=== PATIENT | female | born 1935 | race Caucasian/White ===

== ENCOUNTER 2018-11-30 11:09 | Observation (INO) | payer OTHER ==
[2018-11-30 12:05] LABS: Absolute Lymphocytes (CBC) 0.6 K/uL (0.7-4.9); Basophils % 0.6 % (0-1.3); Lymphocytes % 8.1 % (15.3-44.8); MPV 9.1 fL (7.6-11.3); RBC Red Blood Cell Count 3.41 M/uL (3.86-4.86)
[2018-11-30 12:20] LABS: Potassium 5.1 mmol/L (3.5-5.1)
[2018-11-30 12:35] LABS: Blood Morphology Comment NOT SEEN (NOT SEEN); Hypersegmented Neutrophils PRESENT; Platelet Estimate ADEQ
[2018-11-30] MEDS ORDERED: NA CHLORIDE 0.9% 1,000 ML ONE (12:52)
[2018-11-30 13:08] LABS: Urine Blood TRACE (NEG); Urine Glucose NEGATIVE (NEG); Urine Protein 3+ (NEG); Urine Specific Gravity 1.025 (1.005-1.030)
[2018-11-30] MEDS ORDERED: ACETAMINOPHEN 500 MG TAB PO PRN (14:19)
[2018-11-30] MEDS ORDERED: ONDANSETRON 4 MG/2 ML VIAL IV PRN (14:19)
[2018-11-30 15:09] VITALS: BMI 23.3
[2018-11-30] MEDS: NA CHLORIDE 0.9% 1,000 ML IV SCH (16:59)
[2018-11-30] MEDS ORDERED: INFLUENZA VACCINE (for 3y+) 0.5 ML DOSE IMVAC ONE (19:00)
[2018-11-30] MEDS ORDERED: LIPASE/PROTEASE/AMYLASE CAP PO SCH (21:00)
[2018-12-01] MEDS: NA CHLORIDE 0.9% 1,000 ML IV SCH ×3 (00:19→23:00)
--- NOTE | 2018-12-01 02:23 | HP ---
Date of Admission: 11/30/2018 Code Status: Full. Chief Complaint: Near-syncope. Primary Care Physician: Miriam Paige DO History Of Present Illness: Patient is an 83-year-old female with past medical history of chronic pancreatitis, on Creon; hypothyroidism; liver cirrhosis, unclear etiology; and solitary kidney, who was in her usual state of health until the day of admission when the patient had sudden onset of near-syncopal episode. Patient had gotten up, gone to the refrigerator, and had sudden feeling of dizziness, lightheadedness with near blackout, and patient, however, luckily had her walker with her and sat down on her walker. Patient was able to make it back to her bedroom and alerted her friends and EMS. Patient's symptoms are constant, moderate, progressively worsening. She does report decreased p.o. intake recently. Denies any nausea, vomiting, fever, or chills. Patient does have diarrhea secondary to her pancreatitis; however, has reported some acuteness to her symptoms. No ill contacts or unusual foods or travel outside the country. Due to patient's worsening symptoms, she was brought into the ER for further evaluation. No alleviating factors of her symptoms. In the ER, the patient was somewhat hypotensive. Her workup revealed potassium of 5.1. Her creatinine was 2.3. White blood cell count was normal. UA was negative. Patient was given 1 L normal saline bolus and then referred for admission. When seen in the ER, she was awake, alert, oriented x3 , elderly female, in some mild distress. Past Medical History: Solitary kidney after complications from kidney stones; diet-controlled diabetes; chronic pancreatitis, on Creon; hypothyroidism; liver cirrhosis, unclear etiology. Past Surgical History: 1971, had exploratory stomach surgery; cholecystectomy. Patient has a minna in her leg from fracture. 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 Allergies: DEMEROL, PENICILLIN, AND DARVON WELL SULFA ANTIBIOTICS. Medications: List reviewed. Family History: Father had too many white blood cells, likely some sort of leukemic reaction. Mother had heart disease. Brother had leukemia. Another brother had diabetes and melanoma. Social History: Patient denies any tobacco use, alcohol use, or illicit drug use. Review of Systems: 10-point system reviewed, negative except as per HPI. PLEASE SEE ADDENDUM FOR Physical Examination AND ASSESSMENT /MACK Voice ID: [id number] MTDVitor
--- NOTE | 2018-12-01 02:38 | HP ---
Date of Admission: 11/30/2018 Addendum: Physical Examination: Vital Signs: O2 100% on room air. General: Awake, alert, oriented x3. Elderly female, in some mild distress, ill-appearing. HEENT: Normocephalic, atraumatic. PERRLA. EOMI. Dry mucous membranes. Oropharynx is clear. Poor dentition. Conjunctivae are anicteric. Neck: Supple. No JVD. Trachea midline. CV: S1 and S2. Regular rate and rhythm. Peripheral pulses present. Respiratory: Moving air well bilaterally. No wheezing or stridor. No use of accessory muscles. Gastrointestinal: Abdomen is soft, nontender. Mildly distended. Positive bowel sounds. Minimal as cites. Extremities: No clubbing, cyanosis, pedal edema. No calf tenderness. Neuro: Cranial nerves 2 through 12 intact grossly. No focal neurological deficit. Speech is normal . Skin: No rashes. Normal skin turgor. Laboratory Data: UA, negative nitrite, negative leukocyte esterase. WBC 8, H and H 11.9 and 35, devyn telets 186, neutrophils 86%. Sodium 143, potassium 5.1, chloride 115, CO2 20, BUN 57, creatinine 2.3 1, glucose 171, calcium 8.2, lipase 330. Stool cultures pending. Assessment And Plan: An 83-year-old female with: 1.Near syncopal episode likely related to acute dehydration and possible orthostatic hypotension. W e will place on fall precautions. Obtain PT eval. 2.Acute dehydration secondary to diarrhea. We will continue with IV fluids. Patient has been bolus ed in the ER. Encourage p.o. intake. Patient does have some kidney dysfunction. 3.Acute on chronic kidney injury. Baselines are 1.9, currently 2.31, likely secondary to acute dehy dration. We will continue to monitor closely. Continue with IV fluids. Nephrology consultation if not improving. 4.Acute gastroenteritis, likely viral versus bacterial. Patient has had diarrhea, some nausea. No vomiting at this point. We will obtain stool studies. 5.Hypothyroidism. We will continue Synthroid. 6.Borderline diabetes, diet controlled. We will monitor blood glucose levels. Start on sliding sca le insulin if continues to be hyperglycemic. 7.Status post left nephrectomy. 8.History of liver cirrhosis with minimal ascites, no coma, unclear etiology. Plan: Admit the patient to Med-Surg, place as observation. Code status is full. Patient does not h ave medical power of research attorney or living will. /MACK Voice ID: [id number]
[2018-12-01] MEDS: LEVOTHYROXINE SOD 0.05 MG TABLET PO SCH (05:30)
[2018-12-01] MEDS: PANTOPRAZOLE 40MG TABLET PO SCH (05:30)
[2018-12-01 05:46] LABS: Absolute Lymphocytes (CBC) 0.9 K/uL (0.7-4.9); Basophils % 0.9 % (0-1.3); Hematocrit 31.2 % (36.0-45.0); Lymphocytes % 18.1 % (15.3-44.8); RBC Red Blood Cell Count 3.03 M/uL (3.86-4.86)
[2018-12-01 06:33] LABS: Albumin 2.3 g/dL (3.4-5.0); Bilirubin Total 0.4 mg/dL (0.2-1.0); Magnesium 1.7 mg/dL (1.8-2.4); Phosphorus 3.7 mg/dL (2.5-4.9); Potassium 4.7 mmol/L (3.5-5.1); Protein, Total 5.6 g/dL (6.4-8.2)
[2018-12-01] MEDS: ENOXAPARIN 30 MG/0.3 ML SQ SCH ×2 (08:37→08:56)
[2018-12-01] MEDS: HYDRALAZINE HCL 20 MG/ML VIAL IV PRN ×2 (08:37→12:36)
[2018-12-01] MEDS: LIPASE/PROTEASE/AMYLASE CAP PO SCH ×3 (08:37→21:07)
[2018-12-01] MEDS: FUROSEMIDE 40 MG TABLET PO SCH (16:43)
[2018-12-01] MEDS: METOPROLOL TAR 50 MG TAB PO SCH ×2 (16:44→21:02)
[2018-12-02 04:49] LABS: Absolute Lymphocytes (CBC) 0.7 K/uL (0.7-4.9); Basophils % 0.5 % (0-1.3); Hematocrit 30.4 % (36.0-45.0); Lymphocytes % 12.6 % (15.3-44.8); MPV 9.1 fL (7.6-11.3); RBC Red Blood Cell Count 2.98 M/uL (3.86-4.86)
[2018-12-02 05:16] LABS: Albumin 2.3 g/dL (3.4-5.0); Bilirubin Total 0.3 mg/dL (0.2-1.0); Potassium 4.9 mmol/L (3.5-5.1); Protein, Total 5.7 g/dL (6.4-8.2)
[2018-12-02 05:58] VITALS: O2SAT 98
[2018-12-02] MEDS: PANTOPRAZOLE 40MG TABLET PO SCH (06:01)
[2018-12-02] MEDS: LEVOTHYROXINE SOD 0.05 MG TABLET PO SCH (06:01)
--- NOTE | 2018-12-02 06:51 | DS ---
Discharge Diagnoses: 1.Near syncopal episode. 2.Acute dehydration secondary to diarrhea. 3.Acute on chronic kidney injury. 4.Acute gastroenteritis, resolved. 5.Hypothyroidism, on Synthroid. 6.Borderline diabetes, diet controlled. 7.Status post left nephrectomy. 8.History of liver cirrhosis and no ascites, no coma. Hospital Course: Patient is an 83-year-old female who came into the hospital for near syncopal episo de. Patient was found to have elevated creatinine above her baseline. UA was negative. Patient was bolused with IV fluids and referred for admission and evaluated for further workup. Patient's kidne y function improved with IV fluids. Her orthostatic vital signs were negative. Patient felt signifi cantly better. Did not have any further diarrhea. Her blood pressure medications including hydrochl orothiazide and Lasix were held. Patient's metoprolol was re-continued. Patient's blood pressure neumann d been elevated in the 190s. Patient did well with physical therapy. She walked over 300 feet. Emily noel was then feeling well and was cleared for discharge. She was sent home in a stable condition [facility] and PT. Medications: As per medication reconciliation list. Followup: Follow up with primary care physician in 2 to 3 days. Return to ER for worsening conditio n. Diet: Low-sodium, fluid-restricted diet. Activity: Fall precautions. Ambulate with assist. Patient to weigh herself daily and if more than 3 pounds weight gain, take extra dose of Lasix and contact primary care physician. Physical Examination: General: Awake, alert and oriented x3. Elderly female, no acute distress. CV: S1, S2. Respiratory: Moving air well bilaterally. Abdomen: Abdomen is soft, nontender, nondistended. Positive bowel sounds. Extremities: No clubbing, cyanosis. Pedal edema present. Neurologic: Nonfocal. SA/MODL Voice ID: [id number] Report ID: [id number]
[2018-12-02 08:27] VITALS: TEMP 97.2
[2018-12-02] MEDS: LIPASE/PROTEASE/AMYLASE CAP PO SCH (08:30)
[2018-12-02] MEDS: ENOXAPARIN 30 MG/0.3 ML SQ SCH (08:30)
[2018-12-02] MEDS: METOPROLOL TAR 50 MG TAB PO SCH (08:31)
[2018-12-02] MEDS: FUROSEMIDE 40 MG TABLET PO SCH (08:31)
[2018-12-02 08:34] VITALS: BP 182/74
[2018-12-02] MEDS ORDERED: INFLUENZA VACCINE (for 3y+) 0.5 ML DOSE IMVAC ONE (12:00)
--- NOTE | 2018-12-02 17:33 | PN ---
Date of Progress Note: 12/02/2018 Subjective: Patient is seen and examined. Chart reviewed and case discussed with RN. The patient was to be discharged yesterday; however, she was unable to go home yesterday as she lives alone and felt unsafe. The patient was able to make arrangements and now will be going home this morning. Medications: List reviewed. Physical Examination: Vital Signs: Temperature 97.2, heart rate 82, blood pressure 144/62, respirations 18, O2 of 97% on room air. General: Awake, alert, and oriented x3. Elderly female, not in any acute distress. CV: S1, S2. Respiratory: Moving air well bilaterally. No wheezing. Gastrointestinal: Abdomen is soft, nontender, nondistended. Positive bowel sounds. Extremities: No clubbing, cyanosis. Pedal edema is present. Neurologic: Nonfocal. Laboratory Data: Sodium 139, potassium 4.9, chloride 114, CO2 of 17, BUN 44, creatinine 2.31, glucose 119, calcium 7.3. WBC 6, H and H are 10.4 and 30.4, platelets 155, neutrophils 76%. Assessment And Plan: 1. Near syncopal episode, resolved. Secondary to dehydration 2. Acute dehydration secondary to diarrhea, resolved. 3. Acute on chronic kidney injury. Creatinine around baseline. 4. Acute gastroenteritis, resolved. Tolerating regular diet. 5. Hypothyroidism. Continue Synthroid. 6. Borderline diabetes. Diet controlled. 7. Status post left nephrectomy. 8. History of liver cirrhosis. No coma or ascites. Plan to discharge home with home health. ELAYNE Voice ID: [id number] Report ID: [id number] KARIN
== END 2018-12-02 12:00 | disposition home health service (06) ==
LOC: ER 11:09 → ERHOLD 13:10 → 2ND 14:02
PROVIDERS: ADMIT Family Medicine; ATTEND Family Medicine
DX: R55 Syncope and collapse (principal); E86.0 Dehydration; K52.9 Noninfective gastroenteritis and colitis, unspecified; E03.9 Hypothyroidism, unspecified; N18.9 Chronic kidney disease, unspecified; N17.9 Acute kidney failure, unspecified; R73.03 Prediabetes; Z88.0 Allergy status to penicillin; Z88.2 Allergy status to sulfonamides; Z23 Encounter for immunization
CPT/HCPCS: 85025 ×3; 80048; 36415 ×2; 83735; 89055; 84100; 81003; 83690; 80053 ×2; 90471; 97112; 97116 ×2; 97161; 94760 ×4; J0360; Q2035; J1650; J7030 ×4; G0378 ×4

== ENCOUNTER 2018-12-15 07:21 | Day surgery (SDC) | payer OTHER ==
[2018-12-15] MEDS ORDERED: Ringers Lactate 1,000 ML IV ONE (08:08)
[2018-12-15] MEDS ORDERED: PROPOFOL 200 MG/20 ML VIAL IV ONE (10:09)
[2018-12-15] MEDS ORDERED: LIDOCAINE 1% MPF 30 ML VIAL ONE (10:09)
[2018-12-15] MEDS ORDERED: GLYCOPYRROLATE 0.2 MG/ML SYR ONE (10:09)
--- NOTE | 2018-12-15 10:47 | ENDO RPT ---
[address], [address] EGD PROCEDURE REPORT EXAM DATE: 12/15/2018 PATIENT NAME: Sherry Payan MR#: [id number] BIRTHDATE: 1935 ATTENDING: [address] STATUS: outpatient [place]FETERIA TABLE ATTENDANT: Zuleyma Musa RN, Freda Oropeza, and Angelika Hughes RN INDICATIONS: The patient is a 83 yr old Female here for an EGD due to esophageal varices screening, ESLD/cirrhosis PROCEDURE PERFORMED: EGD with biopsy MEDICATIONS: Per Anesthesia. TOPICAL ANESTHETIC: none CONSENT: The patient understands the risks and benefits of the procedure and understands that these risks include, but are not limited to: sedation, allergic reaction, infection, perforation and/or bleeding. Alternative means of evaluation and treatment include, among others: physical exam, x-rays, and/or surgical intervention. The patient elects to proceed with this endoscopic procedure. DESCRIPTION OF PROCEDURE: During intra-op preparation period all mechanical medical equipment was checked for proper function. Hand hygiene and appropriate measures for infection prevention was taken. Procedure, possible complications, and alternatives including but not limited to the possibility of bleeding, perforation, tear, infection, sepsis, need for surgery, need for blood transfusion, and anesthesia related complications were explained to the patient. After the risks, benefits and alternatives of the procedure were thoroughly explained, Informed consent was verified, confirmed and timeout was successfully executed by the treatment team. The patient was placed in the left lateral position. The patient was anesthetized with topical anesthesia. Through the anesthetized oropharyngeal area, the scope was passed without any difficulty. The Pentax EG-[id number] ([id number]) endoscope was introduced through the mouth and advanced to the third portion of the duodenum. Retroflexed views revealed a small hiatal hernia. The gastroscope was then slowly withdrawn and removed. A small hiatal hernia was found. Mild atrophic gastritis was found in the body and the antrum of the stomach. Multiple biopsies were obtained and sent to pathology. Two 6 mm sessile polyps were found in the bulb of the duodenum. ADVERSE EVENTS: There were no complications. IMPRESSIONS: 1. Small hiatal hernia 2. Mild atrophic gastritis in the body and the antrum of the stomach, s/p biopsies 3. Two 6 mm sessile polyps in the bulb of the duodenum (prior biopsies benign) RECOMMENDATIONS: 1. await biopsy results 2. acid suppression therapy REPEAT EXAM: Chapo [address] Dr eSigned: Chapo Dodd Dr 12/15/2018 10:46 AM cc: CPT CODES: ICD9 CODES: PATIENT NAME: Sherry PayanKenyetta MR#: [id number]
[2018-12-15 14:37] VITALS: TEMP 97.3
[2018-12-15 14:38] VITALS: BP 166/61; O2SAT 98
== END 2018-12-15 11:30 | disposition home or self-care (01) ==
LOC: OR 07:21
PROVIDERS: ATTEND Internal Medicine Gastroenterology
PROC: 0DB68ZX Excision of Stomach, Via Natural or Artificial Opening Endoscopic, Diagnostic (ICD-10-PCS; principal; 2018-12-15 10:00)
DX: K74.60 Unspecified cirrhosis of liver (principal); K29.40 Chronic atrophic gastritis without bleeding; K21.9 Gastro-esophageal reflux disease without esophagitis; K31.7 Polyp of stomach and duodenum; K72.90 Hepatic failure, unspecified without coma; K44.9 Diaphragmatic hernia without obstruction or gangrene; E11.9 Type 2 diabetes mellitus without complications; I10 Essential (primary) hypertension; J45.909 Unspecified asthma, uncomplicated; M19.90 Unspecified osteoarthritis, unspecified site; Z87.11 Personal history of peptic ulcer disease; Z88.6 Allergy status to analgesic agent
CPT/HCPCS: 88312; 88305; 43239; J2704; J7120

== ENCOUNTER 2019-01-20 08:34 | Inpatient (IN) | payer OTHER ==
--- OUTSIDE RECORDS SUMMARY | 2019-01-20 08:36 | XMS REPORT ---
:1935 Author Organization e[employer] Care Team Providers Name Role Phone Paige, Na Provider Role Unavailable Allergies, Adverse Reactions, Alerts Substance Reaction Event Type PCN Info Not Available Drug Allergy Demerol Info Not Available Drug Allergy Darvon Info Not Available Drug Allergy Problems Problem Type Condition Code Onset Dates Condition Status Assessment CKD (chronic kidney disease) stage N18.4 Active 4, GFR 15-29 ml/min Assessment Anemia, unspecified type D64.9 Active Assessment Pancreatic insufficiency K86.89 Active Assessment Edema, lower extremity R60.0 Active Assessment Hepatic cirrhosis, unspecified K74.60 Active hepatic cirrhosis type, unspecified whether ascites present Assessment Pure hypercholesterolemia E78.00 Active Assessment Acquired hypothyroidism E03.9 Active Assessment Elevated blood pressure reading I10 Active with diagnosis of hypertension Problem History of nephrectomy, 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 Active Problem Gallstones K80.20 Active Problem Acquired hypothyroidism E03.9 Active Problem Age-related osteoporosis without M81.0 Active current pathological fracture Problem Macrocytosis D75.89 Active Problem Prediabetes R73.03 Active Problem Pancreatic insufficiency K86.89 Active Problem Hepatic cirrhosis, unspecified K74.60 Active hepatic cirrhosis type, unspecified whether ascites present Problem Need for assistance due to unsteady R26.89 Active gait Problem GERD (gastroesophageal reflux K21.9 Active disease) Problem Chronic GERD K21.9 Active Problem Elevated blood pressure reading I10 Active with diagnosis of hypertension Problem Kidney disease N28.9 Active Problem CKD (chronic kidney disease) stage N18.4 Active 4, GFR 15-29 ml/min Problem Anemia, unspecified type D64.9 Active Problem Allergic rhinitis, unspecified J30.9 Active seasonality, unspecified trigger Problem Hyperkalemia, diminished renal E87.5 Active excretion Assessment History of nephrectomy, 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 Active Problem Diabetes E11.9 Active Assessment Allergic rhinitis, unspecified J30.9 Active seasonality, unspecified trigger Problem Allergic rhinitis J30.9 Active Problem Asthma J45.909 Active Assessment Need for assistance due to unsteady R26.89 Active gait Problem Anxiety F41.9 Active Problem Kidney stones N20.0 Active Problem Pure hypercholesterolemia E78.00 Active Problem Hyperlipidemia E78.5 Active Problem Sinus problem J34.9 Active Medications Medication Code Code Instructions Start End Status Dosage System Date Date Alendronate [facility] 06610530170 70 MG Orally Active 1 tablet Sodium Omeprazole [facility] 31300050747 20 MG Orally Active 1 capsule Once a day Metoprolol [facility] 45009779589 50 MG Orally Active 1 tablet Tartrate Twice a day with food Vitamin E [facility] 88218835455 400 UNIT Orally Active 1 capsule Once a day Levothyroxine [facility] 57913103920 75 MCG Orally Active 1 tablet Sodium Once a day on an empty stomach in the morning Furosemide [facility] 22315761689 40 MG Orally Active 1 tablet Once a day Vitamin B12 [facility] 91567248928 1000 MCG Orally Active 1 tablet Once a day Centrum Silver [facility] 86816287018 - Orally Active not defined Creon [facility] 53019973238 06179-43312 Active once cap UNIT Orally three times a day Prevalite [facility] 08511072843 4 GM Orally Active 1 packet once a day Fish Oil [facility] 65809002493 1000 MG Orally Active 1 capsule Once a day Prevalite [facility] 37373914471 4 GM Orally Active 1 packet once a day Metoprolol [facility] 29534390460 50 MG Orally July 29, Active 1 capsule Succinate Once a day 2018 Levothyroxine [facility] 56342407896 100 MCG Orally Active 1 tablet Sodium Once a day on an empty stomach in the morning Metoprolol [facility] 03576191061 50 MG Orally Active 1 tablet Tartrate Twice a day with food Results No Known Results Summary Purpose eClinicalWorks Submission
--- OUTSIDE RECORDS SUMMARY | 2019-01-20 08:36 | XMS REPORT ---
:1935 Author [facility] Address [address] [place] [address] [address] [place] [address] Care Team Providers Name Role Phone POONAM CASTRO MARYAM Unavailable Unavailable Problems This patient has no known problems. Allergies, Adverse Reactions, Alerts This patient has no known allergies or adverse reactions. Medications This patient has no known medications. Results Test Description Test Time Test Comments Text Results Atomic Results Result Comments U/S, ABDOMINAL, 2018-12-30 REFERRING: DR ZUÑIGA FINAL REPORT PATIENT ID: COMPLETE 17:50:00 SWEATTReason for [id number] TECHNIQUE: Exam:->cirrhosis, rule Grayscale ultrasound of the out HCC abdomen. INDICATION: cirrhosis, rule out HCC. COMPARISON: CT from 12/30/2007 FINDINGS: MIDLINE VASCULATURE: The visualized inferior vena cava is unremarkable. Portal vein is patent. The maximum visualized aortic diameter is 1.3 cm. LIVER: Coarsened hepatic echotexture. Nodular liver contour. No focal lesions. The main portal vein measures 1 cm. BILIARY:Gallbladder: Prior cholecystectomyCommon bile duct measures 0.6 cm, within normal limits. No intrahepatic biliary ductal dilatation. PANCREAS: Incompletely visualized due to overlying bowel gas. SPLEEN: No splenomegaly. The spleen measures 10 cm. PERITONEUM: Small volume perihepatic ascites. KIDNEYS: The right kidney is normal in size. The left kidney was not well visualized due to bowel gas. No hydronephrosis. No sonographically evident solid mass lesion. IMPRESSION: Cirrhosis with ascites. No focal hepatic lesions. Signed: Aniket Hhan MDRtierra Verified Date/Time: 12/30/2018 17:50:49 Reading Location: [address] Radiology Reading Room TITIS B SURFACE ANTIBODY 2018-12-30 17:45:00 Test Item Value Reference Range Comments HEPATITIS B SURFACE ANTIBODY (BEAKER) (test jdmf=880) < mIU/mL <8.0 HEPATITIS A ANTIBODY, [id number] 17:45:00 Test Item Value Reference Range Comments HEPATITIS A IGG ANTIBODY (BEAKER) (test gqiy=4619) Reactive Nonreactive ALPHA FETOPROTEIN (AFP), TUMOR [id number] 17:45:00 Test Item Value Reference Range Comments ALPHA-FETOPROTEIN (BEAKER) (test wvbs=5122) < ng/mL <10.0 HEPATITIS C [id number] 17:33:00 Test Item Value Reference Range Comments HEPATITIS C ANTIBODY (BEAKER) (test vyqb=246) Nonreactive Nonreactive HEPATITIS B SURFACE [id number] 17:30:00 Test Item Value Reference Range Comments HEPATITIS B SURFACE ANTIGEN (2) (BEAKER) (test Nonreactive Nonreactive ocuw=3474) HEPATITIS B CORE ANTIBODY, [id number] 17:30:00 Test Item Value Reference Range Comments HEPATITIS B CORE TOTAL ANTIBODY (BEAKER) (test Nonreactive Nonreactive edhh=722) HEPATIC FUNCTION [id number] 16:06:00 Test Item Value Reference Range Comments TOTAL PROTEIN (BEAKER) (test iksp=524) 6.5 gm/dL 6.0-8.3 ALBUMIN (BEAKER) (test nocu=5227) 3.0 g/dL 3.5-5.0 BILIRUBIN TOTAL (BEAKER) (test wpbd=962) 0.4 mg/dL 0.2-1.2 BILIRUBIN DIRECT (BEAKER) (test zfep=657) 0.2 mg/dL 0.1-0.5 ALKALINE PHOSPHATASE (BEAKER) (test doah=312) 53 U/L 40-150 AST (SGOT) (BEAKER) (test jbat=220) 19 U/L 5-34 ALT (SGPT) (BEAKER) (test bssk=300) 21 U/L 6-55 BASIC METABOLIC [id number] 16:06:00 Test Item Value Reference Range Comments SODIUM (BEAKER) (test 138 meq/L 136-145 iokn=263) POTASSIUM (BEAKER) (test 5.4 meq/L 3.5-5.1 zyqt=690) CHLORIDE (BEAKER) (test 114 meq/L 98-107 mydv=178) CO2 (BEAKER) (test 20 meq/L 22-29 athp=479) BLOOD UREA NITROGEN 44 mg/dL 7-21 (BEAKER) (test qnaw=440) CREATININE (BEAKER) (test 2.60 mg/dL 0.57-1.25 tgok=221) GLUCOSE RANDOM (BEAKER) 93 mg/dL 70-105 (test hkxz=313) CALCIUM (BEAKER) (test 8.2 mg/dL 8.4-10.2 hoaw=819) EGFR (BEAKER) (test 18 mL/min/1.73 sq m ESTIMATED GFR IS NOT lwfj=0470) ACCURATE CREATININE CLEARANCE IN PREDICTING GLOMERULAR FILTRATION RATE. ESTIMATED GFR IS NOT APPLICABLE FOR DIALYSIS PATIENTS. PROTHROMBIN [id number] 15:51:00 Test Item Value Reference Range Comments PROTIME (BEAKER) (test cfdd=965) 14.2 seconds 11.9-14.2 INR (BEAKER) (test lpka=238) 1.2 <=5.9 Effective 07/29/2018: PT Reference Range ChangeNew: 11.9-14.2 Previous: 11.7- 14.7RECOMMENDED COUMADIN/WARFARIN INR THERAPY RANGESSTANDARD DOSE: 2.0-3.0 Includes: PROPHYLAXIS for venous thrombosis, systemic embolization; TREATMENT for venous thrombosis and/or pulmonary embolus.HIGH RISK: Target INR is2.5-3.5 for patients wiht mechanical heart valves.CBC W/PLT COUNT & AUTO [id number] 15:45:00 Test Item Value Reference Range Comments WHITE BLOOD CELL COUNT (BEAKER) (test luef=137) 7.7 K/ L 3.5-10.5 RED BLOOD CELL COUNT (BEAKER) (test shzs=574) 3.25 M/ L 3.93-5.22 HEMOGLOBIN (BEAKER) (test cclp=263) 10.9 GM/DL 11.2-15.7 HEMATOCRIT (BEAKER) (test tkqh=418) 34.1 % 34.1-44.9 MEAN CORPUSCULAR VOLUME (BEAKER) (test wryo=007) 104.9 fL 79.4-94.8 MEAN CORPUSCULAR HEMOGLOBIN (BEAKER) (test 33.5 pg 25.6-32.2 oqxk=558) MEAN CORPUSCULAR HEMOGLOBIN CONC (BEAKER) (test 32.0 GM/DL 32.2-35.5 kgjo=026) RED CELL DISTRIBUTION WIDTH (BEAKER) (test 13.5 % 11.7-14.4 fuxc=678) PLATELET COUNT (BEAKER) (test oqtk=695) 215 K/CU MM 150-450 MEAN PLATELET VOLUME (BEAKER) (test iafw=878) 10.4 fL 9.4-12.3 NUCLEATED RED BLOOD CELLS (BEAKER) (test 0 /100 WBC 0-0 ifuc=201) NEUTROPHILS RELATIVE PERCENT (BEAKER) (test 74 % vqav=268) LYMPHOCYTES RELATIVE PERCENT (BEAKER) (test 16 % wcrs=839) MONOCYTES RELATIVE PERCENT (BEAKER) (test 8 % lhsy=394) EOSINOPHILS RELATIVE PERCENT (BEAKER) (test 2 % fxky=588) BASOPHILS RELATIVE PERCENT (BEAKER) (test 1 % pzjs=616) NEUTROPHILS ABSOLUTE COUNT (BEAKER) (test 5.69 K/ L 1.56-6.13 fcqm=945) LYMPHOCYTES ABSOLUTE COUNT (BEAKER) (test 1.22 K/ L 1.18-3.74 boer=223) MONOCYTES ABSOLUTE COUNT (BEAKER) (test 0.59 K/ L 0.24-0.36 toda=042) EOSINOPHILS ABSOLUTE COUNT (BEAKER) (test 0.13 K/ L 0.04-0.36 pyrh=315) BASOPHILS ABSOLUTE COUNT (BEAKER) (test 0.05 K/ L 0.01-0.08 denn=012) IMMATURE GRANULOCYTES-RELATIVE PERCENT (BEAKER) 0 % 0-1 (test osxm=1206)
--- NOTE | 2019-01-20 09:05 | RAD REPORT ---
EXAM DESCRIPTION: RAD - Chest Single View - 01/20/2019 8:59 am CLINICAL HISTORY: near syncope Chest pain. COMPARISON: Abdomen 1 View (KUB) dated 01/09/2017; Chest Pa And Lat (2 Views) dated 01/09/2017; Chest Single View dated 10/15/2016; Chest Single View dated 04/15/2016 FINDINGS: Portable technique limits examination quality. The lungs are underinflated but grossly clear. The heart is upper limit normal in size. No displaced fractures. IMPRESSION: No acute intrathoracic process suspected.
[2019-01-20] MEDS ORDERED: NA CHLORIDE 0.9% 500 ML ONE ×2 (09:07→12:40)
[2019-01-20 09:18] LABS: Basophils % 0.6 % (0-1.3); Hematocrit 33.8 % (36.0-45.0); Lymphocytes % 16.2 % (15.3-44.8); MPV 9.1 fL (7.6-11.3); RBC Red Blood Cell Count 3.32 M/uL (3.86-4.86)
[2019-01-20 09:29] LABS: ALT/SGPT 26 U/L (12-78); AST/SGOT 22 U/L (15-37); Albumin 2.5 g/dL (3.4-5.0); Alkaline Phosphatase 41 U/L (45-117); BUN Blood Urea Nitrogen 51 mg/dL (7-18); Bicarbonate 19 mmol/L (21-32); Bilirubin Direct 0.2 mg/dL (0-0.2); Bilirubin Total 0.4 mg/dL (0.2-1.0); Glucose Level 99 mg/dL (74-106); Magnesium 1.8 mg/dL (1.8-2.4); NT PRO-BNP 27127 pg/mL (<450); Potassium 4.5 mmol/L (3.5-5.1); Protein, Total 6.4 g/dL (6.4-8.2); Sodium Level 140 mmol/L (136-145); Troponin (Emerg Dept Use Only) < 0.02 ng/mL (0.0-0.045)
--- NOTE | 2019-01-20 11:50 | EDPHYS ---
Physician Documentation [facility] Name: Sherry Payan Age: 83 yrs Sex: Female : 1935 Arrival Date: 01/20/2019 Time: 08:35 Bed 16 Private MD: ED Physician Ama Thoams HPI: 01/20 10:48 This 83 yrs old Female presents to ER via Ambulatory with complaints of Near jr8 Syncope. 10:48 Onset: The symptoms/episode began/occurred gradually, 2 day(s) ago. Duration: The jr8 patient has had multiple episodes. Context: occurred at home, occurred while the patient was standing. Associated signs and symptoms: The patient has no apparent associated signs or symptoms. Current symptoms: Currently, the patient is not experiencing any symptoms. The patient has experienced a previous episode. The patient has been recently seen by a physician:. Patient stated that when she has been getting up and moving around. Starts to feel weak and if she is going to pass out. Stated that she has had this once before and was secondary to dehydration. Historical: - Allergies: 08:41 darva; ss 08:41 meperidine HCl; ss 08:41 PENICILLINS; ss 08:41 Propoxyphene HCl; ss - PMHx: 08:41 Hyperlipidemia; Hypertension; Kidney stones; ss - PSHx: 08:41 Left kidney removed; Exploratory surgery of intestines; "bypass of intestines to lose ss weight"; - Immunization history:: Adult Immunizations up to date. - Social history:: Smoking status: Patient/guardian denies using tobacco. - Ebola Screening: : Patient denies exposure to infectious person Patient denies travel to an Ebola-affected area in the 21 days before illness onset. ROS: 10:48 Eyes: Negative for injury, pain, redness, and discharge, ENT: Negative for injury, jr8 pain, and discharge, Neck: Negative for injury, pain, and swelling, Cardiovascular: Negative for chest pain, palpitations, and edema, Respiratory: Negative for shortness of breath, cough, wheezing, and pleuritic chest pain, Abdomen/GI: Negative for abdominal pain, nausea, vomiting, diarrhea, and constipation, Back: Negative for injury and pain, MS/Extremity: Negative for injury and deformity, Skin: Negative for injury, rash, and discoloration. 10:48 Constitutional: Negative for fever, chills, and weight loss. 10:48 Neuro: Positive for near syncope, weakness. Exam: 10:48 Eyes: Pupils equal round and reactive to light, extra-ocular motions intact. Lids and jr8 lashes normal. Conjunctiva and sclera are non-icteric and not injected. Cornea within normal limits. Periorbital areas with no swelling, redness, or edema. ENT: Nares patent. No nasal discharge, no septal abnormalities noted. Tympanic membranes are normal and external auditory canals are clear. Oropharynx with no redness, swelling, or masses, exudates, or evidence of obstruction, uvula midline. Mucous membranes moist. Neck: Trachea midline, no thyromegaly or masses palpated, and no cervical lymphadenopathy. Supple, full range of motion without nuchal rigidity, or vertebral point tenderness. No Meningismus. Cardiovascular: Regular rate and rhythm with a normal S1 and S2. No gallops, murmurs, or rubs. Normal PMI, no JVD. No pulse deficits. 1+ pitting edema bilaterally Respiratory: Lungs have equal breath sounds bilaterally, clear to auscultation and percussion. No rales, rhonchi or wheezes noted. No increased work of breathing, no retractions or nasal flaring. Abdomen/GI: Soft, non-tender, with normal bowel sounds. No distension or tympany. No guarding or rebound. No evidence of tenderness throughout. Back: No spinal tenderness. No costovertebral tenderness. Full range of motion. Skin: Warm, dry with normal turgor. Normal color with no rashes, no lesions, and no evidence of cellulitis. MS/ Extremity: Pulses equal, no cyanosis. Neurovascular intact. Full, normal range of motion. Neuro: Awake and alert, GCS 15, oriented to person, place, time, and situation. Cranial nerves II-XII grossly intact. Motor strength 5/5 in all extremities. Sensory grossly intact. Vital Signs: 08:41 BP 160 / 92; Resp 17; Temp 98.1(O); Weight 64.86 kg; Pain 0/10; ss 10:00 BP 145 / 77; Pulse 54; Resp 15; Pulse Ox 97% ; hb 11:00 BP 160 / 81; Pulse 52; Resp 16; Pulse Ox 100% on R/A; hb 12:00 BP 185 / 61; Pulse 55; Resp 15; Pulse Ox 98% on R/A; hb 13:30 BP 162 / 70; Pulse 52; Resp 16; Pulse Ox 99% on R/A; Pain 0/10; hb MDM: 08:37 Patient medically screened. jr8 11:47 Data reviewed: vital signs, nurses notes, lab test result(s), EKG, radiologic studies, jr plain films. Data interpreted: Pulse oximetry: on room air is 100 %. Interpretation: normal. Counseling: I had a detailed discussion with the patient and/or guardian regarding: the historical points, exam findings, and any diagnostic results supporting the discharge/admit diagnosis, lab results, radiology results, the need for further work-up and treatment in the hospital. ED course: Discussed renal function with Dr. Cai. Agrees patient needs to come into hospital for observation for continual hydration. Patient also good with this . 01/20 08:37 Order name: Basic Metabolic Panel; Complete Time: 10:00 [facility] 01/20 08:37 Order name: CBC with Diff; Complete Time: 10:00 [facility] 01/20 08:37 Order name: LFT's; Complete Time: 10:00 [facility] 01/20 08:37 Order name: Magnesium; Complete Time: 10:00 [facility] 01/20 08:37 Order name: NT PRO-BNP; Complete Time: 10:00 [facility] 01/20 08:37 Order name: PT-INR; Complete Time: 10:00 [facility] 01/20 08:37 Order name: Troponin (emerg Dept Use Only); Complete Time: 10:00 [facility] 01/20 12:08 Order name: Urine Dipstick--Ancillary (enter results); Complete Time: 13:14 [facility]d 01/20 12:32 Order name: Urinalysis [facility] 01/20 12:32 Order name: CBC with Automated Diff [facility] 01/20 12:32 Order name: CBC with Automated Diff [facility] 01/20 12:32 Order name: Comprehensive Metabolic Panel [facility] 01/20 12:32 Order name: Comprehensive Metabolic Panel [facility] 01/20 12:32 Order name: Lipid Profile [facility] 01/20 08:37 Order name: XRAY Chest (1 view); Complete Time: 09:12 [facility] 01/20 08:37 Order name: EKG; Complete Time: 08:38 [facility] 01/20 08:37 Order name: Cardiac monitoring; Complete Time: 08:44 [facility] 01/20 08:37 Order name: EKG - Nurse/Tech; Complete Time: 08:44 [facility] 01/20 08:37 Order name: IV Saline Lock; Complete Time: 09:03 [facility] 01/20 08:37 Order name: Labs collected and sent; Complete Time: 09:03 [facility] 01/20 08:37 Order name: O2 Per Protocol; Complete Time: 08:44 [facility] 01/20 12:32 Order name: CONS Physician Consult [facility] 01/20 12:32 Order name: Heart Healthy [facility] 01/20 12:32 Order name: Lipid Profile [facility] 01/20 12:32 Order name: Magnesium [facility] 01/20 12:32 Order name: Magnesium [facility] 01/20 12:32 Order name: Phosphorus [facility] 01/20 12:32 Order name: Phosphorus [facility] 01/20 08:37 Order name: O2 Sat Monitoring; Complete Time: 08:44 [facility] 01/20 11:49 Order name: Urine Dipstick-Ancillary (obtain specimen); Complete Time: 12:12 Administered Medications: 09:14 Drug: NS 0.9% 500 ml Route: IV; Rate: bolus; Site: left forearm; hb 12:46 Drug: NS 0.9% 1000 ml Route: IV; Rate: 100 ml/hr; Site: left forearm; hb Disposition: 17:51 Co-signature as Attending Physician, Ama Thomas MD. ma2 Disposition: 01/20/19 11:49 Hospitalization ordered by [facility] for Observation. Preliminary diagnosis are Dehydration, Acute kidney failure. - Bed requested for Telemetry/MedSurg (observation). - Status is Observation. hb - Condition is Stable. - Problem is new. - Symptoms have improved. UTI on Admission? No Signatures: Dispatcher [facility] Sarah Bishop RN RN dw Smirch, Shelby, RN RN ss Roszak, Josh, PA PA jr8 Mely Sandhu RN RN hb Alzahri, Mohammad, MD MD ma2 Corrections: (The following items were deleted from the chart) 13:01 11:49 Hospitalization Ordered by [facility] MD for Observation. Preliminary dw diagnosis is Dehydration; Acute kidney failure. Bed requested for Telemetry/MedSurg (observation). Status is Observation. Condition is Stable. Problem is new. Symptoms have improved. UTI on Admission? No. jr8 14:03 13:01 01/20/2019 11:49 Hospitalization Ordered by [facility] MD for Observation. hb Preliminary diagnosis is Dehydration; Acute kidney failure. Bed requested for Telemetry/MedSurg (observation). Status is Observation. Condition is Stable. Problem is new. Symptoms have improved. UTI on Admission? No. dw
--- NOTE | 2019-01-20 11:50 | ER ---
Nurse's Notes [facility] Name: Sherry Payan Age: 83 yrs Sex: Female : 1935 Arrival Date: 01/20/2019 Time: 08:35 Bed 16 Private MD: Diagnosis: Dehydration;Acute kidney failure Presentation: 01/20 08:35 Presenting complaint: Patient states: Near syncope when standing x "a few days". Pt ss reports that this has happened before, and it was because she was dehydrated. "Dr. Cruz wanted to admit be Friday for dehydration to have an overnight drip, but I told her that my family was coming down to have Thanksgiving.". Transition of care: patient was not received from another setting of care. Onset of symptoms is unknown. Risk Assessment: Do you want to hurt yourself or someone else? Patient reports no desire to harm self or others. Initial Sepsis Screen: Does the patient meet any 2 criteria? No. Patient's initial sepsis screen is negative. Does the patient have a suspected source of infection? No. Patient's initial sepsis screen is negative. Care prior to arrival: None. 08:35 Method Of Arrival: Ambulatory ss 08:35 Acuity: JULIA 3 ss Historical: - Allergies: 08:41 darva; ss 08:41 meperidine HCl; ss 08:41 PENICILLINS; ss 08:41 Propoxyphene HCl; ss - PMHx: 08:41 Hyperlipidemia; Hypertension; Kidney stones; ss - PSHx: 08:41 Left kidney removed; Exploratory surgery of intestines; "bypass of intestines to lose ss weight"; - Immunization history:: Adult Immunizations up to date. - Social history:: Smoking status: Patient/guardian denies using tobacco. - Ebola Screening: : Patient denies exposure to infectious person Patient denies travel to an Ebola-affected area in the 21 days before illness onset. Screenin:03 Abuse screen: Denies threats or abuse. Denies injuries from another. Nutritional hb screening: No deficits noted. Tuberculosis screening: No symptoms or risk factors identified. Fall Risk Total Rodriguez Fall Scale indicates Low Risk Score (25-44 pts). Fall prevention measures have been instituted. Side Rails Up X 2 Frequent Obs/Assesments occuring As available Patient and Family Educated on Fall Prevention Program and strategies. Assessment: 09:00 General: Appears in no apparent distress. Behavior is calm, cooperative. Pain: Denies hb pain. Neuro: Level of Consciousness is awake, alert, obeys commands, Oriented to person, place, time, situation. Cardiovascular: Heart tones S1 S2 present Capillary refill < 3 seconds Patient's skin is warm and dry. Respiratory: Airway is patent Respiratory effort is even, unlabored, Respiratory pattern is regular, symmetrical, Breath sounds are clear bilaterally. GI: No signs and/or symptoms were reported involving the gastrointestinal system. : No signs and/or symptoms were reported regarding the genitourinary system. EENT: No signs and/or symptoms were reported regarding the EENT system. Derm: Skin is pink, warm \\T\\ dry. Musculoskeletal: No signs and/or symptoms reported regarding the musculoskeletal system. 10:00 Reassessment: Patient appears in no apparent distress at this time. Patient and/or hb family updated on plan of care and expected duration. Pain level reassessed. Patient is alert, oriented x 3, equal unlabored respirations, skin warm/dry/pink. 11:00 Reassessment: Patient appears in no apparent distress at this time. No changes from hb previously documented assessment. Patient and/or family updated on plan of care and expected duration. Pain level reassessed. Patient is alert, oriented x 3, equal unlabored respirations, skin warm/dry/pink. 12:00 Reassessment: Patient appears in no apparent distress at this time. Patient and/or hb family updated on plan of care and expected duration. Pain level reassessed. Patient is alert, oriented x 3, equal unlabored respirations, skin warm/dry/pink. 13:30 Reassessment: Patient appears in no apparent distress at this time. No changes from hb previously documented assessment. Patient and/or family updated on plan of care and expected duration. Pain level reassessed. Patient is alert, oriented x 3, equal unlabored respirations, skin warm/dry/pink. Vital Signs: 08:41 BP 160 / 92; Resp 17; Temp 98.1(O); Weight 64.86 kg; Pain 0/10; ss 10:00 BP 145 / 77; Pulse 54; Resp 15; Pulse Ox 97% ; hb 11:00 BP 160 / 81; Pulse 52; Resp 16; Pulse Ox 100% on R/A; hb 12:00 BP 185 / 61; Pulse 55; Resp 15; Pulse Ox 98% on R/A; hb 13:30 BP 162 / 70; Pulse 52; Resp 16; Pulse Ox 99% on R/A; Pain 0/10; hb ED Course: 08:35 Patient arrived in ED. ss 08:37 Suraj Hernandez PA is PHCP. jr8 08:37 Stefan Santiago MD is Attending Physician. jr8 08:38 Triage completed. ss 08:40 Mely Sandhu, RN is Primary Nurse. hb 08:41 Arm band placed on right wrist. ss 08:45 EKG done, by instrument and control technician. reviewed by Suraj OVALLES. at1 08:53 Ama Thomas MD is Attending Physician. jr8 08:53 Inserted saline lock: 22 gauge in right forearm, using aseptic technique. Blood hb collected. 09:01 XRAY Chest (1 view) In Process Unspecified. EDMS 09:03 Mely Sandhu RN is Primary Nurse. hb 09:03 Patient has correct armband on for positive identification. Bed in low position. Call hb light in reach. Side rails up X2. 11:49 [facility] MD is Hospitalizing Provider. jr8 14:01 No provider procedures requiring assistance completed. Patient admitted, IV remains in hb place. Administered Medications: 09:14 Drug: NS 0.9% 500 ml Route: IV; Rate: bolus; Site: left forearm; hb 12:46 Drug: NS 0.9% 1000 ml Route: IV; Rate: 100 ml/hr; Site: left forearm; hb Outcome: 11:49 Decision to Hospitalize by Provider. jr8 14:01 Admitted to Tele accompanied by tech, via wheelchair, with chart, Report called to flory Cortez RN 14:01 Condition: stable 14:01 Instructed on the need for admit, Demonstrated understanding of instructions. 14:03 Patient left the ED. hb Signatures: Dispatcher [employer] EDMS Mariana Tejeda RN RN Suraj Hernandez PA PA jr8 Kenzie Nunes, collector EKG Tat1 Mely Sandhu RN RN hb
[2019-01-20] MEDS ORDERED: ONDANSETRON 4 MG/2 ML VIAL IV PRN (12:27)
[2019-01-20] MEDS ORDERED: ACETAMINOPHEN 500 MG TAB PO PRN (12:27)
--- NOTE | 2019-01-20 12:32 | P.HP ---
Certification for Inpatient Patient admitted to: Observation With expected LOS: <2 Midnights Patient will require the following post-hospital care: None Practitioner: I am a practitioner with admitting privileges, knowledge of patient current condition, hospital course, and medical plan of care. Services: Services provided to patient in accordance with Admission requirements found in Title 42 Section 412.3 of the Code of Federal Regulations Patient History Date of Service: 01/20/19 Reason for admission: presyncope / Generalised weakness History of Present Illness: 83-year-old female with past medical history of hypothyroidism; liver cirrhosis , unclear etiology; and solitary kidney, who had sudden onset of near-syncopal episode. Patient had gotten up, and had sudden feeling of dizziness, lightheadedness with near blackout, and patient, however, sat down on her walker. Patient's symptoms are constant, moderate, progressively worsening. Denies any nausea, vomiting, fever, or chills. Patient does have diarrhea secondary to her pancreatitis; however, has reported some acuteness to her symptoms. No sick contacts or unusual foods or travel . Due to patient's worsening symptoms, she was brought into the ER for further evaluation. No alleviating factors of her symptoms. In the ER, the er workup revealed NOEMI. And was admitted for further monitoring Allergies meperidine HCl [From Demerol] Allergy (Severe, Verified 12/15/18 08:38) Itching/Hives/Rash Penicillins Allergy (Severe, Verified 12/15/18 08:38) Itching/Hives/Rash propoxyphene HCl [From Darvon] Allergy (Intermediate, Verified 12/15/18 08:38) Itching propoxyphene [From Darvon] Allergy (Verified 12/15/18 08:38) Itching/Hives/Rash Home medications list reviewed: Yes Home Medications: Calcium Carb/Vitamin D3/Vit K1 [Calcium + D Soft Chewable Tab] 1 tab PO DAILY Cyanocobalamin (Vitamin B-12) [Vitamin B-12] 1,000 mcg PO DAILY 11/30/18 Iron,Carb/Vit C/Vit B12/Folic [Iron 100 Plus Tablet] 1 tab PO DAILY 11/30/18 Levothyroxine Sodium 50 mcg PO DAILY 11/30/18 Metoprolol Tartrate [Lopressor*] 50 mg PO BID 11/30/18 Multivit-Min/Iron/Folic/Lutein [Centrum Silver Women Tablet] 1 tab PO DAILY Embudo-3/Dha/Epa/Fish Oil [Fish Oil 1,000 mg Softgel] 1,000 mg PO DAILY 11/30/18 Omeprazole 20 mg PO DAILY 11/30/18 Vitamin E 400 units PO DAILY 11/30/18 Furosemide [Lasix] 20 mg PO DAILY #30 tablet 12/01/18 - Past Medical/Surgical History Diabetic: Yes Past Medical History: Reviewed- Non-Contributory -: diet controlled DM -: FX rt femur -: stomach bipass surg. 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 other brother DM and mylenoma - Social History Smoking Status: Never smoker Alcohol use: No CD- Drugs: No Caffeine use: Yes Review of Systems 10-point ROS is otherwise unremarkable ENT: Unremarkable Respiratory: Unremarkable Physical Examination - Vital Signs Temperature: 98.1 F Blood Pressure: 160/92 Pulse: 88 Respirations: 17 - Physical Exam General: Alert, In no apparent distress HEENT: Atraumatic, Normocephalic Neck: Supple Respiratory: Clear to auscultation bilaterally, Normal air movement Cardiovascular: Regular rate/rhythm, Normal S1 S2 Capillary refill: <2 Seconds Gastrointestinal: Soft and benign, Distended Musculoskeletal: No clubbing, Swelling Integumentary: No rashes Neurological: Normal speech, Normal strength at 5/5 x4 extr Lymphatics: No axilla or inguinal lymphadenopathy External genitalia: Deferred Rectal: Deferred - Studies Laboratory Data (last 24 hrs) 01/20/19 09:00: PT 11.8, INR 1.00 01/20/19 09:00: WBC 5.9, Hgb 11.7 L, Hct 33.8 L, Plt Count 190 01/20/19 09:00: Sodium 140, Potassium 4.5, BUN 51 H, Creatinine 2.66 H, Glucose 99, Magnesium 1.8, Total Bilirubin 0.4, AST 22, ALT 26, Alkaline Phosphatase 41 L Assessment and Plan - Problems (Diagnosis) (1) Near syncope Current Visit: Yes Status: Acute Plan: Monitor closely under telemetry Probably induced by vasovagal versus dehydration Start on IV fluids Get a syncopal workup (2) Dehydration Current Visit: Yes Status: Acute Plan: Start on IV hydration Monitor closely (3) Acute kidney injury Current Visit: Yes Status: Acute Plan: Monitor renal parameters Probably prerenal with dehydration Will consult nephrology Monitor under telemetry Hypothyroidism. We will continue Synthroid. Borderline diabetes, diet controlled. We will monitor blood glucose levels. Status post left nephrectomy. History of liver cirrhosis with minimal ascites, no coma, unclear etiology. Plan: Admit the patient to [facility], place as observation. Code status is full. Patient does not have medical power of patent prosecution attorney or living will. Discharge Plan: Home Plan to discharge in: 24 Hours - Advance Directives Does patient have a Living Will: No Does patient have a Durable POA for Healthcare: No Time Spent Managing Pts Care (In Minutes): 42
[2019-01-20 13:05] LABS: Urine Blood TRACE (NEG); Urine Glucose NEGATIVE (NEG); Urine Protein 3+ (NEG); Urine Specific Gravity 1.015 (1.005-1.030); Urine pH 5.5 (5.0-7.0)
[2019-01-20] MEDS: NA CHLORIDE 0.9% 1,000 ML IV SCH (14:42)
--- NOTE | 2019-01-20 18:37 | EKG ---
Test Date: 2019-01-20 Test Time: 08:41:09 Shirt Turner: EDD MEASUREMENT RESULTS: Intervals: Rate: 57 NV: 160 QRSD: 92 QT: 448 QTc: 436 [place]: P: -8 NV: 160 QRS: -46 T: -50 INTERPRETIVE STATEMENTS: Sinus bradycardia with premature supraventricular complexes Left axis deviation Moderate voltage criteria for LVH, may be normal variant Nonspecific T wave abnormality Abnormal ECG Compared to ECG 07/31/2018 11:37:49 Atrial premature complex(es) now present Left ventricular hypertrophy now present T-wave abnormality now present Sinus rhythm no longer present Sinus arrhythmia no longer present Electronically Signed On 01-20-19 18:35:04 CLINICAL TRIALS SYSTEMS ADMINISTRATOR by Greg Reyes
--- NOTE | 2019-01-20 20:25 | RAD REPORT ---
EXAM DESCRIPTION: US - Renal Ultrasound-Complete - 01/20/2019 8:15 pm CLINICAL HISTORY: . Acute renal insufficiency COMPARISON: None. FINDINGS: The right kidney measures 11 cm with a normal echotexture. Left nephrectomy. Hydronephrosis is not seen. Bladder is decompressed and poorly evaluated IMPRESSION: Unremarkable right renal ultrasound
[2019-01-20] MEDS ORDERED: METOPROLOL TAR 50 MG TAB PO SCH (21:00)
[2019-01-20] MEDS ORDERED: [UNRECOGNIZED DRUG - OTHER] PO SCH (21:00)
[2019-01-20] MEDS ORDERED: CALCIUM CARBONATE PO SCH (21:00)
[2019-01-20] MEDS ORDERED: VITAMIN D3 PO SCH (21:00)
[2019-01-20] MEDS: METOPROLOL TAR 50 MG TAB PO SCH (21:27)
[2019-01-20] MEDS: LIPASE/PROTEASE/AMYLASE CAP PO SCH (21:28)
[2019-01-21] MEDS: NA CHLORIDE 0.9% 1,000 ML IV SCH ×2 (01:00→09:29)
[2019-01-21 06:17] LABS: Basophils % 0.8 % (0-1.3); Hematocrit 29.3 % (36.0-45.0); Lymphocytes % 19.5 % (15.3-44.8); MPV 9.2 fL (7.6-11.3); RBC Red Blood Cell Count 2.87 M/uL (3.86-4.86)
[2019-01-21 06:20] LABS: Albumin 2.1 g/dL (3.4-5.0); Bilirubin Total 0.3 mg/dL (0.2-1.0); Magnesium 1.6 mg/dL (1.8-2.4); Phosphorus 4.1 mg/dL (2.5-4.9); Potassium 5.2 mmol/L (3.5-5.1); Protein, Total 5.2 g/dL (6.4-8.2); Uric Acid 6.4 mg/dL (2.6-6.0)
[2019-01-21] MEDS ORDERED: HYDRALAZINE HCL 20 MG/ML VIAL IV PRN (06:28)
[2019-01-21] MEDS ORDERED: LEVOTHYROXINE SOD 0.05 MG TABLET PO SCH (06:30)
[2019-01-21] MEDS: LEVOTHYROXINE SOD 0.1 MG TAB PO SCH (06:45)
[2019-01-21] MEDS ORDERED: FISH OIL PO SCH (09:00)
[2019-01-21] MEDS ORDERED: DHA PO SCH (09:00)
[2019-01-21] MEDS ORDERED: VIT B12 PO SCH (09:00)
[2019-01-21] MEDS ORDERED: FOLIC PO SCH ×2 (09:00)
[2019-01-21] MEDS ORDERED: VITAMIN E 400 UNIT PO SCH ×2 (09:00)
[2019-01-21] MEDS ORDERED: VIT C PO SCH (09:00)
[2019-01-21] MEDS ORDERED: CALCIUM CARB PO SCH (09:00)
[2019-01-21] MEDS ORDERED: IRON CARB PO SCH (09:00)
[2019-01-21] MEDS ORDERED: VITAMIN D3 PO SCH (09:00)
[2019-01-21] MEDS ORDERED: [UNRECOGNIZED DRUG - OTHER] PO SCH (09:00)
[2019-01-21] MEDS ORDERED: MAGNESIUM SULFATE 1 gm IVPB 1 GM/100 ML BAG IV ONE (09:00)
[2019-01-21] MEDS ORDERED: HOME MED 1 EA UNK (Cyanocobalamin (Vitamin B-12) [Vitamin B-12] 1,000 MCG) PO SCH (09:00)
[2019-01-21] MEDS ORDERED: OMEGA PO SCH (09:00)
[2019-01-21] MEDS ORDERED: MULTIVIT MIN PO SCH (09:00)
[2019-01-21] MEDS: CYANOCOBALAMIN 1,000 MCG TAB PO SCH ×2 (09:00→09:21)
[2019-01-21] MEDS ORDERED: VIT K1 PO SCH (09:00)
[2019-01-21] MEDS ORDERED: IRON PO SCH (09:00)
[2019-01-21] MEDS ORDERED: LUTEIN PO SCH (09:00)
[2019-01-21] MEDS ORDERED: HOME MED 1 EA UNK (Omeprazole [Omeprazole] 20 MG) PO SCH ×2 (09:00)
[2019-01-21] MEDS ORDERED: EPA PO SCH (09:00)
[2019-01-21] MEDS: CALCIUM CARB 500MG/VIT D 200 IU TAB PO SCH (09:20)
[2019-01-21] MEDS: MULTIVIT W/ MINERAL TAB PO SCH (09:20)
[2019-01-21] MEDS: PANTOPRAZOLE 40MG TABLET PO SCH (09:20)
[2019-01-21] MEDS: DOCOSAHEXANOIC AC/EPA 1000 MG PO SCH (09:20)
[2019-01-21] MEDS: VITAMIN E 400 IU CAP PO SCH (09:21)
[2019-01-21] MEDS: LIPASE/PROTEASE/AMYLASE CAP PO SCH ×3 (09:22→20:48)
[2019-01-21] MEDS: METOPROLOL TAR 50 MG TAB PO SCH ×2 (09:22→20:47)
--- NOTE | 2019-01-21 10:25 | P.PN ---
Subjective Date of Service: 01/21/19 Chief Complaint: presyncope / Generalised weakness Subjective: No new changes, Improving Denies any further syncopal episodes No abdominal pain Denies any chest pain or shortness of breath Review of Systems 10-point ROS is otherwise unremarkable ENT: Unremarkable Respiratory: Unremarkable Physical Examination - Vital Signs Temperature: 97.3 F Blood Pressure: 180/70 Pulse: 65 Respirations: 18 Pulse Ox (%): 98 - Physical Exam General: Alert, In no apparent distress HEENT: Atraumatic, Normocephalic Neck: Supple, 2+ carotid pulse no bruit Respiratory: Clear to auscultation bilaterally, Normal air movement Cardiovascular: Normal pulses, Regular rate/rhythm Capillary refill: <2 Seconds Gastrointestinal: Soft and benign, Distended, Ascites Musculoskeletal: No clubbing, No swelling Integumentary: No rashes Neurological: Normal speech, Normal strength at 5/5 x4 extr Lymphatics: No axilla or inguinal lymphadenopathy External genitalia: Deferred Rectal: Deferred Assessment & Plan - Problems (Diagnosis) (1) Near syncope Current Visit: Yes Status: Acute Plan: Monitor closely under telemetry Probably induced by vasovagal versus dehydration was on IV fluids (2) Dehydration Current Visit: Yes Status: Acute Plan: on IV hydration Monitor closely Denies any symptoms at this time (3) Acute kidney injury Current Visit: Yes Status: Acute Plan: Renal parameters back to baseline Monitor renal parameters Probably prerenal with dehydration Appreciate help from nephrology Monitor under telemetry Hypothyroidism. continue Synthroid. Borderline diabetes, diet controlled. We will monitor blood glucose levels. Status post left nephrectomy. History of liver cirrhosis with ascites, no coma, unclear etiology. Will get an ultrasound of the abdomen Possible CHF She has anasarca with elevated BNP Will get an echocardiogram and a cardiology consult Will monitor closely in telemetry (4) CHF (congestive heart failure) Current Visit: Yes Status: Chronic Plan: Will get an echocardiogram Cardiology consult Qualifiers: Heart failure type: combined systolic and diastolic Heart failure chronicity: acute on chronic Qualified Code(s): I50.43 - Acute on chronic combined systolic (congestive) and diastolic (congestive) heart failure (5) Ascites Current Visit: No Status: Acute Plan: Will get US abd Paracentesis if needed Discharge Plan: Home Plan to discharge in: 24 Hours Time Spent Managing Pts Care (In Minutes): 43
[2019-01-21] MEDS ORDERED: HYDRALAZINE HCL 25 MG TABLET PO SCH (14:00)
[2019-01-21] MEDS: HYDRALAZINE HCL 25 MG TABLET PO SCH ×2 (14:19→20:47)
--- NOTE | 2019-01-21 16:05 | CON ---
Date of Consultation: 01/21/2019 Reason For Consultation: Elevated BUN and creatinine. History Of Present Illness: This is a pleasant 83-year-old female with significant past medical history of hypertension, chronic kidney disease stage 3 , baseline creatinine 1.7 to 2, GFR 24 to 28. The patient was in her regular state of health for the last couple of time. Patient had recurrent full fainting. For that reason, patient reported to the hospital. Patient visited with Dr. Cruz on Friday. Her kidney function was declining. For that reason, patient was advised to go to the ER. Patient denied any chest pain. No palpitations. No nausea. No vomiting. No diarrhea. No recent change in her medication. No complete loss of conscious. Past Medical History: 1. Hypertension. 2. Chronic kidney disease stage 3B secondary to hypertension, nephrosclerosis. Baseline creatinine 1.7 to 2, GFR around 24 to 28. 3. Nephrolithiasis. 4. Coronary artery disease. 5. COPD. 6. Diabetes. 7. CHF. Social History: Denies smoking. Denies drinking. Denies drug abuse. Past Surgical History: 1. Nephrectomy. 2. Stomach surgery. 3. Knee surgery. Review of Systems: Head And Neck: No red eye. No ear pain. GI: No nausea, no vomiting. : No polyuria, no dysuria, no hematuria. 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 Respiratory: No shortness of breath. Cardiovascular: Recurrent fainting. Endocrine: No polydipsia. Skin: No rash. Neuro: Fainting. Musculoskeletal: No joint pain. Home Medications: Omeprazole, vitamin E, multivitamin, metoprolol 50 b.i.d., levothyroxine, Lasix 20 daily, calcium carbonate. Current Medication In The Hospital: Calcium carbonate, fish oil, hydralazine, levothyroxine, multivitamin, IV fluid, pantoprazole. Physical Examination: General: When I saw the patient, patient lying in bed. Vital Signs: Blood pressure of 180/70, pulse of 65, afebrile. Chest: Clear to auscultation. Heart: S1, S2. Regular. Abdomen: Soft, nontender. Extremities: No edema. Neurological: Alert and oriented x3. No focal. Laboratory Data: Sodium 144, potassium 5.2, bicarb 19, chloride 119, BUN 49, creatinine 2.3, calcium 7.7. Magnesium 1.6. B12 of 17.5. PTH 196. Urinalysis negative for infection. PC ratio 1 with disproportion. Had before previous serum protein electrophoresis without any monoclonal. Assessment And Plan: Acute kidney injury on chronic kidney disease secondary to solitary kidney, secondary to left nephrectomy, normal size right kidney. Proteinuric, nephrotic. Acute kidney injury secondary to prerenal/cardiorenal doubt to be secondary to urgent hypertension as blood pressure not massively high and no hematuria. 1. Giving these findings, I am going to go ahead and hold on the IV fluid for the time being and we will monitor. 2. Hypertension, not controlled. I am going to go ahead and increase her hydralazine to 100 mg and continue metoprolol. We will hold on the Lasix. We will avoid any LORA inhibitor or ARB for the time being. 3. Elevated BNP with recurrent fainting. We will follow up with primary and Cardiology. 4. Hypomagnesemia. We will supplement. KELL Voice ID: [id number] Report ID: [id number] KARIN
--- NOTE | 2019-01-21 19:09 | RAD REPORT ---
EXAM DESCRIPTION: US - Abdomen Exam Complete - 01/21/2019 6:57 pm CLINICAL HISTORY: Abdominal pain COMPARISON: May 2018 FINDINGS: The liver has a coarsened echotexture with a nodular contour compatible with cirrhosis. Ma in portal vein is patent. . A cholecystectomy has been performed. Common bile duct normal caliber 17 millimeter pancreatic cyst is unchanged. Remainder the pancreas is not well seen secondary to over lying bowel gas The right kidney measures 10 centimeters with a normal echotexture. Left nephrectomy. There is poor evaluation of the spleen, aorta and IVC secondary to overlying bowel gas Small amount ascites is present IMPRESSION: Cirrhosis Stable 17 millimeter pancreatic cystic mass
--- NOTE | 2019-01-21 21:23 | CON ---
Date of Consultation: 01/21/2019 Reason For Consultation: Syncope. History Of Present Illness: Ms. Payan is an 83-year-old who has a history of congestive heart failu re, acute kidney injury, has had a left nephrectomy before, has a history of hypertension, dyslipidem ia, and gastric bypass surgery. Had an episode of presyncope. Never really passed out. Prior to th at episode, she denied any chest pain, nausea, vomiting, diaphoresis, PND, orthopnea, pedal edema, or palpitation. She denied any fever or chills or cough. When she came into the emergency room, she w as found to have a blood pressure of 194/72. Hemoglobin of 10.0. Creatinine of 2.66. She was in si nus rhythm. Her BNP was 27,127. Chest x-ray was negative. Renal ultrasound was negative for the ri ght renal side. She is status post left nephrectomy. Allergies: TO DEMEROL, PENICILLIN, AND NAPROSYN. Medications: At home include Lasix, Thyroid, pancreatic enzymes, metoprolol, and Prilosec. Review of Systems: Negative. Social History: Negative. Family History: Negative. Physical Examination: Vital Signs: Stable. She was in sinus bradycardia with PVCs. HEENT: Negative. Neck: Supple without any bruit, lymphadenopathy, JVD, or thyromegaly. Chest: Clear to auscultation and percussion. Cardiac: Revealed a regular rhythm and rate with an S4 gallop. No murmurs or rubs. Abdomen: Benign. Extremities: With no clubbing, cyanosis, or edema. Neurological: She was nonfocal. Skin: Dry and intact. Diagnostic Data: As stated earlier. Impression And Plan: Presyncope, most likely secondary to hypertension and kidney failure. It is po ssible that is related to sinus bradycardia and PVCs and we may want to decrease the dose of beta-blo cker. Her renal insufficiency is very significant. We should avoid LORA inhibitors, ARB, and diureti cs. May be add Norvasc and hydralazine to her regimen for blood pressure control. Nephrology is pen ding as far as consultation is concerned regarding her kidney function. Her BNP is elevated secondar y to her renal failure. Echocardiogram, which was done today, was perfectly normal with a normal eje ction fraction. Her dyslipidemia is well controlled. However, she may have chronic diastolic conges tive heart failure, but that is not the case at this point. I will continue to follow her. PHUC Voice ID: [id number] Report ID: [id number]
[2019-01-22] MEDS: LEVOTHYROXINE SOD 0.1 MG TAB PO SCH (06:00)
[2019-01-22 06:49] LABS: Albumin 2.1 g/dL (3.4-5.0); Phosphorus 4.3 mg/dL (2.5-4.9); Potassium 5.3 mmol/L (3.5-5.1)
[2019-01-22] MEDS: FE SULF/FA/VIT B COMP & C TAB PO SCH (08:00)
--- NOTE | 2019-01-22 08:00 | ECHO ---
HEIGHT: 5 ft 3 in WEIGHT: 138 lb 9.6 oz DATE OF STUDY: 01/21/[address]: Roly Christian DO 2-DIMENSIONAL: YES M.MODE: YES DOPPLER: YES COLOR FLOW: YES TDS: NO PORTABLE: NO DEFINITY: NO BUBBLE STUDY: NO DIAGNOSIS: CONGESTIVE HEART FAILURE CARDIAC HISTORY: CATHERIZATION: NO SURGERY: NO PROSTHETIC VALVE: NO PACEMAKER: NO MEASUREMENTS (cm) DIASTOLIC (NORMALS) SYSTOLIC (NORMALS) IVSd 0.8 (0.6-1.2) LA Diam 3.8 (1.9-4.0) LVEF 72% LVIDd 4.7 (3.5-5.7) LVIDs 2.8 (2.0-3.5) %FS 41% LVPWd 1.0 (0.6-1.2) Ao Diam 2.7 (2.0-3.7) 2 DIMENSIONAL ASSESSMENT: RIGHT ATRIUM: NORMAL LEFT ATRIUM: NORMAL RIGHT VENTRICLE: NORMAL LEFT VENTRICLE: NORMAL TRICUSPID VALVE: NORMAL MITRAL VALVE: MITRAL ATRIAL CALCIFICATION PULMONIC VALVE: NORMAL AORTIC VALVE: NORMAL PERICARDIAL EFFUSION: NONE AORTIC ROOT: NORMAL LEFT VENTRICULAR WALL MOTION: NORMAL DOPPLER/COLOR FLOW: MILD MITRAL, AORTIC AND TRICUSPID REGURGITATION. COMMENTS: NORMAL LEFT VENTRICULAR SIZE AND FUNCTION. MILD MITRAL, AORTIC AND TRICUSPID REGURGITATION. NORMAL RIGHT VENTRICULAR SYSTOLIC PRESSURE. NO WALL MOTION ABNORMALITY. NO EFFUSION. TECHNOLOGIST: Phong MANZANARES
[2019-01-22] MEDS ORDERED: SOD POLYSTYREN SUL 15 GM/60 ML UCUP PO ONE (08:46)
[2019-01-22] MEDS ORDERED: ALBUTEROL 2.5 MG/3 ML NEB SOL NEB ONE (08:46)
[2019-01-22] MEDS: CYANOCOBALAMIN 1,000 MCG TAB PO SCH ×2 (09:00→09:58)
--- NOTE | 2019-01-22 09:56 | P.PN ---
Addendum entered and electronically signed by Tino Heranndez PA 01/22/19 12:48 : Spoke with Dr. Recinos with nephrology. Wants to start albumin for next 24 hours and see how she does. Original Note: Subjective Date of Service: 01/22/19 Chief Complaint: presyncope / Generalised weakness Subjective: Tolerating diet, Improving Patient had a short bout of shortness of breath this morning. Is doing much better now. Feeling better overall. <Tino Hernandez - Last Filed: 01/22/19 09:51> Date of Service: 01/22/19 <Adi Archer - Last Filed: 01/22/19 17:30> Review of Systems General: Unremarkable Eyes: Unremarkable ENT: Unremarkable Respiratory: Shortness of Breath Cardiovascular: Unremarkable Gastrointestinal: Unremarkable Musculoskeletal: Unremarkable Integumentary: Unremarkable Neurological: Unremarkable Lymphatics: Unremarkable <Tino Hernandez - Last Filed: 01/22/19 09:51> Physical Examination - Vital Signs Temperature: 98 F Blood Pressure: 125/61 Pulse: 64 Respirations: 18 Pulse Ox (%): 96 - Physical Exam General: Alert, In no apparent distress, Oriented x3, Cooperative HEENT: PERRLA, Mucous membr. moist/pink, EOMI Neck: Supple, 2+ carotid pulse no bruit, JVD not distended, No Thyromegaly Respiratory: Clear to auscultation bilaterally, Normal air movement Cardiovascular: No edema, Normal pulses, Regular rate/rhythm, Normal S1 S2, No gallops, No rubs, No murmurs Capillary refill: <2 Seconds Gastrointestinal: Normal bowel sounds, Soft and benign, Non-distended, No ascites, No tenderness, No masses Musculoskeletal: No clubbing, No swelling, No contractures, No erythema, No tenderness, No warmth Integumentary: No rashes, No breakdown, No significant lesion, No tenderness/ swelling Neurological: Normal speech, Normal strength at 5/5 x4 extr, Normal tone, Sensation intact, Cranial nerves 3-12 intact, Normal reflexes 2+, Normal affect Lymphatics: No axilla or inguinal lymphadenopathy - Studies Medications List Reviewed: Yes <Tino Hernandez - Last Filed: 01/22/19 09:51> - Studies Laboratory Data (last 24 hrs) 01/22/19 14:28: Potassium 4.3 01/22/19 05:31: Sodium 144, Potassium 5.3 H, BUN 46 H, Creatinine 2.64 H, Glucose 141 H, Phosphorus 4.3 <Adi Archer - Last Filed: 01/22/19 17:30> Assessment And Plan - Current Problems (Diagnosis) (1) Acute kidney injury Current Visit: Yes Status: Acute (2) Dehydration Current Visit: Yes Status: Acute (3) Near syncope Current Visit: Yes Status: Acute (4) CHF (congestive heart failure) Current Visit: Yes Status: Chronic Qualifiers: Heart failure type: combined systolic and diastolic Heart failure chronicity: acute on chronic Qualified Code(s): I50.43 - Acute on chronic combined systolic (congestive) and diastolic (congestive) heart failure (5) Ascites Current Visit: No Status: Acute - Plan Patient overall is doing much better today. Because of the shortness of breath this morning chest x-ray was ordered to ensure there is no worsening of heart failure, pneumonia, pleural effusions. Potassium was mildly elevated this morning. Albuterol and Kayexalate was ordered. Four hour check post treatment has been ordered. Patient would do best if continued to be monitored for the next 24-[address] Cai has seen the patient as well. Will round back with him to see if we need to adjust anything. Discharge Plan: Home Plan to discharge in: 48 Hours - Code Status/Comfort Care Code Status Assessed: No Critical Care: No Time Spent Managing PTS Care (In Minutes): 25 <Tino Hernandez - Last Filed: 01/22/19 09:51> - Plan Case reviewed and discussed with Suraj Hernnadez NP. Potassium being corrected. Continue with diuresis. Hopefully improvement in renal function will be noted. Anticipate possible discharge as early as tomorrow if okay with nephrology. <Adi Archer - Last Filed: 01/22/19 17:30>
[2019-01-22] MEDS: METOPROLOL TAR 50 MG TAB PO SCH ×2 (09:57→21:09)
[2019-01-22] MEDS: DOCOSAHEXANOIC AC/EPA 1000 MG PO SCH (09:57)
[2019-01-22] MEDS: VITAMIN E 400 IU CAP PO SCH (09:57)
[2019-01-22] MEDS: LIPASE/PROTEASE/AMYLASE CAP PO SCH ×3 (09:57→21:06)
[2019-01-22] MEDS: MULTIVIT W/ MINERAL TAB PO SCH (09:58)
[2019-01-22] MEDS: PANTOPRAZOLE 40MG TABLET PO SCH (09:58)
[2019-01-22] MEDS: CALCIUM CARB 500MG/VIT D 200 IU TAB PO SCH (09:58)
[2019-01-22] MEDS: HYDRALAZINE HCL 25 MG TABLET PO SCH ×3 (10:04→21:06)
--- NOTE | 2019-01-22 11:04 | RAD REPORT ---
EXAM DESCRIPTION: RAD - Chest Single View - 01/22/2019 10:43 am CLINICAL HISTORY: Shortness of breath COMPARISON: January 20, January 09 TECHNIQUE: AP portable chest image was obtained 1041 hour . FINDINGS: Lung volumes remain low. No interstitial edema, focal infiltrate or mass. Failure and volu me overload are not suspected. Vague nodular density in the lateral right midlung field is believed t o be an artifact related to the cardiac lead. There was no mass or nodule missed very on the 2 recent examinations. Heart and vasculature are normal. Minimal left costophrenic angle blunting is present. A small left effusion not excluded. No acute bony abnormality seen. No acute aortic findings suspected. IMPRESSION: Shallow inspiration showing no acute cardiopulmonary finding. Small left pleural effusion is not excluded. Overall chest is not significantly different from January 20.
--- NOTE | 2019-01-22 12:35 | P.PN ---
Subjective Date of Service: 01/22/19 Chief Complaint: presyncope / Generalised weakness Pt withHX of CKD baseline Cr ~2.0, HTN pt presented for near syncope and fall was on lasix today cr up to 2.6 US; mild ascitis, CXR: possible lt sided effusion, agree to hold IVF no abdominal distension and good UO , will cont to monitor RFT serology w/u -ve in 04/2018 UA: +3 prot and bld , will send for serology w/u again BP controlled Physical Examination - Vital Signs Temperature: 98 F Blood Pressure: 125/61 Pulse: 64 Respirations: 18 Pulse Ox (%): 96 - Physical Exam General: In no apparent distress, Oriented x3 HEENT: Atraumatic Neck: Supple, Without JVD or thyroid abnormality Respiratory: Clear to auscultation bilaterally, Normal air movement Cardiovascular: No edema, Regular rate/rhythm, Normal S1 S2, No gallops, No rubs , No murmurs Gastrointestinal: Soft and benign, Non-distended Musculoskeletal: No swelling, Other (leg with bluish dicoloration ) - Studies Medications List Reviewed: Yes Assessment And Plan - Current Problems (Diagnosis) (1) Acute kidney injury Current Visit: Yes Status: Acute (2) Near syncope Current Visit: Yes Status: Acute - Plan NOEMI on CKD initially pt recived iVF cr increased , will hold IVF for now non oliguric NOEMI : RPGN vs HRS vs unclear etiology no NSAID or contrast exposure will send for serology w/u again will start on albumin US : no hydro , Solitary rt kidney HAGMA bicarb 19 will hold on sodium bicarb for now HTN controlled Cirrhosis hold on diuretics for now Near syncope will check for orthostatic changes
[2019-01-22 15:12] LABS: Urine Appearance CLEAR; Urine Bilirubin NEGATIVE (NEG); Urine Blood NEGATIVE (NEG); Urine Color YELLOW; Urine Glucose 1+ (NEG); Urine Protein 3+ (NEG); Urine Urobilinogen 0.2 mg/dL (0.2-1.0); Urine pH 5.5 (5.0-7.0)
[2019-01-22 15:21] LABS: Urine Microscopic Reflex ORDER UMIC
[2019-01-22 15:22] LABS: Urine Amorphous Sediment 1+ /HPF (NONE SEEN); Urine Bacteria <20 /HPF (<20); Urine Culture Reflex Order REFLEXED; Urine Mucus 2+ /HPF (NONE SEEN)
[2019-01-22 15:24] LABS: Urine Protein/Creatinine Ratio 7.44 ratio (<0.15)
[2019-01-22] MEDS: ALBUMIN HUMAN 25% 200 ML IV SCH (16:50)
[2019-01-23] MEDS: ALBUMIN HUMAN 25% 200 ML IV SCH ×2 (02:35→08:53)
[2019-01-23] MEDS: LEVOTHYROXINE SOD 0.1 MG TAB PO SCH (06:02)
[2019-01-23 07:56] LABS: Thyroid Stimulating Hormone 2.23 uIU/mL (0.360-3.740)
[2019-01-23] MEDS: FE SULF/FA/VIT B COMP & C TAB PO SCH (08:00)
[2019-01-23 08:27] LABS: Albumin 3.1 g/dL (3.4-5.0); Phosphorus 4.3 mg/dL (2.5-4.9); Potassium 4.3 mmol/L (3.5-5.1)
[2019-01-23] MEDS: VITAMIN E 400 IU CAP PO SCH (08:51)
[2019-01-23] MEDS: CALCIUM CARB 500MG/VIT D 200 IU TAB PO SCH (08:52)
[2019-01-23] MEDS: HYDRALAZINE HCL 25 MG TABLET PO SCH ×3 (08:52→22:07)
[2019-01-23] MEDS: PANTOPRAZOLE 40MG TABLET PO SCH (08:52)
[2019-01-23] MEDS: MULTIVIT W/ MINERAL TAB PO SCH (08:52)
[2019-01-23] MEDS: METOPROLOL TAR 50 MG TAB PO SCH ×2 (08:52→22:07)
[2019-01-23] MEDS: CYANOCOBALAMIN 1,000 MCG TAB PO SCH ×2 (08:52→08:53)
[2019-01-23] MEDS: DOCOSAHEXANOIC AC/EPA 1000 MG PO SCH (08:52)
[2019-01-23] MEDS: LIPASE/PROTEASE/AMYLASE CAP PO SCH ×3 (08:53→22:06)
[2019-01-23] MEDS ORDERED: MAGNESIUM SULFATE 1 gm IVPB 1 GM/100 ML BAG IV ONE (12:00)
[2019-01-23] MEDS: NA CHLORIDE 0.9% 1,000 ML IV SCH (13:22)
[2019-01-23] MEDS: HEPARIN 5000 UNIT/ML 1 ML VIAL SQ SCH ×2 (14:00→22:07)
[2019-01-23 14:59] LABS: Folic Acid, (Folate) > 20.0 ng/mL (3.1-17.5)
--- NOTE | 2019-01-23 17:46 | PN ---
Date of Progress Note: 01/23/2019 Subjective: Patient was admitted with acute kidney injury on chronic kidney disease secondary to pre renal. Patient was started on albumin resuscitation over the night. Kidney function has been stabil ized. Physical Examination: Vital Signs: Blood pressure 132/56, pulse of 72, afebrile. Patient had good urine output of 1500. Chest: Clear to auscultation. Heart: S1, S2. Systolic murmur. Regular. Abdomen: Soft, nontender. Extremities: No edema. Laboratory Data: H and H 12/29.3. No eosinophilia. Sodium 147, potassium 4.3, bicarb 20, BUN 50, c reatinine 2.7, GFR of 16, calcium 7.6, phos 4.3, albumin 3.1. Serum protein electrophoresis still pe nding. TSH 2.2. PTH 196. Urinalysis specific gravity of 1.020, wbc of 50. Current Medications: 1.Albuterol. 2.IV iron. 3.Hydralazine 100 t.i.d. 4.Metoprolol. 5.Levothyroxine. 6.Magnesium oxide. Assessment And Plan: 1.Acute kidney injury on advanced chronic kidney disease, solitary kidney, plateau currently. I am going to go ahead and resume IV fluid, discontinue albumin, and we will follow up the patient closely . 2.Hypertension, controlled optimal. Continue current medication. Keep holding diuresis for the cabrera e being. 3.Urinary tract infection. 4.Mixed velia. No leukocytosis. We will monitor the patient as the culture has been negative. 5.Nephrotic-range proteinuria, on solitary kidney. Previous workup was negative. We will follow up current serology. KELL Voice ID: [id number] Report ID: [id number]
[2019-01-24 04:34] LABS: Absolute Lymphocytes (CBC) 0.8 K/uL (0.7-4.9); Basophils % 0.6 % (0-1.3); Hematocrit 27.3 % (36.0-45.0); Lymphocytes % 14.9 % (15.3-44.8); MPV 9.5 fL (7.6-11.3); RBC Red Blood Cell Count 2.65 M/uL (3.86-4.86)
[2019-01-24 04:41] LABS: Albumin 2.9 g/dL (3.4-5.0); Bilirubin Total 0.6 mg/dL (0.2-1.0); Phosphorus 3.5 mg/dL (2.5-4.9); Potassium 3.9 mmol/L (3.5-5.1); Protein, Total 5.4 g/dL (6.4-8.2)
[2019-01-24 04:44] LABS: Rheumatoid Factor NEG (NEG)
[2019-01-24] MEDS: LEVOTHYROXINE SOD 0.1 MG TAB PO SCH (06:38)
[2019-01-24] MEDS: NA CHLORIDE 0.9% 1,000 ML IV SCH ×2 (09:00→13:22)
[2019-01-24] MEDS: CALCIUM CARB 500MG/VIT D 200 IU TAB PO SCH (09:00)
[2019-01-24] MEDS: CYANOCOBALAMIN 1,000 MCG TAB PO SCH ×2 (09:00→09:28)
[2019-01-24] MEDS: HYDRALAZINE HCL 25 MG TABLET PO SCH ×3 (09:27→21:45)
[2019-01-24] MEDS: LIPASE/PROTEASE/AMYLASE CAP PO SCH ×3 (09:27→21:45)
[2019-01-24] MEDS: MULTIVIT W/ MINERAL TAB PO SCH (09:28)
[2019-01-24] MEDS: METOPROLOL TAR 50 MG TAB PO SCH (09:28)
[2019-01-24] MEDS: DOCOSAHEXANOIC AC/EPA 1000 MG PO SCH (09:28)
[2019-01-24] MEDS: HEPARIN 5000 UNIT/ML 1 ML VIAL SQ SCH ×2 (09:28→21:46)
[2019-01-24] MEDS: VITAMIN E 400 IU CAP PO SCH (09:29)
[2019-01-24] MEDS: FE SULF/FA/VIT B COMP & C TAB PO SCH (09:30)
[2019-01-24] MEDS: PANTOPRAZOLE 40MG TABLET PO SCH (09:30)
[2019-01-24] MEDS ORDERED: AMLODIPINE 5 MG TAB PO SCH (12:00)
[2019-01-24 13:14] LABS: Urine Appearance CLEAR; Urine Bilirubin NEGATIVE (NEG); Urine Blood NEGATIVE (NEG); Urine Color YELLOW; Urine Glucose TRACE (NEG); Urine Protein 3+ (NEG); Urine Specific Gravity 1.015 (1.005-1.030); Urine Urobilinogen 0.2 mg/dL (0.2-1.0); Urine pH 5.5 (5.0-7.0)
[2019-01-24 13:16] LABS: Urine Microscopic Reflex ORDER UMIC
[2019-01-24 13:22] LABS: Urine Protein/Creatinine Ratio 10.77 ratio (<0.15)
[2019-01-24] MEDS: SODIUM BICARB 325 MG TAB PO SCH ×2 (13:22→21:45)
[2019-01-24] MEDS: AMLODIPINE 10 MG TAB PO SCH (13:22)
[2019-01-24 13:44] LABS: Urine Bacteria <20 /HPF (<20); Urine Mucus 1+ /HPF (NONE SEEN)
[2019-01-24 13:45] LABS: Urine Culture Reflex Order NOT NEEDED
[2019-01-24] MEDS: carvediloL 12.5 MG TAB PO SCH (16:55)
--- NOTE | 2019-01-24 17:17 | PN ---
Subjective: Currently, patient is lying in bed. She looks comfortable. She has no shortness of breath. No chest pain. No abdominal pain. Appetite is good. Bowel movement normal. Objective: Vital Signs. Today's blood pressure is , respiratory rate 18, pulse 63, temperature is 97.4. General: Patient is alert, oriented x3. Does not look in any distress. HEENT: Atraumatic, normocephalic. PERRLA. Oral mucosa is moist. Neck: Supple. No JVD. No bruits. Chest: Clear to auscultation. Good air entry. Heart: Regular rate and rhythm. S1, S2 normal. No gallop or murmur. Abdomen: Distended. wih mild shifting dullness with no rebound, no guarding. Positive bowel sounds. Extremities: No clubbing or cyanosis. Neurologic: Grossly intact. Laboratory Data: Today, labs showed CBC with white blood cell of 5.5, hemoglobin 9.1, platelets of 149. Chemistry showed a sodium 147, potassium 3.9 , chloride 120, BUN of 45, creatinine of 2.79. Assessment And Plan: 1. Acute on chronic renal insufficiency, is not much better. Nephrology is following. Patient was restarted with IV fluids yesterday and creatinine has been relatively stable, slightly worse today at 2.79. Nephrology is increasing IV fluids today and patient tolerated that yesterday without any shortness of breath. 2. Dehydration, better. BUN going down. Continue IV fluids. 3. Syncope, most likely secondary to dehydration, observed for now. 4. Liver cirrhosis with history of hepatitis. Ultrasound done, confirmed cirrhosis as well as ascites. There was small amount. There is no need for paracentesis. 5. History of congestive heart failure. Patient is tolerating fluids fine without any shortness of breath so far. 6. Hypertension, not well controlled. Continue p.r.n. hydralazine. I will start Norvasc 5 mg daily. 7. Hypothyroidism. Continue Synthroid. 8. GI prophylaxis with Protonix. 9. Deep venous thrombosis with heparin. 10. Discharge plan given on Nephrology and when they think kidney function stable to be discharged. Workup for renal insufficiency ordered on Friday and is still pending including ANCA, C3, C4, hepatitis profile. 11. Continue physical therapy. STEVEN/MACK Voice ID: [id number] Report ID: [id number] MTDD
--- NOTE | 2019-01-24 17:53 | PN ---
Date of Progress Note: 01/24/2019 Subjective: Patient was admitted with acute kidney injury on advanced chronic kidney disease. Patie nt has been on hydration. Kidney function today plateau. Physical Examination: Vital Signs: Blood pressure 179/87, pulse of 63. Patient had good urine output of 1600. Chest: Clear to auscultation. Heart: S1, S2. Systolic murmur. Abdomen: Soft, nontender. Extremities: No edema. Laboratory Data: WBC 5.5, H and H 9.1/27.3, platelets 149. Sodium 147, potassium 3.9, bicarb 19, BU N 45, creatinine 2.7, GFR of 16, calcium 7.3, phosphorus 3.5. Vitamin D still pending. PTH 196. Current Medications: The patient on its include: 1.Heparin. 2.Iron oral. 3.Calcium carbonate. 4.Amlodipine 5 mg was started today. 5.Hydralazine 100 t.i.d. 6.Metoprolol 50 b.i.d. 7.IV fluid at 50 per hour of normal saline. 8.Levothyroxine. 9.Magnesium sulfate. Assessment And Plan: 1.Acute kidney injury on advanced chronic kidney disease, mostly prerenal, nephrotic range proteinur ia, obstruction has been ruled out. I am going to go ahead and increase IV fluid to 75 per hour and we will monitor the patient. 2.Hypertension, uncontrolled. I can switch beta-dick to carvedilol for better response and we wi ll follow up the patient. 3.Solitary kidney with proteinuric workup before negative, mostly the proteinuria secondary to focal segmental glomerulosclerosis, secondary to solitary kidney, renal mass loss. Unfortunately, we coul d not add any LORA inhibitor for the time being given the renal failure. 4.Acidosis non-anion gap mostly secondary to renal failure. I am going to start the patient on sodi um bicarb. MA/MODL Voice ID: [id number] Report ID: [id number]
[2019-01-25] MEDS: NA CHLORIDE 0.9% 1,000 ML IV SCH ×2 (02:02→16:59)
[2019-01-25 05:34] LABS: Albumin 2.8 g/dL (3.4-5.0); Phosphorus 3.4 mg/dL (2.5-4.9); Potassium 4.2 mmol/L (3.5-5.1); Uric Acid 6.4 mg/dL (2.6-6.0)
[2019-01-25] MEDS: carvediloL 12.5 MG TAB PO SCH ×2 (05:48→16:58)
[2019-01-25] MEDS: LEVOTHYROXINE SOD 0.1 MG TAB PO SCH (05:48)
--- NOTE | 2019-01-25 08:50 | PN ---
Subjective: Currently, patient lying in bed. She is sitting on the chair. She looks comfortable. She had no chest pain. No abdominal pain. Her abdomen is still distended. She has no fever, no chi lls. . She is almost ready to go home. . Objective: Vital Signs: Blood pressure , respiratory rate 18, pulse 75, temperature 98.7. General: Patient is alert and oriented x3. Does not look in any distress. HEENT: Atraumatic, normocephalic. PERRLA. Oral mucosa is dry. Neck: Supple. No JVD. No carotid bruits. Chest: Clear to auscultation. Good air entry. Heart: Regular rate and rhythm. S1, S2 normal. No gallop or murmur. Abdomen: Distended and nontender. There is . Active bowel sounds. Extremities: No clubbing or cyanosis. Trace edema. Poor pulses. Neurologic: Grossly intact. Cranial nerve exam 2 through 12 intact. Normal sensation. Normal refl exes. Normal muscle strength. Assessment And Plan: 1.Acute on chronic renal insufficiency. Appreciate Nephrology help. Patient is receiving albumin. Her creatinine is slightly worse. 2.Dehydration, improved. 3.Syncope most likely secondary to dehydration. 4.Congestive heart failure, resolved. Chest x-ray done yesterday showed small left pleural effusion , otherwise no change. 5.Liver cirrhosis with ascites. Ultrasound showed ascites which will need to proceed with paracentesis. 6.Anemia on the labs from the , we will repeat labs in a.m. 7.Hypernatremia. Followed by Nephrology. Encourage free water intake. 8.Hypertension, well controlled. 9.Hypothyroidism, on Synthroid. 10.Continue PPI for history of acid reflux. 11.We will start heparin for deep vein thrombosis prophylaxis. STEVEN/MACK Voice ID: [id number] Report ID: [id number]
[2019-01-25] MEDS: CALCIUM CARB 500MG/VIT D 200 IU TAB PO SCH (09:00)
[2019-01-25] MEDS: HYDRALAZINE HCL 25 MG TABLET PO SCH ×3 (09:42→21:51)
[2019-01-25] MEDS: HEPARIN 5000 UNIT/ML 1 ML VIAL SQ SCH ×2 (09:42→21:51)
[2019-01-25] MEDS: SODIUM BICARB 325 MG TAB PO SCH ×2 (09:42→21:51)
[2019-01-25] MEDS: AMLODIPINE 10 MG TAB PO SCH (09:43)
[2019-01-25] MEDS: MULTIVIT W/ MINERAL TAB PO SCH (09:43)
[2019-01-25] MEDS: PANTOPRAZOLE 40MG TABLET PO SCH (09:43)
[2019-01-25] MEDS: LIPASE/PROTEASE/AMYLASE CAP PO SCH ×3 (09:43→21:51)
[2019-01-25] MEDS: DOCOSAHEXANOIC AC/EPA 1000 MG PO SCH (09:43)
[2019-01-25] MEDS: VITAMIN E 400 IU CAP PO SCH (09:44)
[2019-01-25] MEDS: CYANOCOBALAMIN 1,000 MCG TAB PO SCH (09:44)
[2019-01-25] MEDS: FE SULF/FA/VIT B COMP & C TAB PO SCH (09:45)
--- NOTE | 2019-01-25 20:01 | PN ---
Date of Progress Note: 01/25/2019 Subjective: Patient is seen and examined. Chart reviewed and case discussed with RN and Dr. Cruz. Patient overall is doing better. No significant complaints. Patient states she was unable to sleep last night. Medications: List reviewed. Code Status: Full. Physical Examination: Vital Signs: Temperature 98, heart rate 66, blood pressure 148/65, respirations 20, O2 97% on room a ir. General: Awake, alert, and oriented x3. Elderly female, in some mild distress. CV: S1, S2. Peripheral pulses weak. Regular rate and rhythm. Respiratory: Moving air well bilaterally. No wheezing or stridor. No use of accessory muscles. Gastrointestinal: Abdomen is soft, nontender, nondistended. Positive bowel sounds. No guarding or rigidity. Extremities: No clubbing or cyanosis. Patient has bilateral lower extremity edema, 2+. Neuro: Cranial nerves 2 through 12 intact grossly. No focal neurological deficits. Speech is moises l. Laboratory Data: Sodium 145, potassium 4.2, chloride 119, CO2 of 18, BUN 46, creatinine 2.74, glucos e 133, uric acid is 6.4, calcium is 7.5, phosphorus 3.4, albumin 2.8. WBC pending. Urine culture sh owing mixed velia. Assessment And Plan: An 83-year-old female with. 1.Mpzqa-bk-ttrlepf kidney injury. Creatinine slightly worsened today. Spoke with Nephrology. IV f luids have been continued. We will follow up on creatinine. May need to be started on dialysis, how ever, the patient is somewhat reluctant. Continue to monitor electrolytes. 2.Acute dehydration, improved on IV fluids. 3.Syncopal episode, likely due to dehydration. Continue with PT. 4.Liver cirrhosis with history of hepatitis. Ultrasound does show cirrhosis and ascites. No indica tion for paracentesis at this time. 5.History of congestive heart failure, likely diastolic dysfunction, compensated. Echocardiogram sh ows EF of 72%. 6.Essential hypertension, not well controlled. Medications have been adjusted. We will continue to monitor. 7.Hypothyroidism. Continue Synthroid. 8.Elevated uric acid level. 9.Deep venous thrombosis prophylaxis addressed. Patient is on heparin. Plan to likely discontinue the next 24-48 hours depending on clinical response once cleared by Nephrology. Workup still pending including immunology and serology studies. Patient will likely go home with PT at home. She does n ot wish to go to senior care facility for rehab. /MACK Voice ID: [id number] Report ID: [id number]
--- NOTE | 2019-01-26 02:29 | PN ---
Date of Progress Note: 01/25/2019 Chief Complaint: Lcbml-hs-knfogrk kidney injury, nonoliguric in setting of prerenal azotemia, acute tubular necrosis. The patient has a solitary kidney, advanced chronic kidney disease. Recently renal function has declined. Patient was admitted after syncope and presyncope. 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 She was not a candidate for a renal biopsy and she cannot tolerate LORA inhibitor due to acute kidney injury. Patient was started on IV fluids. Patient had workup done and obstructive uropathy was ruled out. Hypertension. Patient was switched to carvedilol to control adequately blood pressure. Blood pressure was elevated and difficult to control. Review of Systems: Denies fever, chills. Physical Examination: Lungs: Clear to auscultation bilaterally. Heart: S1, S2. Abdomen: Soft. Benign. Extremities: No edema. Laboratory Data: Sodium 147, potassium 3.9, bicarbonate 19, BUN 45, creatinine 2.7, phosphorus 3.5. Impression And Plan: 1. Xoioe-hp-qxncyoc kidney injury. Patient has advanced chronic kidney disease. At this point, patient has nonoliguric urine output. There is mild metabolic acidosis. Continue bicarbonate tablet. 2. Hypertension, uncontrolled. Continue multiple blood pressure medications including amlodipine, hydralazine, and carvedilol. 3. Hypomagnesemia. Replacement as needed with magnesium sulfate. 4. Acidosis, non-anion gap secondary to renal failure. Patient will continue sodium bicarbonate. Monitor renal panel and electrolytes. I spent 36 min including 25 min to coordinate care plan. FRANCESCA/MACK Voice ID: [id number] Report ID: [id number] KARIN
[2019-01-26] MEDS: NA CHLORIDE 0.9% 1,000 ML IV SCH ×2 (05:00→14:55)
[2019-01-26 06:04] LABS: Absolute Lymphocytes (CBC) 0.8 K/uL (0.7-4.9); Basophils % 0.5 % (0-1.3); Hematocrit 27.6 % (36.0-45.0); Lymphocytes % 14.7 % (15.3-44.8); MPV 9.1 fL (7.6-11.3); RBC Red Blood Cell Count 2.66 M/uL (3.86-4.86)
[2019-01-26 06:13] LABS: Albumin 2.6 g/dL (3.4-5.0); Bilirubin Total 0.4 mg/dL (0.2-1.0); Potassium 4.2 mmol/L (3.5-5.1); Protein, Total 5.3 g/dL (6.4-8.2)
[2019-01-26] MEDS: LEVOTHYROXINE SOD 0.1 MG TAB PO SCH (06:17)
[2019-01-26] MEDS: carvediloL 12.5 MG TAB PO SCH ×2 (06:17→17:00)
[2019-01-26] MEDS: FE SULF/FA/VIT B COMP & C TAB PO SCH (08:35)
[2019-01-26] MEDS: LIPASE/PROTEASE/AMYLASE CAP PO SCH ×3 (08:35→22:03)
[2019-01-26] MEDS: AMLODIPINE 10 MG TAB PO SCH (08:35)
[2019-01-26] MEDS: HYDRALAZINE HCL 25 MG TABLET PO SCH ×3 (08:35→21:00)
[2019-01-26] MEDS: CYANOCOBALAMIN 1,000 MCG TAB PO SCH (08:36)
[2019-01-26] MEDS: PANTOPRAZOLE 40MG TABLET PO SCH (08:36)
[2019-01-26] MEDS: DOCOSAHEXANOIC AC/EPA 1000 MG PO SCH (08:36)
[2019-01-26] MEDS: SODIUM BICARB 325 MG TAB PO SCH ×2 (08:36→22:03)
[2019-01-26] MEDS: CALCIUM CARB 500MG/VIT D 200 IU TAB PO SCH (08:37)
[2019-01-26] MEDS: HEPARIN 5000 UNIT/ML 1 ML VIAL SQ SCH ×2 (08:37→22:03)
[2019-01-26] MEDS: MULTIVIT W/ MINERAL TAB PO SCH (08:37)
[2019-01-26] MEDS: VITAMIN E 400 IU CAP PO SCH (08:37)
--- NOTE | 2019-01-26 13:18 | RAD REPORT ---
EXAM DESCRIPTION: RAD - Chest Single View - 01/26/2019 1:10 pm CLINICAL HISTORY: COPD Chest pain. COMPARISON: Chest Single View dated 01/22/2019; Chest Single View dated 01/20/2019; Abdomen 1 View ( KUB) dated 01/09/2017; Chest Pa And Lat (2 Views) dated 01/09/2017 FINDINGS: Portable technique limits examination quality. The lungs are underinflated but grossly clear. Trace left pleural effusion. The heart is mildly promi nent in size. Proximal left humerus deformity is present compatible with old trauma.
[2019-01-26 13:48] LABS: Vitamin D 1,25-Dihydroxy Total 14 pg/mL (18-72); Vitamin D,1,25-OH2, D2 <8 pg/mL
--- NOTE | 2019-01-26 17:47 | PN ---
Date of Progress Note: 01/26/2019 Subjective: Patient was seen and examined. Chart reviewed and case discussed with RN and Dr. Baudilio reyes. Patient starting to have abdominal distention, somewhat short of breath. Medications: List reviewed. Physical Examination: Vital Signs: Temperature 98.9, heart rate 105, blood pressure 143/67, respirations 17, O2 95% on karla m air. General: Awake, alert, oriented x3. Elderly female, in some mild distress. CV: S1, S2. Regular rate and rhythm. Peripheral pulses weak. Respiratory: Diminished breath sounds especially at the bases. Crackles heard. Gastrointestinal: Abdomen is soft. Patient's abdomen is distended. Positive bowel sounds. No tend erness to palpation. Extremities: No clubbing or cyanosis. Patient has 2+ edema bilateral lower extremities. Neurologic: Nonfocal. Laboratory Data: Sodium 143, potassium 4.2, chloride 119, CO2 of 17, BUN 49, creatinine 3.06, glucos e 117, calcium 7.3. CK level is 66. Albumin 2.6. WBC 5.2, H and H 9.3, 27.6; platelets 201. Immun ology panel is pending. Urine culture is mixed velia. Chest x-ray, lungs are underinflated, but norma ssly clear. Trace left pleural effusion. Heart is mildly prominent in size. Proximal left humerus deformity is present compatible with old trauma. Assessment: An 83-year-old female with: 1.Acute on chronic kidney injury, stage 3. The patient has solitary kidney. Patient will likely ne ed to be started on dialysis. Creatinine is worsening. We will continue to monitor electrolytes. U rine output will need to be measured more accurately. 2.Acute dehydration, improved with IV fluids. Chest x-ray does show some left-sided pleural effusio n, however, patient is on room air. If no improvement in creatinine by tomorrow, we will discontinue IV fluids. 3.Syncopal episode likely secondary to acute dehydration, resolved. Continue working with PT. 4.Liver cirrhosis with history of hepatitis. Medications for paracentesis. 5.History of congestive heart failure, diastolic dysfunction. Ejection fraction is 72%. Patient is starting to build up fluid. We will continue to monitor I's and O's. 6.Essential hypertension, not well controlled. Continue home medications. 7.Hypothyroidism. Synthroid. 8.Hyperuricemia. 9.Moderate protein-calorie malnutrition. Albumin is 2.6. We will continue with protein supplementa tion. Deep vein thrombosis prophylaxis addressed. Plan: Patient will likely need to be started on dialysis per Nephrology. Patient is agreeable. If no improvement in creatinine tomorrow, she will need a dialysis catheter placement. Workup including hep panel and other immunology panel is ongoing. /MACK Voice ID: [id number] Report ID: [id number]
--- NOTE | 2019-01-26 18:32 | PN ---
Date of Progress Note: 01/26/2019 Subjective: Patient was admitted with acute kidney injury. Patient's kidney function continue to de yancey. Today, she was complaining some mild shortness of breath and she has some acidosis. Physical Examination: Vital Signs: Blood pressure 124/55, pulse of 78. Patient had still good urine output of 1100. Chest: Faint rales on the left base. Heart: S1, S2 regular. Abdomen: Soft, nontender. Extremities: No edema. Laboratory Data: WBC 5.2, H and H 9.3/27.6, platelet 201. Sodium 143, potassium 4.2, bicarb 17, BUN 49, creatinine 3, GFR of 15, calcium 7.3. PTH of 196. Vitamin D is 14. Hepatitis is still pending . Current Medications: 1.IV fluid. 2.Calcium carbonate. 3.Amlodipine 10. 4.Carvedilol 12.5. 5.Hydralazine 100 t.i.d. 6.Tylenol-sodium bicarb 650 b.i.d. 7.Levothyroxine. Assessment And Plan: 1.Acute kidney injury, progression of her disease, nonoliguric, normal volume. I am going to decrea se IV fluid to 50 per hour. 2.I had long discussion with the patient. If kidney function continue to decline, patient will need hemodialysis. The patient agreed. We will follow up the lab tomorrow. If kidney function decline, we will place a catheter and initiate dialysis. 3.Acidosis. I am going to increase sodium bicarb to 650 t.i.d. 4.Vitamin D deficiency, secondary hyperparathyroidism. I am going to start the patient on ergocalci ferol. 5.Anemia with proteinuria, nonnephrotic. Serology still pending. We will follow up. LUANN/MACK Voice ID: [id number] Report ID: [id number]
[2019-01-27] MEDS: LEVOTHYROXINE SOD 0.1 MG TAB PO SCH (05:28)
[2019-01-27] MEDS: carvediloL 12.5 MG TAB PO SCH ×2 (05:28→17:17)
[2019-01-27] MEDS: HYDRALAZINE HCL 25 MG TABLET PO SCH ×3 (08:44→20:41)
[2019-01-27] MEDS: CYANOCOBALAMIN 1,000 MCG TAB PO SCH (08:45)
[2019-01-27] MEDS: LIPASE/PROTEASE/AMYLASE CAP PO SCH ×3 (08:45→20:42)
[2019-01-27] MEDS: CALCIUM CARB 500MG/VIT D 200 IU TAB PO SCH (08:46)
[2019-01-27] MEDS: SODIUM BICARB 325 MG TAB PO SCH ×3 (08:47→20:41)
[2019-01-27] MEDS: AMLODIPINE 10 MG TAB PO SCH (08:48)
[2019-01-27] MEDS: FE SULF/FA/VIT B COMP & C TAB PO SCH (08:48)
[2019-01-27] MEDS: DOCOSAHEXANOIC AC/EPA 1000 MG PO SCH (08:49)
[2019-01-27] MEDS: VITAMIN E 400 IU CAP PO SCH (08:50)
[2019-01-27] MEDS: PANTOPRAZOLE 40MG TABLET PO SCH (08:52)
[2019-01-27] MEDS: MULTIVIT W/ MINERAL TAB PO SCH (08:53)
[2019-01-27] MEDS: HEPARIN 5000 UNIT/ML 1 ML VIAL SQ SCH ×2 (08:53→20:41)
[2019-01-27] MEDS: NA CHLORIDE 0.9% 1,000 ML IV SCH (08:55)
[2019-01-27 11:23] LABS: Potassium 4.3 mmol/L (3.5-5.1)
[2019-01-27 13:51] LABS: HIV AG/AB 4TH GEN Non-reactive (Non-reactive)
--- NOTE | 2019-01-27 14:37 | PN ---
Date of Progress Note: 01/27/2019 Subjective: The patient was admitted with acute kidney injury, found to have worsening in her kidney function, acidosis got worse even with the oral sodium bicarb. Patient did not response on any hydr ation. Serology workup pending. The primary of MICHELLE was negative. Complement within normal limits. Physical Examination: Vital Signs: Blood pressure 125/58, pulse of 87. Patient had good urine output of 1100. Chest: Faint rales on the left base. Heart: S1, S2. Systolic murmur. Abdomen: Soft, nontender. Extremities: No edema. Laboratory Data: H and H of 9.3/27.6. Sodium 144, potassium 4.3, bicarb 17, BUN 46, creatinine 3.2, GFR of 14, calcium 7.6. The patient's serum protein electrophoresis is still pending. PTH of 196. Current Medications: The patient on include IV fluid, heparin, IV iron, calcium carbonate, amlodipin e 10 mg daily, carvedilol 12.5 b.i.d., hydralazine 100 t.i.d., sodium bicarb 650 t.i.d., pantoprazole , Zofran, normal saline 50 per hour. Assessment And Plan: 1.Acute kidney injury on solitary kidney with nephrotic-range proteinuria, worsening kidney function . Given her age, I am not going to proceed with any kidney biopsy. Patient had full workup before. No activity on the urine, possible focal segmental glomerulosclerosis secondary to renal mass loss. I had a long discussion with the patient regarding the need to initiate renal replacement therapy. The patient in agreement. We will go ahead and place [facility] and start the patient on dialysis. Th e patient expressed interest in home hemodialysis. We will go ahead and send her application for ins [facility] approval and we will follow up. 2.Hypertension, controlled, optimal. Continue current medication. 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 Continue current monitoring. Unfortunately, could not start on any LORA inhibitor or ARB given the worsening kidney function. 4.Acidosis. Continue sodium bicarb. 5.Anemia of chronic kidney disease. I am going to start the patient on Retacrit and will follow up. LUANN/MACK Voice ID: [id number] Report ID: [id number]
[2019-01-27 14:49] LABS: HBsAG Nonreactive (Nonreactive)
--- NOTE | 2019-01-27 16:36 | PN ---
Date of Progress Note: 01/27/2019 Subjective: Patient seen and examined. Chart reviewed and case discussed with RN and Dr. Ware. Patient's kidney function is worsening. She is acceptable to dialysis. Daughter at the bedside. Medications: List reviewed. Physical Examination: Vital Signs: Temperature 98.2, heart rate 74, blood pressure 132/60, respirations 16, O2 96% on room air. General: Awake, alert, oriented x3 ill-appearing female. CV: S1, S2. Regular rate and rhythm. Peripheral pulses weak. Respiratory: Diminished breath sounds. Some crackles present. Gastrointestinal: Abdomen is distended. Positive bowel sounds. No guarding or rigidity. No tender ness to palpation. Extremities: No clubbing or cyanosis. Patient has 2+ pedal edema. Neurologic: Nonfocal. Laboratory Data: Sodium 144, potassium 4.3, chloride 119, CO2 of 17, BUN 46, creatinine 3.26, glucos e 128, calcium 7.6. Rheumatoid factor is negative. MICHELLE screen is also negative. Complement C3-C4 w ithin normal limits. Hep panel, HIV panel pending. Assessment And Plan: An 83-year-old female with: 1.Acute on chronic kidney injury stage 3. Patient's creatinine not improving. We will need to star t on dialysis. Nephrology has consulted Surgery for catheter placement. Continue to monitor electro lytes and urinary output. Patient does have a solitary kidney. 2.Acute dehydration, improved with IV fluids. Chest x-ray, not showing effusion. IV fluids discont inued. 3.Syncopal episode secondary to dehydration, resolved. 4.Liver cirrhosis with history of hepatitis. We will continue medications. No need for paracentesi s at this time. 5.History of congestive heart failure, diastolic dysfunction. Ejection fraction is 72%. Monitor I' s and O's. 6.Anasarca secondary to worsening kidney function. 7.Essential hypertension, not well controlled. We will need to adjust medications, likely due to fl uid overload causing worsening. 8.Hypothyroidism. We will continue Synthroid. 9.Hyperuricemia. 10.Moderate protein-calorie malnutrition. We will continue with protein supplements. Plan: Initiate dialysis. SA/MODL Voice ID: [id number] Report ID: [id number]
--- NOTE | 2019-01-27 17:46 | CON ---
Date of Consultation: 01/27/2019 Brief History Of Present Illness: Patient is an 83-year-old female with past medical histo ry of hypothyroidism, cirrhosis, solitary kidney, who had near syncope, brought in hospital on 2018. She had consistent worsening of symptoms and as such, she was admitted with the above-stated c omplaints. Workup over the course of her hospitalization revealed that she had worsening kidney func tion to such a degree that she requires hemodialysis now and as such, she is requiring a PermCath devyn cement for permanent ongoing hemodialysis. 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 She has hypothyroidism, hypertension, and CKD. Allergies: MEPERIDINE, PENICILLIN, DARVON. Home Medications: Calcium, vitamin D, B12, iron, levothyroxine, Lopressor, Centrum, omega-3, vitamin E, Lasix. Social History: She denies smoking, alcohol, or recreational drug. Review of Systems: A 10-point review of systems other than HPI, denies. Physical Examination: Vital Signs: At the time of examination, her BMI is 26.9. Her vital signs were temperature 98.2, bl ood pressure 125/58, pulse of 87, respiratory rate 16. General: She is awake, alert, and oriented. Psychiatric: She is appropriate, conversive. HEENT: She is normocephalic. She has alopecia. Her sclerae are anicteric. Her mucous membranes ar e moist. Her oropharynx clear. Neck: Supple. No JVD. Chest: Normal expansion and excursion. Cardiovascular: Regular rate and rhythm. Pulmonary: Clear to auscultation bilaterally. Abdomen: Soft. Extremities: No clubbing or cyanosis. She has mild edema in bilateral lower extremities. Skin: She has dry scaly skin globally. Laboratory Data: She had laboratory exam which revealed a white blood cell count of 5.2, hemoglobin is 9.3, hematocrit 27.6, platelet count is 201. Her sodium is 144, potassium 4.3, chloride 119, carb on dioxide 17, BUN 46, creatinine 3.2, glucose is 128, and calcium is 7.6. She had a chest x-ray per formed on the , which is officially read as the lungs are underinflated but grossly clear, trace left pleural effusion, heart is mildly prominent in size, proximal left humerus deformities present c ompatible with old trauma. Assessment And Plan: An 83-year-old female who comes in with acute on chronic kidney injury, now req uiring permanent hemodialysis. 1.Continue medical management. 2.I have explained risks, benefits, and alternatives of placement of a tunneled hemodialysis cathete r including but not limited to bleeding, infection, damage to surrounding tissues, pneumothorax, and need for further operation and procedures. Patient agrees to proceed as indicated. SANDY/MACK Voice ID: [id number] Report ID: [id number]
[2019-01-28 04:19] LABS: Absolute Lymphocytes (CBC) 0.7 K/uL (0.7-4.9); Basophils % 0.7 % (0-1.3); Hematocrit 26.2 % (36.0-45.0); Lymphocytes % 17.4 % (15.3-44.8); RBC Red Blood Cell Count 2.52 M/uL (3.86-4.86)
[2019-01-28 04:28] LABS: Albumin 2.4 g/dL (3.4-5.0); Bilirubin Total 0.4 mg/dL (0.2-1.0); Magnesium 1.8 mg/dL (1.8-2.4); Phosphorus 3.6 mg/dL (2.5-4.9); Potassium 4.3 mmol/L (3.5-5.1); Protein, Total 5.1 g/dL (6.4-8.2)
[2019-01-28] MEDS: LEVOTHYROXINE SOD 0.1 MG TAB PO SCH (05:05)
[2019-01-28] MEDS: carvediloL 12.5 MG TAB PO SCH ×2 (05:08→17:41)
[2019-01-28 06:19] LABS: Albumin, (SPE) 3.2 g/dL (3.8-4.8); Alpha-1-Globulins 0.2 g/dL (0.2-0.3); Alpha-2-Globulins 0.6 g/dL (0.5-0.9); Gamma Globulins 0.8 g/dL (0.8-1.7); INTERPRETATION REPORT
[2019-01-28] MEDS: PANTOPRAZOLE 40MG TABLET PO SCH (06:23)
[2019-01-28] MEDS: FE SULF/FA/VIT B COMP & C TAB PO SCH (08:00)
[2019-01-28] MEDS: VITAMIN E 400 IU CAP PO SCH (08:05)
[2019-01-28] MEDS: HYDRALAZINE HCL 25 MG TABLET PO SCH ×3 (08:05→20:35)
[2019-01-28] MEDS: LIPASE/PROTEASE/AMYLASE CAP PO SCH ×3 (08:05→20:34)
[2019-01-28] MEDS: MULTIVIT W/ MINERAL TAB PO SCH (08:05)
[2019-01-28] MEDS: AMLODIPINE 10 MG TAB PO SCH (08:06)
[2019-01-28] MEDS: HEPARIN 5000 UNIT/ML 1 ML VIAL SQ SCH ×2 (08:06→20:35)
[2019-01-28] MEDS: DOCOSAHEXANOIC AC/EPA 1000 MG PO SCH (08:06)
[2019-01-28] MEDS: CALCIUM CARB 500MG/VIT D 200 IU TAB PO SCH (08:09)
[2019-01-28] MEDS: SODIUM BICARB 325 MG TAB PO SCH ×3 (08:10→20:34)
[2019-01-28] MEDS: CYANOCOBALAMIN 1,000 MCG TAB PO SCH (08:10)
[2019-01-28] MEDS ORDERED: NS 0.9% VIAL 30 ML ONE (08:57)
[2019-01-28] MEDS ORDERED: BUPIVACA 0.5%/EPI 0.0005%/PF 10 ML VIAL ONE (08:57)
[2019-01-28] MEDS ORDERED: HEPARIN 5000 UNIT/ML 1 ML VIAL ONE (08:57)
[2019-01-28] MEDS ORDERED: MAGNESIUM SULFATE 1 gm IVPB 1 GM/100 ML BAG IV ONE (09:00)
[2019-01-28] MEDS ORDERED: NA CHLORIDE 0.9% 500 ML ONE (10:35)
[2019-01-28] MEDS ORDERED: FENTANYL CITR 100 MCG/2 ML ONE (10:54)
[2019-01-28] MEDS ORDERED: PROPOFOL 200 MG/20 ML VIAL IV ONE (10:54)
[2019-01-28] MEDS ORDERED: Phenylephrine HCl 10 MG/ML 1 ML VIAL ONE (11:44)
--- NOTE | 2019-01-28 12:00 | P.OP ---
Preoperative diagnosis: End Stage Renal Disease Postoperative diagnosis: End Stage Renal Disease Primary procedure: Placement of tunnelled Hemodialysis catheter Secondary procedure: ultrasound guidance and flouroscopy used Anesthesia: MAC + Local Estimated blood loss: <5cc Specimen: None Findings: Dark, non-pulsatile blood returned Complications: None Implants: 24 cm tunnelled hemosplit catheter Transferred to: Recovery Room Condition: Good
--- NOTE | 2019-01-28 12:53 | RAD REPORT ---
EXAM DESCRIPTION: RAD - Fluoroscopy <1 Hour - 01/28/2019 12:09 pm CLINICAL HISTORY: Device placement central venous catheter placement FINDINGS: A central venous catheter was placed into the right atrium. 4 fluoroscopic spot images are submitted. The examination was performed by Dr. Villanueva. Fluoroscopy time 0.5 minutes
--- NOTE | 2019-01-28 12:54 | RAD REPORT ---
EXAM DESCRIPTION: Sayrat Single View01/28/2019 12:29 pm CLINICAL HISTORY: Device placement/central venous catheter placement FINDINGS: Tip of a central venous catheter lies within the right atrium. A pneumothorax is not prese nt. The heart is normal size Lungs appear clear of acute infiltrate
--- NOTE | 2019-01-28 13:43 | PN ---
Date of Progress Note: 01/28/2019 Subjective: The patient had right IJ PermCath, tolerated well. Objective: Vital Signs: Blood pressure 112/55, pulse of 70. Chest: Clear to auscultation. Heart: S1, S2. Systolic murmur. Abdomen: Soft, nontender. Extremities: No edema. Laboratory Data: H and H 8.6/26.2. Sodium 143, potassium 4.3, bicarb 18, BUN 49, creatinine 3.4, calcium 7.9, magnesium 1.8, phosphorus 3.6. Current Medications: Current medications the patient on include calcium carbonate, amlodipine 10, carvedilol 12.5 b.i.d., hydralazine 100 t.i.d., sodium bicarb. Assessment And Plan: 1. Acute kidney injury on advanced chronic kidney disease, nonoliguric, status post PermCath. We will arrange for dialysis. 2. Unfortunately, patient was approved for home HHD . We will arrange for a dialysis _in center at [facility]. 3. Hypertension, controlled, optimal. Continue current medication. 4. Acidosis. Continue bicarb oral. We will discontinue after start dialysis. 5. Nephrotic range of proteinuria, possible secondary to FSGS. Unfortunately could not add any LORA inhibitor currently giving the acute kidney injury. We will continue to monitor. We will follow up serology full serology workup was negative. KELL Voice ID: [id number] Report ID: [id number] KARIN
[2019-01-28] MEDS ORDERED: NA CHLORIDE 0.9% 1,000 ML IV PRN (14:36)
--- NOTE | 2019-01-28 14:48 | PN ---
Date of Progress Note: 01/28/2019 Subjective: Patient seen and examined, chart reviewed, and case discussed with RN and Dr. Villanueva. Patient going for dialysis catheter placement today. Daughter at the bedside. Treatment plan explai dawoa. All questions answered. Patient was somewhat hypotensive at 112/55. Blood pressure medication s held. Medications: List reviewed. Physical Examination: Vital Signs: Temperature 97.9, heart rate 70, blood pressure 112/55, respirations 16, O2 of 99% on r oom air. General: Awake, alert, oriented x3. Elderly female, in some mild distress. CV: S1, S2. Peripheral pulses weak. Respiratory: Diminished breath sounds. Crackles present. No wheezing or stridor. No use of access ory muscles. Gastrointestinal: Abdomen is distended. Positive bowel sounds. No tenderness to palpation. Extremities: No clubbing or cyanosis. Patient has peripheral edema 2+ bilaterally. Neurologic: Nonfocal. Laboratory Data: Sodium 143, potassium 4.3, chloride 117, CO2 of 18, BUN 49, creatinine 3.41, glucos e 114, calcium 7.9. Phosphorus 3.6, magnesium 1.8, albumin 2.4. WBC 3.9, H and H 8.6 and 26.2, plat elets 179. Assessment: An 83-year-old female with: 1.Acute on chronic kidney injury, stage 3. Patient needs to start on dialysis, going for a catheter placement today. 2.Acute dehydration, resolved. 3.Syncopal episode, resolved. 4.Liver cirrhosis with history of hepatitis. Patient does have diffuse anasarca, likely related to the worsening kidney function. 5.History of congestive heart failure, diastolic dysfunction, normal EF. Continue to monitor I's an d O's and fluid restriction. 6.Anasarca secondary to above. 7.Essential hypertension, not well controlled likely due to fluid overload. Blood pressure this luis lay was 112/55. We will hold blood pressure medications today. 8.Hypothyroidism. Continue Synthroid. 9.Hyperuricemia. 10.Moderate protein-calorie malnutrition. We will continue with protein supplements. Plan: Initiate dialysis. SA/MODL Voice ID: [id number] Report ID: [id number]
[2019-01-28] MEDS ORDERED: ALBUMIN HUMAN 25% 50 ML IV SCH (15:00)
--- NOTE | 2019-01-28 21:24 | OP ---
Date of Procedure: 01/28/2019 Surgeon: Mani Villanueva MD, Preoperative Diagnosis: End-stage renal disease. Postoperative Diagnosis: End-stage renal disease. Procedure Performed: 1.Placement of tunneled hemodialysis catheter and right internal jugular vein. 2.Ultrasound guidance and intraoperative fluoroscopy use. Anesthesia: MAC plus local with 0.25% Marcaine. Estimated Blood Loss: Less than 5 mL. Specimen: None. Findings: Dark nonpulsatile blood return. Complications: None. Implants: 24 cm tunnel HemoSplit catheter. Disposition: Transferred to recovery room in good condition. Procedure In Detail: After informed consent was obtained, patient was brought to the operating room, prepped and draped in the usual sterile fashion. After adequate anesthesia was achieved. Patient w as placed in steep Trendelenburg position. I preoperatively mapped the patient's right jugular vein and found to be patent. I therefore used the ultrasound guidance at this time once again to cannulat e the internal jugular vein on the first attempt using ultrasound guidance with microintroducer set. Cannulation was made. Dark red nonpulsatile blood was returned. The microwire was then advanced in and verified with fluoroscopy and to be in the appropriate position. The needle was removed at this time and the small lee ann incision was made over the introduction site. I added additional anesthesia 1% lidocaine to this area. I then placed the introducer sheath without evidence of complication and the microwire was removed. The standard wire was then placed in through the microintroducer sheath and verified with fluoroscopy once again. After this was confirmed, the introducer sheath was remove d and a tunneling tract was made on the anterior chest wall approximately 45 cm from the clavicle. T he tract was anesthetized appropriately. A lee ann incision was made over the chest wall and the tunnel ing device was used to pull the 24 cm HemoSplit catheter through this tunneling device without compli cation and passed out in the appropriate position after this was performed. I performed sequential d ilatation using Seldinger technique and ultimately placed the introducer sheath and passed the cathet er through this and verified position once again with fluoroscopy. After this was confirmed, the por ts and catheters were all flushed quite easily and dark red nonpulsatile blood was returned very easi ly and they flushed very easily. Both ports were then packed with heparin super flush at this time a nd the catheter was secured to the skin with the 3-0 nylon suture. The area was copiously irrigated, cleansed once again and the skin incisions all closed with an interrupted 3-0 nylon suture and a cherry rile dressing was placed over top. The patient tolerated the procedure well without complication, ta north out of Trendelenburg at this point. A stat chest x-ray will be performed to confirm position onc e again and the patient tolerated the procedure well without evidence of complication and transferred to PACU in good condition. All counts were correct at the end the case. SANDY/MACK Voice ID: [id number] Report ID: [id number]
[2019-01-29] MEDS: carvediloL 12.5 MG TAB PO SCH ×2 (06:10→17:38)
[2019-01-29] MEDS: PANTOPRAZOLE 40MG TABLET PO SCH (06:11)
[2019-01-29] MEDS: LEVOTHYROXINE SOD 0.1 MG TAB PO SCH (06:11)
[2019-01-29 06:29] LABS: Absolute Lymphocytes (CBC) 0.6 K/uL (0.7-4.9); Basophils % 0.6 % (0-1.3); Hematocrit 27.4 % (36.0-45.0); Lymphocytes % 11.2 % (15.3-44.8); MPV 9.1 fL (7.6-11.3); RBC Red Blood Cell Count 2.62 M/uL (3.86-4.86)
[2019-01-29 06:47] LABS: Albumin 2.4 g/dL (3.4-5.0); Bilirubin Total 0.5 mg/dL (0.2-1.0); Potassium 3.8 mmol/L (3.5-5.1); Protein, Total 5.1 g/dL (6.4-8.2); Thyroid Stimulating Hormone 2.78 uIU/mL (0.360-3.740)
[2019-01-29] MEDS: FE SULF/FA/VIT B COMP & C TAB PO SCH (08:42)
[2019-01-29] MEDS: DOCOSAHEXANOIC AC/EPA 1000 MG PO SCH (08:42)
[2019-01-29] MEDS: LIPASE/PROTEASE/AMYLASE CAP PO SCH ×3 (08:43→20:25)
[2019-01-29] MEDS: HYDRALAZINE HCL 25 MG TABLET PO SCH ×3 (08:43→20:26)
[2019-01-29] MEDS: SODIUM BICARB 325 MG TAB PO SCH ×3 (08:43→20:26)
[2019-01-29] MEDS: MULTIVIT W/ MINERAL TAB PO SCH (08:44)
[2019-01-29] MEDS: VITAMIN E 400 IU CAP PO SCH (08:44)
[2019-01-29] MEDS: AMLODIPINE 10 MG TAB PO SCH (08:44)
[2019-01-29] MEDS: HEPARIN 5000 UNIT/ML 1 ML VIAL SQ SCH ×2 (08:44→20:26)
[2019-01-29] MEDS: CALCIUM CARB 500MG/VIT D 200 IU TAB PO SCH (08:46)
[2019-01-29] MEDS: CYANOCOBALAMIN 1,000 MCG TAB PO SCH (08:51)
[2019-01-29] MEDS ORDERED: POTASSIUM CL SA 10 MEQ TAB PO ONE (09:00)
--- NOTE | 2019-01-29 09:42 | EKG ---
Test Date: 2019-01-28 Test Time: 12:38:45 Structural Engineering Technician: BRAN MEASUREMENT RESULTS: Intervals: Rate: 62 UT: 152 QRSD: 90 QT: 402 QTc: 408 [place]: P: 43 UT: 152 QRS: -40 T: 90 INTERPRETIVE STATEMENTS: Normal sinus rhythm Left axis deviation Anterior-Lateral infarct, age undetermined Non specific ST and T abnormality Abnormal ECG Compared to ECG 01/20/2019 08:41:09 Sinus bradycardia no longer present Atrial premature complex(es) no longer present Electronically Signed On 01-29-19 09:41:04 SENIOR SALES REPRESENTATIVE by Joshua Hutchins
--- NOTE | 2019-01-29 13:17 | RAD REPORT ---
EXAM DESCRIPTION: RAD - Abdomen 1 View (KUB) - 01/29/2019 12:45 pm CLINICAL HISTORY: abdominal distention Abdominal pain COMPARISON: Abdomen 1 View (KUB) dated 01/09/2017; Abdomen 1 View (KUB) dated 06/15/2015; Stone Protoc ol dated 03/24/2018 FINDINGS: Bowel gas pattern is non-specific. No obstruction, free air or pneumatosis. Dense vascula r calcifications are present. IVC is again noted. Patient has a tortuous and densely calcified spleni c arteries. Pelvis is more limited in detail due to portable technique and large body habitus. Large calcified mass in the right side pelvis has not changed. No acute bone finding. Right hip surgical changes again noted. IMPRESSION: No bowel obstruction, free air or surgically emergent finding. No significant change from prior imaging.
--- NOTE | 2019-01-29 18:27 | PN ---
Date of Progress Note: 01/29/2019 Subjective: Patient seen and examined. Chart reviewed and case discussed with RN and Dr. Ware. Patient is doing well after dialysis. Did report some pain in her abdomen. Medications: List reviewed. Physical Examination: Vital Signs: Temperature 98.3, heart rate 87, blood pressure 147/70, respirations 18, O2 of 95% on room air. General: Awake, alert, oriented x3. Elderly female, some mild distress. CV: S1, S2. Regular rate and rhythm. Peripheral pulses weak. Respiratory: Diminished breath sounds, some crackles heard. No wheezing or stridor. Gastrointestinal: Abdomen is soft. Patient's abdomen is distended. Positive bowel sounds. No guarding or rigidity. Extremities: No clubbing or cyanosis. Patient has 2+ lower extremity edema. Neurologic: Nonfocal. Laboratory Data: Sodium 142, potassium 3.8, chloride 113, CO2 of 21,BUN 31, creatinine 2.54, glucose 101, calcium 7.8, magnesium 2. TSH is 2.78. WBC 5.5, H and H 9 and 27.4, platelets 177. KUB x-ray personally reviewed shows no bowel obstruction, free air or surgically emergent finding. No significant change from prior imaging. Assessment And Plan: An 83-year-old female with: 1. Acute on chronic kidney injury, stage 3, now worsening, requiring dialysis. Patient is tolerated dialysis well. Appreciate Nephrology input. 2. Anemia of chronic disease. Hemoglobin is dropped from 11.7 to 9. Since being in the hospital, part of it might be dilutional. She was on IV fluids initially. We will continue to monitor. Plan, discharge once outpatient dialysis has been set up. 3. Syncopal episode, resolved. 4. Liver cirrhosis with history of hepatitis with diffuse anasarca, improving with dialysis. 5. History of congestive heart failure, diastolic dysfunction. We will continue to monitor I's and O's and continue with fluid restriction. Patient has a normal ejection fraction. 6. Anasarca, improving. 7. Abdominal pain, generalized. Abdominal x-ray does not show any free air. 8. Essential hypertension, poorly controlled due to renal issues, improving. 9. Hypothyroidism. On Synthroid. TSH is normal. 10. Hyperuricemia. 11. Moderate protein-calorie malnutrition. 12. DVT prophylaxis. Heparin SA/MODL Voice ID: [id number] Report ID: [id number] MTDVitor
--- NOTE | 2019-01-29 18:54 | PN ---
Date of Progress Note: 01/29/2019 History: The patient was admitted with acute kidney injury. Kidney function continued to decline. Patient was initiated on dialysis. Physical Examination: Vital Signs: Blood pressure 133/61, pulse of 81, afebrile. The patient had dialysis yesterday, we r emoved only 400. Chest: Clear to auscultation. Heart: S1, S2. Regular. Systolic murmur. Abdomen: Distended. Extremities: No edema. Laboratory Data: WBC 5.5, H and H 9/27.4, platelets 177. Sodium 142, potassium 3.8, bicarb 21, BUN 31, creatinine 2.5, GFR of 18, calcium 7.8. Current Medications: Include albumin, heparin, calcium carbonate, amlodipine 10, carvedilol 12.5, hy dralazine 100 t.i.d., pantoprazole, KCl. Assessment And Plan: 1.Acute kidney injury, progression to end-stage renal disease. We will continue the patient on dial ysis. We will continue dialysis Friday, , Friday. I am going to arrange for dialysis sudeep . Patient unfortunately was not accepted for home hemodialysis. 2.Hypertension, controlled, optimal. Continue current treatment. I going to go ahead and decrease her hydralazine to 75 mg to avoid low blood pressure on dialysis. 3.Abdominal pain, possible constipation. We will do KUB. We will follow up with Primary. 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 Her serology showing mild decrease in C4, otherwise the rest of her rogelio p negative. Serum protein electrophoresis within normal limit. Unfortunately given the acute kidney injury, I am not going to be starting any angiotensin-converting enzyme inhibitor or angiotensin-receptor dick for the time being. 5.Vitamin D deficiency. Continue supplement. LUANN/MACK Voice ID: [id number] Report ID: [id number]
[2019-01-30] MEDS: carvediloL 12.5 MG TAB PO SCH ×2 (05:57→17:46)
[2019-01-30] MEDS: LEVOTHYROXINE SOD 0.1 MG TAB PO SCH (05:58)
[2019-01-30 06:25] LABS: Absolute Lymphocytes (CBC) 0.6 K/uL (0.7-4.9); Basophils % 0.5 % (0-1.3); Hematocrit 26.4 % (36.0-45.0); Lymphocytes % 13.2 % (15.3-44.8); MPV 8.8 fL (7.6-11.3); RBC Red Blood Cell Count 2.52 M/uL (3.86-4.86)
[2019-01-30 06:38] LABS: Albumin 2.4 g/dL (3.4-5.0); Bilirubin Total 0.6 mg/dL (0.2-1.0); Potassium 4.3 mmol/L (3.5-5.1); Protein, Total 5.2 g/dL (6.4-8.2)
[2019-01-30] MEDS: PANTOPRAZOLE 40MG TABLET PO SCH (08:14)
[2019-01-30] MEDS: AMLODIPINE 10 MG TAB PO SCH (08:14)
[2019-01-30] MEDS: DOCOSAHEXANOIC AC/EPA 1000 MG PO SCH (08:14)
[2019-01-30] MEDS: MULTIVIT W/ MINERAL TAB PO SCH (08:14)
[2019-01-30] MEDS: SODIUM BICARB 325 MG TAB PO SCH (08:14)
[2019-01-30] MEDS: LIPASE/PROTEASE/AMYLASE CAP PO SCH ×3 (08:14→20:51)
[2019-01-30] MEDS: HYDRALAZINE HCL 25 MG TABLET PO SCH ×3 (08:15→20:51)
[2019-01-30] MEDS: FE SULF/FA/VIT B COMP & C TAB PO SCH (08:15)
[2019-01-30] MEDS: VITAMIN E 400 IU CAP PO SCH (08:15)
[2019-01-30] MEDS: CYANOCOBALAMIN 1,000 MCG TAB PO SCH (08:15)
[2019-01-30] MEDS: HEPARIN 5000 UNIT/ML 1 ML VIAL SQ SCH ×2 (08:15→20:52)
[2019-01-30] MEDS: CALCIUM CARB 500MG/VIT D 200 IU TAB PO SCH (08:17)
--- NOTE | 2019-01-30 14:00 | PN ---
Date of Progress Note: 01/30/2019 Subjective: The patient was admitted with acute kidney injury, kidney function declined. The patien t was initiated on dialysis. The patient has a third session of dialysis day before yesterday, zachary ated well. The patient is scheduled for dialysis today. Blood pressure has been stable. Objective: Vital Signs: Blood pressure 141/63, pulse of 76, afebrile. Chest: Clear to auscultation. Heart: S1, S2. Regular. Abdomen: Distended. Extremities: No edema. Laboratory Data: H and H 8.7/26.4. Sodium 141, potassium 4.3, bicarb 22, BUN 34, creatinine 2.9, GF R of 50, calcium 7.7. Serum protein electrophoresis normal. Serology negative. Hepatitis negative. Current Medications: The patient on include: 1.Amlodipine 10 mg. 2.Carvedilol 12.5. 3.Hydralazine 75 t.i.d. 4.Levothyroxine. 5.Sodium bicarb. 6.Zofran. 7.Pantoprazole. 8.multivitamin. Assessment And Plan: 1.Chronic kidney disease with acute kidney injury, dialysis dependent. We will continue the patient on dialysis Friday, , Friday. Patient waiting for chair time. 2.Hypertension, controlled optimal. I am going to go ahead and decrease hydralazine to 50 mg t.i.d. to avoid hypotension during the dialysis. 3.Hypomagnesemia, resolved. 4.Acidosis, resolved. Discontinue sodium bicarb. 5.Hyperkalemia, resolved. 6.Nephrotic range proteinuria, mostly secondary to focal segmental glomerulosclerosis, secondary to solitary kidney, renal mass loss. Unfortunately could not add any angiotensin-converting enzyme inhi bitor for the time being. We will continue to monitor the patient. LUANN/MACK Voice ID: [id number] Report ID: [id number]
--- NOTE | 2019-01-30 19:21 | PN ---
Date of Progress Note: 01/30/2019 Subjective: Patient seen and examined. Chart reviewed and case discussed with RN and Dr. Ware. Patient is doing well, asking for dialysis. Patient states her abdomen is more distended again toda y. Patient did not receive dialysis yesterday. Medications: Reviewed. Physical Examination: Vital Signs: Temperature 98, heart rate 76, blood pressure 141/63, respirations 17, O2 99% on room a ir. General: Awake, alert, oriented x3. Elderly female, some mild distress. CV: S1, S2. Peripheral pulses present. Respiratory: Diminished breath sounds. Minimal crackles. No wheezing. No use of accessory muscles . Gastrointestinal: Abdomen is distended. Positive bowel sounds. No tenderness to palpation. No marissa ound or guarding. Extremities: No clubbing or cyanosis. Patient has peripheral edema. Neurologic: Nonfocal. Laboratory Data: Sodium 141, potassium 4.3, chloride 112, CO2 22, BUN 34, creatinine 2.98, glucose 1 02, calcium 7.7, albumin 2.4. WBC 4.8, H and H 8.7 and 26.4, platelets 156, neutrophils 76%. Urine culture growing out mixed velia. Assessment And Plan: An 83-year-old female with 1.Acute on chronic kidney injury, now requiring dialysis, stage 3 and worsening. Patient is tolerat ing dialysis. We will repeat today. Appreciate Dr. Ware's input. 2.Liver cirrhosis with history of hepatitis and diffuse anasarca. Abdomen is again distended with f luid. We should expect improvement with dialysis. 3.Syncope, resolved. 4.Acute dehydration, resolved. 5.History of congestive heart failure, diastolic dysfunction, stable. We will monitor I's and O's a nd continue with fluid restriction. 6.Anasarca, improving with dialysis. 7.Generalized abdominal pain, resolving, likely secondary to abdominal distention from fluid. 8.Essential hypertension, stable. Continue medications. 9.Hypothyroidism, continue Synthroid. 10.Hyperuricemia. 11.Moderate protein-calorie malnutrition. 12.Anemia of chronic disease. Hemoglobin has dropped a couple points likely due to worsening of her chronic diseases. No acute bleeding has been seen. We will check fecal occult blood, transfuse for hemoglobin less than 7. 13.Hyperkalemia, corrected. 14.Acidosis, resolved. 15.Hypomagnesemia, corrected. We will continue to monitor. Plan: Discharge once dialysis has been set up as an outpatient. Continue deep venous thrombosis pro phylaxis. SA/MODL Voice ID: [id number] Report ID: [id number]
[2019-01-31 05:31] LABS: Albumin 2.4 g/dL (3.4-5.0); Bilirubin Total 0.6 mg/dL (0.2-1.0); Potassium 3.6 mmol/L (3.5-5.1); Protein, Total 5.2 g/dL (6.4-8.2)
[2019-01-31] MEDS: LEVOTHYROXINE SOD 0.1 MG TAB PO SCH (06:13)
[2019-01-31] MEDS: carvediloL 12.5 MG TAB PO SCH ×2 (06:13→17:11)
[2019-01-31] MEDS: CYANOCOBALAMIN 1,000 MCG TAB PO SCH (08:01)
[2019-01-31] MEDS: MULTIVIT W/ MINERAL TAB PO SCH (08:02)
[2019-01-31] MEDS: DOCOSAHEXANOIC AC/EPA 1000 MG PO SCH (08:02)
[2019-01-31] MEDS: PANTOPRAZOLE 40MG TABLET PO SCH (08:02)
[2019-01-31] MEDS: AMLODIPINE 10 MG TAB PO SCH (08:03)
[2019-01-31] MEDS: HYDRALAZINE HCL 25 MG TABLET PO SCH ×3 (08:03→20:48)
[2019-01-31] MEDS: FE SULF/FA/VIT B COMP & C TAB PO SCH (08:03)
[2019-01-31] MEDS: LIPASE/PROTEASE/AMYLASE CAP PO SCH ×3 (08:03→20:49)
[2019-01-31] MEDS: VITAMIN E 400 IU CAP PO SCH (08:06)
[2019-01-31] MEDS: HEPARIN 5000 UNIT/ML 1 ML VIAL SQ SCH ×2 (08:06→20:49)
[2019-01-31] MEDS: CALCIUM CARB 500MG/VIT D 200 IU TAB PO SCH (08:07)
[2019-01-31] MEDS ORDERED: POTASSIUM 25 MEQ EFFERV TAB PO ONE (09:00)
--- NOTE | 2019-01-31 15:36 | PN ---
Date of Progress Note: 01/31/2019 Subjective: Patient is seen and examined. Chart reviewed and case discussed with RN. Patient compl ains of worsening swelling. Patient did not have any fluid removed yesterday during dialysis. Medications: List reviewed. Physical Examination: Vital Signs: Temperature 98.4, heart rate 86, blood pressure 144/66, respirations 16, O2 of 96% on r oom air. General: Awake, alert, oriented x3. Elderly female, in some mild distress. CV: S1 and S2. Regular rate and rhythm. Peripheral pulses weak. Respiratory: Diminished breath sounds. Crackles present. No wheezing or stridor. No use of access ory muscles. Gastrointestinal: Abdomen is distended. Moderate ascites. Positive bowel sounds. Extremities: No clubbing or cyanosis. Patient has peripheral edema. Neurologic: Nonfocal. Laboratory Data: Sodium 141, potassium 3.6, chloride 109, CO2 of 26, BUN 19, creatinine 2.2. Glucos e 96. Calcium 7.6, albumin 2.4. Urine cultures, growing out mixed velia. Assessment: An 83-year-old female with: 1.Acute on chronic kidney injury stage 3, now on dialysis, doing well. We will continue dialysis as scheduled. Appreciate Nephrology input. 2.Liver cirrhosis with history of hepatitis, currently with diffuse anasarca. Patient will need bijal e more fluid removed. 3.Syncope, resolved. 4.Acute dehydration, resolved. 5.Congestive heart failure, diastolic dysfunction, stable. Patient does have increased edema, short ness of breath has improved since dialysis has started, not on supplemental oxygen. We will continue to monitor fluid balance. 6.Anasarca, improved with dialysis. 7.Generalized abdominal pain, resolved secondary to abdominal distention from fluid overload. 8.Essential hypertension, stable. 9.Hypothyroidism. Continue Synthroid. 10.Hyperuricemia. 11.Moderate protein-calorie malnutrition. 12.Anemia of chronic disease. Monitor H and H, transfuse for hemoglobin less than 7. 13.Hyperkalemia, corrected. 14.Acidosis, resolved. 15.Hypomagnesemia. We will continue to monitor and replace. Plan: Patient seems to be very weak. Patient states that she is unable to go home. Lives alone. W e will obtain PT consultation. Patient may benefit from [facility] facility placement versus [facility] with PT. SA/MODL Voice ID: [id number] Report ID: [id number]
--- NOTE | 2019-01-31 17:30 | PN ---
Date of Progress Note: 01/31/2019 Subjective: Patient was admitted with acute kidney injury. Patient was initiated on dialysis, statu s post dialysis yesterday. Tolerated the dialysis very well. Physical Examination: Vital Signs: Blood pressure 144/66, pulse of 84, afebrile. The patient still have good urine output of 400. Chest: Clear to auscultation. Heart: S1, S2. Regular. Abdomen: Distended. Bowel sounds appreciated. Extremities: Oozing from the right arm. Laboratory Data: WBC 4.8, H and H 8.7/26.4, platelet 156. Sodium 141, potassium 3.6, bicarb 26, BUN 19, creatinine 2.2, calcium 7.6. Current Medications: The patient on include: 1.Amlodipine. 2.Heparin. 3.Calcium carbonate. 4.Carvedilol 12.5. 5.Hydralazine p.r.n. 6.Hydralazine 50 t.i.d. 7.Zofran. 8.Levothyroxine. 9.KCl. Assessment And Plan: 1.Acute kidney injury on advanced chronic kidney disease. We will continue dialysis, TTS. 2.Secondary hyperparathyroid, stable. Continue calcium carbonate. 3.Hypertension, controlled, optimal. Continue current medication. We going to continue to taper hy dralazine gradually. 4.Keep holding LORA inhibitor and ARB given the acute kidney injury. 5.Anemia of chronic kidney disease. Continue supplement and BOUCHRA workup still. Serum protein electr ophoresis was negative. Her serology was negative, which is for the second time. 6.Nephrotic range of proteinuria, mostly secondary to focal segmental glomerulosclerosis, secondary to nephrectomy, renal mass loss. Unfortunately, could not add any LORA inhibitor or ARB for the time being given the acute kidney injury. 7.Secondary hyperparathyroidism as above. LUANN/MACK Voice ID: [id number] Report ID: [id number]
[2019-02-01 05:35] VITALS: BMI 29.9
[2019-02-01] MEDS: LEVOTHYROXINE SOD 0.1 MG TAB PO SCH (05:38)
[2019-02-01] MEDS: carvediloL 12.5 MG TAB PO SCH ×2 (05:38→17:22)
[2019-02-01 06:15] LABS: Albumin 2.3 g/dL (3.4-5.0); Bilirubin Total 0.5 mg/dL (0.2-1.0); Potassium 4.3 mmol/L (3.5-5.1)
[2019-02-01 06:31] LABS: Absolute Lymphocytes (CBC) 0.7 K/uL (0.7-4.9); Basophils % 0.6 % (0-1.3); Hematocrit 25.6 % (36.0-45.0); MPV 9.2 fL (7.6-11.3)
[2019-02-01] MEDS: CALCIUM CARB 500MG/VIT D 200 IU TAB PO SCH (08:13)
[2019-02-01] MEDS: FE SULF/FA/VIT B COMP & C TAB PO SCH (08:13)
[2019-02-01] MEDS: MULTIVIT W/ MINERAL TAB PO SCH (08:14)
[2019-02-01] MEDS: DOCOSAHEXANOIC AC/EPA 1000 MG PO SCH (08:14)
[2019-02-01] MEDS: AMLODIPINE 10 MG TAB PO SCH (08:14)
[2019-02-01] MEDS: PANTOPRAZOLE 40MG TABLET PO SCH (08:14)
[2019-02-01] MEDS: HYDRALAZINE HCL 25 MG TABLET PO SCH ×3 (08:14→22:01)
[2019-02-01] MEDS: LIPASE/PROTEASE/AMYLASE CAP PO SCH ×3 (08:15→22:01)
[2019-02-01] MEDS: HEPARIN 5000 UNIT/ML 1 ML VIAL SQ SCH ×2 (08:15→22:02)
[2019-02-01] MEDS: VITAMIN E 400 IU CAP PO SCH (08:15)
[2019-02-01] MEDS: CYANOCOBALAMIN 1,000 MCG TAB PO SCH (08:16)
--- NOTE | 2019-02-01 17:29 | PN ---
Date of Progress Note: 02/01/2019 Subjective: Patient is seen and examined. Chart reviewed and case discussed with RN. Patient state s she is not feeling well today, seems to have some shortness of breath and wheezing. Medication List: Reviewed. Physical Examination: Vital Signs: Temperature 98.3, heart rate 81, blood pressure 129/58, respirations 16, O2 of 96% on r oom air. General: Awake, alert, oriented x3, elderly female, ill-appearing, obese. CV: S1, S2. Regular rate and rhythm. Peripheral pulses weak. Respiratory: Diminished breath sounds. Wheezing is heard. No use of accessory muscles. Gastrointestinal: Abdomen is distended, nontender. Positive bowel sounds. No guarding or rigidity. Extremities: No clubbing or cyanosis. Patient has 2+ edema. Neuro: Nonfocal. Laboratory Data: Sodium 140, potassium 4.3, chloride 109, CO2 of 25, BUN 22, creatinine 2.74, glucos e 104, calcium 7.3, albumin 2.3. WBC 5.8, H and H 9.3 and 25.6, platelets 155, neutrophils 72%. Hep atitis panel is nonreactive. HIV is nonreactive. Rheumatoid factor negative. MICHELLE screen is negativ e. Assessment And Plan: 83-year-old female with: 1.Acute on chronic kidney injury stage 3, now requiring dialysis Friday, , Friday. Appre javid Ware's input. Awaiting set up for outpatient dialysis. Patient still volume overloade d, likely get dialyzed today. 2.Liver cirrhosis with history of hepatitis, currently with diffuse anasarca. Should see improvemen t with dialysis. 3.Syncope, resolved. 4.Acute dehydration, resolved. 5.Hyperkalemia, corrected. 6.Acidosis, resolved. 7.Hypomagnesemia. We will replace and monitor. 8.Congestive heart failure, diastolic dysfunction, acute on chronic. Continue to monitor fluid tere nce. Patient has positive fluid balance 50. We will continue with free fluid restriction and monito r I's and O's. 9.Anasarca, improved with dialysis. 10.Generalized abdominal pain secondary to abdominal distention with fluid overload. 11.Essential hypertension, stable. 12.Hypothyroidism. We will continue Synthroid. 13.Hyperuricemia, stable. 14.Moderate protein-calorie malnutrition. We will supplement with proteins. 15.Anemia of chronic disease. H and H are stable. We will continue to monitor. No indications for transfusion at this time. 16.Deep vein thrombosis prophylaxis. Patient is on heparin. Plan: Discharge once outpatient dialysis has been set up. According to nursing staff, the patient h as been able to ambulate with assist. Patient, however, has some concerns regarding discharge home. She wishes to go to [facility] facility. apartment community manager and social media director have been made aware. Patient may benefit from home with PT. /MACK Voice ID: [id number] Report ID: [id number]
--- NOTE | 2019-02-02 01:40 | PN ---
Date of Progress Note: 02/01/2019 Chief Complaint: Acute kidney injury on advanced chronic kidney disease. History Of Present Illness: Patient has chronic kidney disease, stage 4. She developed worsening of the renal function. Patient has nonoliguric urine output , although, she developed severe fluid overload, anasarca. She has a liver cirrhosis, solitary kidney, and nephrotic range proteinuria due to secondary focal segmental glomerulosclerosis. In setting of a solitary kidney, she underwent nephrectomy for obstructive uropathy. Review of Systems: Patient denies fever, chills. Physical Examination: Lungs: Clear to auscultation bilaterally. Heart: S1, S2. Abdomen: Soft, benign. Extremities: Edema present in both legs. Laboratory Data: Sodium 141, potassium 3.6, bicarbonate 26, BUN is 19, creatinine 2.2, calcium 7.6. Impression And Plan: 1. Acute kidney injury on advanced chronic kidney disease. Continue dialysis. Dialysis will be done tomorrow. Continue p.o. fluid restriction to prevent fluid overload. 2. Proteinuria. Patient is not a candidate for LORA inhibitor due to advanced chronic kidney disease and risk of hyperkalemia. 3. Secondary hyperparathyroidism treatment with binders. Monitor phosphorus level. I spent 36 min including 25 min to coordinate care plan. FRANCESCA/MACK Voice ID: [id number] Report ID: [id number] KARIN
[2019-02-02] MEDS: carvediloL 12.5 MG TAB PO SCH ×2 (05:09→16:48)
[2019-02-02] MEDS: LEVOTHYROXINE SOD 0.1 MG TAB PO SCH (05:09)
[2019-02-02] MEDS: PANTOPRAZOLE 40MG TABLET PO SCH (07:30)
[2019-02-02] MEDS: FE SULF/FA/VIT B COMP & C TAB PO SCH (08:00)
[2019-02-02] MEDS: AMLODIPINE 10 MG TAB PO SCH (09:00)
[2019-02-02] MEDS: DOCOSAHEXANOIC AC/EPA 1000 MG PO SCH (09:00)
[2019-02-02] MEDS: HYDRALAZINE HCL 25 MG TABLET PO SCH ×3 (09:00→20:24)
[2019-02-02] MEDS: MULTIVIT W/ MINERAL TAB PO SCH (09:00)
[2019-02-02] MEDS: CALCIUM CARB 500MG/VIT D 200 IU TAB PO SCH (09:00)
[2019-02-02] MEDS: VITAMIN E 400 IU CAP PO SCH (09:00)
[2019-02-02] MEDS: CYANOCOBALAMIN 1,000 MCG TAB PO SCH (09:00)
[2019-02-02] MEDS: LIPASE/PROTEASE/AMYLASE CAP PO SCH ×3 (09:22→20:24)
--- NOTE | 2019-02-02 16:31 | PN ---
Date of Progress Note: 02/02/2019 Subjective: Patient was admitted with acute kidney injury, on solitary kidney. Patient been started on dialysis, tolerating the dialysis very well. Physical Examination: Vital Signs: Blood pressure 121/63, pulse of 73. Chest: Clear to auscultation. Heart: S1, S2 regular. Abdomen: Soft, nontender. Extremities: No edema. Laboratory Data: WBC 5.8, H and H 9.3/25.6, platelets 155. Sodium 140, potassium 4.3, bicarb 25, BU N 22, creatinine 2.7, GFR of 17, calcium 7.3, albumin 2.3. PTH 196. Serology was negative. Serum p rotein electrophoresis was negative. Current Medications: Calcium carbonate, amlodipine 10 mg, carvedilol 12.5, hydralazine 50 t.i.d., Zo chaparrita, pantoprazole, levothyroxine. Assessment And Plan: 1.Acute kidney injury on advanced chronic kidney disease, solitary kidney. Continue dialysis TTS. We will follow up. 2.Hypertension, controlled, optimal. Continue current medication. 3.Secondary hyperparathyroidism. Calcium and phosphorus on the goal. No need for supplement. 4.Anemia of chronic kidney disease, stable. Continue BOUCHRA. 5.Nephrotic range of proteinuria secondary to solitary kidney. Focal segmental glomerulosclerosis, renal mass loss. Serology was negative. Unfortunately, could not add LORA inhibitor or ARB currently given the advanced kidney dise ase. LUANN/MACK Voice ID: [id number] Report ID: [id number]
[2019-02-02] MEDS: HEPARIN 5000 UNIT/ML 1 ML VIAL SQ SCH ×2 (16:48→20:25)
--- NOTE | 2019-02-02 16:50 | P.PN ---
Subjective Date of Service: 02/02/19 Chief Complaint: presyncope / Generalised weakness Patient reports cough productive of greenish sputum. She also report fatigued after dialysis today. I am told about 2 mL of fluid was removed by dialysis today. She is afebrile. Physical Examination - Vital Signs Temperature: 98 F Blood Pressure: 101/67 Pulse: 78 Respirations: 18 Pulse Ox (%): 97 - Physical Exam General: Cachectic, Other (Ill looking) HEENT: Atraumatic, Normocephalic Neck: Supple, JVD not distended Respiratory: Clear to auscultation bilaterally, Normal air movement Cardiovascular: Regular rate/rhythm, Normal S1 S2, Edema (1+ bilateral lower extremity pitting edema) Capillary refill: <2 Seconds Gastrointestinal: Normal bowel sounds, Soft and benign, No tenderness, Distended Musculoskeletal: No swelling Integumentary: No rashes Neurological: Other (Globally weak) - Studies Medications List Reviewed: Yes Assessment And Plan - Current Problems (Diagnosis) (1) Acute on chronic diastolic heart failure Current Visit: Yes Status: Acute (2) Acute kidney injury Current Visit: Yes Status: Acute (3) Dehydration Current Visit: Yes Status: Acute (4) Liver cirrhosis Current Visit: Yes Status: Acute (5) Anasarca Current Visit: Yes Status: Acute (6) Ascites Current Visit: No Status: Acute - Plan Continue hemodialysis per nephrology Daily weight, intake and output monitoring. Fluid restriction to 1500 ml/day. Repeat chest x-ray. Antibiotics pending chest x-ray result. PT and OT Patient plan for disposition to skilled rehab.
--- NOTE | 2019-02-02 17:34 | RAD REPORT ---
EXAM DESCRIPTION: José Single View02/02/2019 5:28 pm CLINICAL HISTORY: cough COMPARISON: January 2019 FINDINGS: The lungs appear clear of acute infiltrate. The heart is normal size. Right hemidiaphragm remains elevated Central venous line remains in place IMPRESSION: No acute abnormalities displayed
[2019-02-02 21:26] VITALS: O2SAT 93
[2019-02-03] MEDS: LEVOTHYROXINE SOD 0.1 MG TAB PO SCH (05:58)
[2019-02-03] MEDS: carvediloL 12.5 MG TAB PO SCH (05:58)
[2019-02-03 06:36] LABS: Absolute Lymphocytes (CBC) 1.1 K/uL (0.7-4.9); Basophils % 0.5 % (0-1.3); Hematocrit 27.7 % (36.0-45.0); Lymphocytes % 16.2 % (15.3-44.8); MPV 9.1 fL (7.6-11.3); RBC Red Blood Cell Count 2.67 M/uL (3.86-4.86)
[2019-02-03] MEDS: PANTOPRAZOLE 40MG TABLET PO SCH (07:30)
[2019-02-03] MEDS: FE SULF/FA/VIT B COMP & C TAB PO SCH (08:00)
[2019-02-03] MEDS: HYDRALAZINE HCL 25 MG TABLET PO SCH ×2 (09:00→14:00)
[2019-02-03] MEDS: VITAMIN E 400 IU CAP PO SCH (09:00)
[2019-02-03] MEDS ORDERED: NEPRO SHAKE 237 ML CAN PO SCH (09:00)
[2019-02-03] MEDS: LIPASE/PROTEASE/AMYLASE CAP PO SCH ×2 (09:00→12:53)
[2019-02-03] MEDS: CYANOCOBALAMIN 1,000 MCG TAB PO SCH (09:00)
[2019-02-03] MEDS: DOCOSAHEXANOIC AC/EPA 1000 MG PO SCH (09:00)
[2019-02-03] MEDS: AMLODIPINE 10 MG TAB PO SCH (09:00)
[2019-02-03] MEDS: HEPARIN 5000 UNIT/ML 1 ML VIAL SQ SCH (09:00)
[2019-02-03] MEDS: CALCIUM CARB 500MG/VIT D 200 IU TAB PO SCH (09:00)
[2019-02-03] MEDS: MULTIVIT W/ MINERAL TAB PO SCH (09:00)
--- NOTE | 2019-02-03 10:46 | P.DS ---
Admission Date: 01/22/19 Discharge Date: 02/06/19 Disposition: TRANSFER TO SNF - REHAB Discharge Condition: GOOD Reason for Admission: presyncope / Generalised weakness - Problems (1) Acute on chronic diastolic heart failure Status: Acute (2) Acute kidney injury Status: Acute (3) Dehydration Status: Acute (4) Liver cirrhosis Status: Acute (5) Anasarca Status: Acute (6) Ascites Status: Acute Brief History of Present Illness: 83-year-old woman with a history of liver cirrhosis and chronic pancreatitis was brought to the emergency department due to a near syncopal episode. Patient reported episodes of diarrhea which was worse than her chronic diarrhea from her chronic pancreatitis. Workup in the ED revealed acute renal failure. Patient was admitted for further management. Hospital Course: Patient admitted to the medical floor. She was hydrated briefly with IV fluids and her Lasix therapy discontinued. She was also treated with bicarb drip for metabolic acidosis and later transition to oral sodium bicarbonate. Her renal function did not respond much to IV hydration. Nephrology was consulted who assisted with management. She developed ascites and anasarca along the course of treatment. Hemodialysis was later recommended. Right IJ dialysis catheter was inserted. Patient received multiple sessions of hemodialysis. Metabolic acidosis was corrected with dialysis and oral sodium bicarb discontinued. She was evaluated by PT and OT and skilled rehab recommended. Nephrology plans to continue dialysis as an outpatient. She has been approved for dialysis and has dialysis seat arranged for Friday and Fridays. Patient is deemed stable for discharge to senior living for rehab. Vital Signs/Physical Exam: Temp Pulse Resp BP Pulse Ox 98.6 F 85 18 142/60 H 97 02/03/19 04:00 02/03/19 05:58 02/03/19 04:00 02/03/19 05:58 02/03/19 04:00 General: Alert, In no apparent distress, Oriented x3 HEENT: Atraumatic, Normocephalic Neck: Supple, JVD not distended Respiratory: Clear to auscultation bilaterally, Normal air movement Cardiovascular: No edema, Regular rate/rhythm, Normal S1 S2 Capillary refill: <2 Seconds Gastrointestinal: Normal bowel sounds, Soft and benign, Distended, Ascites Musculoskeletal: No swelling, No erythema Integumentary: No rashes Neurological: Normal speech, Normal strength at 5/5 x4 extr Laboratory Data at Discharge: WBC 6.6 K/uL (4.3-10.9) 02/03/19 06:03 Hgb 9.3 g/dL (12.0-15.0) L 02/03/19 06:03 Hct 27.7 % (36.0-45.0) L 02/03/19 06:03 Plt Count 186 K/uL (152-406) 02/03/19 06:03 PT 11.8 SECONDS (9.5-12.5) 01/20/19 09:00 INR 1.00 01/20/19 09:00 Sodium 141 mmol/L (136-145) 02/03/19 06:03 Potassium 4.0 mmol/L (3.5-5.1) 02/03/19 06:03 BUN 22 mg/dL (7-18) H 02/03/19 06:03 Creatinine 2.69 mg/dL (0.55-1.3) H 02/03/19 06:03 Glucose 93 mg/dL (74-106) 02/03/19 06:03 Uric Acid 6.4 mg/dL (2.6-6.0) H 01/25/19 04:57 Phosphorus 3.6 mg/dL (2.5-4.9) 01/28/19 03:36 Magnesium 2.0 mg/dL (1.8-2.4) 01/29/19 05:42 Total Bilirubin 0.5 mg/dL (0.2-1.0) 02/01/19 05:27 AST 32 U/L (15-37) 02/01/19 05:27 ALT 40 U/L (12-78) 02/01/19 05:27 Alkaline Phosphatase 40 U/L (45-117) L 02/01/19 05:27 Triglycerides 184 mg/dL (<150) H 01/21/19 05:42 Cholesterol 115 mg/dL (<200) 01/21/19 05:42 HDL Cholesterol 31 mg/dL (40-60) L 01/21/19 05:42 Cholesterol/HDL Ratio 3.71 01/21/19 05:42 Home Medications: Levothyroxine [Synthroid*] 100 mcg PO RELUN2BM 01/20/19 Lipase/Protease/Amylase [Jyothion Dr 12,000 Units Capsule] 2 each PO TID 01/20/19 Multivit-Min/FA/Lycopen/Lutein [Centrum Silver Tablet] 1 each PO DAILY 01/20/19 Vitamin E 400 unit PO DAILY 01/20/19 Amlodipine [Norvasc*] 10 mg PO DAILY tab 02/03/19 Calcium Carbonate/Vitamin D3 [Oscal 500 + Vit D 200 Iu Tab*] 1 tab PO DAILY tab 02/03/19 Cyanocobalamin [Vitamin B-12*] 1,000 mcg PO DAILY tab 02/03/19 Docosahexanoic AC/Epa [Fish Oil 1,000 MG*] 1,000 mg PO DAILY cap 02/03/19 Hydralazine [Apresoline*] 50 mg PO TID tab 02/03/19 Iron/FA/Vit B-Com W/C [Hemocyte Plus*] 1 tab PO DAILY WITH BREAKFAST tab Nepro Shake [Nepro*] 237 ml PO DAILY can 02/03/19 Pantoprazole [Protonix Tab*] 40 mg PO ACB tab 02/03/19 carvediloL [Coreg*] 12.5 mg PO BID 6AM 6PM tab 02/03/19 Diet: Renal (Dialysis) Activity: Fall precautions Followup: Emmett Ware MD [ACTIVE - CAN ADMIT] - 1-2 Weeks (call to schedule an appointment) Gonzalo Knott [OUTSIDE AGENCY] - (Mondays, Wednesdays, Fridays at 3:45PM) Time spent managing pt's care (in minutes): 34
[2019-02-03 12:47] VITALS: BP 110/60; TEMP 98.1
[2019-02-03] MEDS ORDERED: LOPERAMIDE HCL 2 MG CAPSULE PO ONE (17:00)
--- NOTE | 2019-02-04 03:37 | PN ---
Date of Progress Note: 02/03/2019 Subjective: Patient doing well. No nausea. No vomiting. Scheduled for dialysis today. Physical Examination: Vital Signs: When I saw the patient, blood pressure of 110/60, pulse of 100, afebrile. Chest: Clear to auscultation. Heart: S1, S2. Regular. Abdomen: Soft, distended. Extremities: No edema. Laboratory Data: Patient's H and H 9.3/27.7. Sodium 141, potassium 4, bicarb 28, BUN 22, creatinine 2.6, calcium 7.5. Current Medications: The patient is on include: 1.Amlodipine. 2.Carvedilol 12.5. 3.Heparin. 4.Hydralazine. 5.Multivitamin. Assessment And Plan: 1.Acute kidney injury, on advanced chronic kidney disease. Continue dialysis. 2.Hypertension, controlled, optimal. 3.Deconditioning. Continue PT, OT. Patient okay to skip dialysis today, to resume dialysis on ay. Patient cleared from the renal standpoint for discharge planning. KELL Voice ID: [id number] Report ID: [id number]
== END 2019-02-03 15:23 | DRG 682 ==
LOC: ER 08:34 → ERHOLD 12:28 → 4TH 13:44 → OBSVTOIN 01-22 16:25
PROVIDERS: ADMIT Internal Medicine; ATTEND Internal Medicine
PROC: B513ZZA Fluoroscopy of Right Jugular Veins, Guidance (ICD-10-PCS; 2019-01-28)
PROC: 5A1D70Z Performance of Urinary Filtration, Intermittent, Less than 6 Hours Per Day (ICD-10-PCS; 2019-01-28)
PROC: 05HM33Z Insertion of Infusion Device into Right Internal Jugular Vein, Percutaneous Approach (ICD-10-PCS; principal; 2019-01-28 09:30)
PROC: 5A1D70Z Performance of Urinary Filtration, Intermittent, Less than 6 Hours Per Day (ICD-10-PCS; 2019-01-30)
PROC: 5A1D70Z Performance of Urinary Filtration, Intermittent, Less than 6 Hours Per Day (ICD-10-PCS; 2019-02-02)
DX: N17.9 Acute kidney failure, unspecified (principal); I50.33 Acute on chronic diastolic (congestive) heart failure; I13.0 Hypertensive heart and chronic kidney disease with heart failure and stage 1 through stage 4 chronic kidney disease, or unspecified chronic kidney disease; E87.2 Acidosis; E44.0 Moderate protein-calorie malnutrition; R18.8 Other ascites; N39.0 Urinary tract infection, site not specified; E87.0 Hyperosmolality and hypernatremia; K86.1 Other chronic pancreatitis; N18.4 Chronic kidney disease, stage 4 (severe); N25.81 Secondary hyperparathyroidism of renal origin; K74.60 Unspecified cirrhosis of liver; E11.22 Type 2 diabetes mellitus with diabetic chronic kidney disease; E87.5 Hyperkalemia; E03.9 Hypothyroidism, unspecified; E83.42 Hypomagnesemia; E78.5 Hyperlipidemia, unspecified; R55 Syncope and collapse; E86.0 Dehydration; D63.1 Anemia in chronic kidney disease; E79.0 Hyperuricemia without signs of inflammatory arthritis and tophaceous disease; Z68.26 Body mass index [BMI] 26.0-26.9, adult; Z90.5 Acquired absence of kidney
CPT/HCPCS: 36415; 71045; 74018; 76000; 76700; 76770; 80048; 80053; 80061; 80069; 80076; 81003; 81015; 82550; 82553; 82570; 82607; 82652; 82746; 82947; 83520; 83735; 83880; 83970; 84100; 84132; 84156; 84165; 84300; 84443; 84484; 84550; 85025; 85610; 86021; 86038; 86160; 86317; 86430; 86704; 86705; 86706; 86803; 87086; 87088; 87340; 87389; 90935; 93005; 93306; 94760; 97110; 97116; 97161; 97530; 99285; C1752; G0378; J0360; J1644; J2370; J2704; J3010; J3475; J7030; J7040; P9047

== ENCOUNTER 2019-09-24 15:26 | Observation (INO) | payer OTHER ==
--- OUTSIDE RECORDS SUMMARY | 2019-09-24 15:29 | XMS REPORT | Clinical Summary ---
:1935 Author Organization [facility] Address [address] [place] [address] Care Team Providers Name Role Phone Ngoc Paige DO Primary Care Provider Allergies Active Allergy Reactions Severity Noted Date Comments Adhesive Tape-Silicones Other (See Comments) 8 Tears the skin Latex 10/20/2017 UNK REACTION WAS TOLD DON'T TAKE Meperidine Rash, Swelling Low 05/19/2017 Penicillins Shortness Of Breath High 05/19/2017 Propoxyphene Rash Low 05/19/2017 Sulfa (Sulfonamide Rash Medium 04/09/2017 Antibiotics) Medications Medication Sig Dispensed Refills Start Date End Date Status PREVALITE 4 gram powder Take 1 packet by 0 8 Active in packet mouth daily. CREON 24,000-76,000 Take 2,400 Units 0 04/25/2017 Active -120,000 unit by mouth 3 capsule,delayed (three) times a release(DR/EC) capsule day. omeprazole (PriLOSEC) 20 Take 20 mg by 3 05/26/2017 Active MG capsule mouth daily. FUROSEMIDE ORAL Take 30 mg by 0 Active mouth daily. levothyroxine Take 50 mcg by 0 A ctive (SYNTHROID, LEVOXYL) 50 mouth every mcg tablet morning. FOLIC Take 1 tablet by 0 Act javy ACID/MULTIVIT-MIN/LUTEIN mouth daily. (CENTRUM SILVER ORAL) CALCIUM CARB/VIT Take by mouth 2 0 Active D3/MINERALS (two) times a (CALCIUM-VITAMIN D ORAL) day. cyanocobalamin (VITAMIN Take 1,000 mcg 0 Active B-12) 1000 MCG tablet by mouth daily. DOCOSAHEXANOIC ACID/EPA Take 1,000 mg by 0 Active (FISH OIL ORAL) mouth daily. vitamin E 400 UNIT Take 400 Units 0 Active capsule by mouth daily. albuterol (PROAIR Inhale 2 puffs 0 Active HFA,PROVENTIL every 6 (six) HFA,VENTOLIN HFA) 90 hours as needed mcg/actuation inhaler for wheezing. Active Problems Problem Noted Date Postmenopausal bleeding 05/21/2017 Renal insufficiency 05/21/2017 Endometritis 05/19/2017 Diabetes mellitus 12/05/2000 Hypertensive disorder 12/05/2000 Family History Medical History Relation Name Comments Other Father made excessive R BC Diabetes Mother Heart disease Mother Stroke Mother Relation Name Status Comments Father Mother Social History Tobacco Use Types Packs/Day Years Used Date Never Smoker Smokeless Tobacco: Never Used Alcohol Use Drinks/Week oz/Week Comments No Sex Assigned at Date Recorded Not on file Job Start Date Occupation Industry Not on file Not on file Not on file Travel History Travel Start Travel End No recent travel history available. Last Filed Vital Signs Not on file Plan of Treatment Health Maintenance Due Date Last Done Comments DIABETIC RETINAL EYE EXAM 1935 DIABETIC FOOT EXAM 1945 URINE MICROALBUMIN 1946 SHINGLES VACCINES (#1) 1986 65+ PNEUMOCOCCAL VACCINE (1 of 2 - PCV13) 2001 INFLUENZA VACCINE 10/02/2019 Results Not on fileafter 09/23/2018 Additional Health Concerns Infection Noted Time Resolved Time ESBL (C ) 06/05/2017 10:53 AM CDT Insurance Payer Benefit Plan / Subscriber ID Effective Phone Address T ype Group Dates MEDICARE MEDICARE PART xxxxxxxxxx 2001-Prese AGUILAR, T X Medicare A AND B nt [facility] xxxxxxxxx 2001-[facility] [place] nt Advance Directives For more information, please contact: [phone] Type Date Recorded 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
--- OUTSIDE RECORDS SUMMARY | 2019-09-24 15:30 | XMS REPORT | Clinical Summary ---
:1935 Author Organization [facility] Address [address] [place] [address] Care Team Providers Name Role Phone Ngoc Paige DO Primary Care Provider Allergies Active Allergy Reactions Severity Noted Date Comments Adhesive Tape-Silicones 05/19/2017 Othe r reaction(s): Other (See Comm ents) Tears the skin Propoxyphene Hives, Rash, Other Medium 04/09/2017 Other kamila ction(s): (See Comments) Itching/Hives /Rash Meperidine (Pf) Swelling 12/30/2018 Penicillins Swelling 12/30/2018 Medications Medication Sig Dispensed Refills Start Date End Date Status calcium carbonate-vit Take by mouth. 0 Active D3-min 600 mg calcium- 200 unit Tab folic not defined 0 Active acid/multivit-min/lute in (CENTRUM SILVER ORAL) FUROSEMIDE ORAL Take 20 mg by 0 Active mouth. omega 3-[id number]-wgp-fish 1 capsule 0 Active oil (FISH OIL) 1,000 mg (120 mg-180 mg) Cap IRON Take by mouth. 0 Activ e [id number] CC ORAL levothyroxine 1 tablet on an 0 A ctive (SYNTHROID, empty stomach in LEVOTHROID) 100 MCG the morning tablet cyanocobalamin, daily. 0 Acti ve vitamin B-12, 1,000 mcg/mL Kit PREVALITE 4 gram PwPk MIX AND DRINK 1 1 11/11/2018 Active packet PACKET ONCE A DAY ORALLY CREON 24,000-76,000 0 12/20/2018 Active -120,000 unit CpDR capsule metoprolol (LOPRESSOR) Take 50 mg by 0 12/08/2018 Active 50 MG tablet mouth 2 (two) times daily with breakfast and dinner. omeprazole (PRILOSEC) Take 20 mg by 3 11/10/2018 Active 20 MG capsule mouth daily. vitamin E 400 UNIT daily. 0 A ctive capsule Active Problems Problem Noted Date Cirrhosis 12/30/2018 Last Assessment & Plan: Although we do not have histologic proof, the combination of clinical findings, laboratory parameters, and imaging are sufficient to make the diagnosis of cirrhosis. She has well compensated disease. W e will order labs to update MELD-Na scor e. She has an increased risk of mortality as a result of cirrhosis. Suspected etiology is fatty liver disease s/p jejunoileal bypass surgery. Cirrhosis education was completed today with literature provided. Portal hypertension 12/30/2018 Last Assessment & Plan: Complications of portal venous hypertension include ascites, hepatic encephalopathy that indicate decompensation of cirrhosis, which significantly increases the risk of Screening for malignant neoplasm 12/30/2018 Last Assessment & Plan: Cirrhosis is a significant risk factor f or development of hepatocellular carcinoma. Recent evidence also suggests a risk of HCC in patients with stage 3 fibrosis on liver biopsy. We recommend surveillance for HCC be performed using imaging and alphafetoprotein every 6 months. US from May 2018 negative for any lesions. Will order Abdominal US and AFP. Immunity status testing 12/30/2018 Last Assessment & Plan: CDC recommends that all patients with chronic liver disease, regardless of etiology, should be immunized to prevent hepatitis A and hepatitis B if they are not already immune. This should be done in ad dition to other age-appropriate vaccines . We will test for immunity to both viruses - vaccine recommendations will follow. Screening for varices 12/30/2018 Last Assessment & Plan: Because of the risk for upper GI bleedin g, all patients with portal hypertension should be screened for gastroesopahgeal varices and/or portal hypertensive gastropathy. If varices and gastropathy are absent, screening should be repeated in 24 months. If varices and/or portal hype rtensive gastropathy are present, recommendations for observation versus t herapy with non-cardioselective beta blockers and/or variceal band ligation should be based on the size of the varices and risk for hemorrhage.EGD December 2018 didnot show varices per patient. To follow up with Dr. Mcdonald for surveillance EGDS Chronic kidney disease 12/30/2018 Last Assessment & Plan: She has CKD which is progressively worse rosanne. This is not hepatorenal syndrome based on her labs and the fact that she does n ot have refractory ascites. It is intrinsic renal disease given the uncontrolled hyp ertension, h/o of diabetes and the fact that she has solitary kidney. To continue fol low up with nephrology. Dialysis and the need for renal biopsy at nephrology discretio n Overweight (BMI 25.0-29.9) 12/30/2018 Last Assessment & Plan: Body mass index is 26.32 kg/m. S/p gastric bypass surgery in 1973. Obesity is an established risk factor for vascular complications (ie coronary artery disease, cerebrovascular disease, peripheral vas cular disease), osteoarthritis, pulmonar y disease, as well as the development of non-alcoholic fatty liver disease and the risk for non-alcoholic steatohepatitis. We have recommended a structured weight loss program (10% body weight initially ), along with dietary modifications and regular exercise for overall good health and to minimize the risk of obesity - related complications. EPIC patient educatio n on non-alcoholic fatty liver diet and exercising to lose weight are printed and given to the patient Encounters Date Type Specialty Care Team Description 12/30/2018 Hospital Encounter Radiology Bill Mendoza Cirrhosi s of liver MD Gino without ascites , unspecified hep atic cirrhosis type (HCC) 12/30/2018 Office Visit Hepatology Bill Mendoza Cirrhosis of l iver without ascites, unspecified hepatic cirrhosis type (HCC) (Primary Dx); MD Gino Portal hyperten nelson ; Screening for m alignant neoplasm; Immunity status testing; Stage 3 chronic kidney disease (HCC); Overweight (BMI 25.0-29.9); Fatty liver; Esophageal vari darlene without bleeding, unspecified esophageal varices type (HCC) after 09/23/2018 Family History Medical History Relation Name Comments Leukemia Brother Diabetes Brother Diabetes Daughter Diabetes Daughter Heart disease Father Diabetes Mother Heart disease Mother Relation Name Status Comments Brother Brother Alive Daughter Alive Daughter Father Mother Social History Tobacco Use Types Packs/Day Years Used Date Never Smoker Smokeless Tobacco: Never Used Alcohol Use Drinks/Week oz/Week Comments No Alcohol Habits Answer Date Recorded How often do you have a drink containing alcohol? Never 12/30/2018 How many drinks containing alcohol do you have on a typical Not asked day when you are drinking? How often do you have six or more drinks on one occasion? No t asked Sex Assigned at Date Recorded Not on file Job Start Date Occupation Industry Not on file Not on file Not on file Travel History Travel Start Travel End No recent travel history available. Last Filed Vital Signs Vital Sign Reading Time Taken Blood Pressure 169/80 12/30/2018 1:32 PM CDT Pulse 70 12/30/2018 1:32 PM CDT Temperature 36.5 C (97.7 F) 12/30/2018 1:32 PM CDT Respiratory Rate 18 12/30/2018 1:32 PM CDT Oxygen Saturation 99% 12/30/2018 1:32 PM CDT Inhaled Oxygen Concentration - - Weight 67.4 kg (148 lb 9.6 oz) 12/30/2018 1:32 PM CDT Height 160 cm (5' 3") 12/30/2018 1:32 PM CDT Body Mass Index 26.32 12/30/2018 1:32 PM CDT Plan of Treatment Health Maintenance Due Date Last Done Comments PNEUMOCOCCAL 65+ LOW/MEDIUM RISK (1 of 2 - PCV13) 2001 MEDICARE ANNUAL WELLNESS (YEAR 2 or FIRST YEAR if no 08/02/2002 IPPE) INFLUENZA VACCINE (Season Ended) 2019 Procedures Procedure Name Priority Date/Time Associated Diagnosis Comme nts US ABDOMEN COMPLETE Routine 12/30/2018 5:41 Cirrhosis of live r Results for this PM CDT without ascites, procedure a re in unspecified hepatic the resu lts cirrhosis type (HCC) section . CBC W/PLT COUNT & Routine 12/30/2018 3:04 Cirrhosis of liver Results for this AUTO DIFFERENTIAL PM CDT without ascites, proced ure are in unspecified hepatic the resu lts cirrhosis type (HCC) section . CBC W/PLT COUNT & Routine 12/30/2018 3:04 Cirrhosis of liver Results for this AUTO DIFFERENTIAL PM CDT without ascites, proced ure are in unspecified hepatic the resu lts cirrhosis type (HCC) section . HEPATIC FUNCTION Routine 12/30/2018 3:04 Cirrhosis of liver R esults for this PANEL PM CDT without ascites, procedure a re in unspecified hepatic the resu lts cirrhosis type (HCC) section . BASIC METABOLIC PANEL Routine 12/30/2018 3:04 Cirrhosis of li rafita Results for this (7) PM CDT without ascites, procedure a re in unspecified hepatic the resu lts cirrhosis type (HCC) section . HEPATITIS C ANTIBODY Routine 12/30/2018 3:03 Cirrhosis of luis er Results for this PM CDT without ascites, procedure a re in unspecified hepatic the resu lts cirrhosis type (HCC) section . HEPATITIS A ANTIBODY, Routine 12/30/2018 3:03 Immunity status Results for this IGG PM CDT testing procedure are i n the results section. HEPATITIS B CORE Routine 12/30/2018 3:03 Immunity status Resu lts for this ANTIBODY, TOTAL PM CDT testing procedure ar e in the results section. HEPATITIS B SURFACE Routine 12/30/2018 3:03 Immunity status R esults for this ANTIBODY PM CDT testing procedure are i n the results section. HEPATITIS B SURFACE Routine 12/30/2018 3:03 Immunity status R esults for this ANTIGEN PM CDT testing procedure are i n the results section. ALPHA FETOPROTEIN Routine 12/30/2018 3:03 Cirrhosis of liver Results for this (AFP), TUMOR MARKER PM CDT without ascites, proc edure are in unspecified hepatic the resu lts cirrhosis type (HCC) section . PROTHROMBIN TIME/INR Routine 12/30/2018 3:03 Cirrhosis of luis er Results for this PM CDT without ascites, procedure a re in unspecified hepatic the resu lts cirrhosis type (HCC) section . after 09/23/2018 Results US abdomen complete (12/30/2018 5:41 PM CDT) Specimen Narrative Performed At FINAL REPORT Contapps TECHNIQUE: Grayscale ultrasound of the hailey barroso. INDICATION: cirrhosis, rule out HCC. COMPARISON: CT from 12/30/2007 FINDINGS: MIDLINE VASCULATURE: The visualized infe rior vena cava is unremarkable. Portal vein is patent. The maximum visualized aortic diameter is 1.3 cm. LIVER: Coarsened hepatic echotexture. No dular liver contour. No focal lesions. The main portal vein measures 1 cm. BILIARY: Gallbladder: Prior cholecystectomy Common bile duct measures 0.6 cm, within normal limits. No intrahepatic biliary ductal dilatation. PANCREAS: Incompletely visualized due to overlying bowel gas. SPLEEN: No splenomegaly. The spleen harsh ures 10 cm. PERITONEUM: Small volume perihepatic asc ites. KIDNEYS: The right kidney is normal in s ize. The left kidney was not well visualized due to bowel gas. No hyd ronephrosis. No sonographically evident solid mass lesio n. IMPRESSION: Cirrhosis with ascites. No focal hepatic lesions. Signed: Aniket Hahn MD Report Verified Date/Time:12/30/2018 17:50:49 Reading Location: [address] Reading Room Procedure Note Interface, External Ris In - 12/30/2018 5:53 PM CDT FINAL REPORT TECHNIQUE: Grayscale ultrasound of the hailey barroso. INDICATION: cirrhosis, rule out HCC. COMPARISON: CT from 12/30/2007 FINDINGS: MIDLINE VASCULATURE: The visualized infe rior vena cava is unremarkable. Portal vein is patent. The maximum visualized aortic diameter is 1.3 cm. LIVER: Coarsened hepatic echotexture. No dular liver contour. No focal lesions. The main portal vein measures 1 cm. BILIARY: Gallbladder: Prior cholecystectomy Common bile duct measures 0.6 cm, within normal limits. No intrahepatic biliary ductal dilatation. PANCREAS: Incompletely visualized due to overlying bowel gas. SPLEEN: No splenomegaly. The spleen harsh ures 10 cm. PERITONEUM: Small volume perihepatic asc ites. KIDNEYS: The right kidney is normal in s ize. The left kidney was not well visualized due to bowel gas. No hyd ronephrosis. No sonographically evident solid mass lesio n. IMPRESSION: Cirrhosis with ascites. No focal hepatic lesions. Signed: Aniket Hahn MD Report Verified Date/Time: 12/30/2018 1 7:50:49 Reading Location: [address] Radiolog [address] Reading Room Performing Organization Address City/State/Zipcode Phone Number [facility] CBC with platelet count + automated diff (12/30/2018 3:04 PM CDT) WBC 7.7 3.5 - 10.5 K/L [facility] H [facility] RBC 3.25 (L) 3.93 - 5.22 M/L [facility] Hemoglobin 10.9 (L) 11.2 - 15.7 GM/DL [facility] Hematocrit 34.1 34.1 - 44.9 % [facility] MCV 104.9 (H) 79.4 - 94.[address] [facility] MCH 33.5 (H) 25.6 - 32.2 pg [facility] MCHC 32.0 (L) 32.2 - 35.5 GM/DL [facility] RDW 13.5 11.7 - 14.4 % [facility] Platelets 215 150 - 450 K/CU MM [facility] MPV 10.4 9.4 - 12.3 fL [facility] nRBC 0 0 - 0 /100 WBC [facility] % Neutros 74 % [facility] % Lymphs 16 % [facility] % Monos 8 % [facility] % Eos 2 % [facility] % Baso 1 % [facility] # Neutros 5.69 1.56 - 6.13 K/L [facility] # Lymphs 1.22 1.18 - 3.74 K/L [facility] # Monos 0.59 (H) 0.24 - 0.36 K/L [facility] # Eos 0.13 0.04 - 0.36 K/L [facility] # Baso 0.05 0.01 - 0.08 K/L [facility] Immature 0 0 - 1 % [facility] Granulocytes-Relative MEDICAL CE NTER Specimen Blood Performing Organization Address City/State/Zipcode Phone Number [facility] [address] [place] [address] CENTER Hepatic function panel (12/30/2018 3:04 PM CDT) Protein, Total 6.5 6.0 - 8.3 gm/dL [facility] Albumin 3.0 (L) 3.5 - 5.0 g/dL [facility] Total Bilirubin 0.4 0.2 - 1.2 mg/dL [facility] Bilirubin, Direct 0.2 0.1 - 0.5 mg/dL [facility] Alkaline Phosphatase 53 40 - 150 U/L [facility] AST 19 5 - 34 U/L [facility] ALT 21 6 - 55 U/L [facility] Specimen Blood Performing Organization Address City/[facility]/Zipcode Phone Number [facility] [address] [place] [address] [place] Basic Metabolic Panel (12/30/2018 3:04 PM CDT) Sodium 138 136 - 145 meq/L [facility] Potassium 5.4 (H) 3.5 - 5.1 meq/L [facility] Chloride 114 (H) 98 - 107 meq/L [facility] CO2 20 (L) 22 - 29 meq/L [facility] BUN 44 (H) 7 - 21 mg/dL [facility] Creatinine 2.60 (H) 0.57 - 1.25 mg/dL [facility] Glucose 93 70 - 105 mg/dL [facility] Calcium 8.2 (L) 8.4 - 10.2 mg/dL [facility] EGFR 18Comment: ESTIMATED GFR IS mL/min/1.73 sq m [facility] NOT ACCURATE CREATININE [facility] CLEARANCE IN PREDICTING GLOMERULAR FILTRATION RATE. ESTIMATED GFR IS NOT APPLICABLE FOR DIALYSIS PATIENTS. Specimen Blood Performing Organization Address City/[facility]/Zipcode Phone Number [facility] [address] [place] [address] [place] Hepatitis A Antibody, IgG ([facility] Only) (12/30/2018 3:03 PM CDT) Hep A IgG Reactive (A) Nonreactive [facility] Specimen Blood Performing Organization Address City/[facility]/Zipcode Phone Number [address] [address] CENTER Hepatitis C antibody (12/30/2018 3:03 PM CDT) Hepatitis C Ab Nonreactive Nonreactive [facility] Specimen Blood Performing Organization Address City/State/Zipcode Phone Number [address] [address] CENTER Alpha fetoprotein (AFP), tumor marker (12/30/2018 3:03 PM CDT) Alpha-Fetoprotein <2.0 <10.0 ng/mL [facility] Specimen Blood Performing Organization Address City/[facility]/Zipcode Phone Number [address] [address] [place] Hepatitis B core antibody, total (12/30/2018 3:03 PM CDT) Hep B Core Total Ab Nonreactive Nonreactive [facility] Specimen Blood Performing Organization Address [facility] Phone Number [address] [address] CENTER Hepatitis B surface antibody (12/30/2018 3:03 PM CDT) Hep B S Ab <8.0 <8.0 mIU/mL [facility] Specimen Blood Performing Organization Address City/[facility]/Zipcode Phone Number [address] [address] CENTER Hepatitis B surface antigen (12/30/2018 3:03 PM CDT) HBsAg Screen Nonreactive Nonreactive [facility] Specimen Blood Performing Organization Address City/[facility]/Zipcode Phone Number [address] [place] [address] CENTER Pro-time/INR (12/30/2018 3:03 PM CDT) Protime 14.2 11.9 - 14.2 seconds [facility] INR 1.2 <=5.9 [facility] Specimen Blood Narrative Performed At Effective 07/29/2018: PT Reference Range [facility] Change New: 11.9-14.2Previous: 11.7-14.7 RECOMMENDED COUMADIN/WARFARIN INR THERAPY RANGES STANDARD DOSE: 2.0-3.0Includes: PROPHYLAXIS for venous thrombosis, systemic embolization; TREATMENT for venous thrombosis and/or pulmonary embolus. HIGH RISK: Target INR is 2.5-3.5 for patients wiht mechanical heart valves. Performing Organization Address City/State/Zipcode Phone Number [address] [address] CENTER after 09/23/2018 Insurance Payer Benefit Plan / Group Subscriber ID Type Phone A ddress MEDICARE MEDICARE A B xxxxxxxxxxx Medicare MCR GENERIC MEDICARE xxxxxxxxx Medigap SUPPLEMENT/INDIVIDUAL SUPPLEMENT
--- OUTSIDE RECORDS SUMMARY | 2019-09-24 15:31 | XMS REPORT ---
:1935 Author Organization [employer] Care Team Providers Name Role Phone Paige, Na Provider Role Unavailable Allergies No Known Allergies Problems Problem Type Condition Code Onset Dates Condition Statu s Problem History of nephrectomy, 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 Active Problem Gallstones K80.20 Active Problem Acquired hypothyroidism E03.9 Acti ve Problem Age-related osteoporosis without M81.0 Active current pathological fracture Problem Macrocytosis D75.89 Active Problem Prediabetes R73.03 Active Problem Pancreatic insufficiency K86.89 Act javy Problem Hepatic cirrhosis, unspecified K74.60 Active hepatic [...] 15-29 ml/min Problem Anemia, unspecified type D64.9 Act javy Problem Allergic rhinitis, unspecified J30.9 Active seasonality, unspecified trigger Problem Hyperkalemia, diminished renal E87.5 Active excretion Problem Diabetes E11.9 Active Problem Allergic rhinitis J30.9 Active Problem Asthma J45.909 Active Problem Anxiety F41.9 Active Problem Kidney stones N20.0 Active Problem Pure hypercholesterolemia E78.00 Ac tive Problem Hyperlipidemia E78.5 Active Problem Sinus problem J34.9 Active Medications Medication Code Code Instructions Start End Status Dosage System Date Date Prevalite [facility] 99254671403 4 GM Orally Active 1 pack et once a day Creon [facility] 59618313427 67312-55107 Active once cap UNIT Orally three times a day Mupirocin [facility] 70205695680 2 % Externally July 01July Active 1 a pplication Three times a 2019 15, to open so res 2019 Clobetasol ND 04304150232 0.05 % July 01July Active 1 applica tion Propionate Externally 2020 21, to affecte d Twice a day 2020 area Levothyroxine [facility] 14973229283 75 MCG Orally Active 1 tablet on Sodium Once a day an empty stomach in the morning Metoprolol ND 61423073587 50 MG Orally July 29, Active 1 ca psule Succinate Once a day 2018 Vitamin B12 [facility] 94612391761 1000 MCG Orally Active 1 tablet Once a day Fish Oil [facility] 23470893132 1000 MG Orally Active 1 ca psule Once a day Vitamin E [facility] 87366800841 400 UNIT Orally Active 1 capsule Once a day Levothyroxine [facility] 89021497246 100 MCG Orally Active 1 tablet on Sodium Once a day an empty stomach in the morning Furosemide ND 46027761552 40 MG Orally Active 1 ta blet Once a day Carvedilol [facility] 87081242804 3.125 MG Orally May Active 1 tablet with Twice a day 2019 Omeprazole [facility] 70724528582 20 MG Orally Active 1 ca psule Once a day Alendronate [facility] 91441953546 70 MG Orally Active 1 t ablet Sodium Centrum Silver [facility] 09542524982 - Orally Active not defined Prevalite [facility] 98307479675 4 GM Orally Active 1 pack et once a day Results No Known Results Summary Purpose [employer] Submission
--- OUTSIDE RECORDS SUMMARY | 2019-09-24 15:31 | XMS REPORT | Continuity of Care Document ---
:1935 Author Organization [facility] t Address [address] [place] [address] Care Team Providers Name Role Phone Ngoc Paige DO Primary Care Physician Gino Mendoza MD Attending Clinician GINO MENDOZA Attending Clinician Unavailable Payers Payer Name Policy Policy Number Effective Expiration Source Type Date Date MEDICAREMEDICARE A xxxxxxxxxxx [facility] B[facility]xxx[facility] MCR xxxxxxxxx [facility] SUPPLEMENT/INDIVIDUALGENERIC [facility] Condition Condition Condition Status Onset Resolution Last Treating Co mments Source Name Details Category Date Date Treatment Clinician Date Cirrhosis Cirrhosis Disease Active 2018-[address] 0-30 Assessmen L[facility] - 00:00: t & Plan: Medical 00 Although Center we do not have histologi c proof, the combinati on of clinical findings, laborator y parameter s, and imaging are sufficien t to make the diagnosis of cirrhosis . She has well compensat ed disease. We will order labs to update MELD-Na score. She has an increased risk of mortality as a result of cirrhosis . Suspected etiology is fatty liver disease s/p jejunoile al bypass surgery. Cirrhosis education was completed today with bess ho provided. Portal Portal Disease Active 2018-[address] hypertensi hypertensi 0-30 Assessmen [facility] - on on 00:00: t & Plan: Medical 00 Complicat Center ions of portal venous hypertens ion include ascites, hepatic encephalo romulo that indicate decompens ation of cirrhosis , which significa ntly increases the risk of Immunity Immunity Disease Active 2018-03 [facility] t status status 0-30 Assessmen Lulinda - testing testing 00:00: t & Plan: Medic al 00 CDC Center recommend s that all patients with chronic liver disease, regardles s of etiology, should be immunized to prevent hepatitis A and hepatitis B if they are not already immune. This should be done in addition to other age-appro priate vaccines. We will test for immunity to both viruses - vaccine recommend ations will follow. Screening Screening Disease Active 2018-03 [facility] for for 0-30 Assessmen Lukes - varices varices 00:00: t & Plan: Medic al 00 Because Center of the risk for upper GI bleeding, all patients with portal hypertens ion should be screened for gastroeso pahgeal varices and/or portal hypertens javy gastropat hy. If varices and gastropat hy are absent, screening should be repeated in 24 months. If varices and/or portal hypertens javy gastropat hy are present, recommend ations for observati on versus therapy with non-cardi oselectiv e beta blockers and/or variceal band ligation should be based on the size of the varices and risk for hemorrhag e.EGD December 2018 didnot show varices per patient. To follow up with Dr. Mcdonald for surveilla nce EGDS Chronic Chronic Disease Active 2018-03 [facility] kidney kidney 0-30 Assessmen [facility] - disease disease 00:00: t & Plan: Medic al 00 She has Center CKD which is progressi vely worsening . This is not hepatoren al syndrome based on her labs and the fact that she does not have refractor y ascites. It is intrinsic renal disease given the uncontrol led hypertens ion, h/o of diabetes and the fact that she has solitary kidney. To continue follow up with nephrolog y. Dialysis and the need for renal biopsy at nephrolog y discretio n Overweight Overweight Disease Active 2018-[address] [facility] [address] (BMI (BMI 0-30 Assessmen Lukes - 25.0-29.9) 25.0-29.9) 00:00: t & Plan: Medical 00 Body mass Center index is 26.32 kg/m2. S/p gastric bypass surgery in 1973. Obesity is an establish ed risk factor for vascular complicat ions (ie coronary artery disease, cerebrova scular disease, periphera l vascular disease), osteoarth ritis, pulmonary disease, as well as the developme nt of non-alcoh olic fatty liver disease and the risk for non-alcoh olic steatohep atitis. We have recommend ed a structure d weight loss program (10% body weight initially ), along with dietary modificat ions and regular exercise for overall good health and to minimize the risk of obesity -related complicat ions. [facility] patient education on non-alcoh olic fatty liver diet and exercisin g to lose weight are printed and given to the patient Postmenopa Postmenopa Disease Active H [facility] usal usal 3-21 Methodi bleeding bleeding 00:00: Renal Renal Disease Active [place] insufficie insufficie 3-21 Me thodi ncy ncy 00:00: Endometrit Endometrit Disease Active H [place] is is 3-19 Methodi 00:00: Diabetes Diabetes Disease Active 2000-03 [place] mellitus mellitus 0-05 Method i 00:00: Hypertensi Hypertensi Disease Active 2000-03 H [facility] ve ve 0-05 Methodi disorder disorder 00:00: Kidney Kidney Problem Active [facility] stones stones [facility] Gallstones Gallstones Problem Active [facility]ics Pure Pure Problem Active [facility] hyperchole hyperchole Shante kes - sterolemia sterolemia Me moria l Outpati ent Clinics CKD CKD Problem Active [facility] (chronic (chronic Lukes - kidney kidney Memoria disease) disease) l stage 4, stage 4, Outpat i GFR 15-29 GFR 15-29 ent ml/min ml/min Clinics History of History of Problem Active C [facility] nephrectom nephrectom Shante kes - y, y, Memoria unilateral unilateral l Outpati ent Clinics Anemia, Anemia, Problem Active [facility] unspecifie unspecifie Shante kes - d type d type Memoria l Outpati ent Clinics Hyperkalem Hyperkalem Problem Active C [facility] ia, ia, Lukes - diminished diminished Me moria renal renal l excretion excretion Outp ati ent Clinics Macrocytos Macrocytos Problem Active C [facility] is is [facility] Acquired Acquired Problem Active [facility] t hypothyroi hypothyroi Shante kes - dism dism Memoria l Outpati ent Clinics Prediabete Prediabete Problem Active [facility] s s [facility]ics Pancreatic Pancreatic Problem Active [facility] insufficie insufficie Shante kes - ncy ncy Memoria l Outpati ent Clinics GERD GERD Problem Active [facility] (gastroeso (gastroeso Sh[facility] kes - phageal phageal Memoria reflux reflux l disease) disease) Outpat i ent Clinics Age-relate Age-relate Problem Active [facility] d d Lukes - osteoporos osteoporos Me moria is without is without l current current Outpati pathologic pathologic en t al al Clinics fracture fracture Kidney Kidney Problem Active [facility] disease disease [facility] Diabetes Diabetes Problem Active [facility] Allergic Allergic Problem Active [facility] rhinitis rhinitis [facility] Asthma Asthma Problem Active [facility] Hyperlipid Hyperlipid Problem Active [facility] emia emia [facility] Anxiety Anxiety Problem Active [facility] Sinus Sinus Problem Active [facility] problem problem [facility] Hepatic Hepatic Problem Active [facility] cirrhosis, cirrhosis, Shante kes - unspecifie unspecifie Me moria d hepatic d hepatic l cirrhosis cirrhosis Outp ati type, type, ent unspecifie unspecifie Cl inics d whether d whether ascites ascites present present Need for Need for Problem Active [facility] t assistance assistance Shante nelys - due to due to Memoria unsteady unsteady l gait gait Outpati ent Clinics Elevated Elevated Problem Active [facility] t blood blood [facility]ukes - pressure pressure Memori a reading reading l with with Outpati diagnosis diagnosis ent of of Clinics hypertensi hypertensi on on Chronic Chronic Problem Active [facility] diastolic diastolic Luke s - (congestiv (congestiv Me moria e) heart e) heart l failure failure Outpati ent Clinics 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 [facility] - kidney kidney Memoria disease disease l Outpati ent Clinics 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 Outpat i chronic chronic ent kidney kidney Clinics disease disease Hemodialys Hemodialys Problem Active [facility] is-associa is-associa Shante linda Gala eusebia murphy [facility] hypotensio hypotensio l n n [facility] ent Clinics Dependence Dependence Problem Active C [facility] on renal on renal Lukes - dialysis dialysis Memori a l [facility] ent Clinics End stage End stage Problem Active [facility] renal renal Lukes - disease disease [facility] l [facility] ent Clinics Allergies, Adverse Reactions, Alerts Allergy Allergy Status Severity Reaction(s) Onset Inactive Treating Comm ents Source Name Type Date Date Clinician Meperidi Propensi Active Swelling 2018-[address] [facility] ne (Pf) ty to 0-30 Lukes - adverse 00:00: Medical reaction 00 Ashton s Penicill Propensi Active Swelling 2018-[address] ins ty to 0-30 Lukes - adverse 00:00: Medical reaction 00 Ashton s Latex Propensi Active UNK [place] ty to 8-20 REACTIONW Methodi adverse 00:00: TOLD st reaction 00 DON'T s to TAKE drug Adhesive Propensi Active Other (See Tears the [place] Tape-Stacey ty to Comments) 319 skin Metho di icones adverse 00:00: st reaction 00 s to drug Meperidi Propensi Active Rash, [place] ty to Swelling 3-19 Methodi adverse 00:00: st reaction 00 s to drug Penicill Propensi Active Shortness Of [place] ins ty to Breath 3-19 Methodi adverse 00:00: st reaction 00 s to drug Propoxyp Propensi Active Rash [place] ty to 3-19 Methodi adverse 00:00: st reaction 00 s to drug Adhesive Propensi Active Other [facility] Tape-Stacey ty to 3-19 reaction( Lukes - icones adverse 00:00: s): Other Medica l reaction 00 (See Center s Comments) Tears the skin Sulfa Propensi Active Rash [place] (Sulfona ty to 2-07 Methodi mide adverse 00:00: st Antibiot reaction 00 ics) s to drug Propoxyp Propensi Active Hives, Rash, Other [facility] hene ty to Other (See 2-07 reaction( Keisha es - adverse Comments) 00:00: s): Medica l reaction 00 Itching/H Cente r s effie/Rash PCN Adverse Active Info Not [facility] Reaction Available [facility] - Memoria [facility] Demerol Adverse Active Info Not [facility] Reaction Available [facility] Darvon Adverse Active Info Not [facility] Reaction Available [facility] Family History Family Member Diagnosis Comments Start Date Stop Date Source Natural father Other [facility] [facility] Natural father Heart disease [facility] Natural mother Diabetes [place] [facility] Natural mother Heart disease [place] [facility] Natural mother Stroke [place] [facility] Natural mother Diabetes [facility] Natural mother Heart disease [facility] Natural brother Leuk[facility] Natural brother Diabetes [facility] Natural daughter Diabetes [facility] Social History Social Habit Start Date Stop Date Quantity Comments Source History [facility] Alcohol Std Drinks Medica [facility] History [facility] Alcohol Binge Medical [facility] Sex Assigned At [facility] History [facility] 2018-12-30 2018-12-30 1 [facility] - Alcohol Frequency 00:00:00 00:00:00 [facility] Alcohol intake 2017-10-30 2017-10-30 [facility]00 non-drinker of alcohol (finding) Smoking Status Start Date Stop Date Source Never smoker [facility] Medications Ordered Filled Start Stop Current Ordering Indication Dosage Frequency Signature Comments Components Source Medication Medication Date Date Medication? Clinician (SIG) Name Name Mathieu Murdock 2020- Yes Na Paige once cap [facility] 7- Lukes - 00:00: 00:00 Memoria 00 :00 [facility] IRON 2018-03 Yes Take by [facility] BIS-GLY-FA- 0-30 mouth. Lukes - [id number] 12:19: Medica l CC ORAL 32 Center levothyroxi 2018-03 Yes 1 tablet CH I ne 0-30 on an Lukes - (SYNTHROID, 12:19: empty Medic al LEVOTHROID) 32 stomach in Ce nter 100 MCG the tablet morning cyanocobala 2018-03 Yes daily. [facility] min, 0-30 Lukes - vitamin 12:19: Medical B-12, 1,000 32 Center mcg/mL Kit vitamin E 2018- Yes daily. [facility] 400 UNIT 0-30 Lukes - capsule 12:19: Medical 32 Center calcium 2018-03 Yes Take by [facility] carbonate-v 0-30 mouth. Lukes - it D3-min 12:19: Medical 600 mg 31 Center calcium- 200 unit Tab folic 2018-[address] acid/multiv 0-30 defined Lukes - it-min/lute 12:19: Medica l in (CENTRUM 31 Center SILVER ORAL) FUROSEMIDE 2018-03 Yes 20mg Take [address] ORAL 0-30 by mouth. Lukes - 12:19: Medical 31 Center omega 2018-03 Yes [address] 3-dha-epa-f 0-30 Lukes - kwadwo oil 12:19: Medical (FISH OIL) 31 Center 1,000 mg (120 mg-180 mg) Cap CREON 2018-[address] 24,000-76,0 0-20 Lukes - 00 -120,000 00:00: Medica l unit CpDR 00 Center capsule metoprolol 2018-03 Yes 50mg Take [address] (LOPRESSOR) 0-08 by mouth 2 Shante kes - 50 MG 00:00: (two) Medical tablet 00 times Center daily with breakfast and dinner. PREVALITE 4 Yes MIX AND [facility] gram PwPk 9-11 DRINK 1 Lukes - packet 00:00: PACKET Medical 00 ONCE A DAY Center ORALLY omeprazole Yes 20mg QD Take [address] (PRILOSEC) 9-10 by mouth Lukes - 20 MG 00:00: daily. Medical capsule 00 Center Metoprolol Metoprolol Yes Na Paige [address] Succinate Succinate 5-29 Lukes - 00:00: Memoria 00 l Outpati ent Clinics FUROSEMIDE Yes 30mg QD Take 30 mg [place] ORAL 8-28 by mouth Methodi 12:42: daily. st 23 levothyroxi Yes 50ug QD Take 50 [place] ne 8-28 mcg by Methodi (SYNTHROID, 12:42: mouth st LEVOXYL) 50 23 every mcg tablet morning. FOLIC Yes 1{tbl} QD Take 1 [place] ACID/MULTIV 8-28 tablet by Met hodi IT-MIN/LUTE 12:42: mouth st IN (CENTRUM 23 daily. SILVER ORAL) CALCIUM 2018-0 Yes Q.5D Take by [place] CARB/VIT 8-28 mouth 2 Methodi D3/MINERALS 12:42: (two) st (CALCIUM- 23 times a TAMIN D day. ORAL) cyanocobala 2018-0 Yes 1000ug QD Take 1,000 [place] min 8-28 mcg by Methodi (VITAMIN 12:42: mouth st B-12) 1000 23 daily. MCG tablet DOCOSAHEXAN 2018-0 Yes 1000mg QD Take 1,000 [place] OIC 8-28 mg by Methodi ACID/EPA 12:42: mouth st (FISH OIL 23 daily. ORAL) vitamin E 2018-0 Yes 400U QD Take 400 [place] 400 UNIT 8-28 Units by Methodi capsule 12:42: mouth st 23 daily. albuterol 2017-0 Yes 2{puff} Q6H Inhale 2 [place] (PROAIR 8-28 puffs Methodi HFA,PROVENT 12:42: every 6 st [place] 23 (six) HFA,VENTOLI hours as N HFA) 90 needed for mcg/actuati wheezing. on inhaler omeprazole Yes 20mg QD Take 20 mg [place] (PriLOSEC) 3-26 by mouth Metho di 20 MG 00:00: daily. st capsule 00 PREVALITE 4 Yes 1{packe QD Take 1 [place] gram powder 3-16 t} packet by Met mejía in packet 00:00: mouth st 00 daily. CREON 2018-0 Yes 2400U [id number] Take 2,400 [place] 24,000-76,0 2-23 [id number] Units by Methodi 00 -120,000 00:00: 3D mouth 3 st unit 00 (three) capsule,del times a ayed day. release(DR/ EC) capsule Carvedilol Carvedilol Yes Na Paige [address] with food [facility] Levothyroxi Levothyroxi Yes Na Paige [address] [facility] ne Sodium ne Sodium on an Luke s - empty Memoria stomach in l the [facility]ics Fish Oil Fish Oil Yes Na Paige [address] [facility] Vitamin B12 Vitamin B12 Yes Na Paige [address] [facility] Prevalite Prevalite Yes Na Paige [address] [facility]ics Alendronate Alendronate Yes Na Paige [address] Sodium Sodium [facility] Omeprazole Omeprazole Yes Na Paige [address] [facility] Furosemide Furosemide Yes Na Paige [address] Vitamin E Vitamin E Yes Na Paige [address] [facility] Prevalite Prevalite Yes Na Paige [address] Clinics Furosemide Furosemide Yes Na Paige [address] [facility] Levothyroxi Levothyroxi Yes Na Paige [address] ne Sodium ne Sodium on an Luke s - empty Memoria stomach in l the [facility] Centrum Centrum Yes Na Paige not [facility] Silver Silver defined [facility] Vital Signs Vital Name Observation Time Observation Value Comments Source Systolic blood 2018-12-30 13:32:00 169 mm[Hg] [facility] Diastolic blood 2018-12-30 13:32:00 80 mm[Hg] [facility] Heart rate 2018-12-30 13:32:00 70 /min [facility] Body temperature 2018-12-30 13:32:00 36.5 Magda [facility] Respiratory rate 2018-12-30 13:32:00 18 /min [facility] Body height 2018-12-30 13:32:00 160 cm [facility] Body weight Measured 2018-12-30 13:32:00 67.405 kg [facility] BMI 2018-12-30 13:32:00 26.32 kg/m2 [facility] Oxygen saturation in 2018-12-30 13:32:00 99 /min [facility] Arterial blood by Medical Ce nter Pulse oximetry Procedures Procedure Date / Time Performed Performing Clinician Sourc e US ABDOMEN COMPLETE 2018-12-30 17:41:00 Yodit Quiñones [facility] BASIC METABOLIC PANEL 2018-12-30 15:04:00 [facility] HEPATIC FUNCTION PANEL 2018-12-30 15:04[facility] W/PLT COUNT & AUTO 2018-12-30 15:04:00 [facility] DIFFERENTIAL [facility] PROTHROMBIN TIME/INR 2018-12-30 15:03:00 wale [facility] ALPHA FETOPROTEIN (AFP), 2018-12-30 15:03:00 [facility] TUMOR MARKER [facility] HEPATITIS B SURFACE 2018-12-30 15:03:00 wale [facility] ANTIGEN [facility] HEPATITIS B SURFACE 2018-12-30 15:03:00 wale [facility] ANTIBODY [facility] HEPATITIS B CORE 2018-12-30 15:03:00 [facility], TOTAL [facility] HEPATITIS A ANTIBODY, 2018-12-30 15:03:00 wale [facility] IGG [facility] HEPATITIS C ANTIBODY 2018-12-30 15:03:00 [facility] Plan of Care Planned Activity Planned Date Details Comments Source Future Scheduled 2019-11-[address] [facility] - Test 00:00:00 (Season Ended) [code = [facility] INFLUENZA VACCINE (Season Ended)] Future Scheduled 2019-10-02 INFLUENZA VACCINE [place] [facility] Test 00:00:00 [code = INFLUENZA VACCINE] Future Scheduled 2002-08-[address] [facility] - Test 00:00:00 WELLNESS (YEAR 2 or Medical Center FIRST YEAR if no IPPE) [code = MEDICARE ANNUAL WELLNESS (YEAR 2 or FIRST YEAR if no IPPE)] Future Scheduled 2001 65+ PNEUMOCOCCAL [place] [facility] Test 00:00:00 VACCINE (1 of 2 - PCV13) [code = 65+ PNEUMOCOCCAL VACCINE (1 of 2 - PCV13)] Future Scheduled [address]CCAL [address] - Test 00:00:00 LOW/MEDIUM RISK [facility] 2 - PCV13) [code = PNEUMOCOCCAL 65+ LOW/MEDIUM RISK (1 of 2 - PCV13)] Future Scheduled 1986 SHINGLES VACCINES (#1) [place] [facility] Test 00:00:00 [code = SHINGLES VACCINES (#1)] Future Scheduled 1946 DIABETIC FOOT EXAM [place] [facility] Test 00:00:00 [code = DIABETIC FOOT EXAM] Future Scheduled 1945 URINE MICROALBUMIN [place] [facility] Test 00:00:00 [code = URINE MICROALBUMIN] Future Scheduled 1936 DIABETIC RETINAL EYE [place] [facility] Test 00:00:00 EXAM [code = DIABETIC RETINAL EYE EXAM] Encounters Start End Encounter Admission Attending Care Care Encounter Source Date/Time Date/Time Type Type Clinicians Facility Department ID 2019-09-15 2019-09-15 [facility] [id number] 14:03:00 14:03:00 [employer] [facility] l Medicine Outpati ent Clinics 2019-09-14 2019-09-14 [facility] [id number] 10:00:00 10:00:00 t [employer] [facility] l Medicine Outpati ent Clinics 2019-09-08 2019-09-08 [facility] [id number] 09:29:00 09:29:00 t [employer] [facility] l Medicine Outpati ent Clinics 2019-09-07 2019-09-07 [facility] [id number] 10:51:00 10:51:00 t [employer] [facility] l Medicine Outpati ent Clinics 2019-08-19 2019-08-19 [facility] [id number] 11:01:00 11:01:00 t Book[employer] [facility] l Medicine Outpati ent Clinics 2019-08-17 2019-08-17 [facility] [id number] 16:24:00 16:24:00 [employer] [facility] Medicine l Medicine Outpati ent Clinics 2019-08-12 2019-08-12 [facility] [id number] 15:20:00 15:20:00 t Byram Byram [employer] s - Drive [facility] Medicine l Medicine Outpati ent Clinics 2019-08-09 2019-08-09 [facility] [id number] 16:54:00 16:54:00 t Byram [employer] s - Drive [facility] Medicine l Medicine Outpati ent Clinics 2019-08-02 2019-08-02 [facility] [id number] 09:23:00 09:23:00 t Byram [employer] s - Drive [facility] Medicine l Medicine Outpati ent Clinics 2019-07-02 2019-07-02 [facility] [id number] 10:57:00 10:57:00 t Byram [employer] s - [employer] [facility] Medicine Outpati ent Clinics 2019-07-01 2019-07-01 [facility] [id number] 13:16:00 13:16:00 t Byram [employer] s - [employer] [facility] l Medicine Outpati ent Clinics 2019-05-19 2019-05-19 [facility] [id number] 10:24:00 10:24:00 t Byram [employer] s - [employer] [facility] Medicine Outpati ent Clinics 2019-05-18 2019-05-18 [facility] [id number] 11:48:00 11:48:00 t Byram [employer] s - [employer] [facility] l Medicine Outpati ent Clinics 2018-12-09 2018-12-09 [facility] [id number] 10:20:00 10:20:00 t Byram [employer] s - [employer] [facility] l Medicine Outpati ent Clinics 2018-10-06 2018-10-06 [facility] [id number] 09:42:00 09:42:00 t Byram [employer] s - Drive [facility] l Medicine Outpati ent Clinics 2018-09-24 2018-09-24 [facility] [id number] 08:28:00 08:28:00 t Byram [employer] s - Drive [facility] l Medicine Outpati ent Clinics 2018-09-14 2018-09-14 [facility] [id number] 11:20:00 11:20:[address] Luke s - Drive [facility] Family Medicine l Medicine Outpati ent Clinics 2018-08-05 2018-08-05 [facility] [id number] 11:20:00 11:20:[address] Luke s - Drive [facility] Medicine l Medicine Outpati ent Clinics 2018-06-29 2018-06-29 [facility] [id number] 13:28:00 13:28:[address] Luke s - Drive [facility] Medicine l Medicine Outpati ent Clinics 2018-06-25 2018-06-25 [facility] [id number] 11:00:00 11:00:[address] Luke s - Drive [facility] Medicine l Medicine Outpati ent Clinics 2018-05-22 2018-05-22 [facility] [id number] [address] 10:32:00 10:32:[address] [place] s - Drive [facility] Medicine l Medicine Outpati ent Clinics 2018-05-21 2018-05-21 [facility] [id number] 15:46:00 15:46:[address] Luke s - Drive [facility] Medicine Medicine Outpati ent Clinics 2018-05-13 2018-05-13 [facility] [id number] [facility] [address] 08:19:00 08:19:[address] Luke s - Drive [facility] Medicine l Medicine Outpati ent Clinics 2018-03-30 2018-03-30 [facility] [id number] [facility] [address] 11:00:00 11:00:[address] [place] s - Drive [facility] Medicine l Medicine Outpati ent Clinics 2018-02-18 2018-02-18 [facility] [id number] 10:29:00 10:29:[address] Luke s - Drive [facility] Medicine l Medicine Outpati ent Clinics 2018-02-12 2018-02-12 [facility] [id number] [facility] [address] 10:00:00 10:00:[address] [facility] s [facility] ent [facility] 2018-01-19 2018-01-19 [facility] [id number] 10:45:00 10:45:00 [facility] 2017-11-21 2017-11-21 [facility] [id number] 16:17:00 16:17:00 [facility] 2017-11-12 2017-11-12 [facility] [id number] 10:15:00 10:15:00 [facility] Results Test Test Test Comments Results Result Source Description Time Comments U/S, ABDOMINAL, 2018-12- REFERRING: FINAL REPORT PATIENT ID: RAMESH 30 ZARA [id number] TECHNIQUE: 17:50:00 SWEATTReason for Grayscale ultrasound of Exam:->cirrhosis the abdomen. INDICATION: , rule out HCC cirrhosis, rule out HCC. COMPARISON: CT from [...] No focal hepatic lesions. Signed: Aniket Hahn MDReport Verified Date/Time: 12/30/2018 17:50:49 Reading Location: [address] Radiology Reading Room abdomen 2018-12- Interface, External Ris C [facility] St complete 30 In - 12/30/2018 5:53 PM [facility] - 17:50:00 CDTFINAL REPORT PATIENT M edical ID: [id number] TECHNIQUE: Center Grayscale ultrasound of the abdomen. INDICATION: cirrhosis, rule out HCC. COMPARISON: [...] No focal hepatic lesions. Signed: Aniket Hahn MDReport Verified Date/Time: 12/30/2018 17:50:49 Reading Location: [address] Radiology Reading Room Hepatitis B surface antibody 2018-12-30 17:45:00 Test Item Value Reference Range Interpretation Comme nts Hep B S Ab (test code = 57356-2) <8.0 <8.0 mIU/mL Lab Interpretation (test code = 35258-0) [facility] tumor [id number] 17:45:00 Test Item Value Reference Range Interpretation Comments Alpha-Fetoprotein (test code = 1834-1) <2.0 <10.0 ng/mL Lab Interpretation (test code = Normal 02092-9) [facility], IgG ([facility] Only)2018-12-30 17:45:00 Test Item Value Reference Range Interpretation Comments Hep A IgG (test code = 59722-6) Reactive Nonreactive A Lab Interpretation (test code = Abnormal 35164-1) [facility] [id number] 17:45:00 Test Item Value Reference Range Interpretation Comments HEPATITIS B SURFACE ANTIBODY < mIU/mL <8.0 (BEAKER) (test code = 647) HEPATITIS A ANTIBODY, [id number] 17:45:00 Test Item Value Reference Range Interpretation Comments HEPATITIS A IGG ANTIBODY (BEAKER) Reactive Nonreactive A (test code = 2797) ALPHA FETOPROTEIN (AFP), TUMOR [id number] 17:45:00 Test Item Value Reference Range Interpretation Comments ALPHA-FETOPROTEIN (BEAKER) (test code < ng/mL <10.0 = 1094) Hepatitis C [id number] 17:33:00 Test Item Value Reference Range Interpretation Comments Hepatitis C Ab (test code = Nonreactive Nonreactive 97409-5) Lab Interpretation (test code = Normal 37958-6) [facility] C [id number] 17:33:00 Test Item Value Reference Range Interpretation Comments HEPATITIS C ANTIBODY (BEAKER) Nonreactive Nonreactive (test code = 367) Hepatitis B surface [id number] 17:30:00 Test Item Value Reference Range Interpretation Comments HBsAg Screen (test code = 5195-3) Nonreactive Nonreactive Lab Interpretation (test code = Normal 82288-3) [facility] B core antibody, [id number] 17:30:00 Test Item Value Reference Range Interpretation Comments Hep B Core Total Ab (test code = Nonreactive Nonreactive 93305-4) Lab Interpretation (test code = Normal 00152-4) [facility] B SURFACE [id number] 17:30:00 Test Item Value Reference Range Interpretation Comments HEPATITIS B SURFACE ANTIGEN (2) Nonreactive Nonreactive (BEAKER) (test code = 2585) HEPATITIS B CORE ANTIBODY, [id number] 17:30:00 Test Item Value Reference Range Interpretation Comments HEPATITIS B CORE TOTAL ANTIBODY Nonreactive Nonreactive (BEAKER) (test code = 497) Basic Metabolic [id number] 16:06:00 Test Item Value Reference Range Interpretation Comments Sodium (test code = 138 meq/L 456-997 7979-2) Potassium (test code = 5.4 meq/L 3.5-5.1 H 2823-3) Chloride (test code = 114 meq/L 98-107 H 2075-0) CO2 (test code = 20 meq/L 22-29 L 2028-9) BUN (test code = 44 mg/dL 7-21 H 3094-0) Creatinine (test code = 2.60 mg/dL 0.57-1.25 H 2160-0) Glucose (test code = 93 mg/dL 70-105 2345-7) Calcium (test code = 8.2 mg/dL 8.4-10.2 L 87252-2) EGFR (test code = 18 mL/min/1.73 [place] [address]-2) NOT ACCURATE CREATININE CLEARANCE IN PREDICTING GLOMERULAR FILTRATION RATE . ESTIMATED GFR I S NOT APPLICABLE FOR DIALYSIS PATIEN TS. Lab Interpretation Abnormal (test code = 24353-9) [facility] function [id number] 16:06:00 Test Item Value Reference Range Interpretation Comments Protein, Total (test code = 2885-2) 6.5 6.0- 8.3 gm/dL Albumin (test code = 92655-0) 3.0 g/dL 3.5-5 L Total Bilirubin (test code = 0.4 mg/dL 0.2-1.2 1974-2) Bilirubin, Direct (test code = 0.2 mg/dL 0.1-0.5 1967-7) Alkaline Phosphatase (test code = 53 U/L 40-150 6768-6) AST (test code = 1920-8) 19 U/L 5-34 ALT (test code = 1742-6) 21 U/L 6-55 Lab Interpretation (test code = Abnormal 41899-5) [facility] [id number] 16:06:00 Test Item Value Reference Range Interpretation Comments TOTAL PROTEIN (BEAKER) (test code = 6.5 gm/dL 6.0-8.3 770) ALBUMIN (BEAKER) (test code = 1145) 3.0 g/dL 3.5-5.0 L BILIRUBIN TOTAL (BEAKER) (test code 0.4 mg/dL 0.2-1.2 = 377) BILIRUBIN DIRECT (BEAKER) (test 0.2 mg/dL 0.1-0.5 code = 706) ALKALINE PHOSPHATASE (BEAKER) (test 53 U/L 40-150 code = 346) AST (SGOT) (BEAKER) (test code = 19 U/L 5-34 353) ALT (SGPT) (BEAKER) (test code = 21 U/L 6-55 347) BASIC METABOLIC [id number] 16:06:00 Test Item Value Reference Range Interpretation Comments SODIUM (BEAKER) 138 meq/L 136-145 (test code = 381) POTASSIUM (BEAKER) 5.4 meq/L 3.5-5.1 H (test code = 379) CHLORIDE (BEAKER) 114 meq/L 98-107 H (test code = 382) CO2 (BEAKER) (test 20 meq/L 22-29 L code = 355) BLOOD UREA NITROGEN 44 mg/dL 7-21 H (BEAKER) (test code = 354) CREATININE (BEAKER) 2.60 mg/dL 0.57-1.25 H (test code = 358) GLUCOSE RANDOM 93 mg/dL 70-105 (BEAKER) (test code = 652) CALCIUM (BEAKER) 8.2 mg/dL 8.4-10.2 L (test code = 697) EGFR (BEAKER) (test 18 mL/min/1.73 ESTIMA [place] GFR IS code = 1092) sq m NOT ACCURATE CREATININE CLEARANCE IN PREDICTING GLOMERULAR FILTRATION RATE . ESTIMATED GFR I S NOT APPLICABLE FOR DIALYSIS PATIEN TS. Pro-time/[id number] 15:51:00 Test Item Value Reference Range Interpretation Comments Protime (test code = 14.2 11.9- 14.2 5902-2) seconds INR (test code = 1.2 <=5.9 6301-6) MONICA (test code = MONICA) Effective 07/29/2018: PT Reference Range ChangeNew: 11.9-14.2 Previous: 11.7-14.7 RECOMMENDED COUMADIN/WARFARIN INR THERAPY RANGESSTANDARD DOSE: 2.0-3.0 Includes: PROPHYLAXIS for venous thrombosis, systemic embolization; TREATMENT for venous thrombosis and/or pulmonary embolus.HIGH RISK: Target INR is 2.5-3.5 for patients wiht mechanical heart valves. Lab Interpretation Normal (test code = 11112-7) [facility] Hospital[facility]/[id number] 15:51:00 Test Item Value Reference Range Interpretation Comments PROTIME (BEAKER) (test code = 14.2 seconds 11.9-14.2 759) INR (BEAKER) (test code = 370) 1.2 <=5.9 Effective 07/29/2018: PT Reference Range ChangeNew: 11.9-14.2 Previous: 11.7- 14.7RECOMMENDED COUMADIN/WARFARIN INR THERAPY RANGESSTANDARD DOSE: 2.0-3.0 Includes: PROPHYLAXIS for venous thrombosis, systemic embolization; TREATMENT for venous thrombosis and/or pulmonary embolus.HIGH RISK: Target INR is2.5-3.5 for patients wiht mechanical heart valves.CBC with platelet count + automated [id number] 15:45:00 Test Item Value Reference Range Interpretation Comments WBC (test code = 6690-2) 7.7 3.5- 10.5 K/L RBC (test code = 789-8) 3.25 3.93- 5.22 M/L L MCHC (test code = 786-4) 32.0 32.2- 35.5 GM/DL L Hematocrit (test code = 4544-3) 34.1 % 34.1-44.9 MCV (test code = 787-2) 104.9 fL 79.4-94.8 H MCH (test code = 785-6) 33.5 pg 25.6-32.2 H RDW (test code = 788-0) 13.5 % 11.7-14.4 Platelets (test code = 777-3) 215 150- 450 K/CU MM MPV (test code = 70284-6) 10.4 fL 9.4-12.3 nRBC (test code = 413) 0 0- 0 /100 WBC % Neutros (test code = 429) 74 % % Lymphs (test code = 430) 16 % % Monos (test code = 431) 8 % % Eos (test code = 432) 2 % % Baso (test code = 437) 1 % # Neutros (test code = 670) 5.69 1.56- 6.13 K/L # Lymphs (test code = 414) 1.22 1.18- 3.74 K/L # Monos (test code = 415) 0.59 0.24- 0.36 K/L H # Eos (test code = 416) 0.13 0.04- 0.36 K/L # Baso (test code = 417) 0.05 0.01- 0.08 K/L Immature Granulocytes-Relative 0 % 0-1 (test code = 2801) Lab Interpretation (test code = Abnormal 04854-0) [facility] W/PLT COUNT & AUTO [id number] 15:45:00 Test Item Value Reference Range Interpretation Comments WHITE BLOOD CELL COUNT (BEAKER) 7.7 K/ L 3.5-10.5 (test code = 775) RED BLOOD CELL COUNT (BEAKER) 3.25 M/ L 3.93-5.22 L (test code = 761) HEMOGLOBIN (BEAKER) (test code = 10.9 GM/DL 11.2-15.7 L 410) HEMATOCRIT (BEAKER) (test code = 34.1 % 34.1-44.9 411) MEAN CORPUSCULAR VOLUME (BEAKER) 104.9 fL 79.4-94.8 H (test code = 753) MEAN CORPUSCULAR HEMOGLOBIN 33.5 pg 25.6-32.2 H (BEAKER) (test code = 751) MEAN CORPUSCULAR HEMOGLOBIN CONC 32.0 GM/DL 32.2-35.5 L (BEAKER) (test code = 752) RED CELL DISTRIBUTION WIDTH 13.5 % 11.7-14.4 (BEAKER) (test code = 412) PLATELET COUNT (BEAKER) (test 215 K/CU MM 150-450 code = 756) MEAN PLATELET VOLUME (BEAKER) 10.4 fL 9.4-12.3 (test code = 754) NUCLEATED RED BLOOD CELLS 0 /100 WBC 0-0 (BEAKER) (test code = 413) NEUTROPHILS RELATIVE PERCENT 74 % (BEAKER) (test code = 429) LYMPHOCYTES RELATIVE PERCENT 16 % (BEAKER) (test code = 430) MONOCYTES RELATIVE PERCENT 8 % (BEAKER) (test code = 431) EOSINOPHILS RELATIVE PERCENT 2 % (BEAKER) (test code = 432) BASOPHILS RELATIVE PERCENT 1 % (BEAKER) (test code = 437) NEUTROPHILS ABSOLUTE COUNT 5.69 K/ L 1.56-6.13 (BEAKER) (test code = 670) LYMPHOCYTES ABSOLUTE COUNT 1.22 K/ L 1.18-3.74 (BEAKER) (test code = 414) MONOCYTES ABSOLUTE COUNT (BEAKER) 0.59 K/ L 0.24-0.36 H (test code = 415) EOSINOPHILS ABSOLUTE COUNT 0.13 K/ L 0.04-0.36 (BEAKER) (test code = 416) BASOPHILS ABSOLUTE COUNT (BEAKER) 0.05 K/ L 0.01-0.08 (test code = 417) IMMATURE GRANULOCYTES-RELATIVE 0 % 0-1 PERCENT (BEAKER) (test code = 2801)
--- OUTSIDE RECORDS SUMMARY | 2019-09-24 15:31 | XMS REPORT ---
[...] Medications Medication Code Code Instructions Start End Date Status Dosage System Date Furosemide [facility] 72327587220 40 MG Orally Active 1 ta blet as Once a day needed for swelling Results No Known Results Summary Purpose eClinicalWorks Submission
--- OUTSIDE RECORDS SUMMARY | 2019-09-24 15:32 | XMS REPORT ---
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 Active [...] Start End Status Dosage System Date Date Vitamin E ND 30469746782 400 UNIT Orally Active 1 capsule Once a day Prevalite ND 35858221588 4 GM Orally Active 1 pack et once a day Furosemide ND 25988411050 40 MG Orally Active 1 ta blet Once a day x 3 days prn swelling Carvedilol ND 30799691956 3.125 MG Orally Active 1 tablet Twice a day with food Centrum Silver [facility] 60568646818 - Orally Active not defined Creon [facility] 50777339358 58501-14761 Active once cap UNIT Orally three times a day Prevalite [facility] 86658366046 4 GM Orally Active 1 pack et once a day Levothyroxine [facility] 38878043893 75 MCG Orally Active 1 tablet Sodium Once a day on an empty stomach in the morning Metoprolol [facility] 92321320456 50 MG Orally July 29, Active 1 ca psule Succinate Once a day 2018 Levothyroxine [facility] 67808813692 100 MCG Orally Active 1 tablet Sodium Once a day on an empty stomach in the morning Omeprazole [facility] 54251885881 20 MG Orally Active 1 ca psule Once a day Alendronate [facility] 17576290422 70 MG Orally Active 1 t ablet Sodium Vitamin B12 [facility] 13845726083 1000 MCG Orally Active 1 tablet Once a day Fish Oil [facility] 97985145406 1000 MG Orally Active 1 ca psule Once a day Results No Known Results Summary Purpose eClinicalWorks Submission
--- OUTSIDE RECORDS SUMMARY | 2019-09-24 15:32 | XMS REPORT ---
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 Active Problem Kidney disease N28.9 Active Problem Age-related osteoporosis without M81.0 Active current pathological fracture Problem Chronic GERD K21.9 Active Problem GERD (gastroesophageal reflux K21.9 Active disease) Problem Asthma J45.909 Active Problem Anxiety F41.9 Active Problem CKD (chronic kidney disease) stage N18.4 Active 4, GFR 15-29 ml/min Problem Hyperkalemia, diminished renal E87.5 Active excretion Problem Diabetes E11.9 Active Problem Allergic rhinitis, unspecified J30.9 Active seasonality, unspecified trigger Problem Hepatic cirrhosis, unspecified K74.60 Active hepatic cirrhosis type, unspecified whether ascites present Problem Need for assistance due to unsteady R26.89 Active gait Problem Anemia in chronic kidney disease D63.1 Active Problem Chronic diastolic (congestive) I50.32 Active heart failure Problem Sinus problem J34.9 Active Problem Hyperlipidemia E78.5 Active Assessment Anemia in chronic kidney disease D63.1 Active Problem Type 2 diabetes mellitus with E11.22 Active diabetic chronic kidney disease Problem Allergic rhinitis J30.9 Active Assessment Edema, lower extremity R60.0 Activ e Problem Hemodialysis-associated 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 Active Assessment 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 Problem Elevated blood pressure reading I10 Active with diagnosis of hypertension Assessment History of nephrectomy, 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 Active Problem 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 Assessment Need for assistance due to unsteady R26.89 Active gait Problem End stage renal disease N18.6 Acti ve Assessment Hepatic cirrhosis, unspecified K74.60 Active hepatic cirrhosis type, unspecified whether ascites present Problem Gallstones K80.20 Active Assessment Type 2 diabetes mellitus with E11.22 Active diabetic chronic kidney disease Problem Acquired hypothyroidism E03.9 Acti ve Assessment Pancreatic insufficiency K86.89 Act javy Problem Kidney stones N20.0 Active Assessment Pure hypercholesterolemia E78.00 Ac tive Problem Pure hypercholesterolemia E78.00 Ac tive Assessment Hemodialysis-associated 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 Active Problem Prediabetes R73.03 Active Assessment End stage renal disease N18.6 Acti ve Problem Anemia, unspecified type D64.9 Act javy Problem Macrocytosis D75.89 Active Problem Pancreatic insufficiency K86.89 Act javy Medications Medication Code Code Instructions Start End Status Dosage System Date Date Carvedilol [facility] 53255582865 3.125 MG Orally Active 1 tablet Twice a day with food Levothyroxine [facility] 45039400968 75 MCG Orally Active 1 tablet Sodium Once a day on an empty stomach in the morning Fish Oil [facility] 37373027137 1000 MG Orally Active 1 ca psule Once a day Vitamin B12 [facility] 36523693457 1000 MCG Orally Active 1 tablet Once a day Prevalite [facility] 84037118795 4 GM Orally Active 1 pack et once a day Creon [facility] 95087946758 22498-08634 Active once cap UNIT Orally three times a day Alendronate ND 51721162556 70 MG Orally Active 1 t ablet Sodium Omeprazole [facility] 02329064185 20 MG Orally Active 1 ca psule Once a day Furosemide ND 01729956983 40 MG Orally Active 1 ta blet Once a day Vitamin E [facility] 31702032701 400 UNIT Orally Active 1 capsule Once a day Prevalite [facility] 06281900287 4 GM Orally Inactive 1 pac ket once a day Metoprolol ND 79157139137 50 MG Orally July 29, Active 1 ca psule Succinate Once a day 2018 Furosemide ND 17618862868 40 MG Orally Active 1 ta blet Once a day x 3 days prn swelling Levothyroxine ND 05757341486 100 MCG Orally Active 1 tablet Sodium Once a day on an empty stomach in the morning Centrum Silver [facility] 47021585506 - Orally Active not defined Results No Known Results Summary Purpose eClinicalWorks Submission
--- OUTSIDE RECORDS SUMMARY | 2019-09-24 15:32 | XMS REPORT ---
[...] Active Problem Sinus problem J34.9 Active Medications No Known Medications Results No Known Results Summary Purpose eClinicalWorks Submission
--- OUTSIDE RECORDS SUMMARY | 2019-09-24 15:32 | XMS REPORT ---
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
--- OUTSIDE RECORDS SUMMARY | 2019-09-24 15:32 | XMS REPORT ---
[...] problem J34.9 Active Problem Hyperlipidemia E78.5 Active Problem Type 2 diabetes mellitus with E11.22 Active diabetic chronic kidney disease Problem Allergic rhinitis J30.9 Active Problem Hemodialysis-associated 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 Active Problem Elevated blood pressure reading I10 Active with diagnosis of hypertension Problem 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 Problem End stage renal disease N18.6 Acti ve Problem Gallstones K80.20 Active Problem Acquired hypothyroidism E03.9 Acti ve Problem Kidney stones N20.0 Active Problem Pure hypercholesterolemia E78.00 Ac tive Problem Prediabetes R73.03 Active Problem Anemia, unspecified type D64.9 Act javy Problem Macrocytosis D75.89 Active Problem Pancreatic insufficiency K86.89 Act javy Medications No Known Medications Results No Known Results Summary Purpose eClinicalWorks Submission
--- OUTSIDE RECORDS SUMMARY | 2019-09-24 15:32 | XMS REPORT ---
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
--- OUTSIDE RECORDS SUMMARY | 2019-09-24 15:32 | XMS REPORT ---
[...] Start End Status Dosage System Date Date Tylenol # 3 NDC 0 300/30mg PO BID August 17August Active one tab PRN pain 2019 Alendronate ND 89062238683 70 MG Orally Active 1 t ablet Sodium Vitamin E ND 90112488202 400 UNIT Orally Active 1 capsule Once a day Centrum Silver ND 08144309920 - Orally Active not defined Creon ND 27875529380 75936-64778 Active once cap UNIT Orally three times a day Carvedilol [facility] 24972680223 3.125 MG Orally Active 1 tablet Twice a day with food Omeprazole [facility] 83685894530 20 MG Orally Active 1 ca psule Once a day Metoprolol [facility] 85593741074 50 MG Orally July 29, Active 1 ca psule Succinate Once a day [address] [facility] 72829722913 1000 MG Orally Active 1 ca psule Once a day Prevalite [facility] 41318229819 4 GM Orally Active 1 pack et once a day Vitamin B12 [facility] 34566538805 1000 MCG Orally Active 1 tablet Once a day Furosemide [facility] 93059977667 40 MG Orally Active 1 ta blet Once a day x 3 days prn swelling Prevalite [facility] 47556388251 4 GM Orally Active 1 pack et once a day Levothyroxine [facility] 70915224927 100 MCG Orally Active 1 tablet Sodium Once a day on an empty stomach in the morning Levothyroxine [facility] 54978681997 75 MCG Orally Active 1 tablet Sodium Once a day on an empty stomach in the morning Results No Known Results Summary Purpose eClinicalWorks Submission
--- OUTSIDE RECORDS SUMMARY | 2019-09-24 15:32 | XMS REPORT ---
[...] Start Date End Date Status Dosage Creon [facility] [id number] [id number] UNIT September 07Mar 05, Active on e cap Orally three 2019 2020 times a day Results No Known Results Summary Purpose eClinicalWorks Submission
[2019-09-24] MEDS ORDERED: METOPROLOL TARTRATE 5 MG/5 ML INJ IV ONE (16:06)
[2019-09-24 16:24] LABS: Protime INR 1.05
[2019-09-24 16:28] LABS: Absolute Lymphocytes (CBC) 1.2 K/uL (0.7-4.9); Basophils % 0.5 % (0-1.3); Hematocrit 37.5 % (36.0-45.0); Lymphocytes % 13.1 % (15.3-44.8); MPV 7.9 fL (7.6-11.3); RBC Red Blood Cell Count 3.61 M/uL (3.86-4.86)
--- NOTE | 2019-09-24 16:37 | RAD REPORT ---
EXAM DESCRIPTION: José Single View09/24/2019 4:00 pm CLINICAL HISTORY: Chest pain COMPARISON: 2018 FINDINGS: The lungs appear clear of acute infiltrate. The heart is normal size. A central venous ca theter has its tip in the right atrium IMPRESSION: No acute abnormalities displayed
[2019-09-24 16:44] LABS: Albumin 1.9 g/dL (3.4-5.0); Bilirubin Direct 0.1 mg/dL (0-0.2); Bilirubin Total 0.3 mg/dL (0.2-1.0); Magnesium 2.2 mg/dL (1.8-2.4); Potassium 4.5 mmol/L (3.5-5.1); Protein, Total 6.5 g/dL (6.4-8.2); Troponin (Emerg Dept Use Only) 0.02 ng/mL (0.0-0.045)
--- NOTE | 2019-09-24 16:56 | ER ---
Nurse's Notes [facility] Name: Sherry Payan Age: 84 yrs Sex: Female : 1935 Arrival Date: 09/24/2019 Time: 15:34 Bed 10 Private MD: Diagnosis: Atrial fibrillation and flutter-with RVR Presentation: 09/23 15:34 Chief complaint: EMS states: AFIB WITH RVR NOTED AT DIALYSIS. Coronavirus screen: bp Proceed with normal triage. Ebola Screen: No symptoms or risks identified at this time. Initial Sepsis Screen: Does the patient meet any 2 criteria? HR > 90 bpm. Does the patient have a suspected source of infection? No. Patient's initial sepsis screen is negative. Risk Assessment: Do you want to hurt yourself or someone else? Patient reports no desire to harm self or others. Onset of symptoms was September 24, 2019. Care prior to arrival: IV initiated. 22 GA, in the right forearm. 15:34 Method Of Arrival: EMS: [facility] bp 15:34 Acuity: JULIA 2 bp Triage Assessment: 15:40 General: Appears in no apparent distress. comfortable, Behavior is calm, cooperative, bp appropriate for age. Pain: Denies pain. EENT: No deficits noted. Neuro: No deficits noted. Cardiovascular: Rhythm is atrial fibrillation with rapid ventricular response. Respiratory: No deficits noted. GI: No signs and/or symptoms were reported involving the gastrointestinal system. : No signs and/or symptoms were reported regarding the genitourinary system. Derm: No deficits noted. Musculoskeletal: No deficits noted. Historical: - Allergies: 15:40 darva; bp 15:40 meperidine HCl; bp 15:40 PENICILLINS; bp 15:40 Propoxyphene HCl; bp - Home Meds: 15:40 alendronate 70 mg Oral tab 1 tab once wkly [Active]; Creon 24,000-76,000 -120,000 unit bp Oral cpDR 1 caps 3 times per day [Active]; furosemide 20 mg Oral tab 1 tab once daily [Active]; levothyroxine 75 mcg tab 1 tab once daily [Active]; meclizine 25 mg Oral tab 1 tab [Active]; prevolite daily [Active]; - PMHx: 15:40 Hyperlipidemia; Hypertension; kidney removed?; Kidney stones; bp - Immunization history:: Adult Immunizations up to date. - Social history:: Smoking status: Patient denies any tobacco usage or history of. Screenin:42 Abuse screen: Denies threats or abuse. Denies injuries from another. Nutritional bp screening: No deficits noted. Tuberculosis screening: No symptoms or risk factors identified. Fall Risk None identified. Assessment: 15:42 General: SEE TRIAGE NOTE. bp 16:30 Reassessment: NO CHANGE IN EKG. MD NOTIFIED. PT REMAINS ASYMPTOMATIC. bp 17:00 Reassessment: NO CHANGE ON MONITOR, ADMIT PENDING. bp 18:59 Reassessment: ADMIT IN PROCESS, PT CONVERTED TO SINUS RHYTHM ON MONITOR. bp 19:30 General: Appears in no apparent distress. comfortable, Behavior is calm, cooperative, rr5 appropriate for age. 19:30 Neuro: Level of Consciousness is awake, alert, obeys commands, Oriented to person, rr5 place, time, situation. Cardiovascular: Capillary refill < 3 seconds Patient's skin is warm and dry. 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 Respiratory: Airway is patent Respiratory effort is even, unlabored, Respiratory pattern is regular, symmetrical. GI: No signs and/or symptoms were reported involving the gastrointestinal system. : No signs and/or symptoms were reported regarding the genitourinary system. EENT: No signs and/or symptoms were reported regarding the EENT system. Derm: Skin is fragile, is thin. Musculoskeletal: Circulation, motion, and sensation intact. Capillary refill < 3 seconds. 20:02 Reassessment: Patient appears in no apparent distress at this time. Patient is alert, rr5 oriented x 3, equal unlabored respirations, skin warm/dry/pink. snacks given. 20:30 Reassessment: Patient appears in no apparent distress at this time. No changes from rr5 previously documented assessment. Patient is alert, oriented x 3, equal unlabored respirations, skin warm/dry/pink. awaiting for room assignment. 21:46 Reassessment: hospitalist informed for the BP 183/69 mmHg MAP of 100. without orders rr5 made, responded to maintain MAP 60-100. 23:00 Reassessment: Patient appears in no apparent distress at this time. Patient is alert, rr5 oriented x 3, equal unlabored respirations, skin warm/dry/pink. resting eyes closed breathing spontaneously, no respiratory distress noted. 09/24 00:20 Reassessment: Patient appears in no apparent distress at this time. spoke o daughter of rr5 the patient ms liam moreno [id number] updated for the plan of care. Vital Signs: 09/23 15:34 BP 126 / 102; Pulse 165; Resp 33; Temp 98.1; Pulse Ox 93% ; bp 16:00 BP 119 / 85; Pulse 163; Resp 30; Pulse Ox 98% ; Weight 72.57 kg; bp 16:30 BP 100 / 82; Pulse 154; Resp 27; Pulse Ox 99% ; bp 17:00 BP 129 / 101; Pulse 154; Resp 18; Pulse Ox 100% ; bp 18:59 BP 89 / 62; Pulse 72; Resp 29; Pulse Ox 99% ; bp 19:30 BP 91 / 72; Pulse 70; Resp 20; Temp 98.5; Pulse Ox 99% ; rr5 20:15 BP 162 / 84; Pulse 67; Resp 19; Pulse Ox 100% on R/A; rr5 21:00 BP 175 / 89; Pulse 80; Resp 17; Pulse Ox 98% on R/A; rr5 21:45 BP 183 / 69; Pulse 85; Resp 16; Pulse Ox 100% on 2 lpm NC; rr5 23:00 BP 184 / 71; Pulse 78; Resp 19; Pulse Ox 99% on 2 lpm NC; rr5 09/24 00:00 BP 172 / 61; Pulse 67; Resp 15; Temp 98.2; Pulse Ox 100% on 2 lpm NC; rr5 06:10 Weight 58.97 kg; rr5 09/23 23:00 MAP 95 rr5 09/24 00:00 MAP of 88 rr5 ED Course: 09/23 15:34 Patient arrived in ED. bp 15:35 Triage completed. bp 15:37 Suraj Hernandez PA is PHCP. jr8 15:37 Rocky Gomez MD is Attending Physician. jr8 15:40 Arm band placed on. bp 15:42 Patient has correct armband on for positive identification. Bed in low position. Call bp light in reach. Side rails up X2. 15:43 Maintain EMS IV. Dressing intact. Good blood return noted. Site clean \T\ dry. Gauge \T\ bp site: 22 RIGHT FA. 16:00 XRAY Chest (1 view) In Process Unspecified. EDMS 16:08 Abel Hoyos, RN is Primary Nurse. bp 16:55 [facility] MD is Hospitalizing Provider. jr8 09/24 00:23 No provider procedures requiring assistance completed. Patient admitted, IV remains in rr5 place. intact, No redness/swelling at site. Administered Medications: 09/23 15:45 Not Given (Physician Discretion): Cardizem 20 mg IVP once; Over 2 minutes jr8 16:00 Drug: Metoprolol 5 mg Route: IVP; Site: right forearm; bp 16:10 Drug: Metoprolol 5 mg Route: IVP; Site: right forearm; bp 16:20 Drug: Metoprolol 5 mg Route: IVP; Site: right forearm; bp 16:35 Follow up: Response: No adverse reaction; No change in condition bp 17:00 Not Given (Physician Discretion): NS 0.9% 500 ml IV at bolus once jr8 17:15 Drug: Digoxin 0.5 mg Route: IVP; Site: right forearm; bp 17:47 Follow up: Response: No adverse reaction bp 17:15 Drug: Metoprolol 50 mg Route: PO; bp 17:47 Follow up: Response: No adverse reaction bp 17:15 Drug: Lovenox 1 mg/kg Route: Sub-Q; Site: right lower abdomen; bp 17:47 Follow up: Response: No adverse reaction bp Outcome: 16:55 Decision to Hospitalize by Provider. jr8 09/24 00:23 Admitted to ER Hold. Please see [facility] for further documentation. rr5 Condition: stable Instructed on the need for admit. 08:41 Patient left the ED. hb Signatures: Dispatcher [employer] EDMS Suraj Hernandez PA PA jr8 Mely Sandhu RN RN Abel Hoyos, RN RN bp Marcus Cueva, RN RN rr5 Corrections: (The following items were deleted from the chart) 09/23 17:02 16:00 BP 119 / 85; Pulse 163bpm; Resp 30bpm; Pulse Ox 98%; bp bp
--- NOTE | 2019-09-24 16:56 | EDPHYS ---
Physician Documentation [facility] Name: Sherry Payan Age: 84 yrs Sex: Female : 1935 Arrival Date: 09/24/2019 Time: 15:34 Bed 10 Private MD: ED Physician Rocky Gomez HPI: 09/23 16:43 This 84 yrs old Female presents to ER via EMS with complaints of AFIB WITH jr8 RVR. 16:43 Onset: The symptoms/episode began/occurred acutely, today. Associated signs and jr8 symptoms: The patient has no apparent associated signs or symptoms. Modifying factors: The patient symptoms are alleviated by nothing, the patient symptoms are aggravated by nothing. The patient has experienced a previous episode. The patient has not recently seen a physician. Patient was at dialysis when heart rate spiked. Had about 30 minutes left. EMS called and patient was brought to ED at that time. Daughter of patient stated that she has had this just once before and was given a pill of some kind to take. Unknown if she has been in and out of atrial fib since then. Denies any other symptoms at this time . Historical: - Allergies: 15:40 darva; bp 15:40 meperidine HCl; bp 15:40 PENICILLINS; bp 15:40 Propoxyphene HCl; bp - Home Meds: 15:40 alendronate 70 mg Oral tab 1 tab once wkly [Active]; Creon 24,000-76,000 -120,000 unit bp Oral cpDR 1 caps 3 times per day [Active]; furosemide 20 mg Oral tab 1 tab once daily [Active]; levothyroxine 75 mcg tab 1 tab once daily [Active]; meclizine 25 mg Oral tab 1 tab [Active]; prevolite daily [Active]; - PMHx: 15:40 Hyperlipidemia; Hypertension; kidney removed?; Kidney stones; bp - Immunization history:: Adult Immunizations up to date. - Social history:: Smoking status: Patient denies any tobacco usage or history of. ROS: 16:54 Eyes: Negative for injury, pain, redness, and discharge, ENT: Negative for injury, jr8 pain, and discharge, Neck: Negative for injury, pain, and swelling, Respiratory: Negative for shortness of breath, cough, wheezing, and pleuritic chest pain, Abdomen/GI: Negative for abdominal pain, nausea, vomiting, diarrhea, and constipation, Back: Negative for injury and pain, MS/Extremity: Negative for injury and deformity, Skin: Negative for injury, rash, and discoloration, Neuro: Negative for headache, weakness, numbness, tingling, and seizure. 16:54 Cardiovascular: Positive for palpitations. Exam: 16:54 Eyes: Pupils equal round and reactive to light, extra-ocular motions intact. Lids and jr8 lashes normal. Conjunctiva and sclera are non-icteric and not injected. Cornea within normal limits. Periorbital areas with no swelling, redness, or edema. ENT: Nares patent. No nasal discharge, no septal abnormalities noted. Tympanic membranes are normal and external auditory canals are clear. Oropharynx with no redness, swelling, or masses, exudates, or evidence of obstruction, uvula midline. Mucous membranes moist. Neck: Trachea midline, no thyromegaly or masses palpated, and no cervical lymphadenopathy. Supple, full range of motion without nuchal rigidity, or vertebral point tenderness. No Meningismus. Respiratory: Lungs have equal breath sounds bilaterally, clear to auscultation and percussion. No rales, rhonchi or wheezes noted. No increased work of breathing, no retractions or nasal flaring. Abdomen/GI: Soft, non-tender, with normal bowel sounds. No distension or tympany. No guarding or rebound. No evidence of tenderness throughout. Back: No spinal tenderness. No costovertebral tenderness. Full range of motion. Skin: Warm, dry with normal turgor. Normal color with no rashes, no lesions, and no evidence of cellulitis. MS/ Extremity: Pulses equal, no cyanosis. Neurovascular intact. Full, normal range of motion. Neuro: Awake and alert, GCS 15, oriented to person, place, time, and situation. Cranial nerves II-XII grossly intact. Motor strength 5/5 in all extremities. Sensory grossly intact. Cerebellar exam normal. Normal gait. 16:54 Cardiovascular: Rate: tachycardic, Rhythm: irregularly irregular, Pulses: Pulses are 1+ in right radial artery and left radial artery. Edema: is not appreciated, JVD: is not appreciated. Vital Signs: 15:34 BP 126 / 102; Pulse 165; Resp 33; Temp 98.1; Pulse Ox 93% ; bp 16:00 BP 119 / 85; Pulse 163; Resp 30; Pulse Ox 98% ; Weight 72.57 kg; bp 16:30 BP 100 / 82; Pulse 154; Resp 27; Pulse Ox 99% ; bp 17:00 BP 129 / 101; Pulse 154; Resp 18; Pulse Ox 100% ; bp 18:59 BP 89 / 62; Pulse 72; Resp 29; Pulse Ox 99% ; bp 19:30 BP 91 / 72; Pulse 70; Resp 20; Temp 98.5; Pulse Ox 99% ; rr5 20:15 BP 162 / 84; Pulse 67; Resp 19; Pulse Ox 100% on R/A; rr5 21:00 BP 175 / 89; Pulse 80; Resp 17; Pulse Ox 98% on R/A; rr5 21:45 BP 183 / 69; Pulse 85; Resp 16; Pulse Ox 100% on 2 lpm NC; rr5 23:00 BP 184 / 71; Pulse 78; Resp 19; Pulse Ox 99% on 2 lpm NC; rr5 09/24 00:00 BP 172 / 61; Pulse 67; Resp 15; Temp 98.2; Pulse Ox 100% on 2 lpm NC; rr5 06:10 Weight 58.97 kg; rr5 09/23 23:00 MAP 95 rr5 09/24 00:00 MAP of 88 rr5 MDM: 09/23 15:37 Patient medically screened. [facility] 16:48 ED course: Talked to Dr. Reyes about patient. Patient still refractive to the jr8 Lopressor given. Will start on dig and LMWH along with BID metoprolol . 16:55 Data reviewed: vital signs, nurses notes, lab test result(s), EKG, radiologic studies, 8 plain films. Data interpreted: Pulse oximetry: on room air is 99 %. Interpretation: normal. Counseling: I had a detailed discussion with the patient and/or guardian regarding: the historical points, exam findings, and any diagnostic results supporting the discharge/admit diagnosis, lab results, radiology results, the need for further work-up and treatment in the hospital. 09/23 15:37 Order name: Basic Metabolic Panel [facility] 09/23 15:37 Order name: CBC with Diff [facility] 09/23 15:37 Order name: LFT's; Complete Time: 16:53 [facility] 09/23 15:37 Order name: Magnesium; Complete Time: 16:53 8 09/23 15:37 Order name: NT PRO-BNP; Complete Time: 16:53 8 09/23 15:37 Order name: PT-INR; Complete Time: 16:42 8 09/23 15:37 Order name: Troponin (emerg Dept Use Only); Complete Time: 16:53 8 09/23 15:38 Order name: Basic Metabolic Panel; Complete Time: 16:53 EDMS 09/23 15:38 Order name: CBC with Automated Diff; Complete Time: 16:42 EDMS 09/24 05:30 Order name: CBC with Automated Diff EDMS 09/24 06:09 Order name: Basic Metabolic Panel EDMS 09/24 06:09 Order name: T4 Free EDMS 09/24 06:09 Order name: Thyroid Stimulating Hormone EDMS 09/24 06:26 Order name: Magnesium EDMS 09/23 15:37 Order name: XRAY Chest (1 view); Complete Time: 16:42 8 09/23 15:37 Order name: EKG; Complete Time: 15:39 09/23 15:37 Order name: Cardiac monitoring; Complete Time: 15:44 09/23 15:37 Order name: EKG - Nurse/Tech; Complete Time: 16:08 09/23 15:37 Order name: IV Saline Lock; Complete Time: 15:44 09/23 15:37 Order name: Labs collected and sent; Complete Time: 15:53 09/23 15:37 Order name: O2 Per Protocol; Complete Time: 15:44 09/23 15:37 Order name: O2 Sat Monitoring; Complete Time: 15:44 Administered Medications: 15:45 Not Given (Physician Discretion): Cardizem 20 mg IVP once; Over 2 minutes jr8 16:00 Drug: Metoprolol 5 mg Route: IVP; Site: right forearm; bp 16:10 Drug: Metoprolol 5 mg Route: IVP; Site: right forearm; bp 16:20 Drug: Metoprolol 5 mg Route: IVP; Site: right forearm; bp 16:35 Follow up: Response: No adverse reaction; No change in condition bp 17:00 Not Given (Physician Discretion): NS 0.9% 500 ml IV at bolus once jr8 17:15 Drug: Digoxin 0.5 mg Route: IVP; Site: right forearm; bp 17:47 Follow up: Response: No adverse reaction bp 17:15 Drug: Metoprolol 50 mg Route: PO; bp 17:47 Follow up: Response: No adverse reaction bp 17:15 Drug: Lovenox 1 mg/kg Route: Sub-Q; Site: right lower abdomen; bp 17:47 Follow up: Response: No adverse reaction bp Disposition: 09/24 22:10 Co-signature as Attending Physician, Rocky Gomez MD I agree with the assessment and kdr plan of care. Disposition: 09/24/19 16:55 Hospitalization ordered by [facility] for Inpatient Admission. Preliminary diagnosis is Atrial fibrillation and flutter - with RVR. - Bed requested for Telemetry/MedSurg (Inpatient). - Status is Inpatient Admission. hb - Condition is Stable. - Problem is new. - Symptoms are unchanged. Signatures: Dispatcher [employer] EDMS Rocky Gomez MD MD [facility] Suraj Hernandez PA PA jr8 Sharita Chaudhari, BAIRON WADDELL Mely Sandhu, RN RN Abraham Garsia, RN RN ja Abel Hoyos, RN RN bp Corrections: (The following items were deleted from the chart) 09/23 22:41 16:55 Hospitalization Ordered by [facility] MD for Inpatient Admission. Preliminary cg diagnosis is Atrial fibrillation and flutter - with RVR. Bed requested for Intensive Care Unit. Status is Inpatient Admission. Condition is Stable. Problem is new. Symptoms are unchanged. jr8 09/24 05:31 09/23 22:41 09/24/2019 16:55 Hospitalization Ordered by [facility] MD for Inpatient cg Admission. Preliminary diagnosis is Atrial fibrillation and flutter - with RVR. Bed requested for [facility] ER HOLD. Status is Inpatient Admission. Condition is Stable. Problem is new. Symptoms are unchanged. 09/24 05:32 05:31 09/24/2019 16:55 Hospitalization Ordered by [facility] MD for Inpatient cg Admission. Preliminary diagnosis is Atrial fibrillation and flutter - with RVR. Bed requested for Intensive Care Unit. Status is Inpatient Admission. Condition is Stable. Problem is new. Symptoms are unchanged. 08:11 05:32 09/24/2019 16:55 Hospitalization Ordered by [facility] MD for Inpatient ja1 Admission. Preliminary diagnosis is Atrial fibrillation and flutter - with RVR. Bed requested for [facility] ER HOLD. Status is Inpatient Admission. Condition is Stable. Problem is new. Symptoms are unchanged. 08:41 08:11 09/24/2019 16:55 Hospitalization Ordered by [facility] MD for Inpatient hb Admission. Preliminary diagnosis is Atrial fibrillation and flutter - with RVR. Bed requested for Telemetry/MedSurg (Inpatient). Status is Inpatient Admission. Condition is Stable. Problem is new. Symptoms are unchanged. ja1
--- NOTE | 2019-09-24 17:43 | P.HP ---
Certification for Inpatient Patient admitted to: Inpatient With expected LOS: >2 Midnights Patient will require the following post-hospital care: None Practitioner: I am a practitioner with admitting privileges, knowledge of patient current condition, hospital course, and medical plan of care. Services: Services provided to patient in accordance with Admission requirements found in Title 42 Section 412.3 of the Code of Federal Regulations <Johnathon De La Cruz - Last Filed: 09/24/19 17:38> Patient History Date of Service: 09/24/19 Primary Care Provider: Royal Reason for admission: New onset atrial fibrillation with rapid ventricular response History of Present Illness: 84-year-old female with medical history of end-stage renal disease on hemodialysis, chronic diastolic heart failure, hypertension, hyperlipidemia, pancreatic surgery presents emergency department for feeling weak for approximat barbara 1 week. During her evaluation in the emergency department patient was found to have an irregular heart rate of approximately 150. On EKG patient was in atrial fibrillation with rapid ventricular response. This is new for this patient. ED provider consulted with Cardiology while patient is in the emergency department who wish to admit her for further evaluation and management. When I saw the patient in the emergency department she was awake, alert, oriented x3, in no distress. Patient denies chest pain at this time. Heart rate was approximately 145. New orders had just been received from cardiology. Patient will be admitted for further evaluation management. - Past Medical/Surgical History Diabetic: Yes -: Diet controlled DM -: End-stage renal disease on hemodialysis -: Hypothyroidism -: Left nephrectomy -: Chronic diastolic heart failure -: Pancreatic insufficiency secondary to surgery -: Cirrhosis with ascites -: Hypertension -: Left nephrectomy -: Femur fracture with fixation -: Exploratory laparotomy -: Cholecystectomy Psychosocial/ Personal History: Patient currently lives at home by herself. Does have home health. - Family History Father Notes: 'to much WBC" Mother -: Heart disease Brother Notes: leukemia. other brother DM and mylenoma - Social History Alcohol use: No CD- Drugs: No Caffeine use: Yes Place of Residence: Home <Johnathon De La Cruz - Last Filed: 09/24/19 17:38> Date of Service: 09/25/19 <Roly Christian - Last Filed: 09/25/19 12:57> Allergies meperidine HCl [From Demerol] Allergy (Severe, Verified 12/15/18 08:38) Itching/Hives/Rash Penicillins Allergy (Severe, Verified 12/15/18 08:38) Itching/Hives/Rash propoxyphene HCl [From Darvon] Allergy (Intermediate, Verified 12/15/18 08:38) Itching propoxyphene [From Darvon] Allergy (Verified 12/15/18 08:38) Itching/Hives/Rash Home Medications: Levothyroxine [Synthroid*] 100 mcg PO [id number] 01/20/19 Lipase/Protease/Amylase [Creon Dr 12,000 Units Capsule] 2 each PO TID 01/20/19 Multivit-Min/FA/Lycopen/Lutein [Centrum Silver Tablet] 1 each PO DAILY 01/20/19 Vitamin E 400 unit PO DAILY 01/20/19 Amlodipine [Norvasc*] 10 mg PO DAILY tab 02/03/19 Calcium Carbonate/Vitamin D3 [Oscal 500 + Vit D 200 Iu Tab*] 1 tab PO DAILY tab 02/03/19 Cyanocobalamin [Vitamin B-12*] 1,000 mcg PO DAILY tab 02/03/19 Docosahexanoic AC/Epa [Fish Oil 1,000 MG*] 1,000 mg PO DAILY cap 02/03/19 Hydralazine [Apresoline*] 50 mg PO TID tab 02/03/19 Iron/FA/Vit B-Com W/C [Hemocyte Plus*] 1 tab PO DAILY WITH BREAKFAST tab 02/03/19 Nepro Shake [Nepro*] 237 ml PO DAILY can 02/03/19 Pantoprazole [Protonix Tab*] 40 mg PO ACB tab 02/03/19 Apixaban [Eliquis] 2.5 mg PO BID 30 Days #60 tablet 09/25/19 Metoprolol Tartrate [Lopressor*] 50 mg PO BID 30 Days #60 tab 09/25/19 Review of Systems 10-point ROS is otherwise unremarkable General: Weakness, Malaise <Johnathon De La Cruz - Last Filed: 09/24/19 17:38> Physical Examination - Physical Exam General: Alert, In no apparent distress, Oriented x3 HEENT: Atraumatic, Normocephalic Neck: Supple Respiratory: Clear to auscultation bilaterally, Normal air movement Cardiovascular: Normal pulses, Irregular heart rate/rhythm (AFib RVR) Capillary refill: <2 Seconds Gastrointestinal: Normal bowel sounds, Distended, Ascites Musculoskeletal: No contractures, No erythema, No tenderness Integumentary: No tenderness/swelling, No erythema Neurological: Normal speech, Normal tone Urinary: Dialysis catheter - Studies Laboratory Data (last 24 hrs) 09/24/19 15:45: PT 12.4, INR 1.05 09/24/19 15:45: WBC 9.0, Hgb 12.2, Hct 37.5, Plt Count 282 09/24/19 15:45: Sodium 139, Potassium 4.5, BUN 20 H D, Creatinine 3.46 H D, Glucose 111 H, Magnesium 2.2, Total Bilirubin 0.3, AST 16, ALT 14, Alkaline Phosphatase 62 <Johnathon De La Cruz - Last Filed: 09/24/19 17:38> - Studies Laboratory Data (last 24 hrs) 09/24/19 15:45: PT 12.4, INR 1.05 09/24/19 15:45: WBC 9.0, Hgb 12.2, Hct 37.5, Plt Count 282 09/24/19 15:45: Sodium 139, Potassium 4.5, BUN 20 H D, Creatinine 3.46 H D, Glucose 111 H, Magnesium 2.2, Total Bilirubin 0.3, AST 16, ALT 14, Alkaline Phosphatase 62 <Roly Christian - Last Filed: 09/25/19 12:57> Assessment and Plan - Plan Assessment New onset atrial fibrillation with rapid ventricular response End-stage renal disease on chronic hemodialysis Chronic diastolic congestive heart failure Chronic malignant cirrhosis with ascites Hypertension Hyperlipidemia Pancreatic insufficiency Plan New onset atrial fibrillation with rapid ventricular response: Cardiology has been consulted on this case. Rate is not currently controlled patient was given metoprolol 5 mg IV x3 in the emergency department in addition to digoxin IV. Cardiology prefers patient received metoprolol 50 mg p.o. b.i.d. in addition to Lovenox 1 milligram/kilogram once daily for the time being. Patient will be admitted to the intensive care unit for close monitoring. Appreciate further input from cardiology. Will also attempt to obtain echocardiogram. End-stage renal disease on chronic hemodialysis: Nephrology has been consulted to help manage patient's chronic hemodialysis needs. Chronic diastolic congestive heart failure: Will continue patient's home medications, appreciate further input from nephrology and cardiology. Chronic malignant cirrhosis with ascites: Will continue the patient's home medications and monitor closely. No tense ascites at this time. Hypertension: Will continue patient's home medications. Hyperlipidemia: Will continue patient's home medications. Pancreatic insufficiency: Will continue patient's home medications. Discharge Plan: Home Plan to discharge in: Greater than 2 days - Advance Directives Does patient have a Living Will: No Does patient have a Durable POA for Healthcare: No - Code Status/Comfort Care Code Status Assessed: Yes (Patient is full code) Critical Care: No Time Spent Managing Pts Care (In Minutes): 55 <Johnathon De La Cruz - Last Filed: 09/24/19 17:38> Physician Review: Patient Assessed, Agree with Above Assessment and Plan <Roly Christian - Last Filed: 09/25/19 12:57>
[2019-09-24] MEDS ORDERED: METOPROLOL TAR 50 MG TAB ONE (17:46)
[2019-09-24] MEDS ORDERED: DIGOXIN 0.25 MG/ML AMP ONE (17:46)
[2019-09-24] MEDS ORDERED: ENOXAPARIN 80 MG/0.8 ML SQ ONE (17:46)
[2019-09-24] MEDS ORDERED: ONDANSETRON 4 MG/2 ML VIAL IV PRN (23:58)
[2019-09-24] MEDS ORDERED: METOPROLOL TAR 50 MG TAB PO SCH (23:58)
[2019-09-24] MEDS ORDERED: ACETAMINOPHEN 500 MG TAB PO PRN (23:58)
[2019-09-24] MEDS ORDERED: AMIODARONE HCL 150 MG in D5W 100 ML IV STA (23:58)
[2019-09-24] MEDS ORDERED: AMIODARONE HCL 450 MG in D5W 241 ML IV SCH (23:58)
[2019-09-25 01:20] VITALS: O2SAT 100
[2019-09-25 05:27] LABS: Basophils % 0.7 % (0-1.3); Lymphocytes % 11.9 % (15.3-44.8); MPV 7.9 fL (7.6-11.3); RBC Red Blood Cell Count 3.26 M/uL (3.86-4.86)
[2019-09-25 05:58] VITALS: BMI 24.6
[2019-09-25 06:00] LABS: Potassium 5.1 mmol/L (3.5-5.1); Thyroid Stimulating Hormone 2.3 uIU/mL (0.360-3.740)
[2019-09-25 06:26] LABS: Magnesium 2.3 mg/dL (1.8-2.4)
[2019-09-25] MEDS ORDERED: METOPROLOL TAR 50 MG TAB PO SCH (06:53)
[2019-09-25] MEDS ORDERED: METOPROLOL TAR 50 MG TAB ONE (08:18)
[2019-09-25] MEDS ORDERED: ENOXAPARIN 100 MG/ML SYR SQ ONE (08:19)
[2019-09-25] MEDS ORDERED: ENOXAPARIN 100 MG/ML SYR SQ SCH (09:00)
--- NOTE | 2019-09-25 09:05 | P.DS ---
Admission Date: 09/24/19 Discharge Date: 09/25/19 Primary Care Provider: Royal Reason for Admission: New onset atrial fibrillation with rapid ventricular response Consultations: Cardiology: Dr. Reyes Nephrology: Dr. Ware Procedures: Chest x-ray FINDINGS: The lungs appear clear of acute infiltrate. The heart is normal size. A central venous catheter has its tip in the right atrium IMPRESSION: No acute abnormalities displayed Medical problem list New onset atrial fibrillation with rapid ventricular response, resolved, patient in sinus rhythm. End-stage renal disease on chronic hemodialysis Chronic diastolic congestive heart failure Chronic malignant cirrhosis with ascites Hypertension Hyperlipidemia Pancreatic insufficiency Brief History of Present Illness: 84-year-old female with medical history of end-stage renal disease on hemodialysis, chronic diastolic heart failure, hypertension, hyperlipidemia, pancreatic surgery presents emergency department for feeling weak for approximately 1 week. During her evaluation in the emergency department patient was found to have an irregular heart rate of approximately 150. On EKG patient was in atrial fibrillation with rapid ventricular response. This is new for this patient. ED provider consulted with Cardiology while patient is in the emergency department who wish to admit her for further evaluation and management. When I saw the patient in the emergency department she was awake, alert, oriented x3, in no distress. Patient denies chest pain at this time. Heart rate was approximately 145. New orders had just been received from cardiology. Patient will be admitted for further evaluation management. Hospital Course: 84-year-old female was admitted to the hospital for new onset atrial fibrillation with rapid ventricular response. Initially patient's rate was around 155 it was refractory to metoprolol 5 mg IV x3. Cardiology recommended digoxin IV which patient received in the emergency department. When I evaluated her in the emergency department for admission she is still tachycardic with irre gular rhythm around 155. This was discussed with Dr. Christian who then ordered amiodarone. I went down to evaluate patient once more prior to administration and found her heart rate to be in the 70s in normal sinus rhythm. Patient was kept overnight for close monitoring and has done well, remained in normal sinus rhythm. This morning heart rate is around 55 sinus bradycardia. Patient states she is feeling well, her weakness has resolved. Cardiology again evaluated her this morning and believe she is stable from discharge from their point of view. Will change carvedilol 2 metoprolol 50 mg p.o. b.i.d. and added Eliquis 2.5 mg p.o. b.i.d.. Patient history of end-stage renal disease on chronic hemodialysis. Patient evaluated by a nephrology who states patient is stable for discharge and can continue with normal dialysis days. Patient history of cirrhosis and ascites. Patient states they are managing this primarily with that this. This is stable this time. Patient continue with minerva lysis recommendations. <Johnathon De La Cruz - Last Filed: 09/25/19 10:57> Admission Date: 09/24/19 Discharge Date: 09/25/19 <Roly Christian - Last Filed: 09/25/19 12:57> Discharge Condition: GOOD Vital Signs/Physical Exam: Temp Pulse Resp BP Pulse Ox 98.2 F 65 20 171/51 H 97 09/25/19 08:17 09/25/19 08:17 09/25/19 08:17 09/25/19 08:17 09/25/19 08:17 General: Alert, In no apparent distress, Oriented x3 HEENT: Atraumatic, Normocephalic, PERRLA Neck: Supple Respiratory: Clear to auscultation bilaterally, Normal air movement Cardiovascular: Regular rate/rhythm, Normal S1 S2 Capillary refill: <2 Seconds Gastrointestinal: Normal bowel sounds, Soft and benign Musculoskeletal: No contractures, No erythema, No tenderness Integumentary: No significant lesion, No tenderness/swelling Neurological: Normal speech, Normal strength at 5/5 x4 extr, Normal tone Laboratory Data at Discharge: WBC 8.1 K/uL (4.3-10.9) 09/25/19 05:15 Hgb 11.0 g/dL (12.0-15.0) L 09/25/19 05:15 Hct 34.0 % (36.0-45.0) L 09/25/19 05:15 Plt Count 247 K/uL (152-406) 09/25/19 05:15 PT 12.4 SECONDS (9.5-12.5) 09/24/19 15:45 INR 1.05 09/24/19 15:45 Sodium 140 mmol/L (136-145) 09/25/19 05:15 Potassium 5.1 mmol/L (3.5-5.1) 09/25/19 05:15 BUN 30 mg/dL (7-18) H 09/25/19 05:15 Creatinine 4.34 mg/dL (0.55-1.3) H 09/25/19 05:15 Glucose 85 mg/dL (74-106) 09/25/19 05:15 Magnesium 2.3 mg/dL (1.8-2.4) 09/25/19 05:15 Total Bilirubin 0.3 mg/dL (0.2-1.0) 09/24/19 15:45 AST 16 U/L (15-37) 09/24/19 15:45 ALT 14 U/L (12-78) 09/24/19 15:45 Alkaline Phosphatase 62 U/L (45-117) 09/24/19 15:45 <Johnathon De La Cruz - Last Filed: 09/25/19 10:57> Vital Signs/Physical Exam: Temp Pulse Resp BP Pulse Ox 98.2 F 65 20 171/51 H 97 09/25/19 08:17 09/25/19 08:17 09/25/19 08:17 09/25/19 08:17 09/25/19 08:17 Laboratory Data at Discharge: WBC 8.1 K/uL (4.3-10.9) 09/25/19 05:15 Hgb 11.0 g/dL (12.0-15.0) L 09/25/19 05:15 Hct 34.0 % (36.0-45.0) L 09/25/19 05:15 Plt Count 247 K/uL (152-406) 09/25/19 05:15 PT 12.4 SECONDS (9.5-12.5) 09/24/19 15:45 INR 1.05 09/24/19 15:45 Sodium 140 mmol/L (136-145) 09/25/19 05:15 Potassium 5.1 mmol/L (3.5-5.1) 09/25/19 05:15 BUN 30 mg/dL (7-18) H 09/25/19 05:15 Creatinine 4.34 mg/dL (0.55-1.3) H 09/25/19 05:15 Glucose 85 mg/dL (74-106) 09/25/19 05:15 Magnesium 2.3 mg/dL (1.8-2.4) 09/25/19 05:15 Total Bilirubin 0.3 mg/dL (0.2-1.0) 09/24/19 15:45 AST 16 U/L (15-37) 09/24/19 15:45 ALT 14 U/L (12-78) 09/24/19 15:45 Alkaline Phosphatase 62 U/L (45-117) 09/24/19 15:45 <Roly Christian - Last Filed: 09/25/19 12:57> Patient Discharge Instructions: 1. Please follow up her primary care doctor within 1 week to follow up this hospitalization. 2. Please continue with their normal dialysis days. 3. You need to follow up with cardiology in the clinic for further evaluation management for cardiac standpoint. Please call the office on Friday to schedule appointment. 4. 84-year-old female was admitted to the hospital for new onset atrial fibrillation with rapid ventricular response. Initially patient's rate was around 155 it was refractory to metoprolol 5 mg IV x3. Cardiology recommended digoxin IV which patient received in the emergency department. When I evaluated her in the emergency department for admission she is still tachycardic with irregular rhythm around 155. This was discussed with Dr. Christian who then ordered amiodarone. I went down to evaluate patient once more prior to administration and found her heart rate to be in the 70s in normal sinus rhythm. Patient was kept overnight for close monitoring and has done well, remained in normal sinus rhythm. This morning heart rate is around 55 sinus bradycardia. Patient states she is feeling well, her weakness has resolved. Cardiology again evaluated her this morning and believe she is stable from discharge from their point of view. Will change carvedilol 2 metoprolol 50 mg p.o. b.i.d. and added Eliquis 2.5 mg p.o. b.i.d.. Patient history of end-stage renal disease on chronic hemodialysis. Patient evaluated by a nephrology who states patient is stable for discharge and can continue with normal dialysis days. Patient history of cirrhosis and ascites. Patient states they are managing this primarily with that this. This is stable this time. Patient continue with dialysis recommendations. Diet: Renal Activity: Ad ad Time spent managing pt's care (in minutes): 55 <Johnathon De La Cruz - Last Filed: 09/25/19 10:57> Physician Review: Patient Assessed, Agree with Above Assessment and Plan <GinoMarioRolyarun Vazquez - Last Filed: 09/25/19 12:57> Home Medications: Levothyroxine [Synthroid*] 100 mcg PO [id number] 01/20/19 Lipase/Protease/Amylase [Creon Dr 12,000 Units Capsule] 2 each PO TID 01/20/19 Multivit-Min/FA/Lycopen/Lutein [Centrum Silver Tablet] 1 each PO DAILY 01/20/19 Vitamin E 400 unit PO DAILY 01/20/19 Amlodipine [Norvasc*] 10 mg PO DAILY tab 02/03/19 Calcium Carbonate/Vitamin D3 [Oscal 500 + Vit D 200 Iu Tab*] 1 tab PO DAILY tab 02/03/19 Cyanocobalamin [Vitamin B-12*] 1,000 mcg PO DAILY tab 02/03/19 Docosahexanoic AC/Epa [Fish Oil 1,000 MG*] 1,000 mg PO DAILY cap 02/03/19 Hydralazine [Apresoline*] 50 mg PO TID tab 02/03/19 Iron/FA/Vit B-Com W/C [Hemocyte Plus*] 1 tab PO DAILY WITH BREAKFAST tab 02/03/19 Nepro Shake [Nepro*] 237 ml PO DAILY can 02/03/19 Pantoprazole [Protonix Tab*] 40 mg PO ACB tab 02/03/19 Apixaban [Eliquis] 2.5 mg PO BID 30 Days #60 tablet 09/25/19 Metoprolol Tartrate [Lopressor*] 50 mg PO BID 30 Days #60 tab 09/25/19 New Medications: Apixaban [Eliquis] 2.5 mg PO BID 30 Days #60 tablet Metoprolol Tartrate [Lopressor*] 50 mg PO BID 30 Days #60 tab Followup: Greg Reyes MD [ACTIVE - CAN ADMIT] -
--- NOTE | 2019-09-25 09:49 | CON ---
Date of Consultation: 09/25/2019 Reason For Consultation: New-onset atrial fibrillation. History Of Present Illness: Ms. Payan is an 84-year-old white woman, who has not had any previous c ardiac history in the past. She does have a history of hypertension, dyslipidemia, gastroesophageal reflux disease, hypothyroidism, and end-stage renal disease. She is on hemodialysis Friday, , and Friday, and she is followed by Dr. Cruz and Dr. Ware. She came in with an episode of atri al fibrillation, initially rated 130-150, received IV beta-blockers and then a p.o. beta blockers 50 b.i.d., and she is now back in normal rhythm. She denied any chest pain. She did have some palpitat ion and shortness of breath and some nausea. No diaphoresis. She denied any syncope. She denied an y fever, chills, or cough. She has ruled out for myocardial infarction. Allergies: NAPROSYN, DEMEROL, AND PENICILLIN. Review of Systems: Negative. Social History: Negative. Family History: Negative. Past Medical History: As stated earlier. Medications: At home include Norvasc, hydralazine, Synthroid, Coreg, Protonix, and Creon. Physical Examination: General: Ms. Payan appeared her stated age. She was in no acute distress. She was in a sinus rhyt hm at a rate of 80. She was afebrile. HEENT: Negative. Neck: Supple without any bruit, lymphadenopathy, JVD, or thyromegaly. Chest: Clear to auscultation and percussion. Cardiac: Regular rhythm and rate with an S4 gallops and an aortic sclerosis murmur. No rubs. Abdomen: Benign. Extremities: No clubbing, cyanosis, or edema. Diagnostic Data: Her initial EKG showed atrial fibrillation. Her EKG now showed sinus rhythm. Her creatinine is 4.34. Her chest x-ray is normal. Echocardiogram in January of 2019 was unremarkable. Her BNP was 12,224. Impression And Plan: 1.Paroxysmal atrial fibrillation. I would prefer the patient being on metoprolol. She has a very h igh CHADS score and I think she should be on Eliquis 2.5 b.i.d. She can go home after that and I cy l make an arrangement for her to have an outpatient echocardiogram and a Lexiscan. 2.Renal failure, on hemodialysis Friday, Friday, and Friday, that is stable. Last creatinine is 4.34. 3.Elevated BNP secondary to renal failure. 4.Hypertension, well controlled. 5.Gastroesophageal reflux disease, well controlled. 6.Hypothyroidism. 7.Dyslipidemia. I would continue her present regimen except for switching the Coreg to metoprolol 5 0 b.i.d. Start Eliquis 2.5 b.i.d., send her home, and I will see her in the office soon. RAYNA/MACK Voice ID: [id number] Report ID: [id number]
--- NOTE | 2019-09-25 10:33 | P.CNS ---
Reason for Consult: ESRD Primary Care Provider: Royal Chief Complaint: New onset atrial fibrillation with rapid ventricular response History of Present Illness: An 84 Y/o woman with listed PMHX , including ESRd on HD MWF pt was sent form HD unit for arrhythmia during HD , HR was up to 150 , pt was on Coreg , which was stopped 1 wk ago for unclear reason pt denied chest pain, palpitation , nausea, vomiting or diarrhea Physical exam general: AAOX3, NAD Neck; Supple, No elevated JVD hear: RRR, normal S1,2 no murmur or rub Chest: CTAB, no rales or wheezes Abdomen: Soft , Nt Extremities No edema or ulcer Assessment And Plan: ESRD on HD MEF to resume HD as an OP Anemia of chronic disease Conr epogen HTN controlled arrhythmia rate controlled now to be discharged on Eliquis and metoprolol Pt can be discharged from nephrology point of view Allergies meperidine HCl [From Demerol] Allergy (Severe, Verified 12/15/18 08:38) Itching/Hives/Rash Penicillins Allergy (Severe, Verified 12/15/18 08:38) Itching/Hives/Rash propoxyphene HCl [From Darvon] Allergy (Intermediate, Verified 12/15/18 08:38) Itching propoxyphene [From Darvon] Allergy (Verified 12/15/18 08:38) Itching/Hives/Rash Home Medications: Levothyroxine [Synthroid*] 100 mcg PO [id number] 01/20/19 Lipase/Protease/Amylase [Creon Dr 12,000 Units Capsule] 2 each PO TID 01/20/19 Multivit-Min/FA/Lycopen/Lutein [Centrum Silver Tablet] 1 each PO DAILY 01/20/19 Vitamin E 400 unit PO DAILY 01/20/19 Amlodipine [Norvasc*] 10 mg PO DAILY tab 02/03/19 Calcium Carbonate/Vitamin D3 [Oscal 500 + Vit D 200 Iu Tab*] 1 tab PO DAILY tab 02/03/19 Cyanocobalamin [Vitamin B-12*] 1,000 mcg PO DAILY tab 02/03/19 Docosahexanoic AC/Epa [Fish Oil 1,000 MG*] 1,000 mg PO DAILY cap 02/03/19 Hydralazine [Apresoline*] 50 mg PO TID tab 02/03/19 Iron/FA/Vit B-Com W/C [Hemocyte Plus*] 1 tab PO DAILY WITH BREAKFAST tab 02/03/19 Nepro Shake [Nepro*] 237 ml PO DAILY can 02/03/19 Pantoprazole [Protonix Tab*] 40 mg PO ACB tab 02/03/19 carvediloL [Coreg*] 12.5 mg PO BID 6AM 6PM tab 02/03/19 - Past Medical/Surgical History Diabetic: Yes -: Diet controlled DM -: End-stage renal disease on hemodialysis -: Hypothyroidism -: Left nephrectomy -: Chronic diastolic heart failure -: Pancreatic insufficiency secondary to surgery -: Cirrhosis with ascites -: Hypertension -: Left nephrectomy -: Femur fracture with fixation -: Exploratory laparotomy -: Cholecystectomy Psychosocial/ Personal History: Patient currently lives at home by herself. Does have home health. - Family History Father Notes: 'to much WBC" Mother Medical History: Heart disease Brother Notes: leukemia. other brother DM and mylenoma - Social History Alcohol use: No CD- Drugs: No Caffeine use: Yes Place of Residence: Home Physical Examination Temp Pulse Resp BP Pulse Ox 98.2 F 65 20 171/51 H 97 09/25/19 08:17 09/25/19 08:17 09/25/19 08:17 09/25/19 08:17 09/25/19 08:17 Laboratory Data (last 24 hrs) 09/24/19 15:45: PT 12.4, INR 1.05 09/24/19 15:45: WBC 9.0, Hgb 12.2, Hct 37.5, Plt Count 282 09/24/19 15:45: Sodium 139, Potassium 4.5, BUN 20 H D, Creatinine 3.46 H D, Glucose 111 H, Magnesium 2.2, Total Bilirubin 0.3, AST 16, ALT 14, Alkaline Phosphatase 62
[2019-09-25 13:05] VITALS: BP 156/72; TEMP 97.8
== END 2019-09-25 13:16 | disposition home or self-care (01) ==
LOC: ER 15:26 → INTOOBSV 17:31 → ERHOLD 17:31 → 2ND 09-25 09:29
PROVIDERS: ADMIT Family Medicine; ATTEND Family Medicine
DX: I48.0 Paroxysmal atrial fibrillation (principal); I13.2 Hypertensive heart and chronic kidney disease with heart failure and with stage 5 chronic kidney disease, or end stage renal disease; I50.32 Chronic diastolic (congestive) heart failure; N18.6 End stage renal disease; D63.1 Anemia in chronic kidney disease; Z11.59 Encounter for screening for other viral diseases; E11.22 Type 2 diabetes mellitus with diabetic chronic kidney disease; E78.5 Hyperlipidemia, unspecified; K86.89 Other specified diseases of pancreas; K74.69 Other cirrhosis of liver; R18.0 Malignant ascites; E03.9 Hypothyroidism, unspecified; K21.9 Gastro-esophageal reflux disease without esophagitis; Z79.899 Other long term (current) drug therapy; Z99.2 Dependence on renal dialysis; Z90.5 Acquired absence of kidney
CPT/HCPCS: 93005; 85025 ×2; 80048 ×2; 36415; 83735 ×2; 85610; 80076; 84443; 84484; 84439; 83880; 71045; 96375; 96372; 96374; 99285; U0002; J1160; J0282; J1650; G0378 ×2

== ENCOUNTER 2020-02-06 19:44 | Inpatient (IN) | payer OTHER ==
--- OUTSIDE RECORDS SUMMARY | 2020-02-06 19:47 | XMS REPORT | Clinical Summary ---
:1935 Author Organization [facility] Address [address] [place] [address] Care Team Providers Name Role Phone Ngoc [...] 20 mg by 0 Active mouth. omega [id number]-fish 1 capsule 0 Active oil (FISH OIL) 1,000 mg (120 mg-180 mg) Cap IRON Take by mouth. 0 Activ e [id number] CC ORAL levothyroxine 1 tablet on an [...] are printed and given to the patient Family History Medical History Relation Name Comments [...] Assigned at Date Recorded Not on file Last Filed Vital Signs Not on file Plan of Treatment Health Maintenance Due Date Last Done Comments PNEUMOCOCCAL 65+ YRS (1 of 1 - [id number] [id number]) 2001 MEDICARE ANNUAL WELLNESS (YEAR 2 or FIRST YEAR if no 08/02/2002 IPPE) INFLUENZA VACCINE (#1) 2019 Results Not on fileafter 02/05/2019 Insurance Payer Benefit Plan / Subscriber ID Effective Dates Phone Addre ss Type Group MEDICARE MEDICARE A B [id number] 2001-Present Medicare MCR GENERIC MEDICARE [id number] 2018-Present Medig[employer] SUPPLEMENT/KEIKO SUPPLEMENT VIDUAL
--- OUTSIDE RECORDS SUMMARY | 2020-02-06 19:47 | XMS REPORT | Clinical Summary ---
:1935 Author Organization [facility] Address [address] [place] [address] Care Team Providers Name Role Phone Ngoc [...] Dispensed Refills Start Date End Date Status CREON 24,000-76,000 Take 24,000 0 04/25/2017 Active -120,000 unit units of capsule,delayed lipase by release(DR/EC) mouth 3 capsule (three) times a day with meals. omeprazole Take 40 mg by 3 05/26/2017 Acti ve (PriLOSEC) 20 MG mouth daily. capsule levothyroxine Take 100 mcg 0 Act javy (SYNTHROID, by mouth every LEVOXYL) 50 mcg morning. tablet FOLIC Take 1 tablet 0 Active ACID/MULTIVIT-MIN/L by mouth UTEIN (CENTRUM daily. SILVER ORAL) cyanocobalamin Take 1,000 mcg 0 Active (VITAMIN B-12) 1000 by mouth MCG tablet daily. vitamin E 400 UNIT Take 400 Units 0 Active capsule by mouth daily. albuterol (PROAIR Inhale 2 puffs 0 Active HFA,PROVENTIL every 6 (six) HFA,VENTOLIN HFA) hours as 90 mcg/actuation needed for inhaler wheezing. calcium carbonate Chew 1 tablet 0 Active (TUMS) 200 mg daily. calcium (500 mg) chewable tablet carvediloL (COREG) Take 3.125 mg 0 Active 3.125 MG tablet by mouth 2 (two) times a day. omega-3 fatty Take 1 g by 0 Acti ve acids-fish oil mouth daily. 300-1,000 mg capsule iron fum/folic Take 1 tablet 0 A ctive acid/mv,min 15 by mouth (HEMOCYTE-PLUS daily. ORAL) midodrine Take 5 mg by 0 Active (PROAMATINE) 5 MG mouth. Take 30 tablet min prior to dialysis nut.tx.imp.renal Take 237 mL by 0 Active fxn,lac-reduc mouth daily. (NEPRO ORAL) nystatin Apply 0 Active (MYCOSTATIN) topically 2 100,000 unit/gram (two) times a ointment day. sevelamer (RENAGEL) Take 800 mg by 0 Active 800 MG tablet mouth 3 (three) times a day with meals. PREVALITE 4 gram Take 1 packet 0 05/16/2017 12/07/19 Discontinued powder in packet by mouth 20 daily. FUROSEMIDE ORAL Take 30 mg by 0 12/16/19 Discontinued mouth daily. 20 (Med Li st Cleanup) CALCIUM CARB/VIT Take by mouth 0 12/16/19 Discontinued D3/MINERALS 2 (two) times 20 (Med List (CALCIUM-VITAMIN D a day. C leanup) ORAL) DOCOSAHEXANOIC Take 1,000 mg 0 12/16/19 D iscontinued ACID/EPA (FISH OIL by mouth 20 ( Med List ORAL) daily. Cleanup) aspirin (ECOTRIN) Take 81 mg by 0 12/16/19 Discontinued 81 MG enteric mouth daily. 20 (Me d List coated tablet Cleanu p) acetaminophen-codei Take 1 tablet 15 tablet 0 12/18/201912/24 ne (TYLENOL WITH by mouth every 20 CODEINE #3) 300-30 8 (eight) mg per hours as tabletIndications: needed for acute pain moderate pain or severe pain for up to 7 days .acute pain. Active Problems Problem Noted Date End stage renal disease 12/17/2019 ESRD (end stage renal disease) on dialysis 12/16/2019 Postmenopausal bleeding 05/21/2017 Renal insufficiency 05/21/2017 Endometritis 05/19/2017 Diabetes mellitus 12/05/2000 Hypertensive disorder 12/05/2000 Encounters Date Type Specialty Care Team Description 12/16/2019 Anesthesia Event General Surgery Patricia Kennedy MD Hurd, Sherryl Ann, NP 12/16/2019 Surgery General Surgery Ange, SECOND STAGE BASILIC Syed Darling MD VEIN TRANSPOSIT ION 12/16/2019 - Hospital Encounter General Internal Ange, ESRD (end stage renal 12/18/2019 Medicine Syed Darling MD disease) on dialysis Jaki Sorenson (HCC) (Primary Dx) MD Maverick 12/16/2019 Travel after 02/05/2019 Surgical History Surgery Date Site/Laterality Comments KIDNEY SURGERY left kidney nay braxton FRACTURE SURGERY plate in right leg after fracture INTESTINAL BYPASS for weight los s DILATION AND CURETTAGE OF 04/03/2017 - UTERUS 04/30/2017 COLONOSCOPY HYSTEROSCOPY, WITH DILATION 06/03/2017 Uterus/N/A Proc edure: DILATION AND CURETTAGE OF UTERUS AND CURE TTAGE; Surgeon: Petr cobos MD; Location: [facility] OR; Servic e: Gynecology; Laterality: N/A; CHOLECYSTECTOMY HYSTEROSCOPY, WITH DILATION 10/28/2017 Uterus/N/A Proc edure: D&C AND CURETTAGE OF UTERUS w/ULTRAS OUND; Surgeon: Petr cobos MD; Location: [facility] OR; Servic e: Gynecology; Laterality: N/A; TRANSPOSITION, VEIN, BASILIC, 12/16/2019 N/A Pr ocedure: SECOND SECOND OF 2 STAGES STAGE BASILIC VEIN TRANSPOSITION; Surgeon: Syed Alva MD; Location: [facility]; Service: Vascular; Later ality: N/A; Medical History Medical History Date Comments Cirrhosis of liver (HCC) H/O kidney removal- left kidney Acid reflux Hypothyroidism Diabetes mellitus (HCC) diet controlled History of blood clots- 8 yrs ago from 2018 Wears glasses Dental crown present Arthritis History of transfusion Deep vein thrombosis (HCC) LEFT LEG Irregular heart beat RESOLVED PER PT Renal disorder 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 Independent in wheelchair Pt can transfe r herself to bed from wheelchair and can u se walker to get to bathroom Renal failure mwf Family History Medical History Relation Name Comments Other Father made excessive R BC Diabetes Mother Heart disease Mother Stroke Mother Relation Name Status Comments Father Mother Social History Tobacco Use Types Packs/Day Years Used Date Never Smoker Smokeless Tobacco: Never Used Alcohol Use Drinks/Week oz/Week Comments No Sex Assigned at Date Recorded Not on file Last Filed Vital Signs Vital Sign Reading Time Taken Comments Blood Pressure 132/66 12/18/2019 7:51 AM CDT Pulse 92 12/18/2019 12:07 PM CDT Temperature 36.2 C (97.2 F) 12/18/2019 7:51 AM CDT Respiratory Rate 18 12/18/2019 12:07 PM CDT Oxygen Saturation 98% 12/18/2019 12:06 PM CDT Inhaled Oxygen Concentration - - Weight 58.1 kg (128 lb) 12/18/2019 7:10 AM CDT Height 162.6 cm (5' 4") 12/16/2019 10:34 AM CDT Body Mass Index 21.97 12/16/2019 10:34 AM CDT Plan of Treatment Health Maintenance Due Date Last Done Comments DIABETES: RETINAL EYE EXAM 1945 DIABETIC FOOT EXAM 1945 SHINGLES VACCINES (#1) 1986 65+ PNEUMOCOCCAL VACCINE (1 of 1 - PPSV23) 2001 INFLUENZA VACCINE 10/02/2019 12/02/2018 Procedures Procedure Name Priority Date/Time Associated Comments Diagnosis LINE/DRAIN REMOVAL Routine 12/17/2019 7:10 ESRD (end stage Re sults for this PM CDT renal disease) on procedure are in dialysis (HCC) the results section. HEPATITIS B SURFACE AB, Routine 12/17/2019 4:50 Results for this QUANTITATIVE PM CDT procedure are i n the results section. HEPATITIS B SURFACE Routine 12/17/2019 4:50 Resu lts for this ANTIGEN PM CDT procedure are i n the results section. HEPATITIS B SURFACE Routine 12/17/2019 2:02 Resu lts for this ANTIBODY PM CDT procedure are i n the results section. HEPATITIS B SURFACE AB, Routine 12/17/2019 2:02 Results for this QUANTITATIVE PM CDT procedure are i n the results section. HEMODIALYSIS Routine 12/17/2019 10:36 AM CDT BLOOD CULTURE, AEROBIC Routine 12/16/2019 11:55 R esults for this & ANAEROBIC PM CDT procedure are i n the results section. BLOOD CULTURE, AEROBIC Routine 12/16/2019 11:45 R esults for this & ANAEROBIC PM CDT procedure are i n the results section. POC GLUCOSE Routine 12/16/2019 3:01 Results for this PM CDT procedure are i n the results section. VT AN PERIPHERAL BLOCK Routine 12/16/2019 12:04 R esults for this PROCEDURE FOR PAIN PM CDT procedure are in the results section. XR CHEST 1 VW PORTABLE STAT 12/16/2019 10:45 R esults for this AM CDT procedure are i n the results section. POC PANEL Routine 12/16/2019 10:34 Results for this AM CDT procedure are i n the results section. ESTIMATED GFR STAT 12/16/2019 10:29 Results fo r this AM CDT procedure are i n the results section. TYPE AND SCREEN Routine 12/16/2019 10:29 Results for this AM CDT procedure are i n the results section. PARTIAL THROMBOPLASTIN STAT 12/16/2019 10:29 R esults for this TIME (PTT) AM CDT procedure are i n the results section. PROTHROMBIN TIME WITH STAT 12/16/2019 10:29 Re sults for this INR AM CDT procedure are i n the results section. BASIC METABOLIC PANEL STAT 12/16/2019 10:29 Re sults for this AM CDT procedure are i n the results section. HC COMPLETE BLD COUNT STAT 12/16/2019 10:29 Re sults for this W/AUTO DIFF AM CDT procedure are i n the results section. ECG 12-LEAD STAT 12/16/2019 10:17 Results for this AM CDT procedure are i n the results section. after 02/05/2019 Results Line/Drain Removal (12/17/2019 7:10 PM CDT) Narrative Performed At Mesha Humphries NP-C 2019 7:26 PM Line/Drain Removal Date/Time: 12/17/2019 7:24 PM Performed by: Mesha Humphries NP- C Authorized by: Mesha Humphries NP -C Pre-procedure details: Line or drain removed: Other (Left arm HSELIA drain) Indication(s) for removal: Treatmen t completed Patient position: Supine Pre-medication and amount: None Removal procedure: Number of people performing procedure : 1 Catheter intact?: Yes Insertion site: No redness, no swel ling and no drainage Breath held: Yes Valsalva performed: performed Pressure applied to site?: Yes Number of minutes pressure applied: 20 Dressing applied:: 4x4 sterile gauz e and transparent dressing Estimated blood loss (mL): 0 Specimen(s): None Complications: None Patient tolerance of procedure: Tyler tolbert tolerated the procedure well with no immediate complications Hepatitis B surface Ab, quantitative (12/17/2019 4:50 PM CDT)Only the most recent of2 resultswithin the time period is included. Hepatitis B <3.10 IU/L [facility] surface Ab Comment: The anti-HBs is less than 10 IU/L and is therefore neg ative. There is no evidence of recovery from hepatitis B infection or evidence of antibody response to HBV vaccination. An anti-HBs result greater than or equal to 10 IU/L im plies immunity. For post-vaccination antibody testing guidel mike for the general public refer to MMWR February 22, 2005/Vol. 54 (No. 16);03-25, and for healthcare workers refer to MMWR Jan/Vol. 62(No. 10);03-21. Reference Interval: anti-HBs 9.99 IU/L or less ....... Negative 10.00 IU/L or greater .... Positive Results greater than 1,000.00 IU/L are reported as gre ater than 1,000.00 IU/L. This assay should not be used for blood donor screenin g, associated re-entry protocols, or for screening Human Cell, Tissues and Cellular and Tissue-Based Products (HCT/P) . Performed By: [employer] [address] [place] [address] Turn Down Attendant: Rosa Elena Awad MD Specimen Serum Performing Organization Address City/[facility] Code Phon e Number [facility] [address] [place] [address] [facility] [address] [place] [address] Hepatitis B surface antigen (12/17/2019 4:50 PM CDT) Pathologist Sig nature Hepatitis B surface Non-reactive Non-reactive [facility] Specimen Blood Performing Organization Address City/[facility] Phon e Number [facility] DEPARTMENT OF PATHOLOGY [address] [facility], X [address] AND GENOMIC MEDICINE [facility] [address] [facility] [place] [address] [facility] Hepatitis B surface antibody (12/17/2019 2:02 PM CDT) Pathologist Sig nature Hepatitis B surface Non-reactive Non-reactive [facility] Specimen Blood Performing Organization Address City/[facility] Phon e Number [facility] DEPARTMENT OF PATHOLOGY AND [address] [place] [address] [address] Blood culture, aerobic & anaerobic (12/16/2019 11:55 PM CDT)Only the most recent of2 resultswithin the time period is included. Blood culture No growth after 5 days of incubation. [facility] isolate Comment: HOSPITAL Specimen Information Specimen Source: Blood Specimen Site: Arm, Left Specimen Blood - Arm, right Performing Organization Address [facility] Phon e Number [facility] DEPARTMENT OF PATHOLOGY AND [address] [place] [address] [address] POC glucose (12/16/2019 3:01 PM CDT) Pathologist Sig [facility] POC glucose 140 (H) 65 - 99 mg/dL [facility] Comment: [facility] Senior Clinical Data Manager Name: Puneet Cooper Device ID: [id number] Chartable: RN Notified Specimen Blood Performing Organization Address [facility] Phon e Number [facility] DEPARTMENT OF PATHOLOGY [id number] [place] [address] X [phone] AND [facility] [id number] [place] [address] X [address] [facility] Peripheral Block (12/16/2019 12:04 PM CDT) Narrative Performed At Patricia Kennedy MD 12:05 PM Peripheral Block Performed by: Patricia Kennedy MD Authorized by: Patricia Kennedy M D Patient Location: Pre-op Start Time: 12/16/2019 11:44 AM End Time: 12/16/2019 11:52 AM Reason for Block: primary anesthetic Staff: Anesthesiologist: Patricia Kennedy MD Resident/PRODUCE ASSOCIATE/AA: Elizabet Mensah CRNA Performed by: Anesthesiologist Preprocedure: patient identified, IV shiva cked, site and side verified, risks and benefits discussed, procedure verified, surgical consent complete, patient position confirmed, mo nitors and equipment checked, pre-op evaluation complete, site marked and timeout performed prior to procedure Peripheral Nerve Block: Patient Position: Right lateral dec ubitus Prep: ChloraPrep and patient draped Monitoring: Blood pressure monitoring, continuous pulse oximetry and heart rate Block Type: Supraclavicular Laterality: Left Injection Technique: Single injection Procedures: ultrasound guided Ultrasound documentation: Printed/plac ed in chart Local Infiltration (See MAR for details) : Ropivacaine Needle: Needle Type: Pajunk Needle Gauge: 21 G Needle Length: 10 cm Assessment: Injection Assessment: Visualized needle/local ane sthetic surrounding nerve, visualized pertinent vascular str uctures and nerves, needle tip visualized at all times during injection of medication, no symptoms of intraneural/intravenous injection and intermittent asp iration during local anesthetic administration Paresthesia Pain: None Heart Rate Change: No Slow Fractionated Injection: Yes Block outcome: No apparent complica tions, patient comfortable and patient tolerated procedure well XR Chest 1 Vw Portable (12/16/2019 10:45 AM CDT) Specimen Narrative Performed At EXAMINATION: XR CHEST 1 VW PORTABLE [facility] CLINICAL HISTORY: PRE PROCEDURE COMPARISON: October 20, 2017 IMPRESSION: 1. The heart and pulmonary vasculature a re within normal limits. 2. No infiltrate or effusion is demonstr ated. 3. There is no acute osseous pathology.Dialysis cathet er tip is at the superior cavoatrial junction without vis ible pneumothorax. 4. If suspicion persists, follow-up nonportable PA and lateral imaging may be helpful. [facility]-[id number] Procedure Note Hm Interface, Radiology Results Incoming - 12/16/2019 11:26 AM CDT EXAMINATION: XR CHEST 1 VW PORTABLE CLINICAL HISTORY: PRE PROCEDURE COMPARISON: October 20, 2017 IMPRESSION: 1. The heart and pulmonary vasculature a re within normal limits. 2. No infiltrate or effusion is demonstr ated. 3. There is no acute osseous pathology.D ialysis catheter tip is at the superior cavoatrial junction without visible pneumothorax. 4. If suspicion persists, follow-up nonp ortable PA and lateral imaging may be helpful. [facility]-[id number] Performing Organization Address City/State/ZIP Code Phon e Number [facility] [address] [place] [address] POC panel (12/16/2019 10:34 AM CDT) POC sodium 134 (L) 135 - 148 [facility] mmol/L [facility] POC potassium 4.0 3.5 - 5.0 [facility] mmol/L [facility] POC glucose 120 (H) 65 - 99 mg/dL [facility] Comment: [place] Senior Clinical Data Manager Name: [facility] Device ID: [id number] POC hemoglobin 13.3 12.0 - 16.0 [facility] g/dL [facility] POC hematocrit 39 37 - 47 % [facility] Specimen Blood Performing Organization Address City/[facility] Phon e Number [facility] DEPARTMENT OF PATHOLOGY [address] [place] [address] X [address] [address] [facility] Estimated GFR (12/16/2019 10:29 AM CDT) Estimated GFR 12 (A) mL/min/1.73 [facility] Comment: m2 [place] Catergory Units Interpretation HOS PITAL G1 >=90 Normal or high G2 60-89 Mildly decreased G3a 45-59 Mildly to moderately decreas ed G3b 30-44 Moderately to severely decre ased G4 15-29 Severely decreased G5 <15 Kidney failure The eGFR was calculated using the Chronic Kidney Disea se Epidemiology Collaboration (CKD-EPI) equation. Interpretation is based on recommendations of the National Kidney Foundation-Kidney Disease Outcomes Yony lity Initiative (NKF-KDOQI) published in 2014. Specimen Performing Organization Address City/[facility] Phon e Number [facility] DEPARTMENT OF PATHOLOGY [address] [place] [address] X [address] [place] [address] [facility] Partial thromboplastin time, activated (12/16/2019 10:29 AM CDT) PTT 29.0 23.0 - 36.0 [facility]UR[facility] Comment: sec [place] PTT therapeutic range for unfractionated heparin is HOSPITAL 61.0-112.0 seconds which corresponds to Anti-Xa 0.3-0.7 U/ml. Specimen Blood Performing Organization Address City/[facility]/ZIP [facility] Phon e Number [facility] DEPARTMENT OF PATHOLOGY [address] [place] [address] X [address] AND [facility] [address] Prothrombin time with INR (12/16/2019 10:29 AM CDT) Prothrombin time 14.7 (H) 11.5 - 14.5 [facility] INR 1.1 [place] Comment: [facility] International Normalized Ratio (INR) is a therapeu [facility] monitoring tool for patients who are stable on oral anticoagulant therapy. An INR of 2.0-3.0 is suggested for deep vein thrombosis/pulmonary embolism. Specimen Blood Performing Organization Address City/State/ZIP Code Phon e Number [facility] DEPARTMENT OF PATHOLOGY [address] [place] [address] AND [facility] [id number] [place] [address] CBC with platelet and differential (12/16/2019 10:29 AM CDT) WBC 7.5 4.5 - 11.0 k/uL [facility] RBC 3.34 (L) 4.20 - 5.50 [facility] m/uL [facility] HGB 11.2 (L) 12.0 - 16.0 [facility] g/dL [facility] HCT 35.1 (L) 37.0 - 47.0 % [facility] MCV 105.1 (H) 82.0 - 100.0 fL [facility] MCH 33.5 27.0 - 34.0 pg [facility] MCHC 31.9 31.0 - 37.0 [facility] g/[facility] RDW - SD 59.5 (H) 37.0 - 55.0 fL [facility] MPV 9.9 6.9 - 11.0 fL [facility] Platelet count 201 150 - 400 K/uL [facility] Nucleated RBC 0.00 /100 WBC [facility] Neutrophils 74.7 (H) 39.0 - 69.0 % [facility] Lymphocytes 11.0 (L) 25.0 - 45.0 % [facility] Monocytes 12.5 (H) 0.0 - 10.0 % [facility] Eosinophils 0.7 0.0 - 5.0 % [facility] Basophils 0.7 0.0 - 1.0 % [facility] Immature granulocytes 0.4 0.0 - 1.0 % [facility] Specimen Blood Performing Organization Address City/[facility] Phon e Number [facility] DEPARTMENT OF PATHOLOGY [address] [place] [address] AND [place] [address] HOSPITAL Type and screen (12/16/2019 10:29 AM CDT) Pathologist Sig nature ABO grouping A [facility] Rh type POS [facility] Antibody screen (gel) NEG [facility] Specimen Blood Performing Organization Address [facility] Phon e Number [facility] DEPARTMENT OF PATHOLOGY [address] [place] [address] Basic metabolic panel (12/16/2019 10:29 AM CDT) Pathologist Sig nature Sodium 134 (L) 135 - 148 mEq/L [facility] Potassium 4.1 3.5 - 5.0 mEq/L [facility] Chloride 96 (L) 98 - 112 mEq/L [facility] CO2 26 24 - 31 mEq/L [facility] Anion gap 12@ANIO 7 - 15 mEq/L [facility] BUN 49 (H) 8 - 23 mg/dL [facility] Creatinine 3.47 (H) 0.50 - 0.90 mg/dL [facility] Glucose 129 (H) 65 - 99 mg/dL [facility] Calcium 8.7 (L) 8.8 - 10.2 mg/dL [facility] Specimen Blood Performing Organization Address City/[facility]/ZIP [facility] Phon e Number [facility] DEPARTMENT OF PATHOLOGY [address] [place] [address] ECG 12 lead (12/16/2019 10:17 AM CDT) Pathologist Sig nature Ventricular rate 64 [facility] Atrial rate 64 [facility] VT interval 158 [facility] QRSD interval 100 [facility] QT interval 402 [facility] QTC interval 414 [facility] P axis 1 34 [facility] QRS axis 1 -49 [facility] T wave axis 9 [facility] EKG impression Normal sinus rhythm-Left axi s deviation-Moderate voltage criteria for LVH, may be normal variant-Abnormal ECG-In automated comparison with ECG of 02-JUN-2017 09:41,-premature atrial complexes are no tiffanie [facility] MUSE estevan present- Specimen Narrative Performed At This result has an attachment that is no t available. Performing Organization Address City/State/ZIP Code Phon e Number [facility] MUSE [address] [place] [address] after 02/05/2019 Additional Health Concerns Infection Onset Date Last Indicated Resolved Time ESBL (C ) 06/03/2017 06/05/2017 Insurance Payer Benefit Plan / Subscriber ID Effective Phone Address T ype Group Dates MEDICARE MEDICARE PART [id number] 2001-[place], [place] Medicare A AND B nt [facility] [id number] 2001-[facility] UKRAINIAN UKRAINIAN nt Advance Directives For more information, please contact: [phone] Type Date Recorded Patient Power System Dispatcher Explanati on Advance Directives, Living Will 06/02/2017 9:16 AM and Medical Power of Dental Practitioner Advance Directives, Living Will 10/20/2017 12:51 PM and Medical Power of Dental Practitioner
--- OUTSIDE RECORDS SUMMARY | 2020-02-06 19:48 | XMS REPORT | Continuity of Care Document ---
:1935 Author Organization [facility] t Address [address] [place] [address] Care Team Providers Name Role Phone Ngoc Paige DO Primary Care Physician Ange CHOE TKenyetta Attending Clinician Maverick Sorenson MD Attending Clinician Charisma Kennedy MD Attending Clinician Aggie Torres NP Attending Clinician MARYAM CASTRO Attending Clinician Unavailable KIMMY Admitting Clinician Unavailable Payers Payer Name Policy Type Policy Effective Date Expiration Date Sour ce Number MEDICAREMEDICARE PART [id number] Navid Hernandez AND 00:00:00 Scientologist [id number] 2001[place] [id number] 2001 Wilmer maya [id number]/ 00:00:00 Met beckford 2001-Queta andre Problems Condition Condition Condition Status Onset Resolution Last Treating Co mments Source Name Details Category Date Date Treatment Clinician Date End stage End stage Disease Active 2019-03 Wilmer maya renal renal 0-16 Methodi disease disease 00:00: st 00 ESRD (end ESRD (end Disease Active 2019-03 Wilmer maya stage stage 0-15 Methodi renal renal 00:00: st disease) disease) 00 on on dialysis dialysis Cirrhosis Cirrhosis Disease Active 2018-[address] 0-30 Assessmen Leno - 00:00: t & Plan: Medical 00 [...] surgery. Cirrhosis education was completed today with literatur e provided. Portal Portal Disease Active 2018-03 [facility] hypertensi hypertensi 0-30 Assessmen [facility] - on on 00:00: t & Plan: Medical 00 Complicat Center ions of portal venous hypertens ion include ascites, hepatic encephalo romulo that indicate decompens ation of cirrhosis , which significa ntly increases the risk of Immunity Immunity Disease Active 2018-03 [facility] t status status 0-30 Assessmen [facility] - testing testing 00:00: t & Plan: [...] will follow. Screening Screening Disease Active 2018-03 [facility] for for 0-30 Assessmen Lukes - varices [...] nce EGDS Chronic Chronic Disease Active 2018-03 [facility] kidney kidney 0-30 Assessmen [facility] - disease [...] discretio n Overweight Overweight Disease Active 2018-[address] (BMI (BMI 0-30 Assessmen [facility]ukes - [...] risk of obesity -related complicat ions. [facility] patient education on non-alcoh olic fatty liver diet and exercisin g to lose weight are printed and given to the patient Postmenopa Postmenopa Disease Active H jasmine usal usal 3-21 Methodi bleeding bleeding 00:00: st Renal Renal Disease Active [place] insufficie insufficie 3-21 Me thodi ncy ncy 00:00: st Endometrit Endometrit Disease Active H jasmine is is 3-19 Methodi 00:00: st Diabetes Diabetes Disease Active 2000-03 [place] mellitus mellitus 0-05 Method i 00:00: st Hypertensi Hypertensi Disease Active 2000-03 H jasmine ve ve 0-05 Methodi disorder disorder 00:00: st Kidney Kidney Problem Active [facility] stones [facility] Gallstones Gallstones Problem Active [facility] Pure Pure Problem Active [facility] hyperchole hyperchole Shante kes - sterolemia sterolemia Me moria l [facility] CKD CKD Problem Active [facility] [...] is without is without l current current [facility] pathologic en t al al Clinics [...] Active [facility] t assistance assistance Shante mckeon - due to due to Memoria unsteady unsteady l gait gait [facility] Elevated Elevated Problem Active [facility] t blood blood [facility] - pressure pressure Memori a reading reading l with with Outpati diagnosis diagnosis ent of of Clinics hypertensi hypertensi on on Chronic Chronic Problem Active [facility] diastolic diastolic Luke s - (congestiv (congestiv Me moria e) heart e) heart l failure [facility] 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 [facility] - kidney kidney Memoria disease disease l [facility] 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 Outpat i chronic chronic ent kidney kidney Clinics disease disease Hemodialys Hemodialys Problem Active C [facility] is-associa is-associa Shante mckeon - eusebia eusebia Memoria hypotensio hypotensio l n n [facility] Dependence Dependence Problem Active C [facility] on renal on renal [facility] - dialysis dialysis [facility] a l [facility] End stage End stage Problem Active [facility] renal renal [facility] - disease disease [facility] Allergies, Adverse Reactions, Alerts Allergy Allergy Status Severity Reaction(s) Onset Inactive Treating Comm ents Source Name Type Date Date Clinician Meperidi Propensi Active Swelling 2018-[address] [facility] ne (Pf) ty to 0-30 [facility] - adverse 00:00: Medical reaction 00 [place] s Penicill Propensi Active Swelling 2018-[address] [facility] ins ty to 0-30 [facility] - adverse 00:00: Medical reaction 00 [place] s Latex Propensi Active UNK [place] ty to 8-20 REACTIONW Methodi adverse 00:00: TOLD st reaction 00 DON'T s to TAKE drug Adhesive Propensi Active Other [facility] Tape-Stacey ty to 3-19 reaction( Lukes - icones adverse 00:00: s): Other Medica l reaction 00 (See Center s Comments) Tears the skin Adhesive Propensi Active Other (See Tears the [place] Tape-Stacey ty to Comments) 319 skin Metho di icones adverse 00:00: st reaction 00 s to drug Meperidi Propensi Active Rash, [place] ty to Swelling 05-19 Methodi adverse 00:00: st reaction 00 s to drug Penicill Propensi Active Shortness Of [place] ins ty to Breath 3-19 Methodi adverse 00:00: st reaction 00 s to drug Propoxyp Propensi Active Rash [place] ty to 3-19 Methodi adverse 00:00: st reaction 00 s to drug Propoxyp Propensi Active Hives, Rash, Other [facility] hene ty to Other (See 2 reaction( [facility] - adverse Comments) 00:00: s): Medica l reaction 00 Itching/H Cente r s effie/Rash Sulfa Propensi Active Rash [place] (Sulfona ty to 04-09 Methodi mide adverse 00:00: st Antibiot reaction 00 ics) s to drug PCN Adverse Active Info Not [facility] Reaction Available Formerly named [facility] Demerol Adverse Active Info Not [facility] Reaction Available Formerly named [facility] Darvon Adverse Active Info Not [facility] Reaction Available Formerly named [facility] Family History Family Member Diagnosis Comments Start Date Stop Date Source Natural brother Leukemia [facility] Natural brother Diabetes [facility] Natural daughter Diabetes [facility] Natural father Heart disease [facility] Natural father Other [facility] thodist Natural mother Diabetes [facility] Natural mother Heart disease [facility] Natural mother Diabetes [place] [facility] Natural mother Stroke [facility] thodist Social History Social Habit Start Date Stop Date Quantity Comments Source History [facility] - Alcohol Std Drinks Medica Center History [facility] - Alcohol Binge Medical Sammi ter Sex Assigned At [facility] ethodist Tobacco use and 2019-12-17 2019-12-17 Never used [facility] ethodist exposure 00:00:00 00:00:00 Alcohol intake 2019-12-17 2019-12-17 Current [facility] thodist 00:00:00 00:00:00 non-drinker of alcohol (finding) History SDOH 2018-12-30 2018-12-[address] [facility] [facility] - Alcohol Frequency 00:00:00 00:00:00 Medical Center Smoking Status Start Date Stop Date Source Never smoker [place] Methodis t Medications Ordered Filled Start Stop Current Ordering Indication Dosage Frequency Signature Comments Components Source Medication Medication Date Date Medication? Clinician (SIG) Name Name levothyroxi 2019-03 Yes 100ug QD Take 100 [place] ne 0-17 mcg by Methodi (SYNTHROID, 12:20: mouth st LEVOXYL) 50 16 every mcg tablet morning. FOLIC 2019-03 Yes 1{tbl} QD Take 1 [place] ACID/MULTIV 0-17 tablet by Met hodi IT-MIN/LUTE 12:20: mouth st IN (CENTRUM 16 daily. SILVER ORAL) cyanocobala 2019-03 Yes 1000ug QD Take 1,000 [place] min 0-17 mcg by Methodi (VITAMIN 12:20: mouth st B-12) 1000 16 daily. MCG tablet vitamin E 2019-03 Yes 400U QD Take 400 [place] 400 UNIT 0-17 Units by Methodi capsule 12:20: mouth st 16 daily. albuterol 2019-03 Yes 2{puff} Q6H Inhale 2 [place] (PROAIR 0-17 puffs Methodi HFA,PROVENT 12:20: every 6 st [place] 16 (six) HFA,VENTOLI hours as N HFA) 90 needed for mcg/actuati wheezing. on inhaler calcium 2019-03 Yes 1{tbl} QD Chew 1 [place] carbonate 0-17 tablet Methodi (TUMS) 200 12:20: daily. st mg calcium 16 (500 mg) chewable tablet carvediloL 2019-03 Yes 3.125mg Q.5D Take 3.125 [place] (COREG) 0-17 mg by Methodi 3.125 MG 12:20: mouth 2 st tablet 16 (two) times a day. omega-3 2019-03 Yes 1g QD Take 1 g [place] fatty 0-17 by mouth Methodi acids-fish 12:20: daily. st oil 16 300-1,000 mg capsule iron 2019-03 Yes 1{tbl} QD Take 1 [place] fum/folic 0-17 tablet by Metho di acid/mv,min 12:20: mouth st 15 16 daily. (HEMOCYTE-P NADIA ORAL) midodrine 2019-03 Yes 5mg Take 5 mg Wilmer ston (PROAMATINE 0-17 by mouth. Met hodi ) 5 MG 12:20: Take 30 st tablet 16 min prior to dialysis nut.tx.imp. 2019-03 Yes 237mL QD Take 237 [place] renal 0-17 mL by Methodi fxn,lac-red 12:20: mouth st uc (NEPRO 16 daily. ORAL) nystatin 2019-03 Yes Q.5D Apply [place] (MYCOSTATIN 0-17 topically Met kym ) 100,000 12:20: 2 (two) st unit/gram 16 times a ointment day. sevelamer 2019-03 Yes 800mg Q.[id number] Take 800 [place] (RENAGEL) 0-17 [id number] mg by Met kym 800 MG 12:20: 3D mouth 3 st tablet 16 (three) times a day with meals. acetaminoph 2019-03 2020- No acute pain 1{tbl} Q8H Take 1 [place] en-codeine 0-17 10-24 tablet by Met mejía (TYLENOL 00:00: 23:[address] WITH 00 :00 every 8 CODEINE #3) (eight) 300-30 mg hours as per tablet needed for moderate pain or severe pain for up to 7 days .acute pain. FUROSEMIDE 2019-03- No 30mg QD Take 30 mg [place] ORAL 0-15 10-15 by mouth Methodi 19:52: 00:[address] 25 :00 DOCOSAHEXAN 2019-03 2020- No 1000mg QD Take 1,000 [place] OIC 0-15 10-15 mg by Methodi ACID/EPA 19:52: 00:[address] (FISH OIL 03 :00 daily. ORAL) CALCIUM 2019-03 2020- No Q.5D Take by [place] CARB/VIT 0-15 10-15 mouth 2 Methodi D3/MINERALS 19:51: 00:00 (two) st (CALCIUM- 41 :00 times a TAMIN D day. ORAL) aspirin 2019-03 2020- No 81mg QD Take 81 mg Wilmer ston (ECOTRIN) 0-15 10-15 by mouth Metho di 81 MG 19:51: 00:[address] enteric 26 :00 coated tablet Metoprolol Metoprolol Yes Na Paige [address] Tartrate Tartrate 09-27 with food Shante kes - 00:00: Memoria 00 l Outpati ent Clinics Eliquis 2.5 Eliquis 2.5 2020- No Na Paige one [facility] mg mg 7-28 08-27 [facility]ukes - 00:00: 00:00 Memoria 00 :00 l Outpati ent Clinics calcium 2018-03 Yes Take by [facility] carbonate-v 0-30 mouth. Lukes - it D3-min 13:33: Medical 600 mg 31 Center calcium- 200 unit Tab folic 2018-[address] acid/multiv 0-30 defined Lukes - it-min/lute 13:33: Medica l in (CENTRUM 31 Center SILVER ORAL) FUROSEMIDE 2018-03 Yes 20mg Take [address] ORAL 0-30 by mouth. Lukes - 13:33: [address] omega 2018-03 Yes [address] 3-dha-epa-f 0-30 Lukes - kwadwo oil 13:33: [facility] (FISH OIL) [address] [place] [address] 1,000 mg (120 mg-180 mg) Cap IRON 2018-03 Yes Take by [facility] BIS-GLY-FA- 0-30 mouth. [facility]ukes - [id number] 13:33: Medica l CC ORAL 31 [place] levothyroxi 2018-03 Yes [address] ne 0-30 on an Lukes - (SYNTHROID, 13:33: empty Medic al LEVOTHROID) 31 stomach in Ce nter 100 MCG the tablet morning cyanocobala 2018-[address] [facility] min, 0-30 [facility]ukes - vitamin 13:33: Medical B-12, 1,000 Center mcg/mL Kit vitamin E 2018-[address] 400 UNIT 0-30 Lukes - capsule 13:33: [address] CREON 2018-[address] 24,000-76,0 0-20 [...] 5-29 Lukes - 00:00: Memoria 00 l [facility] ent [facility] omeprazole Yes 40mg QD Take 40 mg [place] (PriLOSEC) 3-26 by mouth Metho di 20 MG 00:00: daily. st capsule 00 PREVALITE 4 2020- No 1{packe QD Take 1 [place] gram powder 3-16 10-06 t} packet by Me dunham in packet 00:00: 00:[address] 00 :00 daily. CREON Yes 36380Y{ Q.[id number] Take Wilmer ston 24,000-76,0 2-23 lipase} [id number] 24,000 Methodi 00 -120,000 00:00: 3D units of st unit 00 lipase by capsule,del mouth 3 ayed (three) release(DR/ times a EC) capsule day with meals. Carvedilol Carvedilol Yes Na Paige [address] with [address] [facility] ent [facility] Vital Signs Vital Name Observation Time Observation Value Comments Source Heart rate 2019-12-18 12:07:00 92 /min Anurag Molina Respiratory rate 2019-12-18 12:07:00 18 /min Eddy Molina Oxygen saturation in 2019-12-18 12:06:00 98 /min Anurag Molina Arterial blood by Pulse oximetry Systolic blood 2019-12-18 07:51:05 132 mm[Hg] Eddyto n Scientologist pressure Diastolic blood 2019-12-18 07:51:05 66 mm[Hg] Akira on Scientologist pressure Body temperature 2019-12-18 07:51:05 36.22 Magda Eddy Molina Body weight 2019-12-18 07:10:00 58.06 kg Anurag Molina BMI 2019-12-18 07:10:00 21.97 kg/m2 Anurag Molina Body height 2019-12-16 10:34:00 162.6 cm Anurag Molina Procedures Procedure Date / Time Performing Clinician Source Performed LINE/DRAIN REMOVAL 2019-12-17 19:10:00 Mesha Humphries Wilmer ston Scientologist HEPATITIS B SURFACE 2019-12-17 16:50:00 Manju Liu ANTIGEN HEPATITIS B SURFACE AB, 2019-12-17 16:50:00 Manju Liu QUANTITATIVE HEPATITIS B SURFACE 2019-12-17 14:02:00 Manju Liu ANTIBODY HEMODIALYSIS 2019-12-17 10:36:27 Manju Liu Meth odist BLOOD CULTURE, AEROBIC & 2019-12-16 23:55:00 Anurag German ANAEROBIC [place] BLOOD CULTURE, AEROBIC & 2019-12-16 23:45:00 Anurag German ANAEROBIC [place] POC GLUCOSE 2019-12-16 15:01:00 Syed Cassidy GA AN PERIPHERAL BLOCK 2019-12-16 12:04:16 Patricia Kennedy on Scientologist PROCEDURE FOR PAIN [facility] XR CHEST 1 VW PORTABLE 2019-12-16 10:45:15 Akira Enriquez POC PANEL 2019-12-16 10:34:00 Syed Cassidy HC COMPLETE BLD COUNT 2019-12-16 10:29:00 Syed Cassidy W/AUTO DIFF BASIC METABOLIC PANEL 2019-12-16 10:29:00 Syed Cassidy PROTHROMBIN TIME WITH INR 2019-12-16 10:29:00 Syed Cassidy PARTIAL THROMBOPLASTIN 2019-12-16 10:29:00 Syed Cassidy TIME (PTT) TYPE AND SCREEN 2019-12-16 10:29:00 Syed Cassidy ESTIMATED GFR 2019-12-16 10:29:00 Syed Cassidy ECG 12-LEAD 2019-12-16 10:17:01 Anurag Enriquez Plan of Care Planned Activity Planned Date Details Comments Source Future Scheduled 2019-11-02 INFLUENZA VACCINE (#1) [facility] Test 00:00:00 [code = INFLUENZA Medical Ce nter VACCINE (#1)] Future Scheduled 2019-10-02 INFLUENZA VACCINE [place] Scientologist Test 00:00:00 [code = INFLUENZA VACCINE] Future Scheduled 2002-08-[address] [facility] - Test 00:00:00 WELLNESS (YEAR 2 or Medical Center FIRST YEAR if no IPPE) [code = MEDICARE ANNUAL WELLNESS (YEAR 2 or FIRST YEAR if no IPPE)] Future Scheduled 2001 PNEUMOCOCCAL 65+ YRS [facility] - Test 00:00:00 (1 of 1 - Medical Center [id number] PCV13) [code = PNEUMOCOCCAL 65+ YRS (1 of 1 - [id number] PCV13)] Future Scheduled 2001 65+ PNEUMOCOCCAL [place] Scientologist Test 00:00:00 VACCINE (1 of 1 - PPSV23) [code = 65+ PNEUMOCOCCAL VACCINE (1 of 1 - PPSV23)] Future Scheduled 1986 SHINGLES VACCINES (#1) [place] Scientologist Test 00:00:00 [code = SHINGLES VACCINES (#1)] Future Scheduled 1946 DIABETES: RETINAL EYE [place] Scientologist Test 00:00:00 EXAM [code = DIABETES: RETINAL EYE EXAM] Future Scheduled 1946 DIABETIC FOOT EXAM [place] Scientologist Test 00:00:00 [code = DIABETIC FOOT EXAM] Encounters Start End Encounter Admission Attending Care Care Encounter Source Date/Time Date/Time Type Type Clinicians Facility Department ID 2019-12-16 2019-12-18 Outpatient WING SORENSON [facility] [id number] [place] 00:00:00 00:00:[address] 2019-11-11 2019-11-11 Outpatient Jd Milest [id number] 15:25:00 15:25:00 t [employer] [facility] l Medicine Outpati ent Clinics 2019-09-26 2019-09-26 Outpatient [facility]ju[facility] [id number] 21:26:00 21:26:00 t [employer] [facility] l Medicine Outpati ent Clinics 2019-09-15 2019-09-15 [place] [id number] 14:03:00 14:03:00 [employer] [facility] Family [facility] l Medicine Outpati ent Clinics 2019-09-14 2019-09-14 [place] [place] [id number] 10:00:00 10:00:[address] Luke [place] - Drive [facility] Medicine l Medicine Outpati ent Clinics 2019-09-08 2019-09-08 [place] [id number] 09:29:00 09:29:[address] Luke s - Drive [facility] l Medicine Outpati ent Clinics 2019-09-07 2019-09-07 [place] [id number] 10:51:00 10:51:00 t [place] [employer] s - Drive [facility] Medicine l Medicine Outpati ent Clinics 2019-08-19 2019-08-19 [facility] [id number] 11:01:00 11:01:00 t [place] [employer] Lu[employer]est s - Drive [facility] Medicine Outpati ent Clinics 2019-08-17 2019-08-17 [facility] [id number] 16:24:00 16:24:00 t [place] [employer] - Drive [facility] Medicine Outpati ent Clinics 2019-08-12 2019-08-12 [facility] [id number] 15:20:00 15:20:00 t [place] [employer] - Drive [facility] Medicine Outpati ent Clinics 2019-08-09 2019-08-09 [facility] [id number] 16:54:00 16:54:00 t [place] [employer] - Drive [facility] Medicine Outpati ent Clinics 2019-08-02 2019-08-02 [facility] [id number] 09:23:00 09:23:00 t [place] [employer] s - Drive [facility] Medicine Outpati ent Clinics 2019-07-02 2019-07-02 [facility] [place] [id number] 10:57:00 10:57:00 t [place] [employer] - Drive [facility] Medicine Outpati ent Clinics 2019-07-01 2019-07-01 [facility] [id number] 13:16:00 13:16:00 t [place] [employer] s - Drive [facility] Medicine Outpati ent Clinics 2019-05-19 2019-05-19 [facility] [id number] 10:24:00 10:24:[address] [address] Luke s - Drive [facility] Family Medicine l Medicine Outpati ent Clinics 2019-05-18 2019-05-18 [place] [place] [id number] 11:48:00 11:48:[address] [address] Luke s - Drive [facility] Medicine l Medicine Outpati ent Clinics 2018-12-09 2018-12-09 [facility] [id number] 10:20:00 10:20:00 t [place] [employer] Luke s - Drive [facility] Family Medicine l Medicine Outpati ent Clinics 2018-10-06 2018-10-06 [facility] [id number] 09:42:00 09:42:00 t [place] [employer] Lu[employer] s - Drive [facility] Medicine l Medicine Outpati ent Clinics 2018-09-24 2018-09-24 [facility] [id number] 08:28:00 08:28:00 t [place] [employer] Luke s - Drive [facility] Medicine l Medicine Outpati ent Clinics 2018-09-14 2018-09-14 [facility] [id number] 11:20:00 11:20:00 t [place] [employer] Luke s - Drive [facility] Medicine l Medicine Outpati ent Clinics 2018-08-05 2018-08-05 [facility] [id number] 11:20:00 11:20:00 t [place] [employer] Luke s - Drive [facility] Medicine l Medicine Outpati ent Clinics 2018-06-29 2018-06-29 [facility] [id number] 13:28:00 13:28:00 t [place] [employer] Luke s - Drive [facility] Medicine l Medicine Outpati ent Clinics 2018-06-25 2018-06-25 [facility] [id number] 11:00:00 11:00:00 t [place] [employer] Luke s - Drive [facility] Medicine l Medicine Outpati ent Clinics 2018-05-22 2018-05-22 [facility] [id number] 10:32:00 10:32:00 t [place] [employer] Lu[employer] s - Drive [facility] Medicine Outpati ent Clinics 2018-05-21 2018-05-21 [facility] [id number] 15:46:00 15:46:00 t [employer] [facility] Medicine Outpati ent Clinics 2018-05-13 2018-05-13 [facility] [id number] 08:19:00 08:19:00 t [employer] [facility] Medicine Outpati ent Clinics 2018-03-30 2018-03-30 [facility] [id number] 11:00:00 11:00:00 t [employer] [facility] Medicine Outpati ent Clinics 2018-02-18 2018-02-18 [facility] [id number] 10:29:00 10:29:00 t [employer]bitric[employer] [facility] Medicine Outpati ent Clinics 2018-02-12 2018-02-12 [facility] [id number] 10:00:00 10:00:00 t [employer] [facility] Medicine Outpati ent Clinics 2018-01-19 2018-01-19 [facility] [id number] 10:45:00 10:45:00 t [employer]ricity [facility] Medicine Outpati ent Clinics 2017-11-21 2017-11-21 [facility] [id number] 16:17:00 16:17:00 t [employer]bitricity [facility] Medicine Outpati ent Clinics 2017-11-12 2017-11-12 [facility] [id number] 10:15:00 10:15:00 t [employer]ricity [facility] Medicine Outpati ent Clinics Results Test Description Test Time Test Comments Results Result Comments Source Blood culture, aerobic & anaerobic 2019-12-22 02:33:11 Test Item Value Reference Range Interpretation Comme nts Blood culture isolate No growth after 5 days of Specimen InformationSpecimen (test code = 600-7) incubation. Source: BloodSpecimen Site: Arm, Left [place] MethodistHepatitis B surface Ab, [id number] 18:52:59 Test Item Value Reference Range Interpretation Comments Hepatitis B surface <3.10 IU/L The anti -HBs is less than Ab (test code = 10 IU/L and is therefore 5193-8) negative. There is no evidence of rec overy from hepatitis B inf ection or evidence of ant ibody response to HBV vaccination.An anti-HBs result greater than or equal to 10 IU/ L implies immunity. For post-vaccinatio n antibody testing guideli altagracia for the general public refer to MMWR February 012004/Vol. 54(No. 16);- , and for healthcare work ers refer to MMWR February 012012/Vol. 62(No. 10);- .Reference Interval: anti- HBs 9.99 IU/L or less .. ..... [id number] I U/L or greater .... PositiveResults greater than 1,000.00 I U/L are reported as gre ater than 1,000.00 IU/L. This assay should not be u sed for blood donor scr eening, associated re-e ntry protocols, or f or screening Human Cell, Tis sues and Cellular and Ti ssue-Based Products (HCT/P ).Performed By: YOLANDA [address] [place] [address] [id number] or Director: Rosa Elena Awad MD [place] MethodistHepatitis B surface [id number] 19:16:24 Test Item Value Reference Range Interpretation Comments Hepatitis B surface Ag (test Non-reactive Non-reactive code = 5195-3) [place] MethodistLine/Drain [id number] 19:10:00Mesha Humphries NP- C 12/17/2019 7:26 PMLine/Drain Removal Date/Time: 12/17/2019 7:24 PMPe rformed by: Mesha Humphries NP-CAuthorized by: Mesha Humphries NP- C Pre-procedure details: Line or drain removed: Other (Left arm SHELIA drain) Indication(s) for removal: Treatment completed Patient position: Supine Pre- medication and amount: NoneRemoval procedure: Number of people performing procedure: 1 Catheter intact?: Yes Insertion site: No redness, no swelling and no drainage Breath held: Yes Valsalva performed: performed Pressure applied to site?: Yes Number of minutes pressure applied: 20 Dressing applied:: 4x4 sterile gauze and transparent dressing Estimated blood loss (mL): 0 Specimen(s): None Complications: None Patient tolerance of procedure: Patient tolerated the procedure well with no immediate complications [facility] MethodistHepatitis B surface [id number] 18:43:56 Test Item Value Reference Range Interpretation Comments Hepatitis B surface Ab (test Non-reactive Non-reactive code = 75466-8) [place] MethodjoseEC 12 [id number] 16:18:12 Test Item Value Reference Range Interpretation Comments Ventricular rate (test 64 code = 253) Atrial rate (test code 64 = 255) GA interval (test code 158 = 266) QRSD interval (test 100 code = 260) QT interval (test code 402 = 264) QTC interval (test code 414 = 265) P axis 1 (test code = 34 267) QRS axis 1 (test code = -49 268) T wave axis (test code 9 = 270) EKG impression (test Normal sinus code = 273) rhythm-Left axis deviation-Moderate voltage criteria for LVH, may be normal variant-Abnormal ECG-In automated comparison with ECG of 02-JUN-2017 09:41,-premature atrial complexes are no longer present- [facility] [id number] 15:03:52 Test Item Value Reference Range Interpretation Comments POC glucose (test code = 140 mg/dL 65-99 H Ope rator Name: [id number]) Puneet kearnsice ID: [id number] able: RN Notified Lab Interpretation (test Abnormal code = 17079-0) [facility] [id number] 12:06:00 Test Item Value Reference Range Interpretation Comments POC sodium (test code = 134 mmol/L 135-148 L 2947-0) POC potassium (test 4.0 mmol/L 3.5-5 code = 6298-4) POC glucose (test code 120 mg/dL 65-99 H Opera tor Name: = 2339-0) Husam Ibanez ID : [id number] POC hemoglobin (test 13.3 g/dL 02-15 code = 718-7) POC hematocrit (test 39 % 37-47 code = 4544-3) Lab Interpretation Abnormal (test code = 41680-4) [place] MethodistPeripheral [id number] 12:04:16Patricia Kennedy MD 12/16/2019 12:05 PMPeripheral BlockPerformed by: Patricia Kennedy MDAuthorized by: Patricia Kennedy MD Patient Location: Pre-opStart Time: 12/16/2019 11:44 AMEnd Time: 12/16/2019 11:52 AMReason for Block: primary anesthetic Staff: Anesthesiologist: Patricia Kennedy MD Resident/GRAVITY MANAGER/AA: Elizabet Mensah CRNA Performed by: Anesthesiologi stPreprocedure: patient identified, IV checked, site and side verified, risks and benefits discussed, procedure verified, surgical consent complete, patient position confirmed, monitors and equipment checked, pre-op evaluation complete, site marked and timeout performed prior to procedure Peripheral Nerve Block: Patient Position: Right lateral decubitus Prep: ChloraPrep and patient draped Monitoring: Blood pressure monitoring, continuous pulse oximetry and heart rateBlock Type: SupraclavicularLaterality: LeftInjection Technique: Single injectionProcedures: ultrasound guided Ultrasound documentation: Printed/placed in chartLocal Infiltration (See MAR for details): RopivacaineNeedle: Needle Type: Pajunk Needle Gauge: 21 G Needle Length: 10 cmAssessment: Injection Assessment: Visualized needle/local anesthetic surrounding nerve, visualized pertinent vascular structures and nerves, needle tip visualized at all times during injection of medication, no symptoms of intraneural/intravenous injection and intermittent aspiration during local anesthetic administration Paresthesia Pain: None Heart Rate Change: No Slow Fractionated Injection: Yes Block outcome: No apparent complications, patient comfortable and patient tolerated procedure wellH[facility]pring[facility] MethodistType and [id number] 11:58:00 Test Item Value Reference Range Interpretation Comments ABO grouping (test code = 883-9) A Rh type (test code = 79736-7) POS Antibody screen (gel) (test code = NEG 890-4) [place] MethodistXR Chest 1 Vw [id number] 11:23:05Hm Interface, Radiology Results - 12/16/2019 11:26 AM CDTEXAMINATION: XR CHEST 1 VW PORTABLECLINICAL HISTORY: PRE PROCEDURECOMPARISON: October 20, 2017IMPRESSION:1. The heart and pulmonary vasculature are within normal limits.2. No infiltrate or effusion is demonstrated.3. There is no acuteosseous pathology.Dialysis catheter tip is at the superior cavoatrial junction without visible pneumothorax.4. If suspicion persists, follow-up nonportable PA and lateral imaging may be helpful.[facility]-[id number] MethodistBasic metabolic [id number] 11:08:17 Test Item Value Reference Range Interpretation Comments Sodium (test code = 2951-2) 134 135- 148 mEq/L L Potassium (test code = 2823-3) 4.1 3.5- 5.0 mEq/L Chloride (test code = 2075-0) 96 98- 112 mEq/L L CO2 (test code = 8-9) 26 24- 31 mEq/L Anion gap (test code = 18743-1) 12@ANIO 7- 15 mEq/L BUN (test code = 3094-0) 49 mg/dL 8-23 H Creatinine (test code = 2160-0) 3.47 mg/dL 0.5-0.9 H Glucose (test code = 2345-7) 129 mg/dL 65-99 H Calcium (test code = 48085-5) 8.7 mg/dL 8.8-10.2 L Lab Interpretation (test code = Abnormal 98849-8) [facility] MethodistEstimated [id number] 11:08:17 Test Item Value Reference Range Interpretation Comments Estimated GFR (test 12 mL/min/1.73 m2 Mary alexander Units code = 5488) InterpretationG 1 >=90 Lily l or highG2 60-89 Mildly decrease dG3a 45-59 Mil dly to moderately decr rsoyzZ4t 30-44 Moderately to s everely decreasedG4 15-29 Severe ly decreasedG5 <15 Kidney martin lureThe eGFR was calcul ated using the Chron Kidney Disease Epidemiology Collaboration ( CKD-EPI) equation. Interpretation is based on recommendati ons of the National [facility]-Kidn ey Disease Outcome s Quality Initiat javy (NKF-KDOQI) pub lished in 2013. Lab Interpretation Abnormal (test code = 43888-6) [facility] MethodistPartial thromboplastin time, [id number] 11:05:23 Test Item Value Reference Range Interpretation Comments PTT (test code = 29.0 23.0- 36.0 sec PTT thera peutic range for 3173-2) unfractionated heparin is61.0-112.0 se conds which corresponds to Anti-Xa0.3-0.7 U/ml. [place] MethodistProthrombin time with [id number] 11:05:19 Test Item Value Reference Range Interpretation Comments Prothrombin time (test 14.7 11.5- 14.5 sec H code = 5902-2) INR (test code = 1.1 The Interna tional 98008-9) Normalized Rati o (INR) is a therapeuti c monitoring tool for patients who ar e stable on oral anticoagulant t herapy. An INR of 2.0-3 .0 is suggested for d eep vein thrombosis/pulm onary embolism. Lab Interpretation Abnormal (test code = 62426-4) [facility] MethodistCBC with platelet and [id number] 10:51:54 Test Item Value Reference Range Interpretation Comments WBC (test code = 72752-1) 7.5 4.5- 11.0 k/uL RBC (test code = 49785-4) 3.34 m/uL 4.2-5.5 L HGB (test code = 718-7) 11.2 g/dL 12-16 L HCT (test code = 4544-3) 35.1 % 37-47 L MCV (test code = 787-2) 105.1 fL 82-100 H MCH (test code = 785-6) 33.5 pg 27-34 MCHC (test code = 786-4) 31.9 g/dL 31-37 RDW - SD (test code = 87923-3) 59.5 fL 37-55 H MPV (test code = 82569-6) 9.9 fL 6.9-11 Platelet count (test code = 201 K/uL 150-400 52083-3) Nucleated RBC (test code = 86011-7) 0.00 /100 WBC Neutrophils (test code = 96895-7) 74.7 % 39-69 H Lymphocytes (test code = 21725-8) 11.0 % 25-45 L Monocytes (test code = 40275-7) 12.5 % 0-10 H Eosinophils (test code = 43273-0) 0.7 % 0-5 Basophils (test code = 65022-4) 0.7 % 0-1 Immature granulocytes (test code = 0.4 % 0-1 84944-1) Lab Interpretation (test code = Abnormal 19622-7) Anurag MolinaU/S, ABDOMINAL, [id number] 17:50:00REFERRING: DR ZARA Ortiz for Exam:->cirrhosis, rule out HCCFINAL REPORT TECHNIQUE: Grayscale ultrasound of the abdomen. INDICATION: cirrh osis, rule out HCC. COMPARISON: CT from 12/30/2007 FINDINGS: MIDLINE VASCULATURE: The visualized inferior vena cava is unremarkable. Portal vein is patent. The maximum visualized aortic diameter is 1.3 cm. LIVER: Coarsened hepatic echotexture. Nodular liver contour. No focal lesions. The main portal v ein measures 1 cm. BILIARY:Gallbladder: Prior cholecystectomyCommon bile [...] No focal hepatic lesions. Signed: Aniket Hahn MDRepripley county memorial hospital Verified Date/Time: 12/30/2018 17:50:49 Reading Location: [address] Radiology Reading Room HEPATITIS B SURFACE [id number] 17:45:00 Test Item Value Reference Range Interpretation Comments HEPATITIS B SURFACE ANTIBODY < mIU/mL <8.0 (BEAKER) (test code = 647) HEPATITIS A ANTIBODY, [id number] 17:45:00 Test Item Value Reference Range Interpretation Comments HEPATITIS A IGG ANTIBODY (COLT) Reactive Nonreactive A (test code = 2797) ALPHA FETOPROTEIN (AFP), TUMOR [id number] 17:45:00 Test Item Value Reference Range Interpretation Comments ALPHA-FETOPROTEIN (BEAKER) (test code < ng/mL <10.0 = 1094) HEPATITIS C [id number] 17:33:00 Test Item Value Reference Range Interpretation Comments HEPATITIS C ANTIBODY (BEAKER) Nonreactive Nonreactive (test code = 367) HEPATITIS B SURFACE [id number] 17:30:00 Test Item Value Reference Range Interpretation Comments HEPATITIS B SURFACE ANTIGEN (2) Nonreactive Nonreactive (BEAKER) (test code = 2585) HEPATITIS B CORE ANTIBODY, [id number] 17:30:00 Test Item Value Reference Range Interpretation Comments HEPATITIS B CORE TOTAL ANTIBODY Nonreactive Nonreactive (BEAKER) (test code = 497) HEPATIC FUNCTION [id number] 16:06:00 Test Item Value Reference Range Interpretation [...] = 21 U/L 6-55 347) BASIC METABOLIC [id number] 16:06:00 Test Item Value Reference Range Interpretation [...] S NOT APPLICABLE FOR DIALYSIS PATIEN TS. PROTHROMBIN TIME/[id number] 15:51:00 Test Item Value Reference Range Interpretation [...] mechanical heart valves.CBC W/PLT COUNT & AUTO [id number] 15:45:00 Test Item Value Reference Range Interpretation [...] % 0-1 PERCENT (BEAKER) (test code = 3356)
[2020-02-06] MEDS ORDERED: ONDANSETRON 4 MG/2 ML VIAL ONE (20:30)
[2020-02-06] MEDS ORDERED: FENTANYL CITR 100 MCG/2 ML ONE (20:30)
[2020-02-06 20:47] LABS: Absolute Lymphocytes (CBC) 0.8 K/uL (0.7-4.9); Basophils % 0.2 % (0-1.3); Hematocrit 30.5 % (36.0-45.0); Lymphocytes % 5.1 % (15.3-44.8); MPV 8.4 fL (7.6-11.3); RBC Red Blood Cell Count 2.93 M/uL (3.86-4.86)
--- NOTE | 2020-02-06 20:47 | RAD REPORT ---
EXAM DESCRIPTION: RAD - Pelvis - 02/06/2020 8:33 pm CLINICAL HISTORY: PAIN COMPARISON: Urography Retrograde dated 01/09/2017; Hip Left 2 View dated 02/06/2020 FINDINGS: The bones are diffusely demineralized. Intratrochanteric fracture of the proximal left fem ur is seen. Large calcified fibroid in the pelvis. Aortoiliac atherosclerosis. IVC filter is in place . Hardware is present proximal right femur. IMPRESSION: Proximal left femur fracture.
--- NOTE | 2020-02-06 20:48 | RAD REPORT ---
EXAM DESCRIPTION: RAD - Hip Left 2 View - 02/06/2020 8:33 pm CLINICAL HISTORY: Pain;Deformity COMPARISON: No comparisons FINDINGS: Proximal left femur fracture is seen, likely intratrochanteric. The bones are quite demine ralized. No dislocation evident.
[2020-02-06 20:53] LABS: Potassium 5.2 mmol/L (3.5-5.1)
[2020-02-06 20:59] LABS: Protime INR 0.97
--- NOTE | 2020-02-06 21:09 | EDPHYS ---
Physician Documentation [facility] Name: Sherry Payan Age: 84 yrs Sex: Female : 1935 Arrival Date: 02/06/2020 Time: 19:48 Bed 4 Private MD: ED Physician Stefan Santiago HPI: 02/05 21:02 This 84 yrs old Female presents to ER via Unassigned with complaints of left tw4 hip pain. 21:02 The patient or guardian reports decreased range of motion, deformity, an injury. that tw4 occurred at home. The complaints affect the left hip. Onset: The symptoms/episode began/occurred just prior to arrival. 21:05 Modifying factors: The symptoms are alleviated by nothing, the symptoms are aggravated tw4 by nothing. The patient has not experienced similar symptoms in the past. Historical: - Allergies: 20:17 darva; wh 20:17 meperidine HCl; wh 20:17 PENICILLINS; wh 20:17 Propoxyphene HCl; wh - PMHx: 21:31 Hyperlipidemia; Hypertension; kidney removed?; Kidney stones; ESRD; wh - Immunization history:: Adult Immunizations Flu vaccine is up to date. - Immunization history: Last tetanus immunization: unknown. - Social history:: Smoking status: Patient/guardian denies using. ROS: 21:05 Constitutional: Negative for fever, chills, and weight loss, Eyes: Negative for injury, tw4 pain, redness, and discharge, Cardiovascular: Negative for chest pain, palpitations, and edema, Respiratory: Negative for shortness of breath, cough, wheezing, and pleuritic chest pain, Abdomen/GI: Negative for abdominal pain, nausea, vomiting, diarrhea, and constipation, Skin: Negative for injury, rash, and discoloration, Neuro: Negative for headache, weakness, numbness, tingling, and seizure. 21:05 MS/extremity: Positive for injury or acute deformity, decreased range of motion, pain, tenderness. Exam: 21:05 Constitutional: This is a well developed, well nourished patient who is awake, alert, tw4 and in no acute distress. Head/Face: Normocephalic, atraumatic. Chest/axilla: Normal chest wall appearance and motion. Nontender with no deformity. No lesions are appreciated. Cardiovascular: Regular rate and rhythm with a normal S1 and S2. No gallops, murmurs, or rubs. Normal PMI, no JVD. No pulse deficits. Respiratory: Lungs have equal breath sounds bilaterally, clear to auscultation and percussion. No rales, rhonchi or wheezes noted. No increased work of breathing, no retractions or nasal flaring. Abdomen/GI: Soft, non-tender, with normal bowel sounds. No distension or tympany. No guarding or rebound. No evidence of tenderness throughout. Back: No spinal tenderness. No costovertebral tenderness. Full range of motion. Neuro: Awake and alert, GCS 15, oriented to person, place, time, and situation. Cranial nerves II-XII grossly intact. Motor strength 5/5 in all extremities. Sensory grossly intact. Cerebellar exam normal. Normal gait. 21:05 Musculoskeletal/extremity: Extremities: noted in the left hip: decreased ROM, deformity, pain. Vital Signs: 19:50 BP 164 / 81; Pulse 96; Resp 18; Temp 97.4; Pulse Ox 95% ; Pain 9/10; 21:00 BP 154 / 85; Pulse 98; Resp 18; Pulse Ox 95% on R/A; 22:07 BP 108 / 88; Pulse 91; Resp 18; Pulse Ox 97% on 2 lpm NC; [place] Coma Score: 19:50 Eye Response: spontaneous(4). Verbal Response: oriented(5). Motor Response: obeys wh commands(6). Total: 15. Trauma Score (Adult): 19:50 Eye Response: spontaneous(1); Verbal Response: oriented(1); Motor Response: obeys wh commands(2); Systolic BP: > 89 mm Hg(4); Respiratory Rate: 10 to 29 per min(4); Claudia Score: 15; Trauma Score: 12 MDM: 20:15 Patient medically screened. tw4 02/06 00:57 Differential diagnosis: intertrochanteric fracture. Data reviewed: vital signs, nurses tw4 notes. Data interpreted: Pulse oximetry: Interpretation: normal. Counseling: I had a detailed discussion with the patient and/or guardian regarding: the historical points, exam findings, and any diagnostic results supporting the discharge/admit diagnosis. 02/05 19:51 Order name: Basic Metabolic Panel tw4 02/05 19:51 Order name: CBC with Diff tw4 02/05 19:51 Order name: PT-INR tw4 02/05 19:51 Order name: Ptt, Activated tw4 02/05 21:05 Order name: CBC Smear Scan EDNH 02/05 19:51 Order name: Pelvis XRAY tw4 02/05 19:51 Order name: Hip Left 2 View XRAY; Complete Time: 20:49 tw4 02/05 21:11 Order name: CONS Pharmacy Consult EDNH 02/05 21:11 Order name: Chest Single View EDMS 02/05 19:51 Order name: Labs collected and sent; Complete Time: 20:13 tw4 02/05 21:11 Order name: NPO EDMS 02/05 21:14 Order name: CONS Physician Consult EDMS 02/05 21:19 Order name: Social Service Consult EDMS Administered Medications: 02/05 20:17 Drug: fentaNYL (PF) 25 mcg {Note: RASS 0.} Route: IVP; Site: right forearm; 21:54 Follow up: Response: No adverse reaction; Pain is decreased; RASS: Alert and Calm (0) 20:19 Drug: Zofran (Ondansetron) 4 mg Route: IVP; Site: right forearm; 21:54 Follow up: Response: No adverse reaction; Nausea is decreased 21:54 Drug: fentaNYL (PF) 25 mcg {Note: RASS 0.} Route: IVP; Site: right forearm; 22:07 Follow up: Response: No adverse reaction; Pain is decreased; RASS: Alert and Calm (0) Disposition: 02/06/20 21:08 Hospitalization ordered by Nato Rausch for Inpatient Admission. Preliminary diagnosis are Intertrochanteric fracture of femur, Chronic kidney disease, stage 5. - Bed requested for Telemetry/MedSurg (Inpatient). - Status is Inpatient Admission. - Condition is Stable. - Problem is new. - Symptoms have improved. Signatures: Dispatcher [employer] EDNH Rose Mensah RN RN mw [place], Winsy Stefan Santiago MD MD tw4 Corrections: (The following items were deleted from the chart) 21:05 20:52 Manual Differential ordered. EDNH EDNH 21:14 21:11 Protime (+INR) ordered. EDNH EDNH 21:20 21:08 Hospitalization Ordered by Nato Rausch MD for Inpatient Admission. mw Preliminary diagnosis is Intertrochanteric fracture of femur; Chronic kidney disease, stage 5. Bed requested for Telemetry/MedSurg (Inpatient). Status is Inpatient Admission. Condition is Stable. Problem is new. Symptoms have improved. tw4 22:11 21:20 02/06/2020 21:08 Hospitalization Ordered by Nato Rausch MD for Inpatient Admission. Preliminary diagnosis is Intertrochanteric fracture of femur; Chronic kidney disease, stage 5. Bed requested for Telemetry/MedSurg (Inpatient). Status is Inpatient Admission. Condition is Stable. Problem is new. Symptoms have improved. mw
--- NOTE | 2020-02-06 21:09 | ER ---
Nurse's Notes [facility] Name: Sherry Payan Age: 84 yrs Sex: Female : 1935 Arrival Date: 02/06/2020 Time: 19:48 Bed 4 Private MD: Diagnosis: Intertrochanteric fracture of femur;Chronic kidney disease, stage 5 Presentation: 02/05 19:50 Chief complaint: EMS states: fell from chair, Pt C/O left hip pain. Pt denies LOC, and wh not on blood thinners. Coronavirus screen: Client denies travel out of the [place] in the last 14 days. At this time, the client does not indicate any symptoms associated with coronavirus-19. Ebola Screen: Patient negative for fever greater than or equal to 101.5 degrees Fahrenheit, and additional compatible Ebola Virus Disease symptoms Patient denies exposure to infectious person. Initial Sepsis Screen: Does the patient meet any 2 criteria? HR > 90 bpm. Does the patient have a suspected source of infection? No. Patient's initial sepsis screen is negative. Risk Assessment: Do you want to hurt yourself or someone else? Patient reports no desire to harm self or others. Onset of symptoms was February 06, 2020. 19:50 Method Of Arrival: EMS: [facility] 19:50 Acuity: JULIA 3 19:50 Care prior to arrival: None. Mechanism of Injury: Fall. Trauma event details: Injury wh occurred in the [facility]. Trauma Activation: Physician: ED Physician; Name: ; Notified At: 19:55; Arrived At: 19:55 Physician: General Surgeon; Name: ; Notified At: 19:55; Arrived At: Physician: Radiology; Name: ; Notified At: 19:55; Arrived At: Physician: Respiratory; Name: ; Notified At: 19:55; Arrived At: Physician: Lab; Name: ; Notified At: 19:55; Arrived At: Historical: - Allergies: 20:17 darva; 20:17 meperidine HCl; 20:17 PENICILLINS; 20:17 Propoxyphene HCl; - PMHx: 21:31 Hyperlipidemia; Hypertension; kidney removed?; Kidney stones; ESRD; wh - Immunization history:: Adult Immunizations Flu vaccine is up to date. - Immunization history: Last tetanus immunization: unknown. - Social history:: Smoking status: Patient/guardian denies using. Screenin:00 Abuse screen: Denies threats or abuse. Denies injuries from another. Nutritional wh screening: No deficits noted. Tuberculosis screening: No symptoms or risk factors identified. Fall Risk Fall in past 12 months (25 points). Primary Survey: 19:50 NO uncontrolled hemorrhage observed. A: The patient is alert. Airway: patent. wh Breathing/Chest: Respiratory pattern: regular, Respiratory effort: spontaneous, unlabored. Circulation: Pulses: palpable left dorsalis pedis artery. Disability Alert. Exposure/Environment: All clothing and personal items were removed. Forensic evidence collection is not deemed to be indicated at this time. Items placed in patient belonging bag. There is no evidence of uncontrolled external bleeding. Obvious injury(ies) are noted at this time: hip fracture A warming method has been applied: A warm blanket has been provided to the patient. 21:00 Reassessment Airway Airway Patent Breathing/Chest Respiratory pattern Regular wh Respiratory effort Spontaneous Unlabored Circulation Pulses Palpable Disability Alert. Assessment: 20:00 General: Appears in no apparent distress. uncomfortable, Behavior is calm, cooperative, wh appropriate for age. Pain: Complains of pain in left hip Pain currently is 9 out of 10 on a pain scale. Neuro: Level of Consciousness is awake, alert, obeys commands, Oriented to person, place, time, situation, Appropriate for age. Cardiovascular: Capillary refill < 3 seconds. Respiratory: Airway is patent Respiratory effort is even, unlabored, Respiratory pattern is regular, symmetrical. GI: Abdomen is flat, non-distended. : No signs and/or symptoms were reported regarding the genitourinary system. EENT: No signs and/or symptoms were reported regarding the EENT system. Derm: Skin is fragile, is thin. Musculoskeletal: left hip fracture. 20:42 Reassessment: Spoke with patient's daughter in law, migdalia chen, and updated on lp1 patient status and plan of care; phone number [phone]. 20:45 Reassessment: Patient appears in no apparent distress at this time. No changes from previously documented assessment. Patient and/or family updated on plan of care and expected duration. Pain level reassessed. Patient is alert, oriented x 3, equal unlabored respirations, skin warm/dry/pink. MD at bedside explaining POC need for admit. Vital Signs: 19:50 BP 164 / 81; Pulse 96; Resp 18; Temp 97.4; Pulse Ox 95% ; Pain 9/10; wh 21:00 BP 154 / 85; Pulse 98; Resp 18; Pulse Ox 95% on R/A; wh 22:07 BP 108 / 88; Pulse 91; Resp 18; Pulse Ox 97% on 2 lpm NC; wh Banner Coma Score: 19:50 Eye Response: spontaneous(4). Verbal Response: oriented(5). Motor Response: obeys wh commands(6). Total: 15. Trauma Score (Adult): 19:50 Eye Response: spontaneous(1); Verbal Response: oriented(1); Motor Response: obeys commands(2); Systolic BP: > 89 mm Hg(4); Respiratory Rate: 10 to 29 per min(4); Claudia Score: 15; Trauma Score: 12 ED Course: 19:48 Patient arrived in ED. tw4 19:48 Stefan Santiago MD is Attending Physician. tw4 19:50 Mariah Monson is Primary Nurse. 19:50 Patient maintains SpO2 saturation greater than 95% on room air. Thermoregulation: warm blanket given to patient. 19:55 Patient has correct armband on for positive identification. Bed in low position. Call light in reach. Side rails up X 1. Pulse ox on. NIBP on. 19:55 Arm band placed on left wrist. 20:00 No provider procedures requiring assistance completed. Inserted saline lock: 22 gauge in right forearm, using aseptic technique. 20:34 Pelvis XRAY In Process Unspecified. EDMS 20:34 Hip Left 2 View XRAY In Process Unspecified. EDMS 21:07 Nato Rausch MD is Hospitalizing Provider. tw4 21:24 Triage completed. wh 21:31 Chest Single View In Process Unspecified. EDMS 22:06 Patient admitted, IV remains in place. wh Administered Medications: 20:17 Drug: fentaNYL (PF) 25 mcg {Note: RASS 0.} Route: IVP; Site: right forearm; 21:54 Follow up: Response: No adverse reaction; Pain is decreased; RASS: Alert and Calm (0) 20:19 Drug: Zofran (Ondansetron) 4 mg Route: IVP; Site: right forearm; 21:54 Follow up: Response: No adverse reaction; Nausea is decreased 21:54 Drug: fentaNYL (PF) 25 mcg {Note: RASS 0.} Route: IVP; Site: right forearm; 22:07 Follow up: Response: No adverse reaction; Pain is decreased; RASS: Alert and Calm (0) Intake: 22:06 IV: 20ml; Total: 20ml. Outcome: 21:08 Decision to Hospitalize by Provider. tw4 22:05 Admitted to Med/surg accompanied by tech, via stretcher, room 225, with oxygen, with chart, Report called to Ananth Nuñez RN 22:05 Condition: stable 22:05 Instructed on the need for admit. 22:06 Patient's length of stay was not longer than 2 hours. 22:11 Patient left the ED. Signatures: Dispatcher [employer] Holly Berrios, BAIRON RN lp1 Mariah Monson Stefan Santiago MD MD tw4
--- NOTE | 2020-02-06 21:18 | P.HP ---
Certification for Inpatient With expected LOS: >2 Midnights Patient will require the following post-hospital care: Rehabilitation Practitioner: I am a practitioner with admitting privileges, knowledge of patient current condition, hospital course, and medical plan of care. Services: Services provided to patient in accordance with Admission requirements found in Title 42 Section 412.3 of the Code of Federal Regulations Patient History Date of Service: 02/06/20 Reason for admission: Fracture of L Femur History of Present Illness: HXof ESRD. Slipped fell and Fracture of Left femur patient is very alert responsive cooperative she has felt denies any chest pain shortness of breath complaining of pain in her left leg Allergies meperidine HCl [From Demerol] Allergy (Severe, Verified 12/15/18 08:38) Itching/Hives/Rash Penicillins Allergy (Severe, Verified 12/15/18 08:38) Itching/Hives/Rash propoxyphene HCl [From Darvon] Allergy (Intermediate, Verified 12/15/18 08:38) Itching propoxyphene [From Darvon] Allergy (Verified 12/15/18 08:38) Itching/Hives/Rash Home Medications: Levothyroxine [Synthroid*] 100 mcg PO [id number] 01/20/19 Lipase/Protease/Amylase [Creon Dr 12,000 Units Capsule] 2 each PO TID 01/20/19 Multivit-Min/FA/Lycopen/Lutein [Centrum Silver Tablet] 1 each PO DAILY 01/20/19 Vitamin E 400 unit PO DAILY 01/20/19 Amlodipine [Norvasc*] 10 mg PO DAILY tab 02/03/19 Calcium Carbonate/Vitamin D3 [Oscal 500 + Vit D 200 Iu Tab*] 1 tab PO DAILY tab 02/03/19 Cyanocobalamin [Vitamin B-12*] 1,000 mcg PO DAILY tab 02/03/19 Docosahexanoic AC/Epa [Fish Oil 1,000 MG*] 1,000 mg PO DAILY cap 02/03/19 Hydralazine [Apresoline*] 50 mg PO TID tab 02/03/19 Iron/FA/Vit B-Com W/C [Hemocyte Plus*] 1 tab PO DAILY WITH BREAKFAST tab 02/03/19 Nepro Shake [Nepro*] 237 ml PO DAILY can 02/03/19 Pantoprazole [Protonix Tab*] 40 mg PO ACB tab 02/03/19 Apixaban [Eliquis] 2.5 mg PO BID 30 Days #60 tablet 09/25/19 Metoprolol Tartrate [Lopressor*] 50 mg PO BID 30 Days #60 tab 09/25/19 - Past Medical/Surgical History Diabetic: Yes -: Diet controlled DM -: End-stage renal disease on hemodialysis -: Hypothyroidism -: Left nephrectomy -: Chronic diastolic heart failure -: 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 Does have home health. - Family History Father Notes: 'to much WBC" Mother -: Heart disease Brother Notes: leukemia. other brother DM and mylenoma - Social History Alcohol use: No CD- Drugs: No Caffeine use: Yes Review of Systems 10-point ROS is otherwise unremarkable General: Weakness Musculoskeletal: As per HPI Physical Examination - Physical Exam General: Moderate distress Neck: Supple Respiratory: Clear to auscultation bilaterally, Diminished Cardiovascular: No edema, Regular rate/rhythm Gastrointestinal: Normal bowel sounds, Soft and benign Integumentary: No rashes - Studies Laboratory Data (last 24 hrs) 02/06/20 : PT Cancelled, INR Cancelled 02/06/20 20:05: PT 11.4, INR 0.97, APTT 24.4 02/06/20 20:05: WBC 14.9 H, Hgb 10.2 L, Hct 30.5 L, Plt Count 251 Assessment and Plan - Problems (Diagnosis) (1) Fracture closed, femur, shaft Current Visit: Yes Status: Acute Plan: AW Fractue of Left femur. ORtho consulted patient is complaining of pain she is very alert oriented responsive cooperative is not taking any anticoagulants plan to admit pain relief and p.o. after midnight labs reviewed patient has end- stage renal disease mildly elevated white count mildly anemic PT INR normal patient cleared for surgery chest x-ray reviewed has a venous catheter on the right side Qualifiers: Encounter type: initial encounter Fracture morphology: oblique Laterality: left - Advance Directives Does patient have a Living Will: No Does patient have a Durable POA for Healthcare: Yes
[2020-02-06 21:23] LABS: Blood Morphology Comment NOT SEEN (NOT SEEN); Platelet Estimate ADEQ; White Blood Cell Scan OK (OK)
--- NOTE | 2020-02-06 21:38 | RAD REPORT ---
EXAM DESCRIPTION: RAD - Chest Single View - 02/06/2020 9:31 pm CLINICAL HISTORY: Preop Chest pain. COMPARISON: Chest Single View dated 09/24/2019; Chest Single View dated 02/02/2019; Abdomen 1 View ([facility]) dated 01/29/2019; Chest Single View dated 01/28/2019 FINDINGS: Portable technique limits examination quality. The lungs are grossly clear. Small right pleural effusion suspected. The heart is normal in size. No displaced fractures.Right-sided venous catheter has tip in the right atrium.
[2020-02-06] MEDS: Ringers Lactate 1,000 ML IV SCH ×2 (22:00→23:20)
[2020-02-06 22:44] VITALS: BMI 24.4
[2020-02-07] MEDS: MORPHINE 2 MG/ML SYR IV PRN ×2 (02:57→21:35)
[2020-02-07] MEDS ORDERED: ONDANSETRON 4 MG/2 ML VIAL IV PRN (04:30)
--- NOTE | 2020-02-07 14:24 | P.PN ---
Subjective Date of Service: 02/07/20 Chief Complaint: Fracture of L Femur No new complaint. Patient complaining of pain in the left hip. Physical Examination - Vital Signs Temperature: 99.2 F Blood Pressure: 114/57 Pulse: 76 Respirations: 17 Pulse Ox (%): 96 - Physical Exam General: Mild distress (Due to pain), Confused Neck: Supple Respiratory: Clear to auscultation bilaterally, Normal air movement Cardiovascular: No edema, Regular rate/rhythm, Normal S1 S2 Gastrointestinal: Normal bowel sounds, Soft and benign, No tenderness Musculoskeletal: No clubbing, No contractures - Studies Laboratory Data (last 24 hrs) 02/06/20 20:05: PT 11.4, INR 0.97, APTT 24.4 02/06/20 20:05: WBC 14.9 H, Hgb 10.2 L, Hct 30.5 L, Plt Count 251 02/06/20 20:05: Sodium 135 L, Potassium 5.2 H, BUN 76 H, Creatinine 4.76 H, Glucose 172 H Assessment And Plan - Current Problems (Diagnosis) (1) Closed intertrochanteric fracture of left femur Current Visit: Yes Status: Acute (2) End-stage renal disease on hemodialysis Current Visit: Yes Status: Acute (3) Chronic diastolic heart failure Current Visit: Yes Status: Acute (4) Liver cirrhosis Current Visit: No Status: Acute (5) Paroxysmal A-fib Current Visit: No Status: Acute - Plan Patient seen by Ortho who is planning ORIF tomorrow. Patient has no active cardiac disease. She would be hemodialysed today. Chest x-ray is grossly clear. Her clinical condition is optimal for surgery.
[2020-02-07] MEDS: ALBUMIN HUMAN 25% 50 ML IV ONE (16:45)
[2020-02-07] MEDS: LIPASE/PROTEASE/AMYLASE CAP PO SCH ×2 (17:00→21:00)
[2020-02-07] MEDS: SEVELAMER CARBONATE 800 MG TABLET PO SCH ×2 (17:00→21:00)
[2020-02-07] MEDS ORDERED: EPOETIN ALFA-EPBX 4,000 UNIT/ML VIAL ONE (22:54)
--- NOTE | 2020-02-07 23:01 | CON ---
Date of Consultation: 02/07/2020 Chief Complaint: End-stage renal disease, on dialysis. History Of Present Illness: The patient has history of end-stage renal disease. She is dialysis dep endent, has been dialyzed 3 times per week on Friday, Friday, and Friday. The patient is admitted to the hospital for fracture of the left femur. She slipped and fell, developed fracture of the lef t femur. The patient denies shortness of breath. Pain is currently controlled. Review of Systems: General: Denies fever or chills. Eyes: Denies new vision changes. Ears, Nose, Mouth, and Throat: Denies sore throat or earache. Respiratory: Denies PND or orthopnea. All other systems reviewed and all are negative. Past Medical History: Diabetes mellitus, end-stage renal disease on dialysis, hypothyroidism, left n ephrectomy, chronic diastolic congestive heart failure, cirrhosis with ascites, pancreatic insufficie ncy secondary to surgery, hypertension, left stomach surgery, femur fracture fixation, exploratory la parotomy, cholecystectomy. Family History: Mother with heart disease. Brother with leukemia. Another brother with myeloma and diabetes. Social History: Denies tobacco, alcohol, or illicit drugs. Physical Examination: General: The patient is awake, alert, follows commands. Eyes: Anicteric sclerae. EOMI. Ears, Nose, Mouth, and Throat: Oral mucosa moist. No pallor. Neck: Supple. No bruits. Lungs: Diminished breath sounds at bases. Heart: S1, S2. No pericardial friction rub. Abdomen: Soft, benign. Extremities: Slight edema in both legs. No clubbing. No cyanosis. Neurologic: Moving extremities. Cranial nerves intact. Laboratory Data: WBC 14.9, hemoglobin 10.2. INR 0.97. Impression And Plan: 1.End-stage renal disease. Continue to monitor electrolytes. Dialysis will be done for metabolic c learance to obtain ultrafiltration and to control volume overload. The patient has slight lymphedema and will continue p.o. fluid restriction. Monitor blood pressure during dialysis to prevent intradi alytic hypotension. 2.Fracture of the left femur. Ortho consultation was obtained. 3.Anemia due to chronic kidney disease. Monitor hemoglobin level. Adjust BOUCHRA. 4.Renal osteodystrophy. Monitor phosphorus level. Adjust binders. EB/MODL Voice ID: [id number] Report ID: [id number]
[2020-02-07] MEDS: EPOETIN ALFA-EPBX 4,000 UNIT/ML VIAL IV SCH (23:13)
--- NOTE | 2020-02-08 00:16 | CON ---
Date of Consultation: 02/07/2020 History Of Present Illness: I am called to see this patient last evening as apparently she fell out of bed injuring her left hip. She was seen and examined in the Emergency Department where she was ru led out for other injuries; however, x-rays taken of the hip revealed a displaced intertrochanteric f racture on the left. She has had a previous right intertrochanteric fracture, however, this appears to be without difficulty at this time. Physical Examination: Her long bones and joints are palpated without pain or crepitation. She does have some wounds on her left lower extremity, which are wrapped, however, any movement of her left lower extremity causes pa in in her left hip. On further review of her history, she says that she is not ambulatory, but she i s in significant amount of pain. Diagnostic Studies: Review of x-rays reveal a displaced intertrochanteric hip fracture on the left. Assessment: This is an 84-year-old female now with multiple medical problems with a left displaced i ntertrochanteric fracture. She discussed this with her. She appears to be quite lucid. However, he r actual mental capacity is not completely certain. I will speak with her primary care physician or hospitalist as usually we treat these with operative fixation including closed reduction and intramed ullary minna fixation. The timing of this will be dependent on medical issues. Otherwise, her questio ns were answered and explained to her as much as possible. GLADYS Voice ID: [id number] Report ID: [id number]
[2020-02-08 06:07] LABS: Potassium 4.3 mmol/L (3.5-5.1)
[2020-02-08 06:18] LABS: Absolute Lymphocytes (CBC) 0.4 K/uL (0.7-4.9); Basophils % 0.3 % (0-1.3); Hematocrit 22.7 % (36.0-45.0); Lymphocytes % 5.6 % (15.3-44.8); MPV 8.7 fL (7.6-11.3); RBC Red Blood Cell Count 2.17 M/uL (3.86-4.86)
[2020-02-08] MEDS: LEVOTHYROXINE SOD 0.1 MG TAB PO SCH (06:30)
[2020-02-08] MEDS: CALCIUM CARBONATE 500 MG TAB PO SCH (07:48)
[2020-02-08] MEDS: LIPASE/PROTEASE/AMYLASE CAP PO SCH ×4 (07:48→21:00)
[2020-02-08] MEDS: NEPRO SHAKE 237 ML CAN PO SCH (07:48)
[2020-02-08] MEDS: CYANOCOBALAMIN 1,000 MCG TAB PO SCH (07:48)
[2020-02-08] MEDS: FE SULF/FA/VIT B COMP & C TAB PO SCH (07:48)
[2020-02-08] MEDS: SEVELAMER CARBONATE 800 MG TABLET PO SCH ×4 (07:48→21:00)
[2020-02-08] MEDS: PANTOPRAZOLE 40MG TABLET PO SCH (07:48)
[2020-02-08] MEDS: MULTIVIT W/ MINERAL TAB PO SCH (07:48)
[2020-02-08] MEDS ORDERED: NA CHLORIDE 0.9% 250 ML IV SCH (08:00)
[2020-02-08] MEDS ORDERED: TRANEXAMIC ACID 1,000 MG in NA CHLORIDE 0.9% 50 ML IV ONE (08:27)
[2020-02-08] MEDS ORDERED: HOME MED 1 EA UNK (Omeprazole [Prilosec] 40 MG) PO SCH (09:00)
--- NOTE | 2020-02-08 10:48 | PN ---
Date of Progress Note: 02/08/2020 Subjective: The patient was admitted with hip fracture. The patient is scheduled for surgery today. The patient has been sleepy. Physical Examination: Vital Signs: Blood pressure 130/68, pulse of 82, afebrile. Chest: Faint rales in the base. Heart: S1, S2. Systolic murmur. Abdomen: Soft, nontender. Extremities: No edema. Neuro: Sleepy. Moving 4 extremities. No focality. Laboratory Data: H and H 7.5/22.7. Sodium 138, potassium 4.3, bicarb 26, BUN 40, creatinine 3.4, GFR of 13, calcium 8.4. Current Medications: The patient on include nystatin, heparin, Epogen 4000 with each dialysis, calcium carbonate, Renvela, pantoprazole, Zofran, levothyroxine. Pain medication and multivitamin. Assessment And Plan: 1. End-stage renal disease. We will continue the patient on dialysis. The patient is scheduled for dialysis today. I do not see the need for challenging. 2. Hypertension, controlled, optimal, off blood pressure medication. Keep holding blood pressure medication. 3. Secondary hyperparathyroidism. Continue binder. 4. Anemia of chronic kidney disease. We will arrange for transfusion of 1 unit with dialysis today. Continue BOUCHRA. We will hold heparin with dialysis today. 5. Hip fracture. Plan for surgery today. The patient cleared from the renal standpoint for surgery. time spend exam the patient face to face , place order , discussed the case with other pilot steam yacht hospitalist and other consulatant 45 min. KELL Voice ID: [id number] Report ID: [id number] KARIN
[2020-02-08] MEDS: ALBUMIN HUMAN 25% 50 ML IV ONE (12:46)
[2020-02-08] MEDS ORDERED: ALBUMIN HUMAN 25% 50 ML IV ONE (13:00)
--- NOTE | 2020-02-08 15:59 | P.PN ---
Subjective Date of Service: 02/08/20 Chief Complaint: Fracture of L Femur Subjective: No new changes (feeling about the same, maybe slightly improved breathing after HD last night, continues with LLE pain with movement) Review of Systems 10-point ROS is otherwise unremarkable Physical Examination - Vital Signs Temperature: 98.9 F Blood Pressure: 135/62 Pulse: 95 Respirations: 17 Pulse Ox (%): 93 - Physical Exam General: Alert, In no apparent distress, Oriented x2, Other (sleepy) HEENT: Sclerae nonicteric Respiratory: Clear to auscultation bilaterally Cardiovascular: Regular rate/rhythm (regular rhythm, HR: 90s-100) Gastrointestinal: Soft and benign, No tenderness Musculoskeletal: No swelling, Tenderness (anterior left hip / upper thigh) Neurological: Normal speech Assessment & Plan Physician Review Additional Text: Closed intertrochanteric fracture of left femur ESRD on HD Chronic diastolic CHF Liver cirrhosis Paroxysmal Afib hypothyroidism Hgb: 7.5 this AM, no evidence of large swelling / hematoma of LLE pt denies melena, BRBPR, or emesis, no obvious signs of bleeding pt with slight tachycardia and fatigue as well, will transfuse 1uPRBC, discussed with nephrology - pt to have HD today as well, prior to OR plan for ORIF today pending OR time availability Patient has no active cardiac disease. discussed with [id number] - fall occurred when patient was standing at wheelchair and attempted to take a step forward - as though legs gave out under her, pt was otherwise her typical self, no post-ictal period, no slurring, no confusion, etc. Fall did occur after patient was sitting on toilet for "quite some time" per family, they helped her out of bathroom and she was sitting in her wheelchair in her room for a few minutes before fall occurred. pt sleepy on exam today, with some slight confusion, wasn't sure if she takes a blood thinner. [id number] states pt can get like this if she "dialysis wasn't as good" last night. Paige started a few months ago for P. Afib. On hold for surgery - confirmed with [id number]. failed bedside swallow - will obtain barium swallow per [facility] reports pt has had difficulty before but that was around the time she was intubated for a long time / had a tracheostomy Dispo: would likely benefit from SNF after surgery for PT Time Spent Managing Pts Care (In Minutes): 45
[2020-02-08] MEDS: D50W 25 GM/50 ML SYRINGE IV PRN (17:30)
[2020-02-08] MEDS: MORPHINE 2 MG/ML SYR IV PRN (17:34)
[2020-02-08] MEDS: NYSTATIN OINT 15 GM TUBE TOP SCH (17:36)
[2020-02-08] MEDS ORDERED: D5 0.45 NS 1,000 ML IV SCH (19:00)
[2020-02-09 06:10] LABS: Absolute Lymphocytes (CBC) 0.6 K/uL (0.7-4.9); Basophils % 0.2 % (0-1.3); Hematocrit 28.8 % (36.0-45.0); Lymphocytes % 7.3 % (15.3-44.8); MPV 8.5 fL (7.6-11.3); RBC Red Blood Cell Count 2.86 M/uL (3.86-4.86)
[2020-02-09 06:23] LABS: Albumin 2.4 g/dL (3.4-5.0); Phosphorus 2.7 mg/dL (2.5-4.9); Potassium 3.9 mmol/L (3.5-5.1)
[2020-02-09] MEDS: LEVOTHYROXINE SOD 0.1 MG TAB PO SCH (06:30)
[2020-02-09] MEDS: NYSTATIN OINT 15 GM TUBE TOP SCH (07:41)
[2020-02-09] MEDS: SEVELAMER CARBONATE 800 MG TABLET PO SCH (08:00)
[2020-02-09] MEDS: LIPASE/PROTEASE/AMYLASE CAP PO SCH ×4 (08:00→21:00)
[2020-02-09] MEDS: CALCIUM CARBONATE 500 MG TAB PO SCH (08:25)
[2020-02-09] MEDS: NEPRO SHAKE 237 ML CAN PO SCH (08:25)
[2020-02-09] MEDS: FE SULF/FA/VIT B COMP & C TAB PO SCH (08:25)
[2020-02-09] MEDS: CYANOCOBALAMIN 1,000 MCG TAB PO SCH (08:25)
[2020-02-09] MEDS: PANTOPRAZOLE 40MG TABLET PO SCH (08:25)
[2020-02-09] MEDS: MULTIVIT W/ MINERAL TAB PO SCH (08:25)
--- NOTE | 2020-02-09 10:37 | PN ---
Date of Progress Note: 02/09/2020 Subjective: The patient was admitted with hip fracture secondary to mechanical fall. The patient been sleepy. The patient had dialysis yesterday. We managed to remove 2400. Received 1 unit of blood transfusion. Physical Examination: Vital Signs: Blood pressure 133/67, pulse of 94, afebrile. Chest: Clear to auscultation. Heart: S1, S2. Systolic murmur. Regular. Abdomen: Soft. Nontender. Extremities: Dressing on the left leg. Left upper arm AV fistula, good thrill. Neuro: The patient is sleepy. Moving 4 extremities. No focality. Laboratory Data: WBC 7.6, H and H 9.6/28.8, platelet 139. Sodium 139, potassium 3.9, bicarb 27, BUN 24, creatinine 2.7, calcium 8.3, phosphor 2.7, albumin 2.4. Current Medications: The patient on include: 1. Nystatin. 2. Epogen 4000 with each dialysis. 3. Calcium carbonate 500 daily. 4. Renvela 1 tablet with each meal. 5. Pantoprazole. 6. IV fluid. Assessment And Plan: 1. End-stage renal disease. Normal volume. I am going to continue the patient on dialysis schedule. The patient is going to be scheduled for the dialysis tomorrow. 2. Over volume, currently normal volume. Discontinue IV fluid and we will monitor the patient. 3. Secondary hyperparathyroidism. Phosphor on the lower side. Discontinue Renvela. 4. Anemia of chronic kidney disease, status post transfusion. Continue BOUCHRA. 5. Hip fracture, as by Ortho. The patient cleared from the renal standpoint for surgery. 6. Hyperkalemia, status post dialysis, resolved. 7. Atrial fibrillation, as by hospitalist. time spend exam the patient face to face , place order , discussed the case with other software team leader hospitalist and other consulatant 45 min. KELL Voice ID: [id number] Report ID: [id number] KARIN
[2020-02-09] MEDS ORDERED: VANCOMYCIN/NS 1 gm 1 GM/250 ML BAG IVPB ONE (13:00)
[2020-02-09] MEDS ORDERED: NA CHLORIDE 0.9% 1,000 ML ONE (13:18)
[2020-02-09] MEDS ORDERED: LIDOCAINE 2% MPF 5 ML VIAL ONE (13:54)
[2020-02-09] MEDS ORDERED: FENTANYL CITR 100 MCG/2 ML ONE (13:54)
[2020-02-09] MEDS ORDERED: propofoL 200 MG/20 ML VIAL IV ONE (13:54)
[2020-02-09] MEDS ORDERED: Phenylephrine HCl 10 MG/ML 1 ML VIAL ONE (14:18)
[2020-02-09] MEDS ORDERED: MORPHINE 10 MG/ML VIAL ONE (15:03)
--- NOTE | 2020-02-09 15:37 | P.BOP ---
Preoperative diagnosis: left proximal femur fracture Postoperative diagnosis: same Estimated blood loss: 100 ccs Anesthesia: General Complications: None Transferred to: Recovery Room
--- NOTE | 2020-02-09 16:14 | RAD REPORT ---
EXAM DESCRIPTION: RAD - Hip In Or - 02/09/2020 4:06 pm CLINICAL HISTORY: HIP RODDING COMPARISON: Pelvis dated 02/06/2020 FINDINGS: Fluoroscopy time 2.7 minutes.
--- NOTE | 2020-02-09 17:56 | P.PN ---
Subjective Date of Service: 02/09/20 Chief Complaint: Fracture of L Femur Subjective: No new changes (feeling ok, failed swallow yesterday, reports history of difficulty swallowing long ago, h/o trach) Review of Systems 10-point ROS is otherwise unremarkable Physical Examination - Vital Signs Temperature: 97.2 F Blood Pressure: 151/78 Pulse: 99 Respirations: 20 Pulse Ox (%): 100 - Physical Exam General: Alert, In no apparent distress, Oriented x3 HEENT: Sclerae nonicteric Respiratory: Clear to auscultation bilaterally, Other (non-labored) Cardiovascular: Regular rate/rhythm Gastrointestinal: Soft and benign, No tenderness Musculoskeletal: Tenderness (L upper thigh) Integumentary: Other (b/l wounds wrapped, 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) Neurological: Normal speech, Normal affect Assessment & Plan Physician Review Additional Text: Closed intertrochanteric fracture of left femur ESRD on HD Chronic diastolic CHF Liver cirrhosis Paroxysmal Afib hypothyroidism Hgb improved, s/p 1u PRBC with HD yesterday pt denies melena, BRBPR, or emesis, no obvious signs of bleeding plan for ORIF today discussed with [id number] - fall occurred when patient was standing at wheelchair and attempted to take a step forward - as though legs gave out under her, pt was otherwise her typical self, no post-ictal period, no slurring, no confusion, etc. Fall did occur after patient was sitting on toilet for "quite some time" per family, they helped her out of bathroom and she was sitting in her wheelchair in her room for a few minutes before fall occurred. Paige started a few months ago for P. Afib. On hold for surgery - confirmed with [id number]. restart morning after surgery per Ortho failed bedside swallow - will obtain barium swallow per [facility] reports pt has had difficulty before but that was around the time she was intubated for a long time / had a tracheostomy wounds cultured and growing MRSA, proteus, e.coli, wrapped and to go to OR, will return after surgery to check on wounds, no report of purulent drainage / cellulitis. ID consulted Dispo: would likely benefit from SNF after surgery for PT Time Spent Managing Pts Care (In Minutes): 35
[2020-02-09] MEDS: MORPHINE 2 MG/ML SYR IV PRN ×2 (18:02→23:16)
[2020-02-09] MEDS: D50W 25 GM/50 ML SYRINGE IV PRN (20:25)
[2020-02-09] MEDS ORDERED: EPOETIN ALFA 10,000 UNIT/ML VIAL IV SCH (20:45)
--- NOTE | 2020-02-09 23:40 | OP ---
Date of Procedure: 02/09/2020 Surgeon: Mikhail Mcneal MD Preoperative Diagnosis: Left complex proximal femur fracture. Postoperative Diagnosis: Left complex proximal femur fracture. Procedure: Left hip closed and open reduction with intramedullary fixation. Estimated Blood Loss: 100 cc. Complications: There were no complications. Pathology Specimen: No pathology specimen sent. Indications For Operation: Ms. Payan unfortunately is nonambulatory, but fell out of bed, injuring her left hip. She was seen and examined in the emergency department where she was ruled out for othe r injuries related to this; however, x-rays demonstrated a fracture of the proximal femur. This frac ture is fairly consistent with an intertrochanteric fracture; however, there is a transverse componen t which is right at the level of the lesser trochanter as somewhat of unusual fracture pattern. Risk s, benefits, and alternatives to procedure have been discussed with the patient and the family. They state they understand things as presented and wished to proceed. She has had a previous right-sided hip fracture, which appeared very similar, although I do not think that I performed this in the past . They state they understand things as presented. Description Of Procedure: The patient was taken to the operating room and placed in supine position. General anesthesia was obtained by the staff. Following this, she was extremely carefully position ed on the fracture table. She had multiple contractures including knee contracture as well as hip fl exion contracture. She was nonambulatory. She had a rather large pannus, which was brought to the s al using tape. We were able to reduce this as well as possible, but we did not want to apply excess javy force in any direction, but we were able to align it somewhat. Following this, the left lower ex tremity was then prepped and draped in the usual sterile fashion for procedure. The greater trochant er was marked out. An incision was made through the skin down to the fascia. A finger was placed an d the greater trochanter was found to be comminuted, although it appears to be fairly intact on C-arm , definitely can feel fracture fragments making placement of the guide pin as far as the intraportal somewhat difficult. However, this was placed somewhat medial to allow for better bone and the guide pin was then placed down the shaft without much difficulty. This necessitated some external rotation of the femur to align the fracture. Once the guide pin was placed, the nail was held along the side of the femur to estimate where the cephalomedullary screw would be placed and incision was made at t hat point, which allowed for incision through the fascia down to the bone, which allowed for placemen t of a bone hook. With the use of a bone hook, manual traction maneuvers, as well as other maneuvers , we were able to obtain a fairly good reduction; however, the greater trochanter was quite displaced . We were able to place the minna to the appropriate height, and using the cephalomedullary screw, we were able to compress the greater trochanter back down to near normal. After this, the cephalomedull harry screw as well as an anti-rotation screw were then placed to hold the greater trochanteric fragmen t down as well as affects the head and neck to the shaft. After this, the distal interlocking screw was then placed without difficulty and the guide was removed. Traction was then decreased and the wo unds were irrigated. The fascia was closed using 0 Vicryl sutures, followed by closure of the skin w ith 2-0 Vicryl sutures, followed by hang. The patient was then awakened and taken to recovery karla GRAHAM Voice ID: [id number] Report ID: [id number]
[2020-02-10 06:02] LABS: Absolute Lymphocytes (CBC) 0.4 K/uL (0.7-4.9); Basophils % 0.4 % (0-1.3); Hematocrit 27.6 % (36.0-45.0); MPV 8.3 fL (7.6-11.3); RBC Red Blood Cell Count 2.76 M/uL (3.86-4.86)
[2020-02-10 06:15] LABS: Albumin 2.1 g/dL (3.4-5.0); Magnesium 2.3 mg/dL (1.8-2.4); Phosphorus 3.9 mg/dL (2.5-4.9); Potassium 4.2 mmol/L (3.5-5.1)
[2020-02-10] MEDS: LEVOTHYROXINE SOD 0.1 MG TAB PO SCH (06:30)
[2020-02-10] MEDS ORDERED: D5 0.45 NS 1,000 ML IV SCH (07:00)
[2020-02-10] MEDS: MORPHINE 2 MG/ML SYR IV PRN (07:00)
[2020-02-10] MEDS: LIPASE/PROTEASE/AMYLASE CAP PO SCH ×4 (08:00→21:00)
[2020-02-10] MEDS: APIXABAN 2.5 MG TABLET PO SCH ×2 (08:22→21:00)
[2020-02-10] MEDS: MULTIVIT W/ MINERAL TAB PO SCH (08:22)
[2020-02-10] MEDS: FE SULF/FA/VIT B COMP & C TAB PO SCH (08:22)
[2020-02-10] MEDS: PANTOPRAZOLE 40MG TABLET PO SCH (08:23)
[2020-02-10] MEDS: CYANOCOBALAMIN 1,000 MCG TAB PO SCH (08:23)
[2020-02-10] MEDS: NEPRO SHAKE 237 ML CAN PO SCH (08:23)
[2020-02-10] MEDS: CALCIUM CARBONATE 500 MG TAB PO SCH (08:23)
[2020-02-10] MEDS: ALBUMIN HUMAN 25% 100 ML IV ONE ×2 (10:00→11:30)
[2020-02-10] MEDS ORDERED: MORPHINE 2 MG/ML SYR IV PRN (11:23)
--- NOTE | 2020-02-10 11:47 | PN ---
Date of Progress Note: 02/10/2020 Subjective: The patient was admitted with left hip fracture. The patient is status post closed hip reduction for her left hip yesterday, tolerated. The patient had a transfusion. The patient seen on dialysis today, to me slightly more awake, following command, holding hand, but still weak. Physical Examination: Vital Signs: Blood pressure 112/55, pulse of 100, afebrile. Chest: Faint rales bilateral base. Heart: S1, S2. Systolic murmur. Abdomen: Soft, nontender. Extremities: No edema. Dressing on the left side of the hip. Laboratory Data: WBC 7.4, H and H 9.3/27.6, platelets of 160. Sodium 141, potassium 4.2, bicarb 25, BUN 35, creatinine 4.1, calcium 8.2, phosphorus 3.9, magnesium of 2.3, albumin 2.1. Current Medications: The patient on include; 1. Vancomycin. 2. Eliquis. 3. Epogen. 4. Calcium carbonate. 5. Zofran. 6. Pantoprazole. 7. Morphine p.r.n. 8. Vitamin C. 9. Multivitamin. 10. Oxygen. Assessment And Plan: 1. End-stage renal disease. Normal volume. The patient seen on dialysis. We are going to be no challenge for the patient, has blood pressure on the lower side and the patient's poor intake. I do not see any over volume status for the patient and we will monitor. 2. Hypertension, currently blood pressure on the lower side. The patient off all blood pressure medications. Again, there is no significant ultrafiltration. 3. Hyperkalemia, resolved. 4. Anemia of chronic kidney disease/blood loss secondary to surgery. I am going to go ahead and continue BOUCHRA, status post transfusion. We will monitor. 5. Altered mental status, sleepy, mostly secondary to the pain medication. I am going to go ahead and change the morphine to be q.6 hours instead to decrease the dosage. We will re-evaluate the patient after the dialysis. 6. Poor intake. Given that the patient has congestive heart failure and dialysis and the patient is anuric, I am going to change IV fluid to D10. The patient scheduled to have a swallow study. We will follow up. 7. Hip fracture, status post surgery. Follow up with Ortho. Continue Eliquis. Waiting for CT evaluation. Case discussed with Dr. Valerio, agreed on the plan. Discussed with the patient and verbalized understanding. time spend exam the patient face to face , place order , discussed the case with other donor services team leader hospitalist and other consulatant 45 min. KELL Voice ID: [id number] Report ID: [id number] KARIN
[2020-02-10] MEDS: EPOETIN ALFA-EPBX 4,000 UNIT/ML VIAL IV SCH (12:15)
[2020-02-10] MEDS: D10W 250 ML IV SCH (14:44)
[2020-02-10] MEDS: NYSTATIN OINT 15 GM TUBE TOP SCH (14:45)
--- NOTE | 2020-02-10 17:22 | P.PN ---
Subjective Date of Service: 02/10/20 Chief Complaint: Fracture of L Femur Subjective: No new changes (feels ok, very sleepy this morning, weak voice, reports occasional pains in left hip and generalized weakness, dry mouth) Review of Systems 10-point ROS is otherwise unremarkable Physical Examination - Vital Signs Temperature: 97.4 F Blood Pressure: 146/63 Pulse: 97 Respirations: 14 Pulse Ox (%): 100 - Physical Exam General: Alert, Oriented x2 HEENT: Other (dry mucous membranes), Sclerae nonicteric Respiratory: Clear to auscultation bilaterally, Other (non-labored) Cardiovascular: No edema, Regular rate/rhythm Gastrointestinal: Soft and benign, No tenderness Musculoskeletal: Tenderness (at left upper thigh, dressing in place, c/d/i, no hematoma/swelling) Integumentary: Other (3 small nonpurulent skin wounds on L leg, very superficial, ~1-2cm diameter, no drainage, no surrounding erythema) Assessment & Plan Physician Review Additional Text: Closed intertrochanteric fracture of left femur ESRD on HD Chronic diastolic CHF Liver cirrhosis Paroxysmal Afib hypothyroidism Hgb improved, s/p 1u PRBC with HD 02/07; pt denies melena, BRBPR, or emesis, no obvious signs of bleeding s/p ORIF on 02/08 restart eliquis today failed bedside swallow - will obtain barium swallow per [facility] reports pt has had difficulty before but that was around the time she was intubated for a long time / had a tracheostomy will give d51/2NS TKO as patient remains NPO wounds cultured and growing MRSA, proteus, e.coli - LLE wounds examined yesterday evening and again today, no evidence of infection, ID reviewed photo (obtained verbal consent from patient) and in agreement continue local wound care for now pt appears more sleepy/confused today, will re-eval after HD Dispo: would likely benefit from SNF after surgery for PT, pending barium swallow results Time Spent Managing Pts Care (In Minutes): 35
[2020-02-10 20:37] LABS: HBsAG Nonreactive (Nonreactive)
[2020-02-10] MEDS ORDERED: METOPROLOL TARTRATE 5 MG/5 ML INJ IV STA ×2 (23:23→23:57)
[2020-02-11] MEDS: D10W 250 ML IV SCH ×2 (00:30→21:48)
[2020-02-11] MEDS ORDERED: METOPROLOL TARTRATE 5 MG/5 ML INJ IV STA (01:10)
[2020-02-11] MEDS ORDERED: DIGOXIN 0.25 MG/ML AMP IV ONE (01:31)
[2020-02-11 05:59] LABS: Hematocrit 28.3 % (36.0-45.0); MPV 8.2 fL (7.6-11.3)
[2020-02-11 06:03] LABS: Albumin 2.5 g/dL (3.4-5.0); Phosphorus 2.5 mg/dL (2.5-4.9); Potassium 4.4 mmol/L (3.5-5.1)
[2020-02-11] MEDS: LEVOTHYROXINE SOD 0.1 MG TAB PO SCH (06:30)
[2020-02-11] MEDS: LIPASE/PROTEASE/AMYLASE CAP PO SCH ×4 (08:00→21:41)
[2020-02-11] MEDS: PANTOPRAZOLE 40MG TABLET PO SCH (09:00)
[2020-02-11] MEDS: CALCIUM CARBONATE 500 MG TAB PO SCH (09:00)
[2020-02-11] MEDS: FE SULF/FA/VIT B COMP & C TAB PO SCH (09:00)
[2020-02-11] MEDS: MULTIVIT W/ MINERAL TAB PO SCH (09:00)
[2020-02-11] MEDS: NEPRO SHAKE 237 ML CAN PO SCH (09:00)
[2020-02-11] MEDS: NYSTATIN OINT 15 GM TUBE TOP SCH (09:00)
[2020-02-11] MEDS: METOPROLOL TAR 50 MG TAB PO SCH (09:00)
[2020-02-11] MEDS: APIXABAN 2.5 MG TABLET PO SCH ×2 (09:00→21:41)
[2020-02-11] MEDS: CYANOCOBALAMIN 1,000 MCG TAB PO SCH (09:00)
--- NOTE | 2020-02-11 10:36 | P.PN ---
Subjective Date of Service: 02/11/20 Chief Complaint: Fracture of L Femur Subjective Pt with ESRD , afib m chf , admitted with Hip fracture S/P ORIF Today had Afib with RVR this morning rate controlled now HD tomorrow monitor H/H , pt now on Eliquis ROS unable to obtain Physical exam general: lethargic , NAD Neck; Supple, No elevated JVD hear: RRR, normal S1,2 no murmur or rub Chest: CTAB, no rales or wheezes Abdomen: Soft , Nt Extremities trace edema, A/P ESRD on HD TTSat cont HD as above renal dose meds Acute on chronic anemia due to blood loss Epogen transfuse to keep Hb>7.0 hip fracture S/p ORIF Afib with RVR rate controlled now restarted on El[employer] monitor H/h total time spent 20 min Physical Examination - Vital Signs Temperature: 97.9 F Blood Pressure: 119/74 Pulse: 78 Respirations: 18 Pulse Ox (%): 93
--- NOTE | 2020-02-11 14:22 | RAD REPORT ---
EXAM DESCRIPTION: RAD - Chest Single View - 02/11/2020 2:04 pm CLINICAL HISTORY: confirmation of dobhoff placement COMPARISON: January 2019 TECHNIQUE: AP portable chest image was obtained 02/11/2020 2:04 pm . FINDINGS: Single-view chest was obtained centered at the level of the diaphragm for feeding tube devyn cement. The feeding tube tip is in the proximal stomach. Stomach is decompressed. No bowel obstruction, free air or emergent finding noted. IMPRESSION: Feeding tube has been placed with the tip in the proximal stomach.
[2020-02-11] MEDS: NEPRO 1,000 ML BOT RTH SCH (16:16)
--- NOTE | 2020-02-11 16:16 | P.PN ---
Subjective Date of Service: 02/11/20 Chief Complaint: Fracture of L Femur Subjective: No new changes (this morning with some confusion / weakness /lethargy, as the morning went on she was more awake and alert & oriented x3. Still feeling generalized weakness, with a weak voice/cough. Remains NPO, scheduled for barium swallow today) Review of Systems 10-point ROS is otherwise unremarkable Physical Examination - Vital Signs Temperature: 97 F Blood Pressure: 165/69 Pulse: 95 Respirations: 18 Pulse Ox (%): 93 - Physical Exam General: Alert, Oriented x3, Confused, Other (Appears very weak) HEENT: Sclerae nonicteric Respiratory: Clear to auscultation bilaterally, Diminished (at bases bilaterally) Cardiovascular: No edema, Regular rate/rhythm Gastrointestinal: Soft and benign, No tenderness Musculoskeletal: Tenderness (at left hip) Integumentary: Other (L lower extremity wounds with dressings in place. coccyx area and left buttocks with pressure ulcers. coccyx appears stage II, left buttock unstageable with slight yellow slough covering. no surrounding erythema, no purulent drainage) Assessment & Plan Physician Review Additional Text: Closed intertrochanteric fracture of left femur ESRD on HD Chronic diastolic CHF Liver cirrhosis Paroxysmal Afib hypothyroidism Hgb stable, received 1uPRBC with HD on 02/07 s/p ORIF on 02/08 NPO, failed bedside swallow earlier this week. Barium swallow ordered per speech therapy recommendations, unfortunately patient was unable to have this done as a speech therapist is out sick. Discussed with patient and she would like to proceed with Dobhoff tube placement at this time to receive tube feeds in medications. Wounds were cultured on admission, however, they do not appear acutely infected. Infectious disease was consulted and is in agreement. continue local wound care for now Some of her confusion and mild lethargy this morning was likely due to the morphine, will decrease dose Later in the morning as it does seem to wear off, patient was more alert and oriented x3, had a long conversation, patient states if needed she is okay with dobhoff tube for now, and possible PEG tube placement in the near future. Dispo: would likely benefit from SNF after surgery for PT, dobhoff placed, may need PEG. Time Spent Managing Pts Care (In Minutes): 40
[2020-02-11] MEDS ORDERED: VANCOMYCIN 1.25 GM in NA CHLORIDE 0.9% 250 ML IVPB ONE (19:00)
--- NOTE | 2020-02-11 19:08 | CON ---
History Of Present Illness: The patient has us consulted for lower extremity wounds and unstageable wound to coccyx and buttock region. The patient initially came in for fracture of the left femur aft er she had a fall. The patient is not a good historian. Most of the history was obtained through st aff and hospitalist and review of medical records. Denies any headache, nausea, vomiting, chest pain , abdominal pain, constipation, or diarrhea. Complains of pain in her back where the wound site is. Past Medical History: Includes diabetes mellitus, end-stage renal disease on hemodialysis with Fred on catheter placed on right chest wall, hypothyroidism, left nephrectomy, chronic diastolic heart martin lure, pancreatic insufficiency secondary to surgery, cirrhosis with ascites, hypertension, left nephr ectomy, stomach surgery, femur fracture with fixation, exploratory laparotomy, cholecystectomy. Social History: Nonsmoker. Nondrinker. Family History: Noncontributory. Medications: Include nystatin and barrier cream to the back. See MAR for other medication. Allergies: INCLUDE MEPERIDINE, PENICILLIN, NAPROXEN. Microbiology Data: Micro data showing E coli and Proteus mirabilis from the left buttock wounds and MRSA and Proteus mirabilis from the left leg wound. Physical Examination: General: This is an 84-year-old female, lying in bed, not in any acute cardiopulmonary distress. Vital Signs: Temperature 97, pulse 95, respirations 18, blood pressure 165/69. HEENT: Unremarkable. Neck: Supple. Lungs: Basal crackles. Heart: S1, S2. Regular. Abdomen: Soft, nontender. Bowel sounds present. Extremities: Severe muscle wasting noted in lower extremity. IV line on the right. Right periphera l line and Ciaran catheter to the right chest wall. The patient also has a Dobhoff tube placed and 3 L nasal cannula. Examination of lower back shows sacral coccyx region and buttock region with nons urgical wound with slough 100%. We will recommend Medihoney and offloading lower extremity wounds. Also noted with superficial granulation and epithelialization noted. Laboratory Data: WBC 7.2, hemoglobin 9.1, platelets are 134. Chemistry shows sodium 136, potassium 4.4, chloride 100, bicarb 27, BUN 23, creatinine 2.97, glucose 110, albumin is 2.5. Procalcitonin is 3.7. Assessment And Plan: Sacral coccyx and buttock wound, unstageable. Recommend to apply Medihoney, al ginate, and offload the wound site. Lower extremity wounds most likely vascular in nature with sever e muscle wasting and severe protein-calorie malnourishment. We will recommend to continue Xeroform a nd apply petroleum gel and offload the heels. We will up on the antibiotic at this time. We will co ntinue to monitor the patient for any signs of infection and sepsis. Continue local wound care. Pro gnosis is guarded. Consider long-term acute care for this patient for further management of wounds. We will follow the patient closely. Thank you Dr. Valerio for consult. CARLOTA/MACK Voice ID: [id number] Report ID: [id number]
[2020-02-11] MEDS ORDERED: Meropenem 500 MG VIAL IV SCH (21:00)
[2020-02-11] MEDS: NA CHLORIDE 0.9% IV SCH (21:40)
[2020-02-11] MEDS: MEROPENEM IV SCH (21:40)
[2020-02-11] MEDS: MEDIHONEY 44 ML TOPICAL TUBE TOP SCH (22:05)
[2020-02-12] MEDS: D10W 250 ML IV SCH (01:30)
[2020-02-12 05:13] LABS: Hematocrit 28.7 % (36.0-45.0); RBC Red Blood Cell Count 2.87 M/uL (3.86-4.86)
[2020-02-12] MEDS: MORPHINE 2 MG/ML SYR IV PRN ×2 (05:19→15:33)
[2020-02-12 05:26] LABS: Albumin 2.4 g/dL (3.4-5.0); Bilirubin Total 0.8 mg/dL (0.2-1.0); Magnesium 2.2 mg/dL (1.8-2.4); Phosphorus 2.6 mg/dL (2.5-4.9); Potassium 4.2 mmol/L (3.5-5.1); Protein, Total 6.6 g/dL (6.4-8.2)
[2020-02-12] MEDS: MEDIHONEY 44 ML TOPICAL TUBE TOP SCH (05:46)
[2020-02-12] MEDS: LEVOTHYROXINE SOD 0.1 MG TAB PO SCH (05:46)
[2020-02-12] MEDS: NYSTATIN OINT 15 GM TUBE TOP SCH (05:46)
[2020-02-12] MEDS: NEPRO SHAKE 237 ML CAN PO SCH (09:00)
[2020-02-12] MEDS: LIPASE/PROTEASE/AMYLASE CAP PO SCH ×4 (10:18→23:28)
[2020-02-12] MEDS: METOPROLOL TAR 50 MG TAB PO SCH (10:19)
[2020-02-12] MEDS: APIXABAN 2.5 MG TABLET PO SCH ×2 (10:19→23:28)
[2020-02-12] MEDS: CALCIUM CARBONATE 500 MG TAB PO SCH (10:19)
[2020-02-12] MEDS: CYANOCOBALAMIN 1,000 MCG TAB PO SCH (10:20)
[2020-02-12] MEDS: MULTIVIT W/ MINERAL TAB PO SCH (10:20)
[2020-02-12] MEDS: FE SULF/FA/VIT B COMP & C TAB PO SCH (10:20)
[2020-02-12] MEDS: PANTOPRAZOLE 40MG TABLET PO SCH (10:20)
[2020-02-12] MEDS: NA CHLORIDE 0.9% IV SCH ×2 (10:21→21:00)
[2020-02-12] MEDS: MEROPENEM IV SCH ×2 (10:21→21:00)
[2020-02-12] MEDS ORDERED: ALBUMIN HUMAN 25% 50 ML IV ONE (14:37)
--- NOTE | 2020-02-12 16:39 | P.PN ---
Subjective Date of Service: 02/12/20 Chief Complaint: Fracture of L Femur Subjective: Improving (Feeling a little bit better today, more awake/alert, a little bit more strength, but still remains very weak. Still with a weak cough, dry mouth and weak voice. Tolerating tube feeds that began yesterday Daughter at bedside, updated with clinical course and plan of care) Review of Systems 10-point ROS is otherwise unremarkable Physical Examination - Vital Signs Temperature: 97.7 F Blood Pressure: 145/66 Pulse: 69 Respirations: 19 Pulse Ox (%): 100 - Physical Exam General: Alert, In no apparent distress, Oriented x3 HEENT: Other (Mucous membranes dry, weak cough), Sclerae nonicteric Respiratory: Clear to auscultation bilaterally Cardiovascular: No edema, Regular rate/rhythm Gastrointestinal: Soft and benign, No tenderness Musculoskeletal: No tenderness Integumentary: Other (Left lower extremity wrapped in Aston bandage) Neurological: Normal affect, Abnormal speech (Very weak, raspy; difficult to understand at times) Assessment & Plan Physician Review Additional Text: Closed intertrochanteric fracture of left femur ESRD on HD Chronic diastolic CHF Liver cirrhosis Paroxysmal Afib hypothyroidism Hgb stable, received 1uPRBC with HD on 02/07; s/p ORIF on 02/08 NPO, failed bedside swallow earlier this week. Barium swallow ordered per speech therapy recommendations, unfortunately patient was unable to have this done as a speech therapist is out sick. Dobhoff placed 02/10 for tube feeds and medications - patient was agreeable Wounds were cultured on admission, LLE wounds did not appear infected. Sacaral decubitus and L buttock wound with foul odor, unstageable l buttock ulcer, and stage II coccyx ulcer. ID consulted and now recommends IV antibiotics, continue local wound care discussed advanced directives and advanced care planning with patient and daughter for ~35 minutes. Agree with going to LTAC, patient has been in [facility] in the past Dispo: working on LTAC plaement, may need PEG placement Time Spent Managing Pts Care (In Minutes): 44
[2020-02-12] MEDS ORDERED: VANCOMYCIN 500 MG/VIAL ONE (18:11)
[2020-02-12] MEDS ORDERED: VANCOMYCIN 1 GM/VIAL ONE (18:12)
[2020-02-12] MEDS ORDERED: NA CHLORIDE 0.9% 250 ML ONE (18:15)
--- NOTE | 2020-02-12 19:28 | PN ---
Date of Progress Note: 02/12/2020 Subjective: The patient was admitted with hip fracture. The patient underwent surgery. Patient had difficulty to swallow. PEG tube was placed. The patient more awake today. Physical Examination: Vital Signs: Blood pressure 145/66, pulse of 69, afebrile. The patient had dialysis. Chest: Clear to auscultation. Heart: S1, S2. Systolic murmur. Abdomen: Soft, nontender. Extremities: No edema. Neuro: Alert and oriented. No focality. Difficulty to swallow with dysphagia. Vascular: Right IJ PermCath. Left radiocephalic AV fistula. Laboratory Data: WBC 7.6, H and H 9.5/28.7. Sodium 136, potassium 4.2, bicarb 30, BUN 39, creatinine 4.1, calcium 8.4, phosphorus 2.6, albumin 2.4, corrected calcium is 10. Current Medications: The patient on include: 1. Meropenem. 2. Vancomycin. 3. Eliquis. 4. Epogen. 5. Calcium carbonate. 6. Nepro. 7. Pantoprazole. 8. Zofran. 9. Levothyroxine. Assessment And Plan: 1. End-stage renal disease. Normal volume. I am going to continue the patient on her dialysis schedule 3 times a week through right IJ PermCath. 2. Hypertension, controlled, optimal. 3. Anemia secondary to chronic kidney disease/blood loss in surgery, status post transfusion. Continue BOUCHRA. 4. Secondary hyperparathyroidism, marginal elevation in the calcium. I am going to discontinue calcium carbonate. Continue multivitamin, Sushma-Jose Carlos for the time being. No need for binder as phosphorus is on the lower side because of the poor intake. 5. Dysphagia postop. We will follow up with hospitalist. 6. Atrial fibrillation. Continue anticoagulation. 7. Hip fracture, status post surgery. Follow up with Surgery. Continue PT, OT. Case discussed with the patient and daughter by the bedside, the need possible for LTAC as patient has some decubitus ulcer and she is on triple antibiotics and she needs rehabilitation and further evaluation of her dysphagia. Family on agreement. Time spent discussing with the patient and daughter by bedside [id number] placing an order, discussing the case with the hospitalist, Dr. Valerio, and the staff 45 minutes. KELL Voice ID: [id number] Report ID: [id number] KARIN
[2020-02-13] MEDS ORDERED: LORazepam 2 MG/ML VIAL IM ONE (00:20)
[2020-02-13] MEDS ORDERED: LORazepam 2 MG/ML VIAL ONE (00:30)
[2020-02-13] MEDS: LEVOTHYROXINE SOD 0.1 MG TAB PO SCH (06:10)
[2020-02-13 06:29] LABS: Hematocrit 29.7 % (36.0-45.0); MPV 8.4 fL (7.6-11.3); RBC Red Blood Cell Count 2.97 M/uL (3.86-4.86)
[2020-02-13 06:43] LABS: Albumin 2.2 g/dL (3.4-5.0); Phosphorus 1.8 mg/dL (2.5-4.9); Potassium 4.2 mmol/L (3.5-5.1)
[2020-02-13] MEDS: MEDIHONEY 44 ML TOPICAL TUBE TOP SCH (06:45)
[2020-02-13] MEDS: NYSTATIN OINT 15 GM TUBE TOP SCH (06:45)
[2020-02-13] MEDS: NEPRO 1,000 ML BOT RTH SCH (07:31)
[2020-02-13] MEDS: NEPRO SHAKE 237 ML CAN PO SCH (09:00)
[2020-02-13] MEDS: LIPASE/PROTEASE/AMYLASE CAP PO SCH ×2 (09:25→12:13)
[2020-02-13] MEDS: FE SULF/FA/VIT B COMP & C TAB PO SCH (09:26)
[2020-02-13] MEDS: APIXABAN 2.5 MG TABLET PO SCH ×2 (09:26→20:40)
[2020-02-13] MEDS: CYANOCOBALAMIN 1,000 MCG TAB PO SCH (09:26)
[2020-02-13] MEDS: MULTIVIT W/ MINERAL TAB PO SCH (09:26)
[2020-02-13] MEDS: METOPROLOL TAR 50 MG TAB PO SCH (09:26)
[2020-02-13] MEDS: PANTOPRAZOLE 40MG TABLET PO SCH (09:26)
--- NOTE | 2020-02-13 09:29 | P.PN ---
Subjective Date of Service: 02/13/20 Chief Complaint: Fracture of L Femur Subjective: Other (confused / delirious overnight, pulled IV's out - was given ativan x 1. patient sleepy this morning, opens eyes and follows simple commands, weak voice and difficult to understand. not answering well. denies new pains or trouble breathing. continues with L hip/thigh pain) Review of Systems is unable to be obtained Physical Examination - Vital Signs Temperature: 97.9 F Blood Pressure: 130/77 Pulse: 78 Respirations: 20 Pulse Ox (%): 100 - Physical Exam General: In no apparent distress, Confused, Delirious Respiratory: Clear to auscultation bilaterally, Diminished (at bases bilaterally) Cardiovascular: No edema, Irregular heart rate/rhythm Gastrointestinal: Soft and benign, No tenderness Musculoskeletal: Tenderness (L thigh tenderness, no swelling) Integumentary: Other (coccyx decubitus ulcer with some yellowish-brown drainage on dressing, foul smell) Neurological: Abnormal speech (weak voice, weak cough) Assessment & Plan Physician Review Additional Text: Closed intertrochanteric fracture of left femur Dysphagia ESRD on HD Chronic diastolic CHF superficial wounds on LLE L buttock pressure ulcer, unstageable Coccyx/Sacral decubitus ulcer, Stage II Liver cirrhosis Paroxysmal Afib hypothyroidism Hgb stable, received 1uPRBC with HD on 02/07; s/p ORIF on 02/08 NPO, failed bedside swallow last week. Barium swallow ordered per speech therapy recommendations, unfortunately patient was unable to have this done as a speech therapist is out sick. Dobhoff placed 02/10 for tube feeds and medications - patient was agreeable, tolerating well Wounds were cultured on admission, LLE wounds did not appear infected. stage II Sacaral/coccyx decubitus with foul odor, unstageable L buttock ulcer does not appear acutely infected. ID consulted - started IV antibiotics on 02/11 - vanc and meropenem - renally dosed pt reported remote h/o dysphagia when she required tracheostomy, daughter is unsure, states she was "eating regular food fine" until admission. reviewed work up, no CT brain obtained on admission. Unlikely for a new CVA since family members were present for fall and seemed to be mechanical fall, and would be rare to have CVA affecting swalllow function only. Will obtain CT Brain for further evaluation Dispo: working on LTACH placement, may need PEG placement, continued wound care and IV antibiotics discussed with daughter and patient - agreeable to LTACH, pt has been in [facility] in past Time Spent Managing Pts Care (In Minutes): 37
--- NOTE | 2020-02-13 10:04 | RAD REPORT ---
EXAM DESCRIPTION: CT - Head Brain Wo Cont - 02/13/2020 8:52 am CLINICAL HISTORY: difficulty swallowing, fall COMPARISON: No comparisons TECHNIQUE: Axial 5 mm thick images of the head were obtained without IV contrast. All CT scans are performed using dose optimization technique as appropriate and may include automated exposure control or mA/KV adjustment according to patient size. FINDINGS: No intracranial hemorrhage, mass, edema or shift of mid-line structures. No acute cortical based infarction identified. No cortical edema or sulcal effacement identified. Moderate severity at rophy changes are present. Chronic ischemic changes are seen throughout the cerebral white matter. Th ere is focally more diminished attenuation in the posterior left frontal lobe white matter potentiall y an area of acute nonhemorrhagic infarction. A 12 millimeter area of diminished attenuation is seen in the periventricular left frontal lobe white matter encephalomalacia is present in the left tempora l lobe typical for prior CVA. Ventricles are in proportion to volume loss. Mastoid air cells are clear. No acute paranasal sinus finding. No acute bony findings. Asymmetry is created by head tilt. Suspected stroke findings telephoned to [facility] at the second for nurses station 9:59 a.m.. IMPRESSION: Focal diminished attenuation in the posterior left frontal lobe convexity suspicious for acute nonhemorrhagic white matter infarction. Diffuse moderate severity atrophy,, diffuse cerebral chronic ischemic change, and old infarction santacruz ges in the left temporal and left frontal lobes as detailed.
[2020-02-13] MEDS: NA CHLORIDE 0.9% IV SCH ×2 (10:08→20:40)
[2020-02-13] MEDS: MEROPENEM IV SCH ×2 (10:08→20:40)
[2020-02-13] MEDS: levETIRAcetam 500 MG TAB PO SCH (12:13)
--- NOTE | 2020-02-13 12:32 | PN ---
Date of Progress Note: 02/13/2020 Subjective: The patient was admitted with fracture after a fall. The patient underwent reduction. The patient had altered mental status with dysphagia. The patient had Dobhoff tube. The patient had CT yesterday showing CVA frontal. Objective: General: When I saw the patient, the patient is lying in bed, still on the tube feeding. Vital Signs: Blood pressure 130/77, pulse of 78, afebrile. The patient is anuric. Chest: Clear to auscultation. Heart: S1, S2. Systolic murmur. Abdomen: Soft, nontender. Extremities: No edema. AV fistula of the left upper arm with a good thrill. Neuro: Sleepy. No focality. Laboratory Data: WBC 8.1, H and H 9.9/29.7. Sodium 133, potassium 4.2, bicarb 30, BUN 30, creatinine 2.9, calcium 7.9, phosphorus 1.8. Current Medications: The patient on include; 1. Epogen 4000. 2. Eliquis. 3. Multivitamin. 4. Metoprolol 50 daily. 5. Keppra. 6. Nepro. 7. Pantoprazole. 8. Levothyroxine. Assessment And Plan: 1. End-stage renal disease, on dialysis, Friday, , Friday. Normal volume. I am going to continue dialysis Friday, , Friday. 2. Secondary hyperparathyroidism. Phosphorus on the lower side. Keep holding binder. Continue Nepro. 3. Hypertension, controlled. Optimal. Continue current treatment with metoprolol. 4. Anemia of chronic kidney disease/blood loss in the surgery status post transfusion. Continue erythropoiesis-stimulating agents. 5. Dysphagia, possible secondary to cerebrovascular accident. We will follow up with Neurology and primary. 6. Deconditioning. Continue physical therapy/occupational therapy. Follow up with the hospitalist. time spend exam the patient face to face , place order , discussed the case with other team truck driver hospitalist and other consulatant 45 min. KELL Voice ID: [id number] Report ID: [id number] KARIN
[2020-02-14] MEDS: LEVOTHYROXINE SOD 0.1 MG TAB PO SCH (05:13)
[2020-02-14 06:00] LABS: Bilirubin Total 0.6 mg/dL (0.2-1.0); Potassium 4.5 mmol/L (3.5-5.1); Protein, Total 6.3 g/dL (6.4-8.2)
[2020-02-14 06:09] LABS: Thyroid Stimulating Hormone 4.43 uIU/mL (0.360-3.740)
[2020-02-14] MEDS: APIXABAN 2.5 MG TABLET PO SCH ×2 (09:00→21:21)
[2020-02-14] MEDS: NEPRO SHAKE 237 ML CAN PO SCH (09:00)
[2020-02-14] MEDS: METOPROLOL TAR 50 MG TAB PO SCH (09:00)
[2020-02-14] MEDS: MULTIVIT W/ MINERAL TAB PO SCH (09:00)
[2020-02-14] MEDS: levETIRAcetam 500 MG TAB PO SCH (09:00)
[2020-02-14] MEDS: FE SULF/FA/VIT B COMP & C TAB PO SCH (09:00)
[2020-02-14] MEDS: CYANOCOBALAMIN 1,000 MCG TAB PO SCH (09:00)
[2020-02-14] MEDS: PANTOPRAZOLE 40MG TABLET PO SCH (09:00)
--- NOTE | 2020-02-14 09:54 | P.PN ---
Subjective Date of Service: 02/14/20 Chief Complaint: Fracture of L Femur Subjective: Other (CT head yesterday showing acute CVA. Discussed with daughter, brother, sister in law. Discuss with patient as well, however she was still confused, sleepy from the Ativan. Patient's code status has been changed to DNR. Patient much more alert and oriented this morning, still very weak) Physical Examination - Vital Signs Temperature: 97.3 F Blood Pressure: 101/59 Pulse: 77 Respirations: 20 Pulse Ox (%): 98 - Physical Exam General: Alert, In no apparent distress, Oriented x3, Other (very frail appearing) HEENT: Other (Dry mucous membranes. dobhoff in place), Sclerae nonicteric Respiratory: Diminished (At bases bilaterally) Cardiovascular: No edema, Regular rate/rhythm Gastrointestinal: Soft and benign, No tenderness Musculoskeletal: Tenderness (L upper thigh) Integumentary: Other (sacral decubitus ulcers with dressings in place. LLE wou nds with dressing in place as well) Neurological: Abnormal speech (very weak, difficult to understand at times, whisper / crackling - similar to past days) Assessment & Plan Physician Review Additional Text: Closed intertrochanteric fracture of left femur Left frontal lobe attenuation suspicious for acute nonhemorrhagic infarction Dysphagia ESRD on HD Chronic diastolic CHF superficial wounds on LLE L buttock pressure ulcer, unstageable Coccyx/Sacral decubitus ulcer, Stage II Liver cirrhosis Paroxysmal Afib Hypothyroidism Hgb stable, received 1uPRBC with HD on 02/07; s/p ORIF on 02/08; repeat CBC in AM NPO, failed bedside swallow last week. Barium swallow ordered per speech therapy recommendations, unfortunately patient was unable to have this done as a speech therapist is out sick. Dobhoff placed 02/10 for tube feeds and medications - patient was agreeable, tolerating well Wounds were cultured on admission, LLE wounds did not appear infected. stage II Sacaral/coccyx decubitus with foul odor, unstageable L buttock ulcer does not appear acutely infected. ID consulted - started IV antibiotics on 02/11 - vanc and meropenem - renally dosed CT brain with L frontal lobe attenuation suspicious for acute nonhemorrhage infarction - MRI ordered for further evaluation, will obtain carotid U/S and echo as well --discussed with radiology, unable to determine exact age, window is large, from several hours to several days. Stroke likely prior to admission which led to her fall / weakness Dispo: working on LTACH placement, may need PEG placement, continued wound care and IV antibiotics, PT/OT to eval, ST to re-eval if available Patient states she does not recall much of yesterday. She is oriented x5. I discussed at length with her this morning about her current clinical status, the CT findings of likely stroke. Patient stated she was afraid and stated she would still like to proceed with "trying to get better", no hospice at this time. Time Spent Managing Pts Care (In Minutes): 38
[2020-02-14] MEDS: NA CHLORIDE 0.9% IV SCH ×2 (10:35→21:21)
[2020-02-14] MEDS: MEROPENEM IV SCH ×2 (10:35→21:21)
[2020-02-14] MEDS: MORPHINE 2 MG/ML SYR IV PRN (10:36)
[2020-02-14] MEDS: MEDIHONEY 44 ML TOPICAL TUBE TOP SCH (10:36)
[2020-02-14] MEDS: NYSTATIN OINT 15 GM TUBE TOP SCH (10:36)
--- NOTE | 2020-02-14 14:23 | RAD REPORT ---
EXAM DESCRIPTION: RAD - Barium Swallow Modified - 02/14/2020 2:13 pm CLINICAL HISTORY: moderate-severe oropharyngeal swallowing impairmen Dysphagia COMPARISON: Abdomen Exam Complete dated 01/21/2019 TECHNIQUE: The patient was given liquid, semi-solid and solid forms of barium. Lateral view fluorosc opic imaging was performed in conjunction with speech pathology service. FINDINGS: LARYNGEAL PENETRATION NOT CLEARED ASPIRATION COUGH INEFFECTIVE PHARYNGEAL RESIDUE: VALLECULAR, PYRIFORM, POSTERIOR WALL SEVERE ABSENT SWALLOW, DELAYED SWALLOW RESPONSE (2 SEC) EPIGLOTIC INVERSION Total fluoroscopy time: 1 minutes and 51 seconds
--- NOTE | 2020-02-14 14:25 | RAD REPORT ---
EXAM DESCRIPTION: - CP - 02/14/2020 2:03 pm CLINICAL HISTORY: CVA Headache, drowsiness COMPARISON: No comparisons TECHNIQUE: Real-time sonographic evaluation of both carotid systems was performed. Doppler interroga tion was performed with waveform tracing bilaterally. FINDINGS: Normal high resistance waveforms are noted in both external carotid arteries. The common c arotid arteries and internal carotid arteries show normal low resistance waveforms. Mild mixed plaque is seen involving both carotid bulbs. Peak systolic and end diastolic velocity valu es and the ICA/CCA ratios are in the non-hemodynamically significant range. Antegrade flow seen in both vertebral arteries. IMPRESSION: Mild mixed plaque is seen involving both carotid bulbs. No evidence of a hemodynamically significant stenosis.
--- NOTE | 2020-02-14 18:11 | PN ---
Subjective: The patient's CT scan showed that she had stroke with focal diminished attenuation in th e posterior left frontal lobe, convexity suspicious for acute nonhemorrhagic white matter infarction, diffusely noted severity and atrophy, diffuse cerebral chronic ischemic changes, and old infarction changes in the left temporal and left frontal lobe as detailed. Objective: Vital Signs: Temperature 97, pulse 77, respirations 20, blood pressure 101/59. Lungs: Basal crackles. Heart: S1, S2. Regular. Abdomen: Soft, nontender. Bowel sounds present. Extremities: No edema. Muscle wasting noted. Laboratory Data: WBC 8.1, hemoglobin 9.9, platelets are 163. Chemistry shows sodium 130, potassium 4.5, chloride 95, bicarb 29, BUN 55, creatinine 3.8, glucose is 191, albumin level is 3. Micro data is growing E coli and Proteus mirabilis in the left buttock wound and MRSA and Proteus mirabilis in t he left leg wound. The patient is currently being treated with IV antibiotic including meropenem and vancomycin. She also has wound care orders for the buttock and for the leg wound. Assessment And Plan: History of recent infarct and buttock and lower extremity wound with methicilli n-resistant Staphylococcus aureus and Escherichia coli and Proteus mirabilis. We will continue curre nt antibiotic treatment and wound care. We will follow the patient as needed. We will monitor due t o severe protein-calorie malnourishment. Prognosis is guarded. Awaiting for a long-term acute care acceptance. We will follow the patient as needed. NF/MODL Voice ID: [id number] Report ID: [id number]
[2020-02-14] MEDS: EPOETIN ALFA-EPBX 4,000 UNIT/ML VIAL IV SCH (18:30)
--- NOTE | 2020-02-14 20:51 | PN ---
Date of Progress Note: 02/14/2020 Chief Complaint: End-stage renal disease, liver cirrhosis. Subjective: The patient was admitted after she sustained fall at home and developed hip fracture. She underwent surgery for hip fracture. She has multiple medical problems including history of end-stage renal disease. She has been dialyzed on Friday, , and Friday. The patient had Dobhoff tube. CT scan showed CVA. Review of Systems: Denies complaints today. Physical Examination: Lungs: Diminished breath sounds at bases. Heart: S1, S2. 2/6 systolic murmur on left lower sternal border. Abdomen: Soft, benign. Extremities: No edema. There is AV fistula in the left upper extremity with good thrill. Laboratory Data: BUN 30, creatinine 2.9, calcium 7.9, phosphorus 1.8. Impression And Plan: 1. End-stage renal disease. Dialysis will be done today. 2. Secondary hyperparathyroidism. Phosphorus level is below target range. Continue holding binders and continue po protein supplements as tolerated . 3. Anemia due to chronic kidney disease. Patient had some blood loss during surgery. Continue BOUCHRA. 4. Dysphagia secondary to cerebrovascular accident. The patient will follow up with Neurology. 5. Deconditioning. Occupational and physical therapy ordered per primary team. EB/MODL Voice ID: [id number] Report ID: [id number] MTDD
[2020-02-14] MEDS ORDERED: NA CHLORIDE 0.9% 100 ML ONE (21:52)
[2020-02-14] MEDS: VANCOMYCIN 500 MG in NA CHLORIDE 0.9% 100 ML IVPB SCH ×2 (22:13→22:17)
[2020-02-14] MEDS ORDERED: VANCOMYCIN 500 MG/VIAL ONE (22:22)
[2020-02-15] MEDS: NEPRO 1,000 ML BOT RTH SCH (03:38)
[2020-02-15] MEDS: LEVOTHYROXINE SOD 0.1 MG TAB PO SCH (05:02)
[2020-02-15 05:46] LABS: Magnesium 2.1 mg/dL (1.8-2.4)
[2020-02-15 05:54] LABS: Absolute Lymphocytes (CBC) 0.5 K/uL (0.7-4.9); Basophils % 0.3 % (0-1.3); Hematocrit 30.2 % (36.0-45.0); Lymphocytes % 4.3 % (15.3-44.8); MPV 8.7 fL (7.6-11.3); RBC Red Blood Cell Count 2.99 M/uL (3.86-4.86)
[2020-02-15] MEDS: MEDIHONEY 44 ML TOPICAL TUBE TOP SCH (09:00)
[2020-02-15] MEDS: APIXABAN 2.5 MG TABLET PO SCH (09:23)
[2020-02-15] MEDS: PANTOPRAZOLE 40MG TABLET PO SCH (09:23)
[2020-02-15] MEDS: levETIRAcetam 500 MG TAB PO SCH (09:23)
[2020-02-15] MEDS: MEROPENEM IV SCH (09:23)
[2020-02-15] MEDS: MULTIVIT W/ MINERAL TAB PO SCH (09:23)
[2020-02-15] MEDS: NA CHLORIDE 0.9% IV SCH (09:23)
[2020-02-15] MEDS: METOPROLOL TAR 50 MG TAB PO SCH (09:23)
[2020-02-15] MEDS: FE SULF/FA/VIT B COMP & C TAB PO SCH (09:24)
[2020-02-15] MEDS: CYANOCOBALAMIN 1,000 MCG TAB PO SCH (09:24)
[2020-02-15] MEDS: MORPHINE 2 MG/ML SYR IV PRN ×2 (09:26→18:30)
[2020-02-15] MEDS: NEPRO SHAKE 237 ML CAN PO SCH (09:27)
--- NOTE | 2020-02-15 09:28 | RAD REPORT ---
EXAM DESCRIPTION: RAD - Abdomen 1 View (KUB) - 02/12/2020 9:46 pm CLINICAL HISTORY: 84 years Female Dobhoff placement COMPARISON: None. TECHNIQUE: Single view of the abdomen. FINDINGS: The film is centered over the chest and upper abdomen. There is mild elevation of the righ t hemidiaphragm. The feeding tube tip overlies the fundus of the stomach. There is a metallic object projected over the right upper quadrant presumably external to the patient. Clinical correlation ian mmended. A vascular stent is visualized in the abdomen. IMPRESSION: The feeding tube tip overlies the stomach. Electronically signed by: Conor Billy MD 02/12/2020 10:28 PM [employer] Due to temporary technical issues with the PACS/Fluency reporting system, reports are being signed by the in house radiologist without review as a courtesy to ensure prompt reporting. The interpreting r adiologist is fully responsible for the content of the report.
[2020-02-15 10:14] VITALS: O2SAT 95
--- NOTE | 2020-02-15 13:16 | P.PN ---
Subjective Date of Service: 02/15/20 Chief Complaint: Fracture of L Femur Frail-appearing. Patient diagnosed with severe dysphagia. NG-tube to feeding in place. Not agitated. Physical Examination - Vital Signs Temperature: 97.6 F Blood Pressure: 137/64 Pulse: 86 Respirations: 16 Pulse Ox (%): 96 - Physical Exam General: Other (Awake, frail-appearing) HEENT: Other (NG-tube) Neck: Supple Respiratory: Clear to auscultation bilaterally, Normal air movement Cardiovascular: No edema, Regular rate/rhythm, Normal S1 S2 Gastrointestinal: Normal bowel sounds, Soft and benign, No tenderness Musculoskeletal: No swelling, No tenderness Integumentary: Other (Sacral decubitus ulcer.) Neurological: Other (Moves all extremities spontaneously) Assessment And Plan - Current Problems (Diagnosis) (1) Closed intertrochanteric fracture of left femur Current Visit: Yes Status: Acute (2) End-stage renal disease on hemodialysis Current Visit: Yes Status: Acute (3) Chronic diastolic heart failure Current Visit: Yes Status: Acute (4) Liver cirrhosis Current Visit: No Status: Acute (5) Paroxysmal A-fib Current Visit: No Status: Acute (6) Dysphagia Current Visit: Yes Status: Acute (7) Sacral decubitus ulcer Current Visit: Yes Status: Acute (8) CVA (cerebral vascular accident) Current Visit: Yes Status: Acute - Plan Patient now receiving NG tube feeding. She will need PEG tube along the way. She is suspected to have had an acute CVA. Continue antibiotics for infected decubitus ulcer. Multiple bacteria growing in the decubitus ulcers. Wound care. Pressure ulcer precautions. Patient is a good candidate for LTAC. Social service is assisting with disposition to LTAC. Physician Review Additional Text: Closed intertrochanteric fracture of left femur Left frontal lobe attenuation suspicious for acute nonhemorrhagic infarction Dysphagia ESRD on HD Chronic diastolic CHF superficial wounds on LLE L buttock pressure ulcer, unstageable Coccyx/Sacral decubitus ulcer, Stage II Liver cirrhosis Paroxysmal Afib Hypothyroidism Hgb stable, received 1uPRBC with HD on 02/07; s/p ORIF on 02/08; repeat CBC in AM NPO, failed bedside swallow last week. Barium swallow ordered per speech therapy recommendations, unfortunately patient was unable to have this done as a speech therapist is out sick. Dobhoff placed 02/10 for tube feeds and medications - patient was agreeable, tolerating well Wounds were cultured on admission, LLE wounds did not appear infected. stage II Sacaral/coccyx decubitus with foul odor, unstageable L buttock ulcer does not appear acutely infected. ID consulted - started IV antibiotics on 02/11 - vanc and meropenem - renally dosed CT brain with L frontal lobe attenuation suspicious for acute nonhemorrhage infarction - MRI ordered for further evaluation, will obtain carotid U/S and echo as well --discussed with radiology, unable to determine exact age, window is large, from several hours to several days. Stroke likely prior to admission which led to her fall / weakness Dispo: working on LTACH placement, may need PEG placement, continued wound care and IV antibiotics, PT/OT to eval, ST to re-eval if available Patient states she does not recall much of yesterday. She is oriented x5. I discussed at length with her this morning about her current clinical status, the CT findings of likely stroke. Patient stated she was afraid and stated she would still like to proceed with "trying to get better", no hospice at this time.
--- NOTE | 2020-02-15 13:40 | PN ---
Date of Progress Note: 02/15/2020 Subjective: The patient was admitted with CVA. Had dysphagia. The patient had fall with hip fracture. Physical Examination: Vital Signs: Blood pressure 137/64, pulse of 86. General: The patient had dialysis planned for today. Chest: Clear to auscultation. Heart: S1, S2. Systolic murmur. Abdomen: Soft,. nontender. Extremities: dressing on the thigh. No edema. Neuro: Alert. Has dysphagia. No focality. Laboratory Data: H and H 12/30.2. Sodium 137, potassium 4, bicarb 29, BUN 35, creatinine 2.6, calcium 8.5, magnesium 2.1. The patient is feeling still weak. Current Medications: The patient on include: 1. Albumin. 2. Meropenem. 3. Vancomycin. 4. Eliquis. 5. Epogen. 6. Metoprolol. 7. Keppra. 8. Zofran. 9. Pantoprazole. 10. Levothyroxine. 11. Multivitamin. Assessment And Plan: 1. End-stage renal disease. We will continue the patient on dialysis TTS. 2. Secondary hyperparathyroidism. No need for binder. Calcium, phosphor and PTH on the goal. 3. Anemia secondary to blood loss of chronic kidney disease. Continue BOUCHRA. Status post transfusion. 4. Cerebrovascular accident. Continue supportive care. We will follow up with the swallow. Suspect risk for aspiration. Recommendation for IV treatment. Will follow up with hospitalist. Follow up with Neurology. time spend exam the patient face to face , place order , discussed the case with other steam hoist operator hospitalist and other consulatant 45 min. KELL Voice ID: [id number] Report ID: [id number] KARIN
[2020-02-15 16:09] VITALS: BP 133/61; TEMP 98.2
--- NOTE | 2020-02-15 16:20 | P.DS ---
Admission Date: 02/06/20 Discharge Date: 02/15/20 [facility] Discharge Condition: FAIR Reason for Admission: Fracture of L Femur Consultations: Orthopedic- Dr. Mcneal Infectious Disease-Dr. Abraham Nephrology-Dr. Andres Procedures: ORIF-Left hip closed and open reduction with intramedullary fixation. - Problems (1) Closed intertrochanteric fracture of left femur Current Visit: Yes Status: Acute (2) End-stage renal disease on hemodialysis Current Visit: Yes Status: Acute (3) Chronic diastolic heart failure Current Visit: Yes Status: Acute (4) Liver cirrhosis Current Visit: No Status: Acute (5) Paroxysmal A-fib Current Visit: No Status: Acute (6) Dysphagia Current Visit: Yes Status: Acute (7) Sacral decubitus ulcer Current Visit: Yes Status: Acute (8) CVA (cerebral vascular accident) Current Visit: Yes Status: Acute Brief History of Present Illness: 84-year-old woman with a history of end-stage renal disease on hemodialysis slipped from a chair and fell, injuring her left hip. Imaging done in the emergency department suggested left intratrochanteric fracture. Patient was admitted for further management. Hospital Course: Patient admitted to the medical floor. Nephrology consult for hemodialysis which was performed routinely. She was seen and evaluated by Orthopedic Surgery-Dr. Mcneal will performed open reduction internal fixation with internal minna fixation of the left hip. Patient with decubitus ulcer in the sacral region that looked infected. Wound culture grew multiple organisms including E. coli, Proteus and MRSA. Infectious Disease was consulted and patient placed on IV meropenem and vancomycin. Swallow evaluation also revealed severe dysphagia with loss of swallow reflex. Feeding tube was started. Peg tube is recommended which can be pursued at the [facility] facility. She is on Eliquis for paroxysmally atrial fibrillation which held before surgery and then resumed after surgery. Patient has been accepted to continue medical treatment at [facility]. She is stable for transfer. Vital Signs/Physical Exam: Temp Pulse Resp BP Pulse Ox 98.2 F 76 16 133/61 99 02/15/20 16:00 02/15/20 16:00 02/15/20 16:00 02/15/20 16:00 02/15/20 16:00 General: Other (Awake, frail) HEENT: Other (NG tube) Neck: Supple Respiratory: Clear to auscultation bilaterally Cardiovascular: No edema, Normal S1 S2, Irregular heart rate/rhythm Gastrointestinal: Normal bowel sounds, Soft and benign, Non-distended, No tenderness Musculoskeletal: No swelling Neurological: Other (Moves all extremities spontaneously) Laboratory Data at Discharge: WBC 10.6 K/uL (4.3-10.9) D 02/15/20 05:10 Hgb 10.0 g/dL (12.0-15.0) L 02/15/20 05:10 Hct 30.2 % (36.0-45.0) L 02/15/20 05:10 Plt Count 215 K/uL (152-406) D 02/15/20 05:10 PT Cancelled 02/06/20 Unknown INR Cancelled 02/06/20 Unknown APTT 24.4 SECONDS (24.3-36.9) 02/06/20 20:05 Sodium 137 mmol/L (136-145) 02/15/20 05:10 Potassium 4.0 mmol/L (3.5-5.1) 02/15/20 05:10 BUN 35 mg/dL (7-18) H D 02/15/20 05:10 Creatinine 2.68 mg/dL (0.55-1.3) H D 02/15/20 05:10 Glucose 218 mg/dL (74-106) H 02/15/20 05:10 Phosphorus 2.0 mg/dL (2.5-4.9) L 02/14/20 05:20 Magnesium 2.1 mg/dL (1.8-2.4) 02/15/20 05:10 Total Bilirubin 0.6 mg/dL (0.2-1.0) 02/14/20 05:20 AST 20 U/L (15-37) 02/14/20 05:20 ALT 18 U/L (12-78) 02/14/20 05:20 Alkaline Phosphatase 112 U/L (45-117) 02/14/20 05:20 Home Medications: Apixaban [Eliquis *] 2.5 mg PO DAILY 02/07/20 Calcium Carbonate [Oscal*] 500 mg PO DAILY 02/07/20 Cyanocobalamin (Vitamin B-12) [Vitamin B-12] 1,000 mcg PO DAILY 02/07/20 Iron/FA/Vit B-Com W/C [Hemocyte Plus*] 1 tab PO DAILY 02/07/20 Levothyroxine Sodium [Levothyroxine] 100 mcg PO DAILY 02/07/20 Lipase/Protease/Amylase [Mathieu Dr 12,000 Units Capsule] 2 each PO TIDWMHS 02/07/20 Metoprolol Tartrate [Lopressor*] 50 mg PO DAILY 02/07/20 Midodrine HCl [Proamatine*] 5 mg PO M,W,F 02/07/20 Multivit-Min/FA/Lycopen/Lutein [Centrum Silver Tablet] 1 each PO DAILY 02/07/20 Nepro Shake [Nepro*] 237 ml PO DAILY 02/07/20 Nystatin Oint [Mycostatin 100 Mu/Gm Oint*] 15 appl TOP DAILY 02/07/20 Vitamin E 400 unit PO DAILY 02/07/20 Epoetin Zander-Epbx [Retacrit] 4,000 unit IV EVERY HD vial 02/15/20 Medihoney [Medihoney Woundcare Gel*] 1 appl TOP DAILY tube 02/15/20 Meropenem-0.9% Sodium Chloride [Meropenem-0.9% NaCl 500 mg/50] 250 mg IV Q12H 5 Days piggyback 02/15/20 Pantoprazole [Protonix Tab*] 40 mg PO DAILY tab 02/15/20 Vancomycin/0.9 % Sod Chloride [Vanco 1 Gram/250 ml-0.9% NaCl] 500 mg IV M,W,F #6 plast..bag 02/15/20 levETIRAcetam [Keppra*] 250 mg PO DAILY tab 02/15/20 New Medications: Meropenem-0.9% Sodium Chloride [Meropenem-0.9% NaCl 500 mg/50] 250 mg IV Q12H 5 Days piggyback Vancomycin/0.9 % Sod Chloride [Vanco 1 Gram/250 ml-0.9% NaCl] 500 mg IV M,W,F #6 plast..bag Patient Discharge Instructions: NG tube feeding. Nepro 35 ml/hr. Water Flushes 50 ml Q4HRS. Diet: Tube feed Activity: Activity as tolerated Followup: Unknown,U [Primary Care Provider] - Time spent managing pt's care (in minutes): 40
--- NOTE | 2020-02-16 09:15 | ECHO ---
HEIGHT: 5 ft 3 in WEIGHT: 132 lb 0 oz DATE OF STUDY: 02/14/[address]: Marcus Valerio MD 2-DIMENSIONAL: YES M.MODE: YES DOPPLER: YES COLOR FLOW: YES TDS: YES PORTABLE: NO DEFINITY: NO BUBBLE STUDY: NO DIAGNOSIS: CEREBRAL VASCULAR ACCIDENT CARDIAC HISTORY: CATHERIZATION: NO SURGERY: NO PROSTHETIC VALVE: NO PACEMAKER: NO MEASUREMENTS (cm) DIASTOLIC (NORMALS) SYSTOLIC (NORMALS) IVSd 1.0 (0.6-1.2) LA Diam 2.7 (1.9-4.0) LVEF 64% LVIDd 2.8 (3.5-5.7) LVIDs 1.8 (2.0-3.5) %FS 34% LVPWd 1.1 (0.6-1.2) Ao Diam 2.8 (2.0-3.7) 2 DIMENSIONAL ASSESSMENT: RIGHT ATRIUM: NORMAL LEFT ATRIUM: NORMAL RIGHT VENTRICLE: NORMAL LEFT VENTRICLE: NORMAL TRICUSPID VALVE: NORMAL MITRAL VALVE: MITRAL ANNULAR CALCIFICATION PULMONIC VALVE: NORMAL AORTIC VALVE: SCLEROSIS PERICARDIAL EFFUSION: NONE AORTIC ROOT: NORMAL LEFT VENTRICULAR WALL MOTION: NORMAL DOPPLER/COLOR FLOW: NORMAL BUBBLE STUDY. COMMENTS: NORMAL BUBBLE STUDY, NO ATRIAL SEPTAL DEFECT. TECHNICALLY DIFFICULT STUDY. AORTIC SCLEROSIS. MITRAL ANNULAR CALCIFICATION. NORMAL LEFT VENTRICULAR EJECTION FRACTION. TECHNOLOGIST: Elmer SAWYER
== END 2020-02-15 18:57 | DRG 480 ==
LOC: ER 19:44 → 2ND 22:08
PROVIDERS: ADMIT Internal Medicine Sleep Medicine; ATTEND Internal Medicine
PROC: 5A1D70Z Performance of Urinary Filtration, Intermittent, Less than 6 Hours Per Day (ICD-10-PCS; 2020-02-07)
PROC: 30233N1 Transfusion of Nonautologous Red Blood Cells into Peripheral Vein, Percutaneous Approach (ICD-10-PCS; 2020-02-08)
PROC: 0QS706Z Reposition Left Upper Femur with Intramedullary Internal Fixation Device, Open Approach (ICD-10-PCS; principal; 2020-02-09 13:00)
DX: S72.142A Displaced intertrochanteric fracture of left femur, initial encounter for closed fracture (principal); N18.6 End stage renal disease; E43 Unspecified severe protein-calorie malnutrition; I63.9 Cerebral infarction, unspecified; I50.32 Chronic diastolic (congestive) heart failure; I13.2 Hypertensive heart and chronic kidney disease with heart failure and with stage 5 chronic kidney disease, or end stage renal disease; N25.81 Secondary hyperparathyroidism of renal origin; K74.60 Unspecified cirrhosis of liver; E03.9 Hypothyroidism, unspecified; N25.0 Renal osteodystrophy; D63.1 Anemia in chronic kidney disease; E87.5 Hyperkalemia; I48.0 Paroxysmal atrial fibrillation; E78.5 Hyperlipidemia, unspecified; L89.322 Pressure ulcer of left buttock, stage 2; L89.152 Pressure ulcer of sacral region, stage 2; B95.62 Methicillin resistant Staphylococcus aureus infection as the cause of diseases classified elsewhere; B96.4 Proteus (mirabilis) (morganii) as the cause of diseases classified elsewhere; B96.20 Unspecified Escherichia coli [E. coli] as the cause of diseases classified elsewhere; R13.19 Other dysphagia; R00.0 Tachycardia, unspecified; W01.0XXA Fall on same level from slipping, tripping and stumbling without subsequent striking against object, initial encounter; Z88.0 Allergy status to penicillin; Z88.5 Allergy status to narcotic agent; Z88.8 Allergy status to other drugs, medicaments and biological substances; Z79.890 Hormone replacement therapy; Z79.01 Long term (current) use of anticoagulants; Z79.899 Other long term (current) drug therapy; Z60.2 Problems related to living alone; Z99.2 Dependence on renal dialysis; Z68.23 Body mass index [BMI] 23.0-23.9, adult; Z90.49 Acquired absence of other specified parts of digestive tract; Z20.828 Contact with and (suspected) exposure to other viral communicable diseases
CPT/HCPCS: 36415; 70450; 71045; 72170; 73530; 74018; 74230; 80048; 80053; 80069; 80202; 82947; 83735; 84100; 84145; 84439; 84443; 85018; 85025; 85027; 85610; 85730; 86317; 86705; 86850; 86900; 86901; 87070; 87077; 87186; 87205; 87340; 90935; 92610; 92611; 93005; 93306; 93880; 94760; 96374; 96375; 97110; 97161; 97530; 99285; J1160; J1644; J2270; J2370; J2405; J2704; J3010; J3370; J7030; J7050; J7120; J7799; P9016; P9047; Q5106; U0002